=== PATIENT | male | born 1965 | race Caucasian/White ===

== ENCOUNTER 2017-05-20 20:57 | Observation (INO) | payer MEDICARE, MEDICAID, SELFPAY ==
[2017-05-20 21:00] VITALS: BP 157/114; PULSE 112; RESP 18; TEMP 36.9; O2SAT 93; BMI 25.8
--- NOTE | 2017-05-20 21:12 | XR_ITS ---
XR chest 2V HISTORY: ITS.REASON: COUGH ORDERING PHYSICIAN: Jae Alonzo MD PATIENT AGE: 52 years COMPARISON: 01/04/2017 FINDINGS: There is chronic coarsening of the bronchovascular markings. There has been a prior median sternotomy. Borderline cardiomegaly with mild prominence of the pulmonary vessels suggesting mild CHF. There is mild thickening of the minor fissure. Faint nodularity noted in the left lung base possibly related to nipple shadow. Follow-up recommended to exclude developing nodule. There is a nodular opacity noted over the posterior aspect of the heart on the lateral view measuring 1 cm. This is been stable since 02/09/2015 radiographically. IMPRESSION: 1. Mild CHF, prior median sternotomy 2. Chronic changes with coarsening of the bronchovascular markings suggesting chronic perivascular inflammatory change. 3. Possible developing left lower lobe nodule. Recommend follow-up
[2017-05-20 21:44] LABS: Basophils % 0.2 % (0.1-2.0); Eosinophils % 0.5 % (0.1-12.0); Hematocrit 37.5 % (42.0-52.0); Hemoglobin 12.6 g/dL (14.1-18.0); Lymphocytes # 1.3 K/mm3 (0.7-4.5); Lymphocytes % 15.8 K/mm3 (10-50); Mean Corpuscular HGB Conc 33.6 g/dL (31.8-35.4); Mean Corpuscular Hemoglobin 30.6 pg (27.0-31.2); Mean Platelet Volume 7.8 fl (7.4-10.4); Monocytes # 0.4 K/mm3 (0.1-1.0); Monocytes % 5.3 % (1.7-9.3); Neutrophils # 6.5 K/mm3 (1.8-7.8); Neutrophils % 78.2 % (37.0-80.0); Platelet Count 190 K/mm3 (142-424); Red Blood Count 4.12 M/mm3 (4.60-6.20); Red Cell Distribution Width 13.6 % (11.5-17.5); White Blood Count 8.3 K/mm3 (4.8-10.8)
[2017-05-20 22:01] LABS: Strep Scrn Group A (Rapid) Negative (Negative)
[2017-05-20 22:07] LABS: Adenovirus F 40/41, stool Not Detected (NotDetected); Astrovirus Not Detected (NotDetected); Campylobacter Not Detected (NotDetected); Clostridium Difficile A/B, PCR Not Detected (NotDetected); Cryptosporidium Not Detected (NotDetected); Cyclospora Cayetanesis Not Detected (NotDetected); Entamoeba histolytica Not Detected (NotDetected); Enteroaggregative E coli Not Detected (NotDetected); Enteropathogenic E coli Not Detected (NotDetected); Enterotoxigenic E coli Not Detected (NotDetected); Giardia lamblia Not Detected (NotDetected); Microscopic, Urine URINE MICROSCOPIC (MICROSCOPIC); Norovirus Not Detected (NotDetected); Plesimonas Shigalloides, PCR Not Detected (NotDetected); Rotavirus A Not Detected (NotDetected); Salmonella, PCR Not Detected (NotDetected); Sapovirus Not Detected (NotDetected); Shiga-like toxin E coli Not Detected (NotDetected); Shigella Enterovasive E coli Not Detected (NotDetected); Vibrio Cholerae Not Detected (NotDetected); Vibrio, PCR Not Detected (NotDetected); Yersinia Entercolitica, PCR Not Detected (NotDetected)
[2017-05-20 22:17] LABS: Alanine Aminotransferase 21 U/L (12-78); Albumin Level 3.6 gm/dL (3.4-5.0); Albumin/Globulin Ratio 0.8 (1.1-1.8); Alkaline Phosphatase 142 U/L (46-116); Anion Gap 12.9 mEq/L (5-15); Aspartate Amino Transferase 16 U/L (15-37); Bilirubin,Total 0.7 mg/dL (0.2-1.0); Blood Urea Nitrogen 4 mg/dL (7-18); CKMB Relative Index 2.4 U/L (0-4.0); Calcium 8.8 mg/dL (8.5-10.1); Carbon Dioxide 27 mmol/L (21.0-32.0); Chloride 101 mmol/L (98-107); Creatine Kinase 50 U/L (39-308); Creatine Kinase MB 1.2 mg/ml (0.0-3.6); Creatinine Clearance Estimated 133 mL/min (0-300); Creatinine,Serum 0.82 mg/dL (0.70-1.30); Estimated Glomerular Filt Rate 98 ml/min (>60); GFR (African American) 118 ML/MIN (>60); Globulin 4.3 gm/dl (1.3-3.2); Glucose 113 mg/dL (74-106); Potassium 2.9 mmoL/L (3.5-5.1); Sodium 138 mmol/L (136-145); Total Protein,Serum 7.9 gm/dL (6.4-8.2); Troponin I 0.71 ng/ml (0.00-0.06)
[2017-05-20 22:17] LABS: Appearance,Urine CLEAR (Clear); Bilirubin,Urine Negative (Negative); Blood, Urine TRACE-I (Negative); Color,Urine YELLOW (Yellow); Glucose,Urine (UA) Negative (Negative); Ketones,Urine Negative (Negative); Leukocyte Esterase,Urine Negative (Negative); Nitrate,Urine Negative (Negative); PH,Urine 6.5 (5.0-8.5); Protein,Urine Negative (Negative); Specific Gravity, Urine <= 1.005 (1.005-1.030); Urobilinogen,Urine 0.2 EU/dl (0.2)
--- NOTE | 2017-05-20 22:18 | PC.NURSE ---
CRITICAL LAB VALUES CALLED FROM LAB. POTASSIUM 2.[address] MCELROY NOTIFIED.
--- NOTE | 2017-05-20 22:23 | HMH.EDNVD ---
ED Disposition Clinical Impression: Gastroenteritis, Elevated troponin I level, Hypokalemia Disposition: Admitted as Observation Condition on Discharge: Good Referrals: Jae Alonzo MD [Primary Care Provider] - - Critical Care Critical Care Time: No Attestation: On 05/20/17, the high probability of a clinically significant, sudden or life threatening deterioration of the following system(s) required my full and direct attention, intervention and personal management. The time I documented below is in addition to time spent performing reported procedures but includes the following listed in this critical care notation. Medical Decision Making - Medical Records Medical records reviewed: Yes: I reviewed the patient's medical records. Vital Signs: 05/20/17 21:00 Temperature 98.4 F Temperature Source Oral Pulse Rate [Right Brachial] 112 H Respiratory Rate 18 Blood Pressure [Right Arm] 157/114 Blood Pressure Mean [Right Arm] 128 Blood Pressure Source [Right Arm] Manual Cuff/ Doppler Blood Pressure Position [Right Arm] Supine 02 Sat by Pulse Oximetry 93 L Oxygen Delivery Method Room Air - Lab Data Lab results reviewed: Yes: I reviewed the patient's lab results. Lab Results 05/20/17 21:20: WBC 8.3, RBC 4.12 L, Hgb 12.6 L, Hct 37.5 L, MCV 91.0, MCH 30.6, MCHC 33.6, RDW 13.6, Plt Count 190, MPV 7.8, Neut % (Auto) 78.2, Lymph % (Auto) 15.8, [place] % (Auto) 5.3, Eos % (Auto) 0.5, Baso % (Auto) 0.2, Neut # (Auto) 6.5, Lymph # (Auto) 1.3, [place] # (Auto) 0.4, Eos # (Auto) 0.0, Baso # (Auto) 0.0 05/20/17 21:20: Sodium 138, Potassium 2.9 L*, Chloride 101, Carbon Dioxide 27, Anion Gap 12.9, BUN 4 L, Creatinine 0.82, Estimated Creat Clear 133, Estimated GFR 98, Est GFR ( Amer) 118, Glucose 113 H, Calcium 8.8, Total Bilirubin 0.7, AST 16, ALT 21, Alkaline Phosphatase 142 H, Total Creatine Kinase 50, CK-MB (CK-2) 1.2, CK-MB (CK-2) Rel Index 2.4, Troponin I 0.71 H, Total Protein 7.9, Albumin 3.6, Globulin 4.3 H, Albumin/Globulin Ratio 0.8 L 05/20/17 21:20: Lactic Acid 1.0 05/20/17 21:20: Influenza Type A Ag Negative, Influenza Type B Ag Negative, Group A Strep Rapid Negative 05/20/17 21:56: Urine Color Yellow, Urine Appearance Clear, Urine pH 6.5, Ur Specific [place] <= 1.005, Urine Protein Negative, Urine Glucose (UA) Negative, Urine Ketones Negative, Urine Blood Trace-i, Urine Nitrate Negative, Urine Bilirubin Negative, Urine Urobilinogen 0.2, Ur Leukocyte Esterase Negative Result diagrams: 05/20/17 21:20 05/20/17 21:20 Orders (Tests/Meds): ED MEDICATIONS Generic Name Dose Route Start Last Admin Trade Name Freq PRN Reason Stop Dose Admin Sodium Chloride 1,000 mls @ 999 mls/hr 05/20/17 21:30 05/20/17 21:23 Sod Chlor 0.9% 1000ml Bag IV 05/20/17 22:30 999 mls/hr .Q1H1M SWEETIE Administration Discontinued Medications Generic Name Dose Route Start Last Admin Trade Name Freq PRN Reason Stop Dose Admin Ondansetron HCl 4 mg 05/20/17 21:12 05/20/17 21:18 Zofran 4mg/2ml Vial IV 05/20/17 21:13 4 mg ONCE ONE Administration ORDERS Category Date Time Status XR chest 2V Stat Exams 05/20/17 21:12 Taken Diarrhea Panel, PCR Stat Lab 05/20/17 21:56 Received Urinalysis-Acute [Urinalysis and Microscopic] Stat Lab 05/20/17 21:56 Results Blood Culture Stat Micro 05/20/17 21:20 Received Strep Screen Confirmation Stat Micro 05/20/17 21:20 Received 12-lead EKG Request [ECG Request by /Tu] Stat Y 05/20/17 21:12 Ordered - Radiology Data #1 Image(s): Chest Image Reviewed: Yes I reviewed the patient's radiology image Preliminary Findings: Normal/NAD - ECG Data Tracing #1 I reviewed this ECG and interpreted as documented below: Normal Sinus Rhythm: Yes Conduction abnormalities present: LBBB - Jonathan Inquiry Pt receiving controlled substance: No Nausea/Vomiting/Diarrhea HPI - General Chief complaint: Nausea/Vomiting/Diarrhea Stated complaint: pain all over,
--- NOTE | 2017-05-20 22:26 | ED_ITS ---
ED Disposition Clinical Impression: Gastroenteritis, Elevated troponin I level, Hypokalemia Disposition: Admitted as Observation Condition on Discharge: Good Referrals: Jae Alonzo MD [Primary Care Provider] - - Critical Care Critical Care Time: No Attestation: On 05/20/17, the high probability of a clinically significant, sudden or life threatening deterioration of the following system(s) required my full and direct attention, intervention and personal management. The time I documented below is in addition to time spent performing reported procedures but includes the following listed in this critical care notation. Medical Decision Making - Medical Records Medical records reviewed: Yes: I reviewed the patient's medical records. Vital Signs: 05/20/17 21:00 Temperature 98.4 F Temperature Source Oral Pulse Rate [Right Brachial] 112 H Respiratory Rate 18 Blood Pressure [Right Arm] 157/114 Blood Pressure Mean [Right Arm] 128 Blood Pressure Source [Right Arm] Manual Cuff/ Doppler Blood Pressure Position [Right Arm] Supine 02 Sat by Pulse Oximetry 93 L Oxygen Delivery Method Room Air - Lab Data Lab results reviewed: Yes: I reviewed the patient's lab results. Lab Results 05/20/17 21:20: WBC 8.3, RBC 4.12 L, Hgb 12.6 L, Hct 37.5 L, MCV 91.0, MCH 30.6 , MCHC 33.6, RDW 13.6, Plt Count 190, MPV 7.8, Neut % (Auto) 78.2, Lymph % (Auto ) 15.8, [place] % (Auto) 5.3, Eos % (Auto) 0.5, Baso % (Auto) 0.2, Neut # (Auto) 6.5, Lymph # (Auto) 1.3, [place] # (Auto) 0.4, Eos # (Auto) 0.0, Baso # (Auto) 0.0 05/20/17 21:20: Sodium 138, Potassium 2.9 L*, Chloride 101, Carbon Dioxide 27, Anion Gap 12.9, BUN 4 L, Creatinine 0.82, Estimated Creat Clear 133, Estimated GFR 98, Est GFR ( Amer) 118, Glucose 113 H, Calcium 8.8, Total Bilirubin 0.7, AST 16, ALT 21, Alkaline Phosphatase 142 H, Total Creatine Kinase 50, CK- MB (CK-2) 1.2, CK-MB (CK-2) Rel Index 2.4, Troponin I 0.71 H, Total Protein 7.9 , Albumin 3.6, Globulin 4.3 H, Albumin/Globulin Ratio 0.8 L 05/20/17 21:20: Lactic Acid 1.0 05/20/17 21:20: Influenza Type A Ag Negative, Influenza Type B Ag Negative, Group A Strep Rapid Negative 05/20/17 21:56: Urine Color Yellow, Urine Appearance Clear, Urine pH 6.5, Ur Specific [place] <= 1.005, Urine Protein Negative, Urine Glucose (UA) Negative, Urine Ketones Negative, Urine Blood Trace-i, Urine Nitrate Negative, Urine Bilirubin Negative, Urine Urobilinogen 0.2, Ur Leukocyte Esterase Negative Result diagrams: 05/20/17 21:20 05/20/17 21:20 Orders (Tests/Meds): ED MEDICATIONS Generic Name Dose Route Start Last Admin Trade Name Freq PRN Reason Stop Dose Admin Sodium Chloride 1,000 mls @ 999 mls/hr 05/20/17 21:30 05/20/17 21:23 Sod Chlor 0.9% 1000ml Bag IV 05/20/17 22:30 999 mls/hr .Q1H1M SWEETIE Administration Discontinued Medications Generic Name Dose Route Start Last Admin Trade Name Freq PRN Reason Stop Dose Admin Ondansetron HCl 4 mg 05/20/17 21:12 05/20/17 21:18 Zofran 4mg/2ml Vial IV 05/20/17 21:13 4 mg ONCE ONE Administration ORDERS Category Date Time Status XR chest 2V Stat Exams 05/20/17 21:12 Taken Diarrhea Panel, PCR Stat Lab 05/20/17 21:56 Received Urinalysis-Acute [Urinalysis and Microscopic] Stat Lab 05/20/17 21:56 Results Blood Culture Stat Micro 05/20/17 21:20 Received
[2017-05-20 22:56] VITALS: BMI 26.4
[2017-05-20 22:59] LABS: Bacteria,Urine Trace /lpf
[2017-05-20 23:20] VITALS: BP 126/94; PULSE 120; RESP 16; TEMP 37
[2017-05-21] VITALS (12 sets, daily range): BP systolic 133–163; BP diastolic 74–92; PULSE 68–107; RESP 18–20; TEMP 36.5–37.2; O2SAT 90–95; BMI 26.2
--- NOTE | 2017-05-21 00:34 | PC.NURSE ---
Pt is not sure on the dosage of plavix and eliquis.
--- NOTE | 2017-05-21 01:03 | PC.ADMIT ---
[facility] [address] Admission Note: PATIENT IS A 52 YEAR OLD WHITE MALE WITH A CARDIAC HX OF NM, STENTS, ANGINA, CABG,ABNORMAL TROPONINS AND EKG'S. HAS A CONSULT WITH NARDA THIS A.M. IS NPO AT THIS TIME. STATES HAS HAD N/V/D FOR DAYS. ALSO WEAKNESS AND BODY ACHES. HAS RHONCHI IN RIGHT UPPER LOBE, RESP ARE EVEN AND NONLABORED. WAS HAVING SOME PAIN IN ABDOMEN AND CHEST. PT ASK FOR TYLENOL ORDERED. NO SOA OR S/SX OF DISTRESS NOTED. BED LOCKED IN LOW POSITION, SIDE RAILS UP X 2, CALL CANTU WITHIN REACH. ORIENTED PT TO UNIT, WILL MONITOR VIA TELE AND Q 2 HOUR CHECKS. ENCOURAGED TO NOTIFY STAFF OF ANY NEEDS. 02 SAT IS 93% ON ROOM AIR. The patient,Isaak Good,52 y/o, was given written information regarding hospital policies, unit procedures and contact persons. Patient's smoking status: Current every day smoker. Vital Signs - 8 hr 05/20/17 21:00 05/20/17 23:20 05/21/17 00:00 Temperature 98.4 F 98.6 F 98.5 F Pulse Rate 120 H Pulse Rate [Left Brachial] 76 Pulse Rate [Right Brachial] 112 H 76 Respiratory Rate 18 16 20 Blood Pressure 126/94 Blood Pressure [Left Arm] 156/88 Blood Pressure [Right Arm] 157/114 156/88 02 Sat by Pulse Oximetry 93 L 93 L
--- NOTE | 2017-05-21 06:08 | PC.NURSE ---
ZBIGNIEW Skelton, notified of Dr Rosenthal consult
--- NOTE | 2017-05-21 06:51 | CA_ITS ---
PROCEDURE: 2-D M-mode and color Doppler study INDICATIONS FOR THE TEST: Chest pain X COPDX Heart Murmur Tobacco SmokingX Palpitations Fatigue Syncope Edema Hypertension Diabetes Mellitus Rheumatic Fever SOBXDOEXObesity Hyperlipidemia Family History HD Additional History CAD,CABG EF 40% ECHO OF 12/03/16 PATIENT INFORMATION HEIGHT: 74 WEIGHT:201 GENDER: Male B/P:110/70 2-D/M-MODE INTERPRETATION: 2-D MEASUREMENTS OBSERVED VALUES IN CMS Right Ventricular Dimension (RVDd) .7 Interventricular Septum (Thickness)(IVsd) 1.1 Left Ventricular Internal Dimensions(LVIDd) 7.9 Left Ventricular Posterior Wall (Thickness)(LVPWd) 1.2 Aortic Root 5.0 Aortic Cusp Separation 2.1 Left Atrial Dimensions (LAD) 5.2 2D 1. Left atrium is moderately enlarged, left ventricle is moderately dilated, there is mild concentric left ventricular hypertrophy, there is severely reduced left ventricular size function, visually estimated ejection fraction of 20-25%, there is marked hypokinesis involving mid to distal septum, anterior, anteroapical and apical wall. 2. The right atrium and right ventricle are normal size and contractility. 3. The aortic valve is minimally thickened and fibrosed. 4. The mitral and tricuspid valve leaflets are minimally thickened. 5. The pulmonic valve is poorly visualized. 6. No significant pericardial effusion noted. DOPPLER INTERROGATION: Doppler interrogation of the aortic, mitral and tricuspid valves show presence of mild aortic, mild mitral and tricuspid regurgitation, tricuspid and jet velocity is insufficient for calculation of the right ventricular systolic pressure, diastolic parameters are inconclusive. CONCLUSION: 1. Moderately enlarged left atrium, moderately dilated left ventricle, mild concentric left ventricular hypertrophy, visually estimated ejection fraction 20-25% with multiple segmental wall motion abnormalities as described above. 2. Mild aortic, mild mitral and tricuspid regurgitation 3. No significant pericardial effusion noted.
[2017-05-21 07:04] LABS: Basophils % 0.3 % (0.1-2.0); Eosinophils # 0.1 K/mm3 (0.0-0.4); Eosinophils % 1.5 % (0.1-12.0); Hematocrit 33.1 % (42.0-52.0); Lymphocytes # 1.8 K/mm3 (0.7-4.5); Lymphocytes % 29.9 K/mm3 (10-50); Mean Corpuscular HGB Conc 33.7 g/dL (31.8-35.4); Mean Platelet Volume 7.8 fl (7.4-10.4); Monocytes # 0.4 K/mm3 (0.1-1.0); Monocytes % 6.7 % (1.7-9.3); Neutrophils # 3.7 K/mm3 (1.8-7.8); Neutrophils % 61.5 % (37.0-80.0); Platelet Count 163 K/mm3 (142-424); Red Cell Distribution Width 13.7 % (11.5-17.5); White Blood Count 5.9 K/mm3 (4.8-10.8)
[2017-05-21 07:10] LABS: Anion Gap 12.1 mEq/L (5-15); Blood Urea Nitrogen 4 mg/dL (7-18); Carbon Dioxide 27 mmol/L (21.0-32.0); Chloride 108 mmol/L (98-107); Creatinine Clearance Estimated 152 mL/min (0-300); Creatinine,Serum 0.73 mg/dL (0.70-1.30); Estimated Glomerular Filt Rate 112 ml/min (>60); GFR (African American) 135 ML/MIN (>60); Glucose 93 mg/dL (74-106); Magnesium 1.5 mg/dL (1.4-2.2); Phosphorous 3.4 mg/dL (2.4-4.9); Potassium 3.1 mmoL/L (3.5-5.1); Sodium 144 mmol/L (136-145)
--- NOTE | 2017-05-21 07:17 | HMH.CNCARD ---
History of Present Illness Consult date: 05/21/17 Requesting physician: Jae Alonzo Consult reason: shortness of breath Chief complaint: Shortness of breath Additional Medical History:: 1. Coronary artery disease A. History of coronary bypass grafting ?3. SRINIVASAN not used. B. History of persistent elevated troponin prompting LEFT heart catheterization, 08/01/2016, diffuse, mild to moderate nonflow limiting coronary artery disease with all vein grafts occluded by previous angiography. LEFT ventricular ejection fraction 40 percent with LV dilatation noted. LVEDP is 15 mmHg. C. Echocardiogram 08/01/2016 LEFT atrial size 5.8 cm, mild LEFT ventricular dilatation with an estimated ejection fraction of 40 percent with marked hypo-to akinesis involving the mid to distal septum, anteroapical, apex and inferior mann. RIGHT atrium and RIGHT ventricle normal in size with normal contractility. Aortic valve is thickened and calcified but continued to display mobility. Mitral valve leaflets are minimally thickened with no MS. Mild MR and TR noted. D. Cardiac catheterization 06/2015 adequate jackson coronary arteries with mild nonflow limiting disease. All saphenous vein grafts are occluded ostially with no identifiable angiographic origin. Hyperdynamic ejection fraction at 70 percent with LVEDP 18 mmHg. 2. History of infrarenal abdominal aortic aneurysm, status post percutaneous endovascular repair using a NSH [employer] modular bifurcated prosthesis (main body of the graft 26 x 111, LEFT ipsilateral limb 20 x 90, RIGHT contralateral limb 16 x 90), Dr. Alexy Licea, [facility], [place], [place], 08/2014 3. Atrial fibrillation, paroxysmal A. Previously on Coumadin therapy, switch to Xarelto therapy 07/2016 but currently on Eliquis therapy at this time. B. History of TIA for which she has been on Plavix. 4. Tobacco use of one to 1.5 packs per day 5. Chronic back pain 6. Chronic abnormal electrocardiogram with LEFT bundle branch block 7. Hypertension 8. Hyperlipidemia History of present illness: 52-year-old white male with several days history of increasing shortness of breath and cough. Patient denies significant chest pain or pressure. Patient was seen in the emergency department and due to mildly elevated troponin was admitted for further evaluation. Patient has had 2 previous cardiac catheterizations in the last 2 years both showing mild to moderate coronary artery disease. His ejection fraction has reduced from 60-40% by cardiac cath last year in July. Patient states he has been compliant with his medications. Echocardiogram this morning shows ejection fraction in the 20-25% range. Cardiology consulted for further evaluation recommendation. [facility] History Medical History: Reports:: Atrial Fibrillation, Congestive Heart Failure, Coronary Artery Disease, Hyperlipidemia, Hypertension Denies:: Cancer, Diabetes Mellitus Type 1, Diabetes Mellitus Type 2, Internal Pacemaker, MRSA Laterality Cases: Right: Arthroscopy Hip Other Surgeries: Yes: CABG. No: Pacemaker Amputation: No Fractures: No - *Social History Educational Level: Completed Grade School Smoking Status: Current every day smoker Tobacco Type: cigarettes # Packs/Day (cigarettes): 1 #Yrs smoked (if former smoker): 40 Alcohol Intake: never Occupational Status: disabled Housing: apartment Household Members: none - Psychiatric History Expresses thoughts of harming self/others: None Suicide Plan Description: No Plan *Family Hx:: Diabetes Meds Home Medications Medication Instructions Recorded Confirmed Type Apixaban [Eliquis] 5 mg PO BID 05/21/17 05/21/17 History Clopidogrel Bisulfate [Plavix] 75 mg PO DAILY 05/21/17 05/21/17 History Gabapentin [Gabapentin 800mg Tab] 800 mg PO TID 05/21/17 05/21/17 History Naproxen [Naproxen] 500 mg PO DAILY 05/21/17 05/21/17 History Pantoprazole Sodium [Pantoprazole 40 mg PO DAILY 05/21/17 05/21/17 History 20mg Tab] Sertraline HCl [Zoloft 100mg 100
[2017-05-21 07:25] LABS: Hemoglobin 11.2 g/dL (14.1-18.0)
--- NOTE | 2017-05-21 07:32 | PC.NURSE ---
REPORT GIVEN TO Alvarado VALENCIA
--- NOTE | 2017-05-21 07:35 | HMH.PHAVTE ---
[facility] VTE Monitoring - Patient Demographics Admission date: 05/20/17 Report Date: 05/21/17 Time: 07:35 Allergies/Adverse Reactions: Patient Allergies diphenhydramine [From BENADRYL ALLERGY] Allergy (Mild, Verified 05/20/17 21:10) NA-NAUSEA pseudoephedrine [From SUDAFED] Allergy (Mild, Verified 05/20/17 21:10) NA-NAUSEA nitroglycerin [From NITRO-BID] Allergy (Unknown, Verified 05/20/17 21:10) Height: 1.88 m Weight: 92.76 kg Patient Problems: Current Active Problems Gastroenteritis (Acute) Elevated troponin I level (Acute) Hypokalemia (Acute) - VTE Risk Labs: VTE Related Lab Results Hgb 11.2 g/dL (14.1-18.0) L D 05/21/17 06:30 Hct 33.1 % (42.0-52.0) L 05/21/17 06:30 Plt Count 163 K/mm3 (142-424) 05/21/17 06:30 BUN 4 mg/dL (7-18) L 05/21/17 06:30 Creatinine 0.73 mg/dL (0.70-1.30) 05/21/17 06:30 Estimated Creat Clear 152 mL/min (0-300) 05/21/17 06:30 VTE Score: 6 VTE Risk Level: Moderate Risk Clinical Trial Participant: No - Prophylaxis VTE Prophylaxis Ordered?: Yes Types of VTE Prophylaxis: TEDS Knee High Location of Applied Device: Bilateral Lower Extremeties
[2017-05-21 07:43] LABS: Troponin I 0.74 ng/ml (0.00-0.06)
--- NOTE | 2017-05-21 13:15 | HMH.HP ---
*Admission Date: 05/20/17 *Chief complaint: vomiting *History of present illness: this wm with vomiting and diarrhea with achey and cough but no rash and occ chest pain - has hx of cad and lbbb and a fib with chf- pt was seen in the ed with abn labs and elevated troponin and was admitted for ivf and card eval [facility] History I have reviewed the patient's past medical history: Yes Medical History: Reports:: Atrial Fibrillation, Congestive Heart Failure, Coronary Artery Disease, Hyperlipidemia, Hypertension Denies:: Cancer, Diabetes Mellitus Type 1, Diabetes Mellitus Type 2, Internal Pacemaker, MRSA Laterality Cases: Right: Arthroscopy Hip Other Surgeries: Yes: CABG. No: Pacemaker Amputation: No Fractures: No - *Social History Educational Level: Completed Grade School Smoking Status: Current every day smoker Tobacco Type: cigarettes # Packs/Day (cigarettes): 1 #Yrs smoked (if former smoker): 40 Alcohol Intake: never Occupational Status: disabled Housing: apartment Household Members: none - Psychiatric History Expresses thoughts of harming self/others: None Suicide Plan Description: No Plan *Family Hx:: Diabetes Review of Systems - Review of Systems Review of systems:: pertinent systems reviewed and negative unless documented below - Constitutional Reports fatigue, Reports fever(s), Reports malaise - Eyes Denies change in vision - ENT Denies throat swelling - *Cardiovascular Reports chest pain at rest, Reports shortness of breath - *Respiratory Reports cough, Denies coughing up blood - *Gastrointestinal Reports abdominal pain, Reports cramping, Reports nausea, Reports vomiting - *Musculoskeletal Denies joint pain - Integumentary/Breasts Denies rash - *Neurologic Denies confusion, Denies seizure-like activity Meds Home Medications Medication Instructions Recorded Confirmed Type Apixaban [Eliquis] 5 mg PO BID 05/21/17 05/21/17 History Clopidogrel Bisulfate [Plavix] 75 mg PO DAILY 05/21/17 05/21/17 History Gabapentin [Gabapentin 800mg Tab] 800 mg PO TID 05/21/17 05/21/17 History Naproxen [Naproxen] 500 mg PO DAILY 05/21/17 05/21/17 History Pantoprazole Sodium [Pantoprazole 40 mg PO DAILY 05/21/17 05/21/17 History 20mg Tab] Sertraline HCl [Zoloft 100mg 100 mg PO BID 05/21/17 05/21/17 History tablet] Allergies Allergy/AdvReac Type Severity Reaction Status Date / Time diphenhydramine Allergy Mild NA-NAUSEA Verified 05/20/17 21:10 [From BENADRYL ALLERGY] pseudoephedrine Allergy Mild NA-NAUSEA Verified 05/20/17 21:10 [From SUDAFED] nitroglycerin Allergy Unknown Verified 05/20/17 21:10 [From NITRO-BID] Exam Vital signs and Labs for Last 24 Hours: Temp Pulse Resp BP Pulse Ox 98.2 F 80 20 133/74 93 L 05/21/17 11:46 05/21/17 12:00 05/21/17 11:46 05/21/17 11:46 05/21/17 11:46 Laboratory Results - last 24 hr 05/21/17 06:30: WBC 5.9 D, RBC 3.60 L, Hgb 11.2 L D, Hct 33.1 L, MCV 92.0, MCH 31.0, MCHC 33.7, RDW 13.7, Plt Count 163, MPV 7.8, Neut % (Auto) 61.5, Lymph % (Auto) 29.9, [place] % (Auto) 6.7, Eos % (Auto) 1.5, Baso % (Auto) 0.3, Neut # (Auto) 3.7, Lymph # (Auto) 1.8, [place] # (Auto) 0.4, Eos # (Auto) 0.1, Baso # (Auto) 0.0 05/21/17 06:30: Sodium 144, Potassium 3.1 L, Chloride 108 H, Carbon Dioxide 27, Anion Gap 12.1, BUN 4 L, Creatinine 0.73, Estimated Creat Clear 152, Estimated GFR 112, Est GFR ( Amer) 135, Glucose 93, Phosphorus 3.4, Magnesium 1.5 05/21/17 06:30: Troponin I 0.74 H 05/21/17 06:30: B-Natriuretic Peptide 663 H I & O for Last 24 hours: Intake & Output 05/19/17 05/20/17 05/21/17 05/22/17 11:59 11:59 11:59 11:59 Intake Total 120 / 120 Output Total 1800 / 1800 Balance -1680 / -1680 Weight 204 lb 8 oz - Constitutional no acute distress - *Routine HEENT Exam Head: Present: normocephalic Eye: Present: EOMI, PERRL. Absent: conjunctival icterus ENT: Present: mucous membranes dry - *Routine Neck Exam Pre
--- NOTE | 2017-05-21 13:18 | P.HP_ITS ---
*Admission Date: 05/20/17 *Chief complaint: vomiting *History of present illness: this wm with vomiting and diarrhea with achey and cough but no rash and occ chest pain - has hx of cad and lbbb and a fib with chf- pt was seen in the ed with abn labs and elevated troponin and was admitted for ivf and card eval [facility] History I have reviewed the patient's past medical history: Yes Medical History: Reports:: Atrial Fibrillation, Congestive Heart Failure, Coronary Artery Disease, Hyperlipidemia, Hypertension Denies:: Cancer, Diabetes Mellitus Type 1, Diabetes Mellitus Type 2, Internal Pacemaker, MRSA Laterality Cases: Right: Arthroscopy Hip Other Surgeries: Yes: CABG. No: Pacemaker Amputation: No Fractures: No - *Social History Educational Level: Completed Grade School Smoking Status: Current every day smoker Tobacco Type: cigarettes # Packs/Day (cigarettes): 1 #Yrs smoked (if former smoker): 40 Alcohol Intake: never Occupational Status: disabled Housing: apartment Household Members: none - Psychiatric History Expresses thoughts of harming self/others: None Suicide Plan Description: No Plan *Family Hx:: Diabetes Review of Systems - Review of Systems Review of systems:: pertinent systems reviewed and negative unless documented below - Constitutional Reports fatigue, Reports fever(s), Reports malaise - Eyes Denies change in vision - ENT Denies throat swelling - *Cardiovascular Reports chest pain at rest, Reports shortness of breath - *Respiratory Reports cough, Denies coughing up blood - *Gastrointestinal Reports abdominal pain, Reports cramping, Reports nausea, Reports vomiting - *Musculoskeletal Denies joint pain - Integumentary/Breasts Denies rash - *Neurologic Denies confusion, Denies seizure-like activity Meds Home Medications Medication Instructions Recorded Confirmed Type Apixaban [Eliquis] 5 mg PO BID 05/21/17 05/21/17 History Clopidogrel Bisulfate [Plavix] 75 mg PO DAILY 05/21/17 05/21/17 History Gabapentin [Gabapentin 800mg Tab] 800 mg PO TID 05/21/17 05/21/17 History Naproxen [Naproxen] 500 mg PO DAILY 05/21/17 05/21/17 History Pantoprazole Sodium [Pantoprazole 40 mg PO DAILY 05/21/17 05/21/17 History 20mg Tab] Sertraline HCl [Zoloft 100mg 100 mg PO BID 05/21/17 05/21/17 History tablet] Allergies Allergy/AdvReac Type Severity Reaction Status Date / Time diphenhydramine Allergy Mild NA-NAUSEA Verified 05/20/17 21:10 [From BENADRYL ALLERGY] pseudoephedrine Allergy Mild NA-NAUSEA Verified 05/20/17 21:10 [From SUDAFED] nitroglycerin Allergy Unknown Verified 05/20/17 21:10 [From NITRO-BID] Exam Vital signs and Labs for Last 24 Hours: Temp Pulse Resp BP Pulse Ox 98.2 F 80 20 133/74 93 L 05/21/17 11:46 05/21/17 12:00 05/21/17 11:46 05/21/17 11:46 05/21/17 11:46 Laboratory Results - last 24 hr 05/21/17 06:30: WBC 5.9 D, RBC 3.60 L, Hgb 11.2 L D, Hct 33.1 L, MCV 92.0, MCH 31.0, MCHC 33.7, RDW 13.7, Plt Count 163, MPV 7.8, Neut % (Auto) 61.5, Lymph % ( Auto) 29.9, [place] % (Auto) 6.7, Eos % (Auto) 1.5, Baso % (Auto) 0.3, Neut # (Auto ) 3.7, Lymph # (Auto) 1.8, [place] # (Auto) 0.4, Eos # (Auto) 0.1, Baso # (Auto) 0.0 05/21/17 06:30: Sodium 144, Potassium 3.1 L, Chloride 108 H, Carbon Dioxide 27, Anion Gap 12.1, BUN 4 L, Creatinine 0.73, Estimated Creat Clear 152, Amy
--- NOTE | 2017-05-21 17:21 | PC.NURSE ---
scattered wheezes heard. pt has been using urinal throughout shift. stated nausea x1 this shift and prn med given per may with relief. pt tolerating diet. awake overnight monitor reading afib w/pjc, inverted t waves, and wide qrs. pt stated some lower back pain and Tylenol was given. iv patent. call light in reach. will continue to monitor pt condition.
--- NOTE | 2017-05-21 18:59 | PC.NURSE ---
report to be given to kilo mosquera
[2017-05-22] VITALS (12 sets, daily range): BP systolic 140–167; BP diastolic 80–95; PULSE 60–110; RESP 18–20; TEMP 36.7–36.9; O2SAT 89–96; BMI 26.1
--- NOTE | 2017-05-22 04:24 | PC.NURSE ---
PT HAS SLEPT MOST OF NIGHT. WEARING OXYGEN 2L PER NC PRN. PT HAS EATEN 2-3 BOWLS OF CEREAL AND DRANK SODAS. REQUESTED MED FOR STOMACH TIMES 2. PHENERGAN GIVEN. AT FIB WITH WIDE QRS NOTED ON TELEMETRY.
--- NOTE | 2017-05-22 07:19 | PC.NURSE ---
REPORT GIVEN TO Rj LEAL W/C
[2017-05-22 09:32] LABS: Anion Gap 11.2 mEq/L (5-15); Blood Urea Nitrogen 4 mg/dL (7-18); Carbon Dioxide 28 mmol/L (21.0-32.0); Chloride 107 mmol/L (98-107); Creatinine Clearance Estimated 140 mL/min (0-300); Creatinine,Serum 0.79 mg/dL (0.70-1.30); Estimated Glomerular Filt Rate 102 ml/min (>60); GFR (African American) 124 ML/MIN (>60); Glucose 105 mg/dL (74-106); Potassium 3.2 mmoL/L (3.5-5.1); Sodium 143 mmol/L (136-145)
--- NOTE | 2017-05-22 09:34 | XR_ITS ---
XR chest 2V HISTORY: Shortness of breath ITS.REASON: sob ORDERING PHYSICIAN: Jae Alonzo MD PATIENT AGE: 52 years COMPARISON: 05/20/2017 FINDINGS: There is cardiomegaly with pulmonary venous congestion. There is chronic coarsening of bronchovascular markings. There is thickening of the right minor fissure slightly more prominent compared to the previous study. Previously noted opacity left lung base is no longer apparent. There is a nodular density noted in the infrahilar region on the lateral view not definitely changed. No lobar consolidation or collapse. IMPRESSION: No change mild CHF.
--- NOTE | 2017-05-22 09:38 | P.PN_ITS ---
Internal Medicine - PN: Subj *Date: 05/22/17 *Time: 09:35 Interval history: pt is doing better with gi - he has inc sob last pm and i/o showed diuresis Exam Vital signs and Labs for Last 24 Hours: Temp Pulse Resp BP Pulse Ox 98.3 F 109 H 20 158/88 96 05/22/17 07:19 05/22/17 07:19 05/22/17 07:19 05/22/17 07:19 05/22/17 07:19 Laboratory Results - last 24 hr 05/22/17 08:29: Sodium 143, Potassium 3.2 L, Chloride 107, Carbon Dioxide 28, Anion Gap 11.2, BUN 4 L, Creatinine 0.79, Estimated Creat Clear 140, Estimated GFR 102, Est GFR ( Amer) 124, Glucose 105 I & O for Last 24 hours: Intake & Output 05/19/17 05/20/17 05/21/17 05/22/17 11:59 11:59 11:59 11:59 Intake Total 120 / 120 4830 / 4830 Output Total 1800 / 1800 2700 / 2700 Balance -1680 / -1680 2130 / 2130 Weight 204 lb 8 oz 203 lb 8 oz - Constitutional no acute distress - *Routine HEENT Exam Head: Present: normocephalic Eye: Present: EOMI, PERRL ENT: Present: mucous membranes dry - *Routine Neck Exam Absent: JVD - *Routine Respiratory Exam Present: distant breath sounds. Absent: respiratory distress - *Routine Cardiovascular Exam Present: murmur, S4 - *Routine Abdominal Exam Present: soft - *Routine Extremities Exam Absent: edema, calf tenderness - *Routine Skin Exam Present: intact - *Routine Neurological Exam Present: oriented X3, CN II-XII intact - Routine Psychiatric Exam Present: normal affect Assessment and Plan (1) Nonischemic cardiomyopathy Current visit: Yes Status: Acute Category: Medical Code(s): I42.8 - Other cardiomyopathies (2) Coronary artery disease Current visit: Yes Status: Acute Category: Medical Code(s): I25.10 - Atherosclerotic heart disease of [place] coronary artery without angina pectoris (3) Atrial fibrillation Current visit: Yes Status: Acute Category: Medical Code(s): I48.91 - Unspecified atrial fibrillation (4) Elevated troponin I level Current visit: Yes Status: Acute Category: Medical Code(s): R74.8 - Abnormal levels of other serum enzymes (5) Gastroenteritis Current visit: Yes Status: Acute Category: Medical Code(s): K52.9 - Noninfective gastroenteritis and colitis, unspecified (6) Left bundle branch block (LBBB) on electrocardiogram Current visit: Yes Status: Acute Category: Medical Code(s): I44.7 - Left bundle-branch block, unspecified (7) CHF (congestive heart failure) Current visit: Yes Status: Acute Category: Medical Code(s): I50.9 - Heart failure, unspecified
--- NOTE | 2017-05-22 11:55 | HMH.PNCARD ---
Subjective Date: 05/22/17 Time: 09:45 Principal diagnosis: CHF, CM Interval history: SOA overnight to the point of needing increased oxygen. I/O incomplete with reports of large volume diuresis but still getting IVF for reported GI issues. No further diarrhea per patient. BMP this AM still show BUN of 4. IVF will be discontinued now. Review of Systems - *Cardiovascular Denies chest pain - *Respiratory Reports shortness of breath - *Gastrointestinal Denies loose stools - *Neurologic Denies confusion, Denies seizure-like activity Meds Home Medications Medication Instructions Recorded Confirmed Type Apixaban [Eliquis] 5 mg PO BID 05/21/17 05/21/17 History Clopidogrel Bisulfate [Plavix] 75 mg PO DAILY 05/21/17 05/21/17 History Gabapentin [Gabapentin 800mg Tab] 800 mg PO TID 05/21/17 05/21/17 History Naproxen [Naproxen] 500 mg PO DAILY 05/21/17 05/21/17 History Pantoprazole Sodium [Pantoprazole 40 mg PO DAILY 05/21/17 05/21/17 History 20mg Tab] Sertraline HCl [Zoloft 100mg 100 mg PO BID 05/21/17 05/21/17 History tablet] Allergies Allergy/AdvReac Type Severity Reaction Status Date / Time diphenhydramine Allergy Mild NA-NAUSEA Verified 05/20/17 21:10 [From BENADRYL ALLERGY] pseudoephedrine Allergy Mild NA-NAUSEA Verified 05/20/17 21:10 [From SUDAFED] nitroglycerin Allergy Unknown Verified 05/20/17 21:10 [From NITRO-BID] Exam Vital signs and Labs for Last 24 Hours: Temp Pulse Resp BP Pulse Ox 98.0 F 95 H 20 153/81 96 05/22/17 11:26 05/22/17 11:26 05/22/17 11:26 05/22/17 11:26 05/22/17 11:26 Laboratory Results - last 24 hr 05/22/17 08:29: Sodium 143, Potassium 3.2 L, Chloride 107, Carbon Dioxide 28, Anion Gap 11.2, BUN 4 L, Creatinine 0.79, Estimated Creat Clear 140, Estimated GFR 102, Est GFR ( Amer) 124, Glucose 105 I & O for Last 24 hours: Intake & Output 02/2505/20/17 05/21/17 05/22/17 11:59 11:59 11:59 11:59 Intake Total 120 / 120 4830 / 4830 Output Total 1800 / 1800 3650 / 3650 Balance -1680 / -1680 1180 / 1180 Weight 204 lb 8 oz 203 lb 8 oz - *Routine Respiratory Exam Present: rales, rhonchi - *Routine Cardiovascular Exam Present: irregularly irregular - *Routine Extremities Exam Present: edema - *Routine Neurological Exam Present: alert, oriented X3, moving all extremities Plan - Patient/Caregiver Discharge Instructions Additional Instructions: Will increase lasix today. D/C IVF check CXR Increase coreg to 6.25 mg BID for BP and HR control. Patient Instructions: DI for Viral Gastroenteritis -- Adult - Follow Up Plan
--- NOTE | 2017-05-22 11:58 | SW/DCPLANNER ---
Spoke with patient this morning regarding discharge plans. Patient has stated that he did not have any needs at this time. Patient stated that he did not feel well right now but hoped to feel better soon. Patient has stated that he would let me know if any needs/orders appear before discharge.
--- NOTE | 2017-05-22 13:05 | PC.NURSE ---
Addendum entered by Hanna Shen RN 05/22/17 16:00: ho2 sat dropped to 89%. applied 1LNC and o2 sat increased above 90% Original Note: tried pt on room air o2 sat dropped to
--- NOTE | 2017-05-22 14:45 | PC.NURSE ---
pt has been requesting mt dew and pepsi for drinks throughout shift as well as cereal. advised pt that these drinks were not recommended with his complaints of nausea. suggested drinking twist or emerson aneesh if he wanted soda. pt states i don't like that. suggested Gatorade and pt is trying that now. asked dietitian to speak with pt about food choices and possibly added things to meal trays that pt may be able to tolerate better.
--- NOTE | 2017-05-22 16:01 | PC.NURSE ---
obtaining room air at this time. checked o2 sat is 90%. will recheck to make sure pt is sustaining.
--- NOTE | 2017-05-22 16:53 | PC.NURSE ---
pt has faint crackles scattered. bowel sounds normal. director of accreditation reading afib with wide qrs, inverted t waves and st depression. pt sustaining o2 sat at 93% on room air at this time. urine output this shift has been 4375 ml at this time. pt took shower today. pt still having c/o nausea this shift. nonskids on. call light in reach. will continue to monitor pt condition
--- NOTE | 2017-05-22 19:25 | PC.NURSE ---
report given to whit hernandez rn
[2017-05-23] VITALS (9 sets, daily range): BP systolic 142–162; BP diastolic 92–99; PULSE 80–150; RESP 18–20; TEMP 36.4–37.1; O2SAT 92–95
--- NOTE | 2017-05-23 02:49 | PC.NURSE ---
no changes noted from previous assessment , pt c/o nausea with one episode of vomiting which occurred after meal intake, pt was given PRN medication and had relief of symptoms, pt instructed to eat smaller portions more frequently and decrease carbonated beverages high in sugar content, bowel sounds are active, fine crackles to the bilateral bases and scattered rhonchi noted to auscultation, pt currently on 2l NC while sleeping, maintaining O2 sats at or above 90, pt states he is experiencing SOA when talking or with activity, phototypesetting equipment monitor on and reading A Fib with wide QRS complex, vss, no acute distress noted at this time, call light in reach, will continue to monitor.
--- NOTE | 2017-05-23 04:15 | PC.NURSE ---
at approximately 0348 pt had a minute run of vtach, and went back to baseline cardiac reading, at this time pt was asymptomatic, telemetry strip was printed for MD review.
[2017-05-23 06:52] LABS: Anion Gap 10.4 mEq/L (5-15); Blood Urea Nitrogen 8 mg/dL (7-18); Carbon Dioxide 30 mmol/L (21.0-32.0); Chloride 104 mmol/L (98-107); Creatinine Clearance Estimated 119 mL/min (0-300); Creatinine,Serum 0.93 mg/dL (0.70-1.30); Estimated Glomerular Filt Rate 85 ml/min (>60); GFR (African American) 102 ML/MIN (>60); Glucose 113 mg/dL (74-106); Potassium 3.4 mmoL/L (3.5-5.1); Sodium 141 mmol/L (136-145)
--- NOTE | 2017-05-23 08:25 | HMH.PNCARD ---
Subjective Date: 05/23/17 Time: 08:26 Principal diagnosis: CHF, CM Interval history: Feeling much better. No chest pains. Telemetry shows elevated heart rate in the 110-140 bpm range at times but manual check seems less. Pt wants to go home. Review of Systems - *Cardiovascular Denies chest pain - *Respiratory Reports shortness of breath - *Gastrointestinal Reports nausea - *Neurologic Denies confusion, Denies seizure-like activity Meds Home Medications Medication Instructions Recorded Confirmed Type Apixaban [Eliquis] 5 mg PO BID 05/21/17 05/21/17 History Clopidogrel Bisulfate [Plavix] 75 mg PO DAILY 05/21/17 05/21/17 History Gabapentin [Gabapentin 800mg Tab] 800 mg PO TID 05/21/17 05/21/17 History Naproxen [Naproxen] 500 mg PO DAILY 05/21/17 05/21/17 History Pantoprazole Sodium [Pantoprazole 40 mg PO DAILY 05/21/17 05/21/17 History 20mg Tab] Sertraline HCl [Zoloft 100mg 100 mg PO BID 05/21/17 05/21/17 History tablet] Allergies Allergy/AdvReac Type Severity Reaction Status Date / Time diphenhydramine Allergy Mild NA-NAUSEA Verified 05/20/17 21:10 [From BENADRYL ALLERGY] pseudoephedrine Allergy Mild NA-NAUSEA Verified 05/20/17 21:10 [From SUDAFED] nitroglycerin Allergy Unknown Verified 05/20/17 21:10 [From NITRO-BID] Exam Vital signs and Labs for Last 24 Hours: Temp Pulse Resp BP Pulse Ox 97.6 F 113 H 20 162/94 92 L 05/23/17 07:21 05/23/17 08:00 05/23/17 07:21 05/23/17 07:21 05/23/17 07:21 Laboratory Results - last 24 hr 05/22/17 08:29: Sodium 143, Potassium 3.2 L, Chloride 107, Carbon Dioxide 28, Anion Gap 11.2, BUN 4 L, Creatinine 0.79, Estimated Creat Clear 140, Estimated GFR 102, Est GFR ( Amer) 124, Glucose 105 05/23/17 06:30: Sodium 141, Potassium 3.4 L, Chloride 104, Carbon Dioxide 30, Anion Gap 10.4, BUN 8 D, Creatinine 0.93, Estimated Creat Clear 119, Estimated GFR 85, Est GFR ( Amer) 102, Glucose 113 H I & O for Last 24 hours: Intake & Output 05/20/17 05/21/17 05/22/17 05/23/17 11:59 11:59 11:59 11:59 Intake Total 120 / 120 4830 / 4830 2270 / 2270 Output Total 1800 / 1800 3650 / 3650 4775 / 4775 Balance -1680 / -1680 1180 / 1180 -2505 / -2505 Weight 204 lb 8 oz 203 lb 8 oz 203 lb 7.998 oz - *Routine Respiratory Exam Present: rhonchi, diminished air movement - *Routine Cardiovascular Exam Present: tachycardia, irregularly irregular Plan - Patient/Caregiver Discharge Instructions Activity: Increase coreg to 12.5 mg bid and continue ARB, diuretics along with anticoagulation. Will need follow up to assess need for AICD in future. OK to discharge home today Additional Instructions: Will increase lasix today. D/C IVF check CXR Increase coreg to 6.25 mg BID for BP and HR control. Patient Instructions: DI for Viral Gastroenteritis -- Adult - Follow Up Plan
--- NOTE | 2017-05-23 09:11 | HMH.DCSUM ---
General - General Admission date: 05/20/17 Discharge date: 05/23/17 HPI HPI: this wm with vomiting and diarrhea with achey and cough but no rash and occ chest pain - has hx of cad and lbbb and a fib with chf- pt was seen in the ed with abn labs and elevated troponin and was admitted for ivf and card eval Hospital Course Hospital Course: pt was admitted treated with iv fluids, hydrateion improved. 1. Coronary artery disease A. History of coronary bypass grafting ?3. SRINIVASAN not used. B. History of persistent elevated troponin prompting LEFT heart catheterization, 08/01/2016, diffuse, mild to moderate nonflow limiting coronary artery disease with all vein grafts occluded by previous angiography. LEFT ventricular ejection fraction 40 percent with LV dilatation noted. LVEDP is 15 mmHg. C. Echocardiogram 08/01/2016 LEFT atrial size 5.8 cm, mild LEFT ventricular dilatation with an estimated ejection fraction of 40 percent with marked hypo-to akinesis involving the mid to distal septum, anteroapical, apex and inferior mann. RIGHT atrium and RIGHT ventricle normal in size with normal contractility. Aortic valve is thickened and calcified but continued to display mobility. Mitral valve leaflets are minimally thickened with no MS. Mild MR and TR noted. D. Cardiac catheterization 06/2015 adequate [place] coronary arteries with mild nonflow limiting disease. All saphenous vein grafts are occluded ostially with no identifiable angiographic origin. Hyperdynamic ejection fraction at 70 percent with LVEDP 18 mmHg. 2. History of infrarenal abdominal aortic aneurysm, status post percutaneous endovascular repair using a [employer] modular bifurcated prosthesis (main body of the graft 26 x 111, LEFT ipsilateral limb 20 x 90, RIGHT contralateral limb 16 x 90), Dr. Alexy Licea, [facility], [place], [place], 08/2014 3. Atrial fibrillation, paroxysmal A. Previously on Coumadin therapy, switch to Xarelto therapy 07/2016 but currently on Eliquis therapy at this time. B. History of TIA for which she has been on Plavix. 4. Tobacco use of one to 1.5 packs per day 5. Chronic back pain 6. Chronic abnormal electrocardiogram with LEFT bundle branch block 7. Hypertension 8. Hyperlipidemia History of present illness: 52-year-old white male with several days history of increasing shortness of breath and cough. Patient denies significant chest pain or pressure. Patient was seen in the emergency department and due to mildly elevated troponin was admitted for further evaluation. Patient has had 2 previous cardiac catheterizations in the last 2 years both showing mild to moderate coronary artery disease. His ejection fraction has reduced from 60-40% by cardiac cath last year in July. Patient states he has been compliant with his medications. Echocardiogram this morning shows ejection fraction in the 20-25% range. Cardiology consulted for further evaluation recommendation. was seen by cardiology- per note: Increase coreg to 12.5 mg bid and continue ARB, diuretics along with anticoagulation. Will need follow up to assess need for AICD in future. OK to discharge home today Additional Instructions: Will increase lasix today. D/C IVF check CXR Increase coreg to 6.25 mg BID for BP and HR control. Objective Vital signs: Temp Pulse Resp BP Pulse Ox 97.6 F 113 H 20 162/94 92 L 05/23/17 07:21 05/23/17 08:00 05/23/17 07:21 05/23/17 07:21 05/23/17 07:21 no acute distress - *Routine HEENT Exam Head: Present: normocephalic Eye: Present: PERRL ENT: Present: mucous membranes moist - *Routine Neck Exam Present: supple, full ROM - *Routine Respiratory Exam Present: CTA bilaterally - *Routine Cardiovascular Exam Present: tachycardia - *Routine Abdominal Exam Present: soft, normoactive bowel sounds - *Routine Extremities Exam Present: full ROM - Routine Back/Spine/Pelvis Exam Back/Spine: Present: full ROM - *Routine Neurological Exam P
--- NOTE | 2017-06-06 09:48 | P.CONS_ITS ---
History of Present Illness Consult date: 05/21/17 Requesting physician: Jae Alonzo Consult reason: shortness of breath Chief complaint: Shortness of breath Additional Medical History:: 1. Coronary artery disease A. History of coronary bypass grafting ?3. SRINIVASAN not used. B. History of persistent elevated troponin prompting LEFT heart catheterization, 08/01/2016, diffuse, mild to moderate nonflow limiting coronary artery disease with all vein grafts occluded by previous angiography. LEFT ventricular ejection fraction 40 percent with LV dilatation noted. LVEDP is 15 mmHg. C. Echocardiogram 08/01/2016 LEFT atrial size 5.8 cm, mild LEFT ventricular dilatation with an estimated ejection fraction of 40 percent with marked hypo- to akinesis involving the mid to distal septum, anteroapical, apex and inferior mann. RIGHT atrium and RIGHT ventricle normal in size with normal contractility. Aortic valve is thickened and calcified but continued to display mobility. Mitral valve leaflets are minimally thickened with no MS. Mild MR and TR noted. D. Cardiac catheterization 06/2015 adequate [place] coronary arteries with mild nonflow limiting disease. All saphenous vein grafts are occluded ostially with no identifiable angiographic origin. Hyperdynamic ejection fraction at 70 percent with LVEDP 18 mmHg. 2. History of infrarenal abdominal aortic aneurysm, status post percutaneous endovascular repair using a Serstech modular bifurcated prosthesis (main body of the graft 26 x 111, LEFT ipsilateral limb 20 x 90, RIGHT contralateral limb 16 x 90), Dr. Alexy Licea, [facility], [place], [place], 08/2014 3. Atrial fibrillation, paroxysmal A. Previously on Coumadin therapy, switch to Xarelto therapy 07/2016 but currently on Eliquis therapy at this time. B. History of TIA for which she has been on Plavix. 4. Tobacco use of one to 1.5 packs per day 5. Chronic back pain 6. Chronic abnormal electrocardiogram with LEFT bundle branch block 7. Hypertension 8. Hyperlipidemia History of present illness: 52-year-old white male with several days history of increasing shortness of breath and cough. Patient denies significant chest pain or pressure. Patient was seen in the emergency department and due to mildly elevated troponin was admitted for further evaluation. Patient has had 2 previous cardiac catheterizations in the last 2 years both showing mild to moderate coronary artery disease. His ejection fraction has reduced from 60-40% by cardiac cath last year in July. Patient states he has been compliant with his medications. Echocardiogram this morning shows ejection fraction in the 20-25% range. Cardiology consulted for further evaluation recommendation. [facility] History Medical History: Reports:: Atrial Fibrillation, Congestive Heart Failure, Coronary Artery Disease, Hyperlipidemia, Hypertension Denies:: Cancer, Diabetes Mellitus Type 1, Diabetes Mellitus Type 2, Internal Pacemaker, MRSA Laterality Cases: Right: Arthroscopy Hip Other Surgeries: Yes: CABG. No: Pacemaker Amputation: No Fractures: No - *Social History Educational Level: Completed Grade School Smoking Status: Current every day smoker Tobacco Type: cigarettes # Packs/Day (cigarettes): 1 #Yrs smoked (if former smoker): 40 Alcohol Intake: never Occupational Status: disabled Housing: apartment Household Members: none - Psychiatric History Expresses thoughts of harming self/others: None Suicide Plan Description: No Plan *Family Hx:: Diabetes Meds Home Medications Medication Instructions Recorded Confirmed Type Apixaban [Eliquis] 5 mg PO BID 05/21/17
== END 2017-05-23 10:00 | disposition home or self-care (01) ==
LOC: ER 22:38 → 2ND 23:10
PROVIDERS: Physician Assistant; Admitting Provider Emergency Medicine; Emergency Provider Emergency Medicine; Family Provider Emergency Medicine; PCP Emergency Medicine; Visit Provider Emergency Medicine
DX: K52.9 Noninfective gastroenteritis and colitis, unspecified (principal); I21.4 Non-ST elevation (NSTEMI) myocardial infarction; I42.8 Other cardiomyopathies; I25.10 Atherosclerotic heart disease of native coronary artery without angina pectoris; I48.0 Paroxysmal atrial fibrillation; I44.7 Left bundle-branch block, unspecified; I50.9 Heart failure, unspecified; Z95.1 Presence of aortocoronary bypass graft; R74.8 Abnormal levels of other serum enzymes; Z91.19 Patient's noncompliance with other medical treatment and regimen
CPT/HCPCS: 36415; 71046; 80048; 80053; 81001; 82550; 82553; 83605; 83735; 83880; 84100; 84484; 85025; 87040; 87275; 87276; 87430; 87507; 93005; 93041; 93306; 94761; 96365; 96366; 96367; 96374; 96375; 99285; G0378; J2405

== ENCOUNTER 2017-05-25 16:06 | Observation (INO) | payer MEDICARE, MEDICAID, SELFPAY ==
[2017-05-25] VITALS (8 sets, daily range): BP systolic 101–142; BP diastolic 56–82; PULSE 71–89; RESP 18–22; TEMP 36.5–36.7; O2SAT 93–97; BMI 26.3; BMI 25.8
--- NOTE | 2017-05-25 | CT_ITS ---
CT angio chest HISTORY: ITS.REASON: SOA AND ELEVATED DIMER ORDERING PHYSICIAN: Jae Alonzo MD PATIENT AGE: 52 years TECHNIQUE: Axial images obtained following the administration of 75 mL of Isovue 370 . Sagittal, and coronal reformatted images are also generated and reviewed. COMPARISON: 10/04/2015. FINDINGS: Small nodes are present in the axilla. 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 Adenopathy is also a consideration. There is a small pericardial lymph node at 10 mm. Small lymph nodes are present in the mediastinum. There has been prior median sternotomy and CABG no evidence of pulmonary embolus or aortic aneurysm. There is mild cardiomegaly. Centrilobular emphysematous changes are present. There is hyperinflation with bronchial thickening and mild paraseptal emphysematous changes as well. No lobar consolidation or collapse.. Old left sixth rib fracture. Upper abdominal images show bilateral renal cysts and an aortic stent graft. IMPRESSION: 1. No evidence of acute pulmonary embolus. 2. Prior CABG. 3. Centrilobular and paraseptal emphysema with obstructive chronic bronchitis. 4. 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 Stability may be confirmed with follow-up
--- NOTE | 2017-05-25 16:18 | XR_ITS ---
XR chest 2V HISTORY: ITS.REASON: chest pain ORDERING PHYSICIAN: PATIENT AGE: 52 years COMPARISON: 05/22/2017 FINDINGS: There is been a prior median sternotomy. Previously noted CHF has shown improvement. No lobar consolidation or collapse. Previously noted fissural thickening on the right has improved.. IMPRESSION: Improved CHF.. Prior CABG. No acute finding
--- NOTE | 2017-05-25 16:19 | HMH.EDCP ---
ED Disposition Clinical Impression: COPD exacerbation, CAD (coronary artery disease), Elevated troponin, Tobacco use disorder, Non-compliance, Atypical chest pain Disposition: Still a Patient Condition on Discharge: Fair Referrals: Jae Alonzo MD [Primary Care Provider] - - Critical Care Critical Care Time: No Attestation: On , the high probability of a clinically significant, sudden or life threatening deterioration of the following system(s) required my full and direct attention, intervention and personal management. The time I documented below is in addition to time spent performing reported procedures but includes the following listed in this critical care notation. Medical Decision Making Vital Signs: 05/25/17 16:14 Temperature 97.7 F Temperature Source Oral Pulse Rate [Right Radial] 71 Respiratory Rate 20 Blood Pressure [Right Arm] 101/56 Blood Pressure Mean [Right Arm] 71 02 Sat by Pulse Oximetry 93 L Oxygen Delivery Method Room Air - Lab Data Lab results reviewed: Yes: I reviewed the patient's lab results. Lab Results 05/25/17 : WBC 9.3, RBC 4.67, Hgb 14.3, Hct 43.9, MCV 94.0, MCH 30.6, MCHC 32.5, RDW 13.7, Plt Count 294, MPV 7.8, Neut % (Auto) 59.9, Lymph % (Auto) 30.6, Yell % (Auto) 6.3, Eos % (Auto) 2.7, Baso % (Auto) 0.6, Neut # (Auto) 5.5, Lymph # (Auto) 2.8, Yell # (Auto) 0.6, Eos # (Auto) 0.3, Baso # (Auto) 0.1 05/25/17 : D-Dimer 2680 H* 05/25/17 : Sodium 141, Potassium 2.8 L*, Chloride 100, Carbon Dioxide 31, Anion Gap 12.8, BUN 10, Creatinine 1.56 H D, Estimated Creat Clear 71, Estimated GFR 47 L, Est GFR ( Amer) 56 L D, Glucose 72 L, Calcium 9.3, Total Bilirubin 0.5, AST 19, ALT 24, Alkaline Phosphatase 142 H, Total Creatine Kinase 46, CK-MB (CK-2) 1.5, CK-MB (CK-2) Rel Index 3.3, Troponin I 0.59 H, Total Protein 8.5 H, Albumin 3.7, Globulin 4.8 H, Albumin/Globulin Ratio 0.8 L 05/25/17 : B-Natriuretic Peptide 125 H Result diagrams: 05/25/17 Unknown 05/25/17 Unknown Orders (Tests/Meds): ED MEDICATIONS Discontinued Medications Generic Name Dose Route Start Last Admin Trade Name Freq PRN Reason Stop Dose Admin Albuterol/Ipratropium 3 ml 05/25/17 16:30 05/25/17 18:41 Duoneb 3ml [facility] 06/24/17 16:29 Not Given Q1H SWEETIE Albuterol/Ipratropium 3 ml 05/25/17 17:30 Duoneb 3ml [facility] 06/24/17 17:29 ONCE SWEETIE Famotidine 20 mg 05/25/17 16:31 05/25/17 16:39 Pepcid 20mg/2ml Vial IV 05/25/17 16:32 20 mg ONCE ONE Administration Iopamidol 75 ml 05/25/17 17:43 05/25/17 17:44 [id number]; 75ml Vial IV 05/25/17 17:44 75 ml ONCE ONE Administration Methylprednisolone Sodium Succinate 125 mg 05/25/17 16:18 05/25/17 16:39 Solu-Medrol 125mg/2ml Vial IV 05/25/17 16:19 125 mg ONCE ONE Administration Potassium Chloride 20 meq 05/25/17 17:34 05/25/17 17:38 Klor-Con 20meq Tablet PO 05/25/17 17:35 20 meq ONCE ONE Administration Sodium Chloride 50 ml 05/25/17 17:43 05/25/17 17:44 Rad-Ns 50ml Vial IV 05/25/17 17:44 50 ml ONCE ONE Administration Sodium Chloride 10 ml 05/25/17 17:43 05/25/17 17:44 Rad-Saline Flush 10ml Syringe IV 05/25/17 17:44 10 ml ONCE ONE Administration ORDERS Category Date Time Status CT angio chest Routine Cat Scan 05/25/17 Taken XR chest 2V Stat Exams 05/25/17 16:18 Taken ECG Request by /Nse Stat Y 05/25/17 16:18 Ordered - Radiology Data #1 Image(s): Chest Image Reviewed: Yes I reviewed the patient's radiology image Preliminary Findings: Abnormal (Postop changes and chronic changes with interval improvement from prior chest x-ray on May 22.) - CT Data CT Scan: Chest Time Received: 19:[address] Reviewed: Yes: I have viewed the radiologist's interpretation Preliminary Findings: Abnormal - ECG Data Tracing #1 Atrial fibrillation controlled rate 86 left bundle branch block unchanged from October 12, 2016 and 2015 and January 04, 2017.
--- NOTE | 2017-05-25 16:23 | ED_ITS ---
ED Disposition Clinical Impression: COPD exacerbation, CAD (coronary artery disease), Elevated troponin, Tobacco use disorder, Non-compliance, Atypical chest pain Disposition: Still a Patient Condition on Discharge: Fair Referrals: Jae Alonzo MD [Primary Care Provider] - - Critical Care Critical Care Time: No Attestation: On , the high probability of a clinically significant, sudden or life threatening deterioration of the following system(s) required my full and direct attention, intervention and personal management. The time I documented below is in addition to time spent performing reported procedures but includes the following listed in this critical care notation. Medical Decision Making Vital Signs: 05/25/17 16:14 Temperature 97.7 F Temperature Source Oral Pulse Rate [Right Radial] 71 Respiratory Rate 20 Blood Pressure [Right Arm] 101/56 Blood Pressure Mean [Right Arm] 71 02 Sat by Pulse Oximetry 93 L Oxygen Delivery Method Room Air - Lab Data Lab results reviewed: Yes: I reviewed the patient's lab results. Lab Results 05/25/17 : WBC 9.3, RBC 4.67, Hgb 14.3, Hct 43.9, MCV 94.0, MCH 30.6, MCHC 32.5 , RDW 13.7, Plt Count 294, MPV 7.8, Neut % (Auto) 59.9, Lymph % (Auto) 30.6, [place] % (Auto) 6.3, Eos % (Auto) 2.7, Baso % (Auto) 0.6, Neut # (Auto) 5.5, Lymph # (Auto) 2.8, [place] # (Auto) 0.6, Eos # (Auto) 0.3, Baso # (Auto) 0.1 05/25/17 : D-Dimer 2680 H* 05/25/17 : Sodium 141, Potassium 2.8 L*, Chloride 100, Carbon Dioxide 31, Anion Gap 12.8, BUN 10, Creatinine 1.56 H D, Estimated Creat Clear 71, Estimated GFR 47 L, Est GFR ( Amer) 56 L D, Glucose 72 L, Calcium 9.3, Total Bilirubin 0.5, AST 19, ALT 24, Alkaline Phosphatase 142 H, Total Creatine Kinase 46, CK- MB (CK-2) 1.5, CK-MB (CK-2) Rel Index 3.3, Troponin I 0.59 H, Total Protein 8.5 H, Albumin 3.7, Globulin 4.8 H, Albumin/Globulin Ratio 0.8 L 05/25/17 : B-Natriuretic Peptide 125 H Result diagrams: 05/25/17 Unknown 05/25/17 Unknown Orders (Tests/Meds): ED MEDICATIONS Discontinued Medications Generic Name Dose Route Start Last Admin Trade Name Freq PRN Reason Stop Dose Admin Albuterol/Ipratropium 3 ml 05/25/17 16:30 05/25/17 18:41 Duoneb 3ml [facility] 06/24/17 16:29 Not Given Q1H SWEETIE Albuterol/Ipratropium 3 ml 05/25/17 17:30 Duoneb 3ml Neb 06/24/17 17:29 ONCE SWEETIE Famotidine 20 mg 05/25/17 16:31 05/25/17 16:39 Pepcid 20mg/2ml Vial IV 05/25/17 16:32 20 mg ONCE ONE Administration Iopamidol 75 ml 05/25/17 17:43 05/25/17 17:44 [id number]; 75ml Vial IV 05/25/17 17:44 75 ml ONCE ONE Administration Methylprednisolone Sodium Succinate 125 mg 05/25/17 16:18 05/25/17 16:39 Solu-Medrol 125mg/2ml Vial IV 05/25/17 16:19 125 mg ONCE ONE Administration Potassium Chloride 20 meq 05/25/17 17:34 05/25/17 17:38 Klor-Con 20meq Tablet PO 05/25/17 17:35 20 meq ONCE ONE Administration Sodium Chloride 50 ml 05/25/17 17:43 05/25/17 17:44 Rad-Ns 50ml Vial IV 05/25/17 17:44 50 ml ONCE ONE Administration Sodium Chloride 10 ml 05/25/17 17:43 05/25/17 17:44 Rad-Saline Flush 10ml Syringe IV 05/25/17 17:44 10 ml ONCE ONE Administration ORDERS Category Date Time Status CT angio chest Routine Cat Sca
[2017-05-25 16:33] LABS: Basophils # 0.1 K/mm3 (0-0.2); Basophils % 0.6 % (0.1-2.0); Eosinophils # 0.3 K/mm3 (0.0-0.4); Eosinophils % 2.7 % (0.1-12.0); Hematocrit 43.9 % (42.0-52.0); Hemoglobin 14.3 g/dL (14.1-18.0); Lymphocytes # 2.8 K/mm3 (0.7-4.5); Lymphocytes % 30.6 K/mm3 (10-50); Mean Corpuscular HGB Conc 32.5 g/dL (31.8-35.4); Mean Corpuscular Hemoglobin 30.6 pg (27.0-31.2); Mean Platelet Volume 7.8 fl (7.4-10.4); Monocytes # 0.6 K/mm3 (0.1-1.0); Monocytes % 6.3 % (1.7-9.3); Neutrophils # 5.5 K/mm3 (1.8-7.8); Neutrophils % 59.9 % (37.0-80.0); Platelet Count 294 K/mm3 (142-424); Red Blood Count 4.67 M/mm3 (4.60-6.20); Red Cell Distribution Width 13.7 % (11.5-17.5); White Blood Count 9.3 K/mm3 (4.8-10.8)
[2017-05-25 16:59] LABS: D-Dimer 2680 (0-400)
[2017-05-25 17:01] LABS: Alanine Aminotransferase 24 U/L (12-78); Albumin Level 3.7 gm/dL (3.4-5.0); Albumin/Globulin Ratio 0.8 (1.1-1.8); Alkaline Phosphatase 142 U/L (46-116); Anion Gap 12.8 mEq/L (5-15); Aspartate Amino Transferase 19 U/L (15-37); Bilirubin,Total 0.5 mg/dL (0.2-1.0); Blood Urea Nitrogen 10 mg/dL (7-18); CKMB Relative Index 3.3 U/L (0-4.0); Calcium 9.3 mg/dL (8.5-10.1); Carbon Dioxide 31 mmol/L (21.0-32.0); Chloride 100 mmol/L (98-107); Creatine Kinase 46 U/L (39-308); Creatine Kinase MB 1.5 mg/ml (0.0-3.6); Creatinine Clearance Estimated 71 mL/min (0-300); Creatinine,Serum 1.56 mg/dL (0.70-1.30); Estimated Glomerular Filt Rate 47 ml/min (>60); GFR (African American) 56 ML/MIN (>60); Globulin 4.8 gm/dl (1.3-3.2); Glucose 72 mg/dL (74-106); Sodium 141 mmol/L (136-145); Total Protein,Serum 8.5 gm/dL (6.4-8.2)
[2017-05-25 17:04] LABS: Potassium 2.8 mmoL/L (3.5-5.1); Troponin I 0.59 ng/ml (0.00-0.06)
--- NOTE | 2017-05-25 19:46 | PC.NURSE ---
empty 250ml clear yellow urine from urinal
[2017-05-25 19:57] LABS: Troponin I 0.53 ng/ml (0.00-0.06)
[2017-05-26] VITALS (12 sets, daily range): BP systolic 116–176; BP diastolic 58–97; PULSE 67–130; RESP 16–18; TEMP 36.4–36.7; O2SAT 94–100
--- NOTE | 2017-05-26 03:02 | PC.NURSE ---
Patient laying in bed resting. Has denied soa, or chest pain related to cardiac this shift. Had some tylenol early in shift, stated lungs were burning. Has eaten 3 bowls of cereal and soda at patient request. Denies any nausea. Lungs clear, resp even and non labored. IV is patent and labeled. Bed locked in low position, side rails up x 2, call light within reach. Educated pt to call RN if any chest pain or soa. Verbalized understanding. Will continue to monitor.
[2017-05-26 06:34] LABS: Basophils % 0.1 % (0.1-2.0); Eosinophils % 0.2 % (0.1-12.0); Hematocrit 40.7 % (42.0-52.0); Hemoglobin 13.3 g/dL (14.1-18.0); Lymphocytes % 14.6 K/mm3 (10-50); Mean Corpuscular HGB Conc 32.7 g/dL (31.8-35.4); Mean Corpuscular Hemoglobin 30.8 pg (27.0-31.2); Mean Corpuscular Volume 94.2 fl (80-94); Mean Platelet Volume 7.8 fl (7.4-10.4); Monocytes # 0.3 K/mm3 (0.1-1.0); Neutrophils # 5.3 K/mm3 (1.8-7.8); Platelet Count 247 K/mm3 (142-424); Red Blood Count 4.32 M/mm3 (4.60-6.20); Red Cell Distribution Width 13.6 % (11.5-17.5); White Blood Count 6.5 K/mm3 (4.8-10.8)
[2017-05-26 06:41] LABS: Anion Gap 12.8 mEq/L (5-15); Blood Urea Nitrogen 12 mg/dL (7-18); Carbon Dioxide 28 mmol/L (21.0-32.0); Chloride 101 mmol/L (98-107); Creatinine Clearance Estimated 94 mL/min (0-300); Creatinine,Serum 1.18 mg/dL (0.70-1.30); Estimated Glomerular Filt Rate 64 ml/min (>60); GFR (African American) 78 ML/MIN (>60); Magnesium 1.8 mg/dL (1.4-2.2); Sodium 139 mmol/L (136-145)
[2017-05-26 06:43] LABS: Potassium 2.8 mmoL/L (3.5-5.1)
[2017-05-26 06:44] LABS: Glucose 240 mg/dL (74-106)
--- NOTE | 2017-05-26 07:14 | PC.NURSE ---
REPORT GIVEN TO Katrina PEREZ W/C
--- NOTE | 2017-05-26 08:27 | PC.NURSE ---
PT COMPLAINING OF WILFRED RN GOT PERMISSION FROM DR. MCELROY TO [facility] [address] [facility] [place] AT THIS TIME.
--- NOTE | 2017-05-26 08:42 | HMH.HP ---
*Admission Date: 05/25/17 *Chief complaint: sob *History of present illness: this wm who presents to the ed with sob - pt has known chf with cardiomyopathy and lbbb and a fib - years old white male smoker with a long-standing history of coronary artery disease including CABG 2011, chronically elevated troponin , chronic anticoagulation and 9 stent since following his CABG. He was recently discharged from the hospital 48 hours ago. Since he was discharged he complains of progressive shortness of breath and generalized weakness. 1 hour 45 minutes ago he developed retrosternal sharp pain worse with inspiration and coughing. He denies having palpitations nausea or vomiting. He is asking me for pain medicine for his chest. [facility] History I have reviewed the patient's past medical history: Yes Medical History: Reports:: Atrial Fibrillation, Congestive Heart Failure, Coronary Artery Disease, Hyperlipidemia, Hypertension Denies:: Cancer, Diabetes Mellitus Type 1, Diabetes Mellitus Type 2, Internal Pacemaker, MRSA Laterality Cases: Right: Arthroscopy Hip Other Surgeries: Yes: CABG. No: Pacemaker Amputation: No Fractures: No - *Social History Educational Level: Completed High School Smoking Status: Current every day smoker Tobacco Type: cigarettes # Packs/Day (cigarettes): 1 #Yrs smoked (if former smoker): 40 Alcohol Intake: never Occupational Status: disabled Housing: apartment Household Members: significant other, none - Psychiatric History Expresses thoughts of harming self/others: None Suicide Plan Description: No Plan *Family Hx:: Diabetes Review of Systems - Review of Systems Review of systems:: pertinent systems reviewed and negative unless documented below - Constitutional Denies fever(s) - Eyes Denies change in vision - ENT Reports dry mouth - *Cardiovascular Reports chest pain at rest, Reports shortness of breath - *Respiratory Reports shortness of breath, Denies coughing up blood - *Gastrointestinal Denies abdominal pain - *Genitourinary Denies blood in urine - *Musculoskeletal Denies joint pain, Denies joint swelling - Integumentary/Breasts Denies rash - *Neurologic Denies headache(s), Denies tingling/numbness/burning sensations, Denies seizure-like activity - Psychiatric Reports anxiety Meds Home Medications Medication Instructions Recorded Confirmed Type Apixaban [Eliquis] 5 mg PO BID 05/21/17 05/21/17 History Gabapentin [Gabapentin 800mg Tab] 800 mg PO TID 05/21/17 05/21/17 History Pantoprazole Sodium [Pantoprazole 40 mg PO BID 05/21/17 05/25/17 History 20mg Tab] Sertraline HCl [Zoloft 100mg 100 mg PO BID 05/21/17 05/25/17 History tablet] Losartan Potassium 50 mg PO DAILY 05/25/17 05/25/17 History Potassium Chloride [Klor-con 20 40 meq PO BID 05/25/17 05/25/17 History mEq tablet] Simvastatin 5 mg PO DAILY 05/25/17 05/25/17 History Spironolactone [Aldactone 25mg 25 mg PO DAILY 05/25/17 05/25/17 History Tab] Allergies Allergy/AdvReac Type Severity Reaction Status Date / Time diphenhydramine Allergy Mild NA-NAUSEA Verified 05/20/17 21:10 [From BENADRYL ALLERGY] pseudoephedrine Allergy Mild NA-NAUSEA Verified 05/20/17 21:10 [From SUDAFED] nitroglycerin Allergy Unknown Verified 05/20/17 21:10 [From NITRO-BID] Exam Vital signs and Labs for Last 24 Hours: Temp Pulse Resp BP Pulse Ox 98.0 F 95 H 16 176/97 94 L 05/26/17 07:30 05/26/17 08:27 05/26/17 07:30 05/26/17 07:30 05/26/17 07:30 Laboratory Results - last 24 hr 05/25/17 : WBC 9.3, RBC 4.67, Hgb 14.3, Hct 43.9, MCV 94.0, MCH 30.6, MCHC 32.5, RDW 13.7, Plt Count 294, MPV 7.8, Neut % (Auto) 59.9, Lymph % (Auto) 30.6, [place] % (Auto) 6.3, Eos % (Auto) 2.7, Baso % (Auto) 0.6, Neut # (Auto) 5.5, Lymph # (Auto) 2.8, [place] # (Auto) 0.6, Eos # (Auto) 0.3, Baso # (Auto) 0.1 05/25/17 : D-Dimer 2680 H* 05/25/17 : Sodium 141, Potassium 2.8 L*, Chloride 100, Carbon Dioxide 3
--- NOTE | 2017-05-26 10:43 | HMH.PHAVTE ---
[facility] Pharmacy VTE Monitoring - Patient Demographics Admission date: 05/26/17 Report Date: 05/26/17 Time: 10:43 Allergies/Adverse Reactions: Patient Allergies diphenhydramine [From BENADRYL ALLERGY] Allergy (Mild, Verified 05/20/17 21:10) NA-NAUSEA pseudoephedrine [From SUDAFED] Allergy (Mild, Verified 05/20/17 21:10) NA-NAUSEA nitroglycerin [From NITRO-BID] Allergy (Unknown, Verified 05/20/17 21:10) Height: 1.88 m Weight: 92.59 kg Patient Problems: Current Active Problems Coronary artery disease (Acute) COPD exacerbation (Acute) Elevated troponin (Acute) Tobacco use disorder (Acute) Non-compliance (Acute) Atypical chest pain (Acute) LBBB (left bundle branch block) (Acute) CHF (congestive heart failure) (Acute) Hypokalemia (Acute) Elevated d-dimer (Acute) - VTE Risk Labs: VTE Related Lab Results Hgb 13.3 g/dL (14.1-18.0) L 05/26/17 06:14 Hct 40.7 % (42.0-52.0) L 05/26/17 06:14 Plt Count 247 K/mm3 (142-424) 05/26/17 06:14 BUN 12 mg/dL (7-18) 05/26/17 06:14 Creatinine 1.18 mg/dL (0.70-1.30) D 05/26/17 06:14 Estimated Creat Clear 94 mL/min (0-300) 05/26/17 06:14 Was VTE Risk Assessment Performed: Yes VTE Score: 5 VTE Risk Level: Low Risk - Prophylaxis Types of VTE Prophylaxis: Refused Location of Applied Device: Refused - VTE Diagnosis Confirmed Comment: PATIENT'S ELIQUIS 5 MG BID HAS BEEN REORDERED
--- NOTE | 2017-05-26 16:29 | PC.NURSE ---
Lungs clear. Bowel sounds normal. Showing afib w/bbb on tele w/HR being between 80's and 140's. Pt states he's used to HR doing this, that it is normal for him and it does it all the time. Pt has requested numerous caffeinated beverages. He was educated on the need to limit these w/HR being elevated at times. Pt verbalized understanding requested juice and water instead w/an occasional Mt Dew. Appetite is excellent. He has slept sporadically t/o the day. 2 runs of K+ administered per order. Pt complained of severe burning even when running concurrect w/NS (K+going at 25mls/hr, NS @50mls/hr). Contacted pharmacy, lidocaine added to mixture. Pt stated it still burned. New IV started and pt tolerated NS@75mls/hr concurrent w/K+ lidocaine mixture @25 mls/hr. Pt will be NPO after midnight for cardiology consult in am. Will continue to monitor.
--- NOTE | 2017-05-26 19:02 | PC.NURSE ---
report given to Candice Garcia RN
[2017-05-27] VITALS (8 sets, daily range): BP systolic 98–128; BP diastolic 54–67; PULSE 51–96; RESP 16–18; TEMP 36.4–36.8; O2SAT 94–98; BMI 26.4
--- NOTE | 2017-05-27 05:46 | PC.NURSE ---
No complaints this shift. BS active in all 4 qauds. Lung sounds clear. A&Ox3. VSS. No acute distress noted. Will continue to monitor.
--- NOTE | 2017-05-27 06:19 | PC.NURSE ---
ZBIGNIEW Skelton, notified of consult for Dr Rosenthal
[2017-05-27 06:46] LABS: Eosinophils % 0.1 % (0.1-12.0); Hematocrit 38.6 % (42.0-52.0); Hemoglobin 12.5 g/dL (14.1-18.0); Lymphocytes # 1.1 K/mm3 (0.7-4.5); Lymphocytes % 5.7 K/mm3 (10-50); Mean Corpuscular HGB Conc 32.4 g/dL (31.8-35.4); Mean Corpuscular Hemoglobin 30.9 pg (27.0-31.2); Mean Corpuscular Volume 95.3 fl (80-94); Mean Platelet Volume 7.8 fl (7.4-10.4); Monocytes # 0.4 K/mm3 (0.1-1.0); Monocytes % 1.8 % (1.7-9.3); Neutrophils # 17.7 K/mm3 (1.8-7.8); Neutrophils % 92.4 % (37.0-80.0); Platelet Count 270 K/mm3 (142-424); Red Blood Count 4.05 M/mm3 (4.60-6.20); Red Cell Distribution Width 13.8 % (11.5-17.5)
[2017-05-27 06:53] LABS: White Blood Count 19.2 K/mm3 (4.8-10.8)
[2017-05-27 06:55] LABS: MANUAL DIFFERENTIAL MANUAL DIFFERENTIAL (MANUAL DIFF)
[2017-05-27 07:13] LABS: Anion Gap 13.8 mEq/L (5-15); Blood Urea Nitrogen 14 mg/dL (7-18); Carbon Dioxide 27 mmol/L (21.0-32.0); Chloride 105 mmol/L (98-107); Creatinine Clearance Estimated 115 mL/min (0-300); Creatinine,Serum 0.97 mg/dL (0.70-1.30); Estimated Glomerular Filt Rate 81 ml/min (>60); GFR (African American) 98 ML/MIN (>60); Glucose 120 mg/dL (74-106); Potassium 4.8 mmoL/L (3.5-5.1); Sodium 141 mmol/L (136-145); Thyroid Stimulating Hormone 0.21 uIU/ml (0.358-3.740)
--- NOTE | 2017-05-27 07:30 | PC.NURSE ---
REPORT GIVEN TO Rj LEAL W/C
--- NOTE | 2017-05-27 07:40 | PC.NURSE ---
report given to sixto saha rn
--- NOTE | 2017-05-27 08:22 | HMH.CNCARD ---
History of Present Illness Consult date: 05/27/17 Requesting physician: Jae Alonzo Consult reason: shortness of breath Chief complaint: SOA Additional Medical History:: 1. Coronary artery disease A. History of coronary bypass grafting ?3. SRINIVASAN not used. B. Cardiac catheterization 06/2015 adequate nondalton coronary arteries with mild nonflow limiting disease. All saphenous vein grafts are occluded ostially with no identifiable angiographic origin. Hyperdynamic ejection fraction at 70 percent with LVEDP 18 mmHg. C. Echocardiogram 08/01/2016 LEFT atrial size 5.8 cm, mild LEFT ventricular dilatation with an estimated ejection fraction of 40 percent with marked hypo-to akinesis involving the mid to distal septum, anteroapical, apex and inferior mann. RIGHT atrium and RIGHT ventricle normal in size with normal contractility. Aortic valve is thickened and calcified but continued to display mobility. Mitral valve leaflets are minimally thickened with no MS. Mild MR and TR noted. D. History of persistent elevated troponin prompting LEFT heart catheterization, 08/01/2016, diffuse, mild to moderate nonflow limiting coronary artery disease with all vein grafts occluded by previous angiography. LEFT ventricular ejection fraction 40 percent with LV dilatation noted. LVEDP is 15 mmHg. 2. History of infrarenal abdominal aortic aneurysm, status post percutaneous endovascular repair using a Mediamorph modular bifurcated prosthesis (main body of the graft 26 x 111, LEFT ipsilateral limb 20 x 90, RIGHT contralateral limb 16 x 90), Dr. Alexy Licea, [facility], [place], [place], 08/2014 3. Atrial fibrillation, paroxysmal A. Previously on Coumadin therapy, switch to Xarelto therapy 07/2016 but currently on Eliquis therapy at this time. B. History of TIA for which he has been on Plavix. 4. Tobacco use of 1-1.5 packs per day 5. Chronic back pain 6. Chronic abnormal electrocardiogram with LEFT bundle branch block 7. Hypertension 8. Hyperlipidemia History of present illness: 52-year-old white male with history of coronary artery disease and nonischemic cardiomyopathy presented to the emergency department within 48 hours after discharge from the hospital last week for congestive heart failure. Patient relates increasing shortness of breath since discharge with some associated chest discomfort. Cardiac enzymes continue in the range of about 0.5 which he has had on multiple occasions and is felt to be chronic due to his cardiomyopathy. Patient received Lasix therapy with diuresis and subsequent improvement in shortness of breath. When discussing his diet patient has been drinking quite a bit of Gatorade and Powerade after his discharge last week. Cardiology consulted for evaluation and recommendation. [facility] History Medical History: Reports:: Atrial Fibrillation, Congestive Heart Failure, Coronary Artery Disease, Hyperlipidemia, Hypertension Denies:: Cancer, Diabetes Mellitus Type 1, Diabetes Mellitus Type 2, Internal Pacemaker, MRSA Laterality Cases: Right: Arthroscopy Hip Other Surgeries: Yes: CABG. No: Pacemaker Amputation: No Fractures: No - *Social History Educational Level: Completed High School Smoking Status: Current every day smoker Tobacco Type: cigarettes # Packs/Day (cigarettes): 1 #Yrs smoked (if former smoker): 40 Alcohol Intake: never Occupational Status: disabled Housing: apartment Household Members: significant other, none - Psychiatric History Expresses thoughts of harming self/others: None Suicide Plan Description: No Plan *Family Hx:: Diabetes Meds Home Medications Medication Instructions Recorded Confirmed Type Apixaban [Eliquis] 5 mg PO BID 05/21/17 05/27/17 History Gabapentin [Gabapentin 800mg Tab] 800 mg PO TID 05/21/17 05/27/17 History Sertraline HCl [Zoloft 100mg 100 mg PO BID 05/21/17 05/27/17 History tablet] Losartan Potassium 50 mg PO DAILY 05/25/17 05/27/17 History Potassium Chloride [Klor-con 20 40 meq PO BID
[2017-05-27 09:10] LABS: Lymphocytes % 7 % (10-50); Neutrophils % 93 % (42-76); Total Cells Counted 100
[2017-05-27 09:11] LABS: RBC Morphology Normal
[2017-05-27 09:12] LABS: Platelet Estimate Normal
--- NOTE | 2017-05-27 12:40 | P.PN_ITS ---
Internal Medicine - PN: Subj *Date: 05/27/17 *Time: 12:37 Interval history: doing better with nonstemi and has copd - will need life vest Exam Vital signs and Labs for Last 24 Hours: Temp Pulse Resp BP Pulse Ox 97.5 F L 85 18 127/67 98 05/27/17 08:08 05/27/17 12:25 05/27/17 08:08 05/27/17 08:08 05/27/17 08:08 Laboratory Results - last 24 hr 05/27/17 06:10: WBC 19.2 H D, RBC 4.05 L, Hgb 12.5 L, Hct 38.6 L, MCV 95.3 H, MCH 30.9, MCHC 32.4, RDW 13.8, Plt Count 270, MPV 7.8, Neut % (Auto) 92.4 H, Lymph % (Auto) 5.7 L, [place] % (Auto) 1.8, Eos % (Auto) 0.1, Baso % (Auto) 0.0 L, Neut # (Auto) 17.7 H, Lymph # (Auto) 1.1, [place] # (Auto) 0.4, Eos # (Auto) 0.0, Baso # (Auto) 0.0, Total Counted 100, Neutrophils % (Manual) 93 H, Lymphocytes % (Manual) 7 L, Platelet Estimate Normal, RBC Morphology Normal 05/27/17 06:10: Sodium 141, Potassium 4.8 D, Chloride 105, Carbon Dioxide 27, Anion Gap 13.8, BUN 14, Creatinine 0.97, Estimated Creat Clear 115, Estimated GFR 81, Est GFR ( Amer) 98 D, Glucose 120 H D, TSH 0.21 L I & O for Last 24 hours: Intake & Output 05/25/17 05/26/17 05/27/17 05/28/17 11:59 11:59 11:59 11:59 Intake Total 480 / 480 750 / 750 Output Total 1600 / 1600 Balance 480 / 480 -850 / -850 Weight 204 lb 2 oz 206 lb 1 oz - Constitutional no acute distress - *Routine HEENT Exam Head: Present: normocephalic Eye: Present: EOMI, PERRL ENT: Present: mucous membranes dry - *Routine Neck Exam Absent: JVD - *Routine Respiratory Exam Absent: respiratory distress - *Routine Cardiovascular Exam Present: RRR - *Routine Extremities Exam Absent: calf tenderness - *Routine Skin Exam Present: intact - *Routine Neurological Exam Present: alert, oriented X3, CN II-XII intact - Routine Psychiatric Exam Present: normal affect Assessment and Plan (1) LBBB (left bundle branch block) Current visit: Yes Status: Acute Category: Medical Code(s): I44.7 - Left bundle-branch block, unspecified (2) Coronary artery disease Current visit: Yes Status: Acute Category: Medical Code(s): I25.10 - Atherosclerotic heart disease of [place] coronary artery without angina pectoris (3) Elevated troponin Current visit: Yes Status: Acute Category: Medical Code(s): R74.8 - Abnormal levels of other serum enzymes (4) Atrial fibrillation Current visit: No Status: Acute Category: Medical Code(s): I48.91 - Unspecified atrial fibrillation (5) CHF (congestive heart failure) Current visit: Yes Status: Acute Category: Medical Code(s): I50.9 - Heart failure, unspecified (6) Hypokalemia Current visit: Yes Status: Acute Category: Medical Code(s): E87.6 - Hypokalemia (7) Elevated d-dimer Current visit: Yes Status: Acute Category: Medical Code(s): R79.89 - Other specified abnormal findings of blood chemistry (8) Nonischemic cardiomyopathy Current visit: No Status: Acute Category: Medical Code(s): I42.8 - Other cardiomyopathies (9) Non-STEMI (non-ST elevated myocardial infarction) Current visit: Yes Status: Acute Category: Medical Code(s): I21.4 - Non- ST elevation (NSTEMI) myocardial infarction
--- NOTE | 2017-05-27 18:24 | PC.NURSE ---
Addendum entered by Hanna Shen RN 05/27/17 18:26: PT HAS ORDER FOR LIFE VEST AND AWAITING FOR THEM TO BRING THIS. Original Note: LUNGS ARE DIMINISHED, BOWEL AND HEART SOUNDS NORMAL. PT AMBULATES INDEPENDENTLY IN ROOM. PT HAD C/O OF SOA EARLIER IN SHIFT PRN BREATHING TREATMENT GIVEN WITH RELIEF. PT STATES NAUSEA MD NOTIFIED FOR PRN MED AND GIVEN. V/S/S. CALL LIGHT IN REACH. WILL CONTINUE TO MONITOR PT CONDITION.
--- NOTE | 2017-05-27 19:23 | PC.NURSE ---
REPORT GIVEN TO FARHAT Matthews RN
--- NOTE | 2017-05-28 03:24 | PC.NURSE ---
No complaints this shift other than some mild SOA at beginning, PRN breathing treatment given, no other complaints since then. Faint wheezing noted during lung auscultation. BS active in all 4 qauds. A&Ox3. VSS. No acute distress noted. Will continue to monitor.
[2017-05-28 04:00] VITALS: BP 140/80; PULSE 82; RESP 16; TEMP 36.8; O2SAT 95
[2017-05-28 06:00] VITALS: PULSE 85; PULSE 90
--- NOTE | 2017-05-28 07:00 | PC.NURSE ---
REPORT GIVEN TO Candice CANTU RN
[2017-05-28 07:57] VITALS: BP 129/80; PULSE 98; RESP 18; TEMP 36.4; O2SAT 96
--- NOTE | 2017-05-28 08:59 | P.PN_ITS ---
Subjective Date: 05/28/17 Time: 08:00 Principal diagnosis: CM, CHF Interval history: 52 yo WM in bed in NAD. Ready to go home. Waiting for LifeVest fitting then ok for discharge home. Exam Vital signs and Labs for Last 24 Hours: Temp Pulse Resp BP Pulse Ox 97.5 F L 98 H 18 129/80 96 05/28/17 07:57 05/28/17 07:57 05/28/17 07:57 05/28/17 07:57 05/28/17 07:57 Laboratory Results - last 24 hr 05/27/17 06:10: Total Counted 100, Neutrophils % (Manual) 93 H, Lymphocytes % ( Manual) 7 L, Platelet Estimate Normal, RBC Morphology Normal I & O for Last 24 hours: Intake & Output 05/25/17 05/26/17 05/27/17 05/28/17 11:59 11:59 11:59 11:59 Intake Total 480 / 480 750 / 750 1250 / 1250 Output Total 1600 / 1600 900 / 900 Balance 480 / 480 -850 / -850 350 / 350 Weight 204 lb 2 oz 206 lb 1 oz 207 lb 4 oz - *Routine Respiratory Exam Present: CTA bilaterally - *Routine Cardiovascular Exam Present: RRR Progress Note: A&P (1) LBBB (left bundle branch block) Status: Acute Current Visit: Yes (2) Coronary artery disease Status: Acute Current Visit: Yes (3) Elevated troponin Status: Acute Current Visit: Yes (4) Atrial fibrillation Status: Acute Current Visit: No (5) CHF (congestive heart failure) Status: Acute Current Visit: Yes (6) Hypokalemia Status: Acute Current Visit: Yes (7) Elevated d-dimer Status: Acute Current Visit: Yes (8) Nonischemic cardiomyopathy Status: Acute Assessment and plan: Continue current meds. OK for discharge home after LifeVest fitting. Current Visit: No
[2017-05-28 13:30] VITALS: PULSE 90
--- NOTE | 2017-05-28 13:41 | HMH.DCSUM ---
General - General Admission date: 05/26/17 Discharge date: 05/28/17 HPI HPI: this wm who presents to the ed with sob - pt has known chf with cardiomyopathy and lbbb and a fib - years old white male smoker with a long-standing history of coronary artery disease including CABG 2011, chronically elevated troponin , chronic anticoagulation and 9 stent since following his CABG. He was recently discharged from the hospital 48 hours ago. Since he was discharged he complains of progressive shortness of breath and generalized weakness. 1 hour 45 minutes ago he developed retrosternal sharp pain worse with inspiration and coughing. He denies having palpitations nausea or vomiting. He is asking me for pain medicine for his chest. Hospital Course Hospital Course: will place life vest, see cardiology note. Pt states feels better today. will dc home after life vest placed. CTA IMPRESSION: 1. No evidence of acute pulmonary embolus. 2. Prior CABG. 3. Centrilobular and paraseptal emphysema with obstructive chronic bronchitis. 4. 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 Stability may be confirmed with follow-up chest x ray improved chf Objective Vital signs: Temp Pulse Resp BP Pulse Ox 97.5 F L 90 18 129/80 96 05/28/17 07:57 05/28/17 13:30 05/28/17 07:57 05/28/17 07:57 05/28/17 07:57 no acute distress - *Routine HEENT Exam Head: Present: normocephalic ENT: Present: mucous membranes moist - *Routine Neck Exam Present: full ROM - *Routine Respiratory Exam Present: CTA bilaterally - *Routine Cardiovascular Exam Present: murmur - *Routine Abdominal Exam Present: soft, normoactive bowel sounds - *Routine Skin Exam Present: intact - *Routine Neurological Exam Present: alert, oriented X3, CN II-XII intact - Routine Psychiatric Exam Present: normal affect Discharge Plan - Patient Discharge Instructions ACTIVITY: Continue current activity DIET: continue same diet Patient Instructions: DI for Chronic Obstructive Pulmonary Disease - Follow up Plan Follow up with: Abdirashid Rosenthal MD [Staff Physician] - Disposition: Home, Self-[facility] Medications: Home Medications Medication Instructions Recorded Confirmed Type Apixaban [Eliquis] 5 mg PO BID 05/21/17 05/27/17 History Gabapentin [Gabapentin 800mg Tab] 800 mg PO TID 05/21/17 05/27/17 History Sertraline HCl [Zoloft 100mg 100 mg PO BID 05/21/17 05/27/17 History tablet] Losartan Potassium 50 mg PO DAILY 05/25/17 05/27/17 History Potassium Chloride [Klor-con 20 40 meq PO BID 05/25/17 05/27/17 History mEq tablet] Spironolactone [Aldactone 25mg 25 mg PO DAILY 05/25/17 05/27/17 History Tab] Aspirin [Aspir 81] 81 mg PO DAILY 05/26/17 05/27/17 History Atorvastatin Calcium [Atorvastatin 80 mg PO HS 05/26/17 05/27/17 History 80mg Tab] Carvedilol [Coreg 12.5mg 12.5 mg PO BID 05/26/17 05/27/17 History Tablet] Furosemide [Lasix 40mg tablet] 40 mg PO BIDL 05/26/17 05/27/17 History Pantoprazole Sodium [Protonix 40mg 40 mg PO BID 05/26/17 05/27/17 History tablet] Prescriptions/Medication Reconciliation: Continue Sertraline HCl [Zoloft 100mg tablet] 100 mg PO BID Gabapentin [Gabapentin 800mg Tab] 800 mg PO TID Potassium Chloride [Klor-con 20 mEq tablet] 40 meq PO BID Losartan Potassium 50 mg PO DAILY Carvedilol [Coreg 12.5mg Tablet] 12.5 mg PO BID Furosemide [Lasix 40mg tablet] 40 mg PO BIDL Pantoprazole Sodium [Protonix 40mg tablet] 40 mg PO BID Apixaban [Eliquis] 5 mg PO BID Spironolactone [Aldactone 25mg Tab] 25 mg PO DAILY Atorvastatin Calcium [Atorvastatin 80mg Tab] 80 mg PO HS Aspirin [Aspir 81] 81 mg PO DAILY
--- NOTE | 2017-05-28 13:46 | P.DS_ITS ---
General - General Admission date: 05/26/17 Discharge date: 05/28/17 HPI HPI: this wm who presents to the ed with sob - pt has known chf with cardiomyopathy and lbbb and a fib - years old white male smoker with a long-standing history of coronary artery disease including CABG 2011, chronically elevated troponin , chronic anticoagulation and 9 stent since following his CABG. He was recently discharged from the hospital 48 hours ago. Since he was discharged he complains of progressive shortness of breath and generalized weakness. 1 hour 45 minutes ago he developed retrosternal sharp pain worse with inspiration and coughing. He denies having palpitations nausea or vomiting. He is asking me for pain medicine for his chest. Hospital Course Hospital Course: will place life vest, see cardiology note. Pt states feels better today. will dc home after life vest placed. CTA IMPRESSION: 1. No evidence of acute pulmonary embolus. 2. Prior CABG. 3. Centrilobular and paraseptal emphysema with obstructive chronic bronchitis. 4. 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 Stability may be confirmed with follow-up chest x ray improved chf Objective Vital signs: Temp Pulse Resp BP Pulse Ox 97.5 F L 90 18 129/80 96 05/28/17 07:57 05/28/17 13:30 05/28/17 07:57 05/28/17 07:57 05/28/17 07:57 no acute distress - *Routine HEENT Exam Head: Present: normocephalic ENT: Present: mucous membranes moist - *Routine Neck Exam Present: full ROM - *Routine Respiratory Exam Present: CTA bilaterally - *Routine Cardiovascular Exam Present: murmur - *Routine Abdominal Exam Present: soft, normoactive bowel sounds - *Routine Skin Exam Present: intact - *Routine Neurological Exam Present: alert, oriented X3, CN II-XII intact - Routine Psychiatric Exam Present: normal affect Discharge Plan - Patient Discharge Instructions ACTIVITY: Continue current activity DIET: continue same diet Patient Instructions: DI for Chronic Obstructive Pulmonary Disease - Follow up Plan Follow up with: Abdirashid Rosenthal MD [Staff Physician] - Disposition: Home, Self-Senior Care Medications: Home Medications Medication Instructions Recorded Confirmed Type Apixaban [Eliquis] 5 mg PO BID 05/21/17 05/27/17 History Gabapentin [Gabapentin 800mg Tab] 800 mg PO TID 05/21/17 05/27/17 History Sertraline HCl [Zoloft 100mg 100 mg PO BID 05/21/17 05/27/17 History tablet] Losartan Potassium 50 mg PO DAILY 05/25/17 05/27/17 History Potassium Chloride [Klor-con 20 40 meq PO BID 05/25/17 05/27/17 History mEq tablet] Spironolactone [Aldactone 25mg 25 mg PO DAILY 05/25/17 05/27/17 History Tab] Aspirin [Aspir 81] 81 mg PO DAILY 05/26/17 05/27/17 History Atorvastatin Calcium [Atorvastatin 80 mg PO HS 05/26/17 05/27/17 History 80mg Tab] Carvedilol [Coreg 12.5mg 12.5 mg PO BID 05/26/17 05/27/17 History Tablet] Furosemide [Lasix 40mg tablet] 40 mg PO BIDL 05/26/17 05/27/17 History Pantoprazole Sodium [Protonix 40mg 40 mg PO BID 05/26/17 05/27/17 History tablet] Prescriptions/Medication Reconciliation: Continue Sertraline HCl [Zoloft 100mg tablet] 100 mg PO BID Gabapentin [Gabapentin 800mg Tab] 800 mg PO TID Potassium Chloride [Klor-con 20 mEq tablet] 40 meq PO BID
--- NOTE | 2017-06-06 09:47 | P.CONS_ITS ---
History of Present Illness Consult date: 05/27/17 Requesting physician: Jae Alonzo Consult reason: shortness of breath Chief complaint: SOA Additional Medical History:: 1. Coronary artery disease A. History of coronary bypass grafting ?3. SRINIVASAN not used. B. Cardiac catheterization 06/2015 adequate [place] coronary arteries with mild nonflow limiting disease. All saphenous vein grafts are occluded ostially with no identifiable angiographic origin. Hyperdynamic ejection fraction at 70 percent with LVEDP 18 mmHg. C. Echocardiogram 08/01/2016 LEFT atrial size 5.8 cm, mild LEFT ventricular dilatation with an estimated ejection fraction of 40 percent with marked hypo- to akinesis involving the mid to distal septum, anteroapical, apex and inferior mann. RIGHT atrium and RIGHT ventricle normal in size with normal contractility. Aortic valve is thickened and calcified but continued to display mobility. Mitral valve leaflets are minimally thickened with no MS. Mild MR and TR noted. D. History of persistent elevated troponin prompting LEFT heart catheterization, 08/01/2016, diffuse, mild to moderate nonflow limiting coronary artery disease with all vein grafts occluded by previous angiography. LEFT ventricular ejection fraction 40 percent with LV dilatation noted. LVEDP is 15 mmHg. 2. History of infrarenal abdominal aortic aneurysm, status post percutaneous endovascular repair using a Refresh Body modular bifurcated prosthesis (main body of the graft 26 x 111, LEFT ipsilateral limb 20 x 90, RIGHT contralateral limb 16 x 90), Dr. Alexy Licea, [facility], [place], [place], 08/2014 3. Atrial fibrillation, paroxysmal A. Previously on Coumadin therapy, switch to Xarelto therapy 07/2016 but currently on Eliquis therapy at this time. B. History of TIA for which he has been on Plavix. 4. Tobacco use of 1-1.5 packs per day 5. Chronic back pain 6. Chronic abnormal electrocardiogram with LEFT bundle branch block 7. Hypertension 8. Hyperlipidemia History of present illness: 52-year-old white male with history of coronary artery disease and nonischemic cardiomyopathy presented to the emergency department within 48 hours after discharge from the hospital last week for congestive heart failure. Patient relates increasing shortness of breath since discharge with some associated chest discomfort. Cardiac enzymes continue in the range of about 0.5 which he has had on multiple occasions and is felt to be chronic due to his cardiomyopathy. Patient received Lasix therapy with diuresis and subsequent improvement in shortness of breath. When discussing his diet patient has been drinking quite a bit of Gatorade and Powerade after his discharge last week. Cardiology consulted for evaluation and recommendation. [facility] History Medical History: Reports:: Atrial Fibrillation, Congestive Heart Failure, Coronary Artery Disease, Hyperlipidemia, Hypertension Denies:: Cancer, Diabetes Mellitus Type 1, Diabetes Mellitus Type 2, Internal Pacemaker, MRSA Laterality Cases: Right: Arthroscopy Hip Other Surgeries: Yes: CABG. No: Pacemaker Amputation: No Fractures: No - *Social History Educational Level: Completed High School Smoking Status: Current every day smoker Tobacco Type: cigarettes # Packs/Day (cigarettes): 1 #Yrs smoked (if former smoker): 40 Alcohol Intake: never Occupational Status: disabled Housing: apartment Household Members: significant other, none - Psychiatric History Expresses thoughts of harming self/others: None Suicide Plan Description: No Plan *Family Hx:: Diabetes Meds Home Medications Medication Instructions Recorded
== END 2017-05-28 18:28 | disposition home or self-care (01) ==
LOC: ER 19:04 → 2ND 20:51
PROVIDERS: Admitting Provider Family Medicine; Emergency Provider Emergency Medicine; Family Provider Emergency Medicine; PCP Emergency Medicine; Visit Provider Emergency Medicine
DX: J44.0 Chronic obstructive pulmonary disease with (acute) lower respiratory infection (principal); I21.4 Non-ST elevation (NSTEMI) myocardial infarction; I42.8 Other cardiomyopathies; I25.10 Atherosclerotic heart disease of native coronary artery without angina pectoris; I48.0 Paroxysmal atrial fibrillation; I44.7 Left bundle-branch block, unspecified; I50.9 Heart failure, unspecified; Z95.1 Presence of aortocoronary bypass graft; Z91.19 Patient's noncompliance with other medical treatment and regimen; Z72.0 Tobacco use; Z95.5 Presence of coronary angioplasty implant and graft; J44.1 Chronic obstructive pulmonary disease with (acute) exacerbation; Z23 Encounter for immunization
CPT/HCPCS: G0008; G0009; 36415; 71046; 71275; 80048; 80053; 82550; 82553; 83735; 83880; 84443; 84484; 85007; 85025; 85378; 90686; 90732; 93005; 93041; 94640; 96374; 96375; 99284; G0378; J2405; Q9967

== ENCOUNTER → 2017-06-05 12:02 | Outpatient (CLI) | payer MEDICARE, MEDICAID, SELFPAY ==
[2017-06-05 14:46] LABS: Anion Gap 11.1 mEq/L (5-15); Blood Urea Nitrogen 28 mg/dL (7-18); Carbon Dioxide 28 mmol/L (21.0-32.0); Chloride 102 mmol/L (98-107); Creatinine,Serum 1.22 mg/dL (0.70-1.30); Estimated Glomerular Filt Rate 62 ml/min (>60); GFR (African American) 75 ML/MIN (>60); Glucose 94 mg/dL (74-106); Potassium 5.1 mmoL/L (3.5-5.1); Sodium 136 mmol/L (136-145)
== END ==
PROVIDERS: Visit Provider Physician Assistant
DX: I48.2 Chronic atrial fibrillation (principal); I50.9 Heart failure, unspecified
CPT/HCPCS: 36415; 80048

== ENCOUNTER 2017-06-09 16:48 | Emergency (ER) | payer MEDICARE, MEDICAID, SELFPAY ==
[2017-06-09 16:57] VITALS: BP 151/66; PULSE 80; RESP 22; TEMP 36.6; O2SAT 99; BMI 26.2
--- NOTE | 2017-06-09 17:05 | HMH.EDABDPAI ---
ED Disposition Clinical Impression: Abdominal pain of unknown cause, CAD (coronary artery disease), Anticoagulation adequate with anticoagulant therapy Disposition: Home, Self-Care Condition on Discharge: Fair Instructions: DI for Acute Abdomen - Critical Care Critical Care Time: No Attestation: On , the high probability of a clinically significant, sudden or life threatening deterioration of the following system(s) required my full and direct attention, intervention and personal management. The time I documented below is in addition to time spent performing reported procedures but includes the following listed in this critical care notation. Medical Decision Making - Jonathan Inquiry Pt receiving controlled substance: No Jonathan was queried for this patient: No Vital Signs: 06/09/17 16:57 Temperature 97.9 F Temperature Source Oral Pulse Rate [Left Radial] 80 Respiratory Rate 22 Blood Pressure [Left Arm] 151/66 Blood Pressure Mean [Left Arm] 94 02 Sat by Pulse Oximetry 99 - Lab Data Lab Results 06/09/17 17:15: WBC 9.3, RBC 4.76, Hgb 14.6, Hct 44.4, MCV 93.1, MCH 30.6, MCHC 32.9, RDW 13.6, Plt Count 203, MPV 7.0 L, Neut % (Auto) 68.5, Lymph % (Auto) 23.7, [place] % (Auto) 5.3, Eos % (Auto) 2.3, Baso % (Auto) 0.1, Neut # (Auto) 6.4, Lymph # (Auto) 2.2, [place] # (Auto) 0.5, Eos # (Auto) 0.2, Baso # (Auto) 0.0 06/09/17 17:15: Sodium 137, Potassium 3.6, Chloride 101, Carbon Dioxide 27, Anion Gap 12.6, BUN 12, Creatinine 1.01, Estimated Creat Clear 109, Estimated GFR 77, Est GFR ( Amer) 93, Glucose 118 H, Calcium 9.4, Total Bilirubin 0.4, AST 22, ALT 34, Alkaline Phosphatase 111, Total Protein 7.8, Albumin 3.7, Globulin 4.1 H, Albumin/Globulin Ratio 0.9 L, Lipase 161, Plasma/Serum Alcohol 0 06/09/17 17:50: Urine Color Yellow, Urine Appearance Sl cloudy, Urine pH 6.0, Ur Specific [place] 1.015, Urine Protein Negative, Urine Glucose (UA) Negative, Urine Ketones Negative, Urine Blood Trace-i, Urine Nitrate Negative, Urine Bilirubin Negative, Urine Urobilinogen 0.2, Ur Leukocyte Esterase Negative, Urine WBC Occasional, Ur Squamous Epith Cells Occasional, Urine Bacteria 4+, Urine Mucus 3+ 06/09/17 17:50: Urine Opiates Screen Negative, Ur Barbituates Screen Negative, Ur Phencyclidine Scrn Negative, Ur Amphetamines Screen Negative, U Methamphetamines Scrn Negative, U Benzodiazepines Scrn Positive H, Urine Cocaine Screen Negative, U Marijuana (THC) Screen Negative Result diagrams: 06/09/17 17:15 06/09/17 17:15 Orders (Tests/Meds): ED MEDICATIONS Generic Name Dose Route Start Last Admin Trade Name Freq PRN Reason Stop Dose Admin Sodium Chloride 1,000 mls @ 999 mls/hr 06/09/17 18:30 06/09/17 18:28 Sod Chlor 0.9% 1000ml Bag IV 06/09/17 19:30 999 mls/hr .Q1H1M SWEETIE Administration Discontinued Medications Generic Name Dose Route Start Last Admin Trade Name Freq PRN Reason Stop Dose Admin Dicyclomine HCl 10 mg 06/09/17 19:09 06/09/17 19:13 Bentyl 10mg Capsule PO 06/09/17 19:10 10 mg ONCE ONE Administration Famotidine 20 mg 06/09/17 17:12 06/09/17 17:19 Pepcid 20mg/2ml Vial IV 06/09/17 17:13 20 mg ONCE ONE Administration Iopamidol 75 ml 06/09/17 18:09 06/09/17 18:10 [id number]; 75ml Vial IV 06/09/17 18:10 75 ml ONCE ONE Administration Ketorolac Tromethamine 30 mg 06/09/17 17:07 06/09/17 17:24 Toradol 30mg/Ml Vial IV 06/09/17 17:08 30 mg ONCE ONE Administration Metoclopramide HCl 5 mg 06/09/17 18:24 06/09/17 18:28 Reglan 10mg/2ml Vial IVP 06/09/17 18:25 5 mg ONCE ONE Administration Morphine Sulfate 2 mg 06/09/17 17:04 06/09/17 17:22 Morphine 4mg/Ml Syringe IV 06/09/17 17:05 Not Given ONCE ONE Ondansetron HCl 4 mg 06/09/17 17:04 06/09/17 17:20 Zofran 4mg/2ml Vial IV 06/09/17 17:05 4 mg ONCE ONE Administration Sodium Chloride 10 ml 06/09/17 18:09 06/09/17 18:10 Rad-Saline Flush 10ml Syringe IV 06/09/17 18:10 10
--- NOTE | 2017-06-09 17:09 | ED_ITS ---
ED Disposition Clinical Impression: Abdominal pain of unknown cause, CAD (coronary artery disease), Anticoagulation adequate with anticoagulant therapy Disposition: Home, Self-Care Condition on Discharge: Fair Instructions: DI for Acute Abdomen - Critical Care Critical Care Time: No Attestation: On , the high probability of a clinically significant, sudden or life threatening deterioration of the following system(s) required my full and direct attention, intervention and personal management. The time I documented below is in addition to time spent performing reported procedures but includes the following listed in this critical care notation. Medical Decision Making - Jonathan Inquiry Pt receiving controlled substance: No Jonathan was queried for this patient: No Vital Signs: 06/09/17 16:57 Temperature 97.9 F Temperature Source Oral Pulse Rate [Left Radial] 80 Respiratory Rate 22 Blood Pressure [Left Arm] 151/66 Blood Pressure Mean [Left Arm] 94 02 Sat by Pulse Oximetry 99 - Lab Data Lab Results 06/09/17 17:15: WBC 9.3, RBC 4.76, Hgb 14.6, Hct 44.4, MCV 93.1, MCH 30.6, MCHC 32.9, RDW 13.6, Plt Count 203, MPV 7.0 L, Neut % (Auto) 68.5, Lymph % (Auto) 23.7, [place] % (Auto) 5.3, Eos % (Auto) 2.3, Baso % (Auto) 0.1, Neut # (Auto) 6.4 , Lymph # (Auto) 2.2, [place] # (Auto) 0.5, Eos # (Auto) 0.2, Baso # (Auto) 0.0 06/09/17 17:15: Sodium 137, Potassium 3.6, Chloride 101, Carbon Dioxide 27, Anion Gap 12.6, BUN 12, Creatinine 1.01, Estimated Creat Clear 109, Estimated GFR 77, Est GFR ( Amer) 93, Glucose 118 H, Calcium 9.4, Total Bilirubin 0.4, AST 22, ALT 34, Alkaline Phosphatase 111, Total Protein 7.8, Albumin 3.7, Globulin 4.1 H, Albumin/Globulin Ratio 0.9 L, Lipase 161, Plasma/Serum Alcohol 0 06/09/17 17:50: Urine Color Yellow, Urine Appearance Sl cloudy, Urine pH 6.0, Ur Specific [place] 1.015, Urine Protein Negative, Urine Glucose (UA) Negative, Urine Ketones Negative, Urine Blood Trace-i, Urine Nitrate Negative, Urine Bilirubin Negative, Urine Urobilinogen 0.2, Ur Leukocyte Esterase Negative, Urine WBC Occasional, Ur Squamous Epith Cells Occasional, Urine Bacteria 4+, Urine Mucus 3+ 06/09/17 17:50: Urine Opiates Screen Negative, Ur Barbituates Screen Negative, Ur Phencyclidine Scrn Negative, Ur Amphetamines Screen Negative, U Methamphetamines Scrn Negative, U Benzodiazepines Scrn Positive H, Urine Cocaine Screen Negative, U Marijuana (THC) Screen Negative Result diagrams: 06/09/17 17:15 06/09/17 17:15 Orders (Tests/Meds): ED MEDICATIONS Generic Name Dose Route Start Last Admin Trade Name Freq PRN Reason Stop Dose Admin Sodium Chloride 1,000 mls @ 999 mls/hr 06/09/17 18:30 06/09/17 18:28 Sod Chlor 0.9% 1000ml Bag IV 06/09/17 19:30 999 mls/hr .Q1H1M SWEETIE Administration Discontinued Medications Generic Name Dose Route Start Last Admin Trade Name Freq PRN Reason Stop Dose Admin Dicyclomine HCl 10 mg 06/09/17 19:09 06/09/17 19:13 Bentyl 10mg Capsule PO 06/09/17 19:10 10 mg ONCE ONE Administration Famotidine 20 mg 06/09/17 17:12 06/09/17 17:19 Pepcid 20mg/2ml Vial IV 06/09/17 17:13 20 mg ONCE ONE Administration Iopamidol 75 ml 06/09/17 18:09 06/09/17 18:10 [id number]; 75ml Vial IV 06/09/17 18:10 75 ml ONCE ONE Administration Ketorolac Tromethamine 30 mg 06/09/17 17:07 06/09/17 17:24 Toradol
--- NOTE | 2017-06-09 17:10 | CT_ITS ---
CT abdomen pelvis w con COMPARISON: CT scan abdomen pelvis without contrast 12/11/2016 HISTORY: Upper abdominal pain TECHNIQUE: Multiple axial scans obtained from hemidiaphragms the pelvic floor and were performed with IV contrast only. Sagittal and coronal reformats were evaluated as well.. FINDINGS: The lower lung stevens are clear. There is gross generalized cardio megaly with prominent left atrial enlargement. Overall cardiac size is basely stable from previous exam. There is no evidence of failure. There is a small hiatal hernia. The liver spleen stomach and pancreas appear normal. There has been a previous cholecystectomy. There is endovascular aortic stent extending into the common iliac arteries bilaterally. The adrenal glands are normal. The kidneys are normal in size and show symmetrical function. There is a benign-appearing cortical cyst lower pole left kidney measuring 2.4 x 3.0 x 2.2 cm. The small bowel appears normal. I do not definitely identify the appendix but there are no pericecal inflammatory changes. There is moderate scattered stool throughout the colon. The urinary bladder is partially decompressed, the prostate is normal. There is a total hip prosthesis right side causing some streak artifact across the lower pelvis. IMPRESSION: Chronic findings as described above, stable in the vascular aortic and common iliac stent. There is a stable benign-appearing cortical cysts left kidney. There is no acute abdominal or pelvic pathology identified.
[2017-06-09 17:22] LABS: Basophils % 0.1 % (0.1-2.0); Eosinophils # 0.2 K/mm3 (0.0-0.4); Eosinophils % 2.3 % (0.1-12.0); Hematocrit 44.4 % (42.0-52.0); Hemoglobin 14.6 g/dL (14.1-18.0); Lymphocytes # 2.2 K/mm3 (0.7-4.5); Lymphocytes % 23.7 K/mm3 (10-50); Mean Corpuscular HGB Conc 32.9 g/dL (31.8-35.4); Mean Corpuscular Hemoglobin 30.6 pg (27.0-31.2); Mean Corpuscular Volume 93.1 fl (80-94); Monocytes # 0.5 K/mm3 (0.1-1.0); Monocytes % 5.3 % (1.7-9.3); Neutrophils # 6.4 K/mm3 (1.8-7.8); Neutrophils % 68.5 % (37.0-80.0); Platelet Count 203 K/mm3 (142-424); Red Blood Count 4.76 M/mm3 (4.60-6.20); Red Cell Distribution Width 13.6 % (11.5-17.5); White Blood Count 9.3 K/mm3 (4.8-10.8)
[2017-06-09 17:48] LABS: Alanine Aminotransferase 34 U/L (12-78); Albumin Level 3.7 gm/dL (3.4-5.0); Albumin/Globulin Ratio 0.9 (1.1-1.8); Alkaline Phosphatase 111 U/L (46-116); Anion Gap 12.6 mEq/L (5-15); Aspartate Amino Transferase 22 U/L (15-37); Bilirubin,Total 0.4 mg/dL (0.2-1.0); Blood Urea Nitrogen 12 mg/dL (7-18); Calcium 9.4 mg/dL (8.5-10.1); Carbon Dioxide 27 mmol/L (21.0-32.0); Chloride 101 mmol/L (98-107); Creatinine Clearance Estimated 109 mL/min (0-300); Creatinine,Serum 1.01 mg/dL (0.70-1.30); Estimated Glomerular Filt Rate 77 ml/min (>60); GFR (African American) 93 ML/MIN (>60); Globulin 4.1 gm/dl (1.3-3.2); Glucose 118 mg/dL (74-106); Lipase 161 u/L (73-393); Potassium 3.6 mmoL/L (3.5-5.1); Sodium 137 mmol/L (136-145); Total Protein,Serum 7.8 gm/dL (6.4-8.2)
[2017-06-09 17:58] LABS: Ethyl Alcohol 0 mg/dL (0-99)
[2017-06-09 18:01] LABS: Appearance,Urine SL CLOUDY (Clear); Bilirubin,Urine Negative (Negative); Blood, Urine TRACE-I (Negative); Color,Urine YELLOW (Yellow); Glucose,Urine (UA) Negative (Negative); Ketones,Urine Negative (Negative); Leukocyte Esterase,Urine Negative (Negative); Microscopic, Urine URINE MICROSCOPIC (MICROSCOPIC); Nitrate,Urine Negative (Negative); Protein,Urine Negative (Negative); Specific Gravity, Urine 1.015 (1.005-1.030); Urobilinogen,Urine 0.2 EU/dl (0.2)
[2017-06-09 18:08] LABS: Bacteria,Urine 4+ /lpf; Mucus,Urine 3+ /lpf; Squamous Epithelial Cell,Urine Occasional #/hpf (0-5); WBC,Urine Occasional #/hpf (0-3)
[2017-06-09 18:09] LABS: Amphetamine/Metha Screen,Urine Negative ng/mL (<1000); Barbiturates Screen,Urine Negative ng/mL (<200); Benzodiazepines Screen,Urine Positive ng/mL (200); Cannabinoid Screen,Urine Negative ng/mL (<50); Cocaine Screen,Urine Negative ng/g (<300); Methadone Screen,Urine Negative ng/mL (<300); Opiate Screen,Urine Negative ng/mL (<300); Phencyclidine Screen,Urine Negative ng/mL (<25)
[2017-06-09 19:54] VITALS: BP 134/80; PULSE 78; RESP 20; TEMP 37.2; O2SAT 99
== END 2017-06-09 19:54 | disposition home or self-care (01) ==
PROVIDERS: Emergency Provider Emergency Medicine; Family Provider Emergency Medicine; PCP Emergency Medicine
DX: R10.13 Epigastric pain (principal); I48.2 Chronic atrial fibrillation; I10 Essential (primary) hypertension; E78.5 Hyperlipidemia, unspecified; I25.10 Atherosclerotic heart disease of native coronary artery without angina pectoris; Z95.5 Presence of coronary angioplasty implant and graft; F17.210 Nicotine dependence, cigarettes, uncomplicated; Z79.01 Long term (current) use of anticoagulants; Z79.82 Long term (current) use of aspirin; Z88.8 Allergy status to other drugs, medicaments and biological substances; Z79.899 Other long term (current) drug therapy
CPT/HCPCS: 74177; 80053; 80305; 81001; 83690; 85025; 87086; 96374; 96375; 99283; J2405; Q9967

== ENCOUNTER 2017-07-09 13:50 | Observation (INO) ==
--- NOTE | 2017-07-09 14:01 | Emergency Department Note ---
ED Disposition Clinical Impression: Dehydration, Epigastric abdominal pain Vomiting Qualifiers: Vomiting type: unspecified Vomiting Intractability: intractable Nausea presence : with nausea Qualified Code(s): R11.2 - Nausea with vomiting, unspecified Disposition: Still a Patient Condition on Discharge: Good Referrals: Jae Alonzo MD [Primary Care Provider] - - Critical Care Critical Care Time: No Attestation: On 07/09/17, the high probability of a clinically significant, sudden or life threatening deterioration of the following system(s) required my full and direct attention, intervention and personal management. The time I documented below is in addition to time spent performing reported procedures but includes the following listed in this critical care notation. Medical Decision Making - Jonathan Inquiry Pt receiving controlled substance: No Vital Signs: 07/09/17 13:51 Temperature 97.9 F Temperature Source Oral Pulse Rate [Right Radial] 72 Respiratory Rate 16 Blood Pressure [Right Arm] 100/40 Blood Pressure Mean [Right Arm] 60 Blood Pressure Source [Right Arm] Automatic Cuff 02 Sat by Pulse Oximetry 95 Oxygen Delivery Method Room Air - Lab Data Lab Results 07/09/17 14:05: WBC 7.4, RBC 4.74, Hgb 14.6, Hct 43.4, MCV 91.5, MCH 30.9, MCHC 33.8, RDW 14.0, Plt Count 248, MPV 7.8, Neut % (Auto) 66.8, Lymph % (Auto) 26.1 , Gray % (Auto) 5.5, Eos % (Auto) 1.5, Baso % (Auto) 0.3, Neut # (Auto) 5.0, Lymph # (Auto) 1.9, Gray # (Auto) 0.4, Eos # (Auto) 0.1, Baso # (Auto) 0.0 07/09/17 14:05: Sodium 137, Potassium 3.4 L, Chloride 99, Carbon Dioxide 28, Anion Gap 13.4, BUN 16, Creatinine 2.05 H, Estimated Creat Clear 53, Estimated GFR 34 L, Est GFR ( Amer) 41 L, Glucose 134 H, Calcium 10.2 H, Total Bilirubin 0.8, AST 28, ALT 31, Alkaline Phosphatase 109, Troponin I 0.18 H, Total Protein 7.9, Albumin 4.0, Globulin 3.9 H, Albumin/Globulin Ratio 1.0 L 07/09/17 14:05: Lipase 73 Result diagrams: 07/09/17 14:05 07/09/17 14:05 Orders (Tests/Meds): ED MEDICATIONS Generic Name Dose Route Start Last Admin Trade Name Freq PRN Reason Stop Dose Admin Sodium Chloride 1,000 mls @ 100 mls/hr 07/09/17 14:15 07/09/17 14:17 Sod Chlor 0.9% 1000ml Bag IV 08/08/17 14:14 100 mls/hr .Q10H SWEETIE Administration Discontinued Medications Generic Name Dose Route Start Last Admin Trade Name Freq PRN Reason Stop Dose Admin Famotidine 20 mg 07/09/17 14:18 07/09/17 15:05 Pepcid 20mg/2ml Vial IV 07/09/17 14:19 20 mg ONCE ONE Administration Promethazine HCl 12.5 mg 07/09/17 14:06 07/09/17 14:17 Phenergan 25mg/Ml 1ml Vial IV 07/09/17 14:07 12.5 mg ONCE ONE Administration Promethazine HCl 12.5 mg 07/09/17 17:03 Phenergan 25mg/Ml 1ml Vial IV 07/09/17 17:04 ONCE ONE Sodium Chloride 25 ml 07/09/17 14:06 07/09/17 14:17 Sod Chlor 0.9% 25ml Bag IV 07/09/17 14:07 25 ml ONCE ONE Administration Sodium Chloride 25 ml 07/09/17 17:03 Sod Chlor 0.9% 25ml Bag IV 07/09/17 17:04 ONCE ONE - CT Data CT Scan: Abdomen, Pelvis Time Received: 16:[address] Reviewed: Yes: I have viewed the radiologist's interpretation Findings Narrative: No acute finding. Stable 5 cm infra renal abdominal aortic aneurysm. Medical Decision Narrative: 5:30 PM: Creatinine was 1.01 on 06/09/17. Creatinine is 2 today, likely due to dehydration. I have discussed the case with Dr. Alonzo for Dr. Calloway who agrees to admit the patient to the hospital. We discussed the patient's clinical information, including history, exam, laboratory and radiology results and ED course. Per hospital procedure, I will write temporary bridge inpatient orders on the patient. Specific orders requested by the admitting physician: IV fluids, anti-emetics General Adult HPI - General Chief complaint: Nausea/Vomiting/Diarrhea Stated complaint: N/V Time Seen by Provider: 07/09/17 14:01 Mode of Arrival: EMS Limitations: No Limitations Description of Symptoms (Recalled from ER Triage Doc. by RN): nausea - History of Present Illness HPI narrative: Arrives by ambulance complaining of vomiting for 3 days. No diarrhea. Epigastric pain. Says unable to keep his medicines down. States PCP is not Dr. Alonzo anymore, it is Wale Bone. - Related Data Home Medications Medication Instructions Recorded Confirmed Apixaban [Eliquis] 5 mg PO BID 05/21/17 07/09/17 Sertraline HCl [Zoloft 100mg 100 mg PO BID 05/21/17 07/09/17 tablet] Aspirin [Aspir 81] 81 mg PO DAILY 05/26/17 07/09/17 Atorvastatin Calcium [Atorvastatin 80 mg PO HS 05/26/17 07/09/17 80mg Tab] Fluticasone Propionate 1 spray INTRANASAL QDAY 06/09/17 07/09/17 Hydrocortisone 1 applic TOPICAL BID 06/09/17 07/09/17 Previous Rx's Medication Instructions Recorded gabapentin 800 mg tablet 800 mg PO TID 30 Days #90 tab 06/05/17 carvedilol 12.5 mg tablet 12.5 mg PO BID #30 tab 06/21/17 furosemide 40 mg tablet 40 mg PO BIDL #60 tab 06/21/17 losartan 50 mg tablet 50 mg PO DAILY #30 tab 06/21/17 pantoprazole 40 mg tablet,delayed 40 mg PO BID 30 Days #60 tab 06/21/17 release Allergies Allergy/AdvReac Type Severity Reaction Status Date / Time diphenhydramine Allergy Mild NA-NAUSEA Verified 07/09/17 13:57 [From BENADRYL ALLERGY] pseudoephedrine Allergy Mild NA-NAUSEA Verified 07/09/17 13:57 [From SUDAFED] nitroglycerin Allergy Unknown Verified 07/09/17 13:57 [From NITRO-BID] [facility] History I have reviewed the patient's past medical history: Yes Medical History: Reports:: Atrial Fibrillation, Congestive Heart Failure, Coronary Artery Disease, Hyperlipidemia, Hypertension Denies:: Cancer, Diabetes Mellitus Type 1, Diabetes Mellitus Type 2, Internal Pacemaker, MRSA Laterality Cases: Right: Arthroscopy Hip Other Surgeries: Yes: CABG, Other. No: Pacemaker Amputation: No Fractures: No Comment: open heart surgery, Gallbladder removed - Social History Smoking Status: Current every day smoker Tobacco Type: cigarettes # Packs/Day (cigarettes): 2 #Yrs smoked (if former smoker): 40 Alcohol Intake: never Substance Use Type: denies use Occupational Status: disabled Housing: apartment Household Members: significant other, none Family Hx:: Diabetes ROS Obtained: Yes All systems reviewed & no additional complaints - Constitutional Constitutional: Denies fever(s) - Cardiovascular Cardiovascular: Denies chest pain, Denies diaphoresis - Respiratory Respiratory: No dyspnea - Gastrointestinal Gastrointestingal: Reports: abdominal pain, vomiting. Denies: diarrhea Physical Exam - General General appearance: alert, in no apparent distress - Head Head exam: atraumatic, normocephalic, normal inspection - Eye Eye exam: Present: normal appearance, PERRL, EOMI - ENT ENT exam: Present: normal exam, normal oropharynx, mucous membranes moist, TM's normal bilaterally, normal external ear exam - Neck Neck exam: Present: normal inspection, full ROM, trachea midline. Absent: meningismus, lymphadenopathy - Chest Chest inspection: Present: normal inspection, symmetric chest wall rise. Absent : tenderness - Respiratory Respiratory exam: Present: normal lung sounds bilaterally. Absent: respiratory distress - Cardiovascular Cardiovascular exam: Present: regular rate, normal rhythm. Absent: JVD - Abdominal Exam Abdominal exam: Present: soft, tenderness, normal bowel sounds. Absent: distention, guarding, rebound, rigidity Abdominal tenderness: Present: diffuse, mild - Extremities Exam Extremities exam: Present: normal inspection, full ROM, normal capillary refill. Absent: calf tenderness - Back Exam Back exam: Present: normal inspection. Absent: tenderness - Neurological Exam Neurological exam: Present: alert, oriented X3 - Psychiatric Psychiatric exam: Present: normal affect, normal mood - Skin Skin exam: Present: warm, dry, intact, normal color - Lymphatic Lymphatic Findings: no adenopathy
[2017-07-09 14:17] LABS: Basophils % 0.3 % (0.1-2.0); Eosinophils # 0.1 K/mm3 (0.0-0.4); Eosinophils % 1.5 % (0.1-12.0); Hematocrit 43.4 % (42.0-52.0); Hemoglobin 14.6 g/dL (14.1-18.0); Lymphocytes # 1.9 K/mm3 (0.7-4.5); Lymphocytes % 26.1 K/mm3 (10-50); Mean Corpuscular HGB Conc 33.8 g/dL (31.8-35.4); Mean Corpuscular Hemoglobin 30.9 pg (27.0-31.2); Mean Corpuscular Volume 91.5 fl (80-94); Mean Platelet Volume 7.8 fl (7.4-10.4); Monocytes # 0.4 K/mm3 (0.1-1.0); Monocytes % 5.5 % (1.7-9.3); Neutrophils % 66.8 % (37.0-80.0); Platelet Count 248 K/mm3 (142-424); Red Blood Count 4.74 M/mm3 (4.60-6.20); White Blood Count 7.4 K/mm3 (4.8-10.8)
[2017-07-09 14:36] LABS: Anion Gap 13.4 mEq/L (5-15); Bilirubin,Total 0.8 mg/dL (0.2-1.0); Calcium 10.2 mg/dL (8.5-10.1); Globulin 3.9 gm/dl (1.3-3.2); Potassium 3.4 mmoL/L (3.5-5.1); Total Protein,Serum 7.9 gm/dL (6.4-8.2)
--- NOTE | 2017-07-10 07:28 | Pharmacy Consult Notes ---
[facility] Pharmacy VTE Monitoring - Patient Demographics Admission date: 07/09/17 Report Date: 07/10/17 Time: 07:28 Allergies/Adverse Reactions: Patient Allergies diphenhydramine [From BENADRYL ALLERGY] Allergy (Mild, Verified 07/09/17 13:57) NA-NAUSEA pseudoephedrine [From SUDAFED] Allergy (Mild, Verified 07/09/17 13:57) NA-NAUSEA nitroglycerin [From NITRO-BID] Allergy (Unknown, Verified 07/09/17 13:57) Height: 1.88 m Weight: 86.891 kg Patient Problems: Current Active Problems Dehydration (Acute) Vomiting (Acute) Epigastric abdominal pain (Acute) - VTE Risk Labs: VTE Related Lab Results Hgb 14.6 g/dL (14.1-18.0) 07/09/17 14:05 Hct 43.4 % (42.0-52.0) 07/09/17 14:05 Plt Count 248 K/mm3 (142-424) 07/09/17 14:05 BUN 16 mg/dL (7-18) 07/09/17 14:05 Creatinine 2.05 mg/dL (0.70-1.30) H 07/09/17 14:05 Estimated Creat Clear 53 mL/min (0-300) 07/09/17 14:05 Was VTE Risk Assessment Performed: Yes VTE Score: 4 VTE Risk Level: Low Risk Clinical Trial Participant: No - Prophylaxis VTE Prophylaxis Ordered?: Yes Types of VTE Prophylaxis: TEDS Knee High
[2017-07-10 07:34] LABS: Anion Gap 10.8 mEq/L (5-15)
[2017-07-10 07:41] LABS: Potassium 2.8 mmoL/L (3.5-5.1)
--- NOTE | 2017-07-10 08:14 | History & Physical Report ---
*Admission Date: 07/09/17 *Chief complaint: Vomiting *History of present illness: 52-year-old male with coronary artery disease, LV dysfunction, COPD who presented to the emergency department with 3 days of vomiting. Patient denies diarrhea to me. He has episodes of vomiting intermittently in review of his hospital visit shows he is presented more than once with vomiting. He denies any significant GI workup. He is a new patient to my practice and his first visit 3 weeks ago an upper GI was scheduled but apparently has not been completed yet. He reported an 80 pound weight loss at that time and admits to a change in appetite over the last year. He has not vomited since yesterday evening. He complains of some epigastric soreness this morning [facility] History I have reviewed the patient's past medical history: Yes Medical History: Reports:: Atrial Fibrillation, Congestive Heart Failure, Chronic Obstructive Pulmonary Disease (COPD), Coronary Artery Disease, Hyperlipidemia, Hypertension Denies:: Cancer, Diabetes Mellitus Type 1, Diabetes Mellitus Type 2, Internal Pacemaker, MRSA Laterality Cases: Right: Arthroscopy Hip Other Surgeries: Yes: CABG, Open Heart Surgery, Other. No: Pacemaker Amputation: No Fractures: No - *Social History Educational Level: Completed High School Smoking Status: Current every day smoker Tobacco Type: cigarettes # Packs/Day (cigarettes): 10 #Yrs smoked (if former smoker): 40 Alcohol Intake: never Substance Use Type: denies use Occupational Status: disabled Housing: apartment Household Members: significant other, none - Psychiatric History Expresses thoughts of harming self/others: None Suicide Plan Description: No Plan *Family Hx:: Diabetes Review of Systems - Review of Systems Review of systems:: pertinent systems reviewed and negative unless documented below - Constitutional Reports anorexia, Denies body ache(s), Denies chills, Denies fever(s) - *Cardiovascular Denies chest pain - *Respiratory Denies cough, Denies shortness of breath - *Gastrointestinal Comments: See [facility] Meds Home Medications Medication Instructions Recorded Confirmed Type Apixaban [Eliquis] 5 mg PO BID 05/21/17 07/09/17 History Sertraline HCl [Zoloft 100mg 100 mg PO BID 05/21/17 07/09/17 History tablet] Aspirin [Aspir 81] 81 mg PO DAILY 05/26/17 07/09/17 History Atorvastatin Calcium [Atorvastatin 80 mg PO HS 05/26/17 07/09/17 History 80mg Tab] Fluticasone Propionate 1 spray INTRANASAL DAILY 06/09/17 07/10/17 History Hydrocortisone 1 applic TOPICAL BID 06/09/17 07/09/17 History Allergies Allergy/AdvReac Type Severity Reaction Status Date / Time diphenhydramine Allergy Mild NA-NAUSEA Verified 07/09/17 13:57 [From BENADRYL ALLERGY] pseudoephedrine Allergy Mild NA-NAUSEA Verified 07/09/17 13:57 [From SUDAFED] nitroglycerin Allergy Unknown Verified 07/09/17 13:57 [From NITRO-BID] Exam Vital signs and Labs for Last 24 Hours: Temp Pulse Resp BP Pulse Ox 98.5 F 77 18 114/53 96 07/10/17 07:42 07/10/17 07:42 07/10/17 07:42 07/10/17 07:42 07/10/17 07:42 Laboratory Results - last 24 hr 07/10/17 06:43: Sodium 140, Potassium 2.8 L*, Chloride 103, Carbon Dioxide 29, Anion Gap 10.8, BUN 14, Creatinine 1.25 D, Estimated Creat Clear 83, Estimated GFR 60, Est GFR ( Amer) 73 D, Glucose 87 D I & O for Last 24 hours: Intake & Output 07/07/17 07/08/17 07/09/17 07/10/17 11:59 11:59 11:59 11:59 Intake Total 1546 / 1546 Output Total 250 / 250 Balance 1296 / 1296 Weight 191 lb 9 oz Narrative: Patient is awake and alert sitting up in bed this morning consuming his clear liquid diet. Oropharynx is moist and clear. Neck is without lymphadenopathy. Lungs are clear to auscultation. Heart has an irregular rate and rhythm. Abdomen is obese with mild epigastric tenderness to palpation with normal bowel sounds. Extremities are warm to the touch and without edema. H&P: Result - Labs Labs: [facility] 07/10/17 06:43 Sodium 140 Potassium 2.8 L* Chloride 103 Carbon Dioxide 29 BUN 14 Creatinine 1.25 D Glucose 87 D Assessment and Plan (1) Atrial fibrillation Current visit: Yes Status: Acute Category: Medical Code(s): I48.91 - Unspecified atrial fibrillation (2) Abdominal aortic aneurysm (AAA) 3.0 cm to 5.5 cm in diameter in male Current visit: Yes Status: Acute Category: Medical Code(s): I71.4 - Abdominal aortic aneurysm, without rupture (3) Epigastric abdominal pain Current visit: Yes Status: Acute Category: Medical Code(s): R10.13 - Epigastric pain (4) Vomiting Current visit: Yes Status: Acute Qualifiers: Vomiting type: unspecified Vomiting Intractability: intractable Nausea presence: with nausea Qualified Code(s): R11.2 - Nausea with vomiting, unspecified Category: Medical Code(s): R11.10 - Vomiting, unspecified (5) Anticoagulation adequate with anticoagulant therapy Current visit: No Status: Acute Category: Medical Code(s): Z79.01 - alf (current) use of anticoagulants (6) Hypokalemia Current visit: No Status: Acute Category: Medical Code(s): E87.6 - Hypokalemia (7) Weight loss Current visit: No Status: Acute Category: Medical Code(s): R63.4 - Abnormal weight loss (8) Coronary artery disease Current visit: No Status: Chronic Qualifiers: Category: Medical Code(s): I25.10 - Atherosclerotic heart disease of ambler coronary artery without angina pectoris (9) Nonischemic cardiomyopathy Current visit: No Status: Chronic Category: Medical Code(s): I42.8 - Other cardiomyopathies - Assessment and plan all Dx Assessment and Plan for all problems:: 1. Advance diet and replace potassium orally as well as intravenously if patient can tolerate p.o. today he may go home this evening. Workup for weight loss will be completed as an outpatient
--- NOTE | 2017-07-10 08:15 | Discharge Summary ---
General - General Admission date: 07/09/17 Discharge date: 07/10/17 HPI HPI: 52-year-old male with coronary artery disease, LV dysfunction, COPD who presented to the emergency department with 3 days of vomiting. Patient denies diarrhea to me. He has episodes of vomiting intermittently in review of his hospital visit shows he is presented more than once with vomiting. He denies any significant GI workup. He is a new patient to my practice and his first visit 3 weeks ago an upper GI was scheduled but apparently has not been completed yet. He reported an 80 pound weight loss at that time and admits to a change in appetite over the last year. He has not vomited since yesterday evening. He complains of some epigastric soreness this morning Hospital Course Hospital Course: Patient was admtted and vomiting resolved after admission. The following a.m. diet was advanceda and patient tolerated this. He was discharged to home and workup for GI issues will be completed as an outpatient. Objective Vital signs: Temp Pulse Resp BP Pulse Ox 98.5 F 77 18 114/53 96 07/10/17 07:42 07/10/17 07:42 07/10/17 07:42 07/10/17 07:42 07/10/17 07:42 Results Labs on day of discharge: Labs from last 24 hours 07/10/17 06:43 Sodium 140 Potassium 2.8 L* Chloride 103 Carbon Dioxide 29 Anion Gap 10.8 BUN 14 Creatinine 1.25 D Estimated Creat Clear 83 Estimated GFR 60 Est GFR ( Amer) 73 D Glucose 87 D DS: Diagnosis - Discharge Diagnosis (1) Atrial fibrillation Status: Acute (2) Abdominal aortic aneurysm (AAA) 3.0 cm to 5.5 cm in diameter in male Status: Acute (3) Epigastric abdominal pain Status: Acute (4) Vomiting Status: Acute (5) Anticoagulation adequate with anticoagulant therapy Status: Acute (6) Hypokalemia Status: Acute (7) Weight loss Status: Acute (8) Coronary artery disease Status: Chronic (9) Nonischemic cardiomyopathy Status: Chronic Discharge Plan - Patient Discharge Instructions ACTIVITY: Continue current activity DIET: continue same diet Patient Instructions: Dehydration - Follow up Plan Follow up with: Mello Calloway MD [Staff Physician] - 07/15/17 Disposition: Home, Self-Correction Medications: Home Medications Medication Instructions Recorded Confirmed Type Apixaban [Eliquis] 5 mg PO BID 05/21/17 07/09/17 History Sertraline HCl [Zoloft 100mg 100 mg PO BID 05/21/17 07/09/17 History tablet] Aspirin [Aspir 81] 81 mg PO DAILY 05/26/17 07/09/17 History Atorvastatin Calcium [Atorvastatin 80 mg PO HS 05/26/17 07/09/17 History 80mg Tab] Fluticasone Propionate 1 spray INTRANASAL DAILY 06/09/17 07/10/17 History Hydrocortisone 1 applic TOPICAL BID 06/09/17 07/09/17 History Prescriptions/Medication Reconciliation: New Metoclopramide HCl [Metoclopramide 10mg Tablet] 10 mg PO AC #90 tab Continue gabapentin 800 mg tablet 800 mg PO TID 30 Days #90 tab losartan 50 mg tablet 50 mg PO DAILY #30 tab carvedilol 12.5 mg tablet 12.5 mg PO BID #30 tab furosemide 40 mg tablet 40 mg PO BIDL #60 tab pantoprazole 40 mg tablet,delayed release 40 mg PO BID 30 Days #60 tab Sertraline HCl [Zoloft 100mg tablet] 100 mg PO BID Hydrocortisone 1 applic TOPICAL BID Fluticasone Propionate 1 spray INTRANASAL DAILY Apixaban [Eliquis] 5 mg PO BID Atorvastatin Calcium [Atorvastatin 80mg Tab] 80 mg PO HS Aspirin [Aspir 81] 81 mg PO DAILY
== END 2017-07-10 20:34 | disposition home or self-care (01) ==
LOC: 2ND 13:50 → ER 13:50 → 2ND 18:33
PROVIDERS: ADMIT Emergency Medicine; ATTEND Family Medicine

== ENCOUNTER → 2017-09-04 12:34 | Outpatient (CLI) | payer MEDICARE, MEDICAID, SELFPAY ==
--- NOTE | 2017-09-04 12:54 | CA_ITS ---
PROCEDURE: 2-D M-mode and color Doppler study INDICATIONS FOR THE TEST: Chest pain COPD+ Heart Murmur Tobacco Smoking+ Palpitations Fatigue Syncope Edema Hypertension+Diabetes Mellitus Rheumatic Fever SOB+PATTERSON Obesity Hyperlipidemia+ Family History HD Additional History PREVIOUS LIFE VEST, PRE-OP FOR PACEMAKER ON Saturday09/06/17, [place], CABG PATIENT INFORMATION HEIGHT: 74 WEIGHT:209 GENDER: Male B/P:122/54 2-D/M-MODE INTERPRETATION: 2-D MEASUREMENTS OBSERVED VALUES IN CMS Right Ventricular Dimension (RVDd) Interventricular Septum (Thickness)(IVsd) 2.0 Left Ventricular Internal Dimensions(LVIDd) 5.1 Left Ventricular Posterior Wall (Thickness)(LVPWd) 1.4 Aortic Root 4.6 Aortic Cusp Separation 2.8 Left Atrial Dimensions (LAD) 5.1 2D 1. Technically difficult study because of the patient's factor and poor acoustic windows 2. The left atrium is moderately enlarged, left ventricle is normal size, mild concentric left ventricular hypertrophy, visually estimated ejection fraction approximately 30%, there is abnormal septal motion, there is marked hypokinesis involving the mid to distal septum, anterior and anteroapical wall. 3. The right atrium and right ventricle are normal size and contractility. 4. The aortic valve is thickened and calcified leaflet continue to display good mobility. 5. The mitral and tricuspid valve leaflets are minimally thickened. 6. No significant pericardial effusion noted. DOPPLER INTERROGATION: Doppler interrogation of the aortic, mitral and tricuspid valvular presence of mild aortic, mild mitral and tricuspid regurgitation, tricuspid regurgitant jet velocity insufficient for calculation of the right ventricular systolic pressure, diastolic parameters are inconclusive. CONCLUSION: 1. Technically difficult study because of the patient's factor and poor acoustic windows 2. Moderately enlarged left atrium, normal left ventricular size, mild concentric left ventricular hypertrophy, visually estimated ejection fraction 30% with multiple segmental wall motion abnormalities as described above, diastolic parameters are inconclusive. 3. Mild aortic, mitral and tricuspid regurgitation 4. No significant pericardial effusion noted.
== END ==
PROVIDERS: Family Provider Emergency Medicine; PCP Emergency Medicine; Visit Provider Internal Medicine
DX: I51.9 Heart disease, unspecified (principal); I50.9 Heart failure, unspecified; I42.0 Dilated cardiomyopathy; R63.4 Abnormal weight loss; Z95.1 Presence of aortocoronary bypass graft
CPT/HCPCS: 93306

== ENCOUNTER → 2017-11-06 07:33 | Outpatient (CLI) | payer MEDICARE, MEDICAID, SELFPAY ==
--- NOTE | 2017-11-06 | CA_ITS ---
PROCEDURE: 2-D M-mode and color Doppler study INDICATIONS FOR THE TEST: Chest pain+ COPD+ Heart Murmur Tobacco Smoking+ Palpitations Fatigue+ Syncope Edema Hypertension+Diabetes Mellitus+ Rheumatic Fever SOB+PATTERSON Obesity Hyperlipidemia+ Family History HD Additional History Previous lifevest ef 30% 08/2017, CM, AICD, Afib, old NonSTEMI PATIENT INFORMATION HEIGHT: 74 WEIGHT: 221 GENDER: Male B/P: 141/79 2-D/M-MODE INTERPRETATION: 2-D MEASUREMENTS OBSERVED VALUES IN CMS Right Ventricular Dimension (RVDd) 2.7 Interventricular Septum (Thickness)(IVsd) 1.4 Left Ventricular Internal Dimensions(LVIDd) 4.3 Left Ventricular Posterior Wall (Thickness)(LVPWd) 1.4 Aortic Root 2.5 Aortic Cusp Separation Left Atrial Dimensions (LAD) 5.5 2D 1. Left atrium is moderately enlarged, left ventricle is normal size, mild concentric left ventricular hypertrophy, visually estimated ejection fraction 45%, there is marked hypokinesis involving the distal septum and apical wall. 2. The right atrium and right ventricle are normal size and contractility, there is a pacemaker lead seen in the right atrium and right ventricle. 3. The aortic valve is thickened and calcified, leaflet continue to display mobility. 4. The mitral and tricuspid valve leaflets are minimally thickened. 5. The pulmonic valve is poorly visualized. 6. No significant pericardial effusion noted. DOPPLER INTERROGATION: Doppler interrogation of the aortic, mitral and tricuspid valvular presence of moderate mitral, mild aortic and tricuspid regurgitation, tricuspid regurgitant jet velocity is insufficient for acquisition of the right ventricular systolic pressure, diastolic parameters are inconclusive. CONCLUSION: 1. Moderately enlarged left atrium, normal left ventricular size, mild concentric left ventricular hypertrophy, visually estimated ejection fraction 45% with segmental wall motion abnormality described above, diastolic parameters are inconclusive. 2. Mild aortic, moderate mitral and mild tricuspid regurgitation 3. No significant pericardial effusion noted.
== END ==
PROVIDERS: Family Provider Emergency Medicine; PCP Emergency Medicine; Visit Provider Internal Medicine
DX: I48.2 Chronic atrial fibrillation (principal); I20.8 Other forms of angina pectoris; I21.4 Non-ST elevation (NSTEMI) myocardial infarction; I27.20 Pulmonary hypertension, unspecified; I50.22 Chronic systolic (congestive) heart failure; R06.09 Other forms of dyspnea; F17.200 Nicotine dependence, unspecified, uncomplicated
CPT/HCPCS: 93306

== ENCOUNTER 2017-11-14 14:08 | Observation (INO) ==
[2017-11-14 14:31] LABS: Basophils % 0.6 % (0.1-2.0); Eosinophils # 0.2 K/mm3 (0.0-0.4); Eosinophils % 4.7 % (0.1-12.0); Hematocrit 37.5 % (42.0-52.0); Hemoglobin 12.6 g/dL (14.1-18.0); Lymphocytes # 1.5 K/mm3 (0.7-4.5); Lymphocytes % 29.8 K/mm3 (10-50); Mean Corpuscular HGB Conc 33.6 g/dL (31.8-35.4); Mean Corpuscular Hemoglobin 31.8 pg (27.0-31.2); Mean Corpuscular Volume 94.7 fl (80-94); Mean Platelet Volume 7.4 fl (7.4-10.4); Monocytes # 0.3 K/mm3 (0.1-1.0); Monocytes % 5.4 % (1.7-9.3); Neutrophils # 3.1 K/mm3 (1.8-7.8); Neutrophils % 59.6 % (37.0-80.0); Platelet Count 183 K/mm3 (142-424); Red Blood Count 3.96 M/mm3 (4.60-6.20); Red Cell Distribution Width 13.9 % (11.5-17.5); White Blood Count 5.1 K/mm3 (4.8-10.8)
[2017-11-14 14:42] LABS: Anion Gap 12.6 mEq/L (5-15); Calcium 9.4 mg/dL (8.5-10.1); Potassium 3.6 mmoL/L (3.5-5.1)
--- NOTE | 2017-11-14 15:28 | Emergency Department Note ---
ED Disposition Clinical Impression: Dysrhythmia, CAD (coronary artery disease), Elevated troponin Disposition: Still a Patient Condition on Discharge: Fair Referrals: Jae Alonzo MD [Primary Care Provider] - - Critical Care Critical Care Time: No Attestation: On 11/14/17, the high probability of a clinically significant, sudden or life threatening deterioration of the following system(s) required my full and direct attention, intervention and personal management. The time I documented below is in addition to time spent performing reported procedures but includes the following listed in this critical care notation. Medical Decision Making - Jonathan Inquiry Pt receiving controlled substance: No Jonathan was queried for this patient: No Vital Signs: 11/14/17 14:09 11/14/17 15:03 Temperature 98.3 F Temperature Source Oral Pulse Rate [Right Brachial] 108 H 108 H Respiratory Rate 20 Blood Pressure [Right Arm] 158/112 148/114 Blood Pressure Mean [Right Arm] 127 125 Blood Pressure Source [Right Arm] Automatic Cuff Blood Pressure Position [Right Arm] Sitting 02 Sat by Pulse Oximetry 96 91 L Oxygen Delivery Method Room Air - Lab Data Lab Results 11/14/17 14:10: WBC 5.1, RBC 3.96 L, Hgb 12.6 L, Hct 37.5 L, MCV 94.7 H, MCH 31.8 H, MCHC 33.6, RDW 13.9, Plt Count 183, MPV 7.4, Neut % (Auto) 59.6, Lymph % (Auto) 29.8, [place] % (Auto) 5.4, Eos % (Auto) 4.7, Baso % (Auto) 0.6, Neut # ( Auto) 3.1, Lymph # (Auto) 1.5, [place] # (Auto) 0.3, Eos # (Auto) 0.2, Baso # (Auto ) 0.0 11/14/17 14:10: Sodium 139, Potassium 3.6, Chloride 105, Carbon Dioxide 25, Anion Gap 12.6, BUN 9, Creatinine 1.07, Estimated Creat Clear 111, Estimated GFR 72, Est GFR ( Amer) 87, Glucose 108 H, Calcium 9.4, Troponin I 0.28 H Result diagrams: 11/14/17 14:10 11/14/17 14:10 Orders (Tests/Meds): ED MEDICATIONS Discontinued Medications Generic Name Dose Route Start Last Admin Trade Name Freq PRN Reason Stop Dose Admin Aspirin 324 mg 11/14/17 14:21 11/14/17 14:29 Aspirin 81mg Chewable Tablet PO 11/14/17 14:22 324 mg ONCE ONE Administration Ondansetron HCl 4 mg 11/14/17 14:21 11/14/17 14:29 Zofran 4mg/2ml Vial IV 11/14/17 14:22 4 mg ONCE ONE Administration - ECG Data Tracing #1 Atrial fibrillation's 111 with a left bundle branch block. ECG initial impression date: 11/14/17 ECG initial impression time: 14:10 Medical Decision Narrative: I consulted Dr. Rosenthal who brought his physician blacksmith assistant made a interrogation of the pacemaker is found to be in atrial fibrillation's 160. Wound was elevated as usual and is with advised to admit him for serial troponin. General Adult HPI - General Chief complaint: Chest Pain Stated complaint: Chest pain Time Seen by Provider: 11/14/17 14:10 Mode of Arrival: EMS Limitations: No Limitations Description of Symptoms (Recalled from ER Triage Doc. by RN): Per pt and EMS pt was taking a shower and it fired 4 times, pt had pacemaker put in 2 months ago. Pt also c/o left sided CP. - History of Present Illness HPI narrative: 52 years old white male well known to me with coronary artery disease status post CABG and a recent cath in November 12. Today he felt the pacemaker shocking him so he came to the ED. found to be on a atrial fibrillation 111 with left bundle branch block Onset (ago): hour(s) (1 hour prior to arrival.) Location: chest Radiation: non-radiation Relieving factors: none Exacerbating factors: none Associated symptoms: denies other symptoms Treatments prior to arrival: none - Related Data Home Medications Medication Instructions Recorded Confirmed Aspirin [Aspir 81] 81 mg PO DAILY 05/26/17 11/14/17 Atorvastatin Calcium [Atorvastatin 80 mg PO HS 05/26/17 11/14/17 80mg Tab] Fluticasone Propionate 1 spray INTRANASAL DAILY 06/09/17 11/14/17 Clopidogrel Bisulfate [Plavix 75mg 75 mg PO DAILY 10/05/17 11/14/17 Tab] Metoprolol Tartrate 150 mg PO BID 07/14/18 08/23/18 Pantoprazole Sodium [Protonix 40mg 40 mg PO DAILY 10/05/17 11/14/17 tablet] Potassium Chloride [Klor-con 20 20 meq PO BID 11/14/17 11/14/17 mEq tablet] Previous Rx's Medication Instructions Recorded furosemide 40 mg tablet 40 mg PO BIDL #60 tab 06/21/17 losartan 50 mg tablet 50 mg PO DAILY #30 tab 06/21/17 Hydrocod/Acet 5/325 mg [[place] 1 tab PO Q6HP PRN #10 tab 10/05/17 5/325mg tablet] carvedilol 12.5 mg tablet 12.5 mg PO BID #30 tab 10/08/17 gabapentin 800 mg tablet 800 mg PO TID #90 tab 10/08/17 sertraline 100 mg tablet 100 mg PO BID #60 tab 10/08/17 Allergies Allergy/AdvReac Type Severity Reaction Status Date / Time diphenhydramine Allergy Mild NA-NAUSEA Verified 10/07/17 11:06 [From BENADRYL ALLERGY] pseudoephedrine Allergy Mild NA-NAUSEA Verified 10/07/17 11:06 [From SUDAFED] nitroglycerin Allergy Unknown Verified 10/07/17 11:06 [From NITRO-BID] [facility] History I have reviewed the patient's past medical history: Yes Medical History: Reports:: Atrial Fibrillation, Congestive Heart Failure, Chronic Obstructive Pulmonary Disease (COPD), Coronary Artery Disease, Cerebrovascular Accident, Gastroesophageal Reflux Disease(GERD), Hyperlipidemia , Hypertension, Internal Pacemaker Denies:: Cancer, Diabetes Mellitus Type 1, Diabetes Mellitus Type 2, MRSA, Seizures Other Medical History: Denies: Blood Transfusion Reaction Laterality Cases: Left: Other, Right: Arthroscopy Hip, Total Hip Replacement Other Surgeries: Yes: CABG, Cardiac Catheterization, Cardiac Surgery, Coronary Stent, Open Heart Surgery, Pacemaker, Other Amputation: No Fractures: No Comment: open heart surgery, Gallbladder removed - Social History Smoking Status: Current every day smoker Tobacco Type: cigarettes # Packs/Day (cigarettes): 10 #Yrs smoked (if former smoker): 40 Alcohol Intake: never Alcohol Intake Frequency:: other Substance Use Type: denies use Occupational Status: disabled Housing: apartment Household Members: significant other, none - Psychiatric History Expresses thoughts of harming self/others: None Suicide Plan Description: No Plan Family Hx:: Diabetes ROS Obtained: Yes All systems reviewed & no additional complaints Physical Exam - General General appearance: alert, in no apparent distress - Head Head exam: atraumatic, normocephalic, normal inspection - Eye Eye exam: Present: normal appearance, PERRL, EOMI - ENT ENT exam: Present: normal exam, normal oropharynx, mucous membranes moist, TM's normal bilaterally, normal external ear exam - Neck Neck exam: Present: normal inspection, full ROM, trachea midline. Absent: meningismus, lymphadenopathy - Chest Chest inspection: Present: normal inspection, symmetric chest wall rise. Absent : tenderness - Respiratory Respiratory exam: Present: normal lung sounds bilaterally. Absent: respiratory distress - Cardiovascular Cardiovascular exam: Present: normal rhythm, irregular rhythm. Absent: JVD - Abdominal Exam Abdominal exam: Present: soft, normal bowel sounds. Absent: distention, tenderness, guarding, rebound, rigidity - Extremities Exam Extremities exam: Present: normal inspection, full ROM, normal capillary refill. Absent: calf tenderness - Back Exam Back exam: Present: normal inspection. Absent: tenderness - Neurological Exam Neurological exam: Present: alert, oriented X3, CN II-XII intact, motor sensory deficit, reflexes normal - Psychiatric Psychiatric exam: Present: normal affect, normal mood - Skin Skin exam: Present: warm, dry, intact, normal color - Lymphatic Lymphatic Findings: no adenopathy
--- NOTE | 2017-11-14 15:34 | Consult Report ---
History of Present Illness Consult date: 11/14/17 Requesting physician: Jae Alonzo Consult reason: chest pain Chief complaint: AICD firing Additional Medical History:: 1. Coronary artery disease A. History of coronary bypass grafting 3. SRINIVASAN not used. B. History of persistent elevated troponin prompting LEFT heart catheterization, 08/01/2016, diffuse, mild to moderate nonflow limiting coronary artery disease with all vein grafts occluded by previous angiography. LEFT ventricular ejection fraction 40 percent with LV dilatation noted. LVEDP is 15 mmHg. C. Echocardiogram 08/01/2016 LEFT atrial size 5.8 cm, mild LEFT ventricular dilatation with an estimated ejection fraction of 40 percent with marked hypo- to akinesis involving the mid to distal septum, anteroapical, apex and inferior mann. RIGHT atrium and RIGHT ventricle normal in size with normal contractility. Aortic valve is thickened and calcified but continued to display mobility. Mitral valve leaflets are minimally thickened with no MS. Mild MR and TR noted. D. Cardiac catheterization 06/2015 adequate [place] coronary arteries with mild nonflow limiting disease. All saphenous vein grafts are occluded ostially with no identifiable angiographic origin. Hyperdynamic ejection fraction at 70 percent with LVEDP 18 mmHg. E. Ischemic Cardiomyopathy with LVEF of 30% with multiple segmental wall motion abnormalities by echo, 08/2017 F. BiV AICD implanted, 08/2017, [place] [facility] [employer] for ischemic CM, QRS duration >120 ms with cardiac cachexia 2. History of infrarenal abdominal aortic aneurysm, status post percutaneous endovascular repair using a [employer] modular bifurcated prosthesis (main body of the graft 26 x 111, LEFT ipsilateral limb 20 x 90, RIGHT contralateral limb 16 x 90), Dr. Alexy Licea, [facility], [place], [place], 08/2014 3. Atrial fibrillation, paroxysmal A. Previously on Coumadin therapy, switch to Xarelto therapy 07/2016 and then Eliquis therapy but currently off anticoagulation. B. History of TIA. C. PAF noted on interrogation in ER for AICD firings X 4 for A. fib with RVR. 4. Tobacco use of one to 1.5 packs per day 5. Chronic back pain 6. Chronic abnormal electrocardiogram with LEFT bundle branch block 7. Hypertension 8. Hyperlipidemia History of present illness: 52-year-old white male with known ischemic cardiomyopathy status post recent by IV AICD insertion in August of this year reports waking up late today without taking his morning medication. While getting a shower he states he began to feel ill and shortly after getting out of the shower began receiving ICD fibrillations in total 4. While trying to call our office he did receive a shock and decided to come to the emergency department instead. Patient relates he did not take any of his morning medications which he normally takes at 7:30 AM. He denies any chest pain since his cardiac catheterization procedure 2 days ago. He denies missing any of his medications except this morning. He denies any [id number] stimulants or illegal stimulants. No recent history of fever, chills, nausea, vomiting or diarrhea. Interrogation of his device in the ER reveals multiple episodes of atrial fibrillation with rapid ventricular response in the VT 2 zone for which and a tachycardia pacing was attempted with some success but ultimately requiring for defibrillations over the course of 5 minutes for rates in the 170-190 bpm zone. In the emergency department the patient is in no acute distress with heart rate of about 110 bpm. Cardiology was consulted for evaluation recommendations. [facility] History Medical History: Reports:: Atrial Fibrillation, Congestive Heart Failure, Chronic Obstructive Pulmonary Disease (COPD), Coronary Artery Disease, Cerebrovascular Accident, Gastroesophageal Reflux Disease(GERD), Hyperlipidemia , Hypertension, Internal Pacemaker Denies:: Cancer, Diabetes Mellitus Type 1, Diabetes Mellitus Type 2, MRSA, Seizures Other Medical History: Denies: Blood Transfusion Reaction Laterality Cases: Left: Other, Right: Arthroscopy Hip, Total Hip Replacement Other Surgeries: Yes: CABG, Cardiac Catheterization, Cardiac Surgery, Coronary Stent, Open Heart Surgery, Pacemaker, Other Amputation: No Fractures: No - *Social History Smoking Status: Current every day smoker Tobacco Type: cigarettes # Packs/Day (cigarettes): 10 #Yrs smoked (if former smoker): 40 Alcohol Intake: never Alcohol Intake Frequency:: other Substance Use Type: denies use Occupational Status: disabled Housing: apartment Household Members: significant other, none - Psychiatric History Expresses thoughts of harming self/others: None Suicide Plan Description: No Plan *Family Hx:: Diabetes Meds Home Medications Medication Instructions Recorded Confirmed Type Aspirin [Aspir 81] 81 mg PO DAILY 05/26/17 11/14/17 History Atorvastatin Calcium [Atorvastatin 80 mg PO HS 05/26/17 11/14/17 History 80mg Tab] Fluticasone Propionate 1 spray INTRANASAL DAILY 06/09/17 11/14/17 History Clopidogrel Bisulfate [Plavix 75mg 75 mg PO DAILY 10/05/17 11/14/17 History Tab] Metoprolol Tartrate 150 mg PO BID 10/05/17 11/14/17 History Pantoprazole Sodium [Protonix 40mg 40 mg PO DAILY 10/05/17 11/14/17 History tablet] Potassium Chloride [Klor-con 20 20 meq PO BID 11/14/17 11/14/17 History mEq tablet] Allergies Allergy/AdvReac Type Severity Reaction Status Date / Time diphenhydramine Allergy Mild NA-NAUSEA Verified 10/07/17 11:06 [From BENADRYL ALLERGY] pseudoephedrine Allergy Mild NA-NAUSEA Verified 10/07/17 11:06 [From SUDAFED] nitroglycerin Allergy Unknown Verified 10/07/17 11:06 [From NITRO-BID] Review of Systems - *Cardiovascular Reports chest pain, Reports shortness of breath with activity - *Respiratory Reports shortness of breath with activity - *Gastrointestinal Denies abdominal pain - *Musculoskeletal Reports joint pain Exam Vital signs and Labs for Last 24 Hours: Temp Pulse Resp BP Pulse Ox 98.3 F 108 H 20 148/114 91 L 11/14/17 14:09 11/14/17 15:03 11/14/17 14:09 11/14/17 15:03 11/14/17 15:03 Laboratory Results - last 24 hr 11/14/17 14:10: WBC 5.1, RBC 3.96 L, Hgb 12.6 L, Hct 37.5 L, MCV 94.7 H, MCH 31.8 H, MCHC 33.6, RDW 13.9, Plt Count 183, MPV 7.4, Neut % (Auto) 59.6, Lymph % (Auto) 29.8, [place] % (Auto) 5.4, Eos % (Auto) 4.7, Baso % (Auto) 0.6, Neut # ( Auto) 3.1, Lymph # (Auto) 1.5, [place] # (Auto) 0.3, Eos # (Auto) 0.2, Baso # (Auto ) 0.0 11/14/17 14:10: Sodium 139, Potassium 3.6, Chloride 105, Carbon Dioxide 25, Anion Gap 12.6, BUN 9, Creatinine 1.07, Estimated Creat Clear 111, Estimated GFR 72, Est GFR ( Amer) 87, Glucose 108 H, Calcium 9.4, Troponin I 0.28 H I & O for Last 24 hours: Intake & Output 11/12/17 11/13/17 11/14/17 11/15/17 11:59 11:59 11:59 11:59 Weight 220 lb - *Routine Neck Exam Absent: JVD, carotid bruit - *Routine Respiratory Exam Present: decreased breath sounds, rhonchi - *Routine Cardiovascular Exam Present: RRR, murmur. Absent: gallop, rubs - *Routine Abdominal Exam Present: soft. Absent: tenderness - *Routine Extremities Exam Absent: edema - *Routine Neurological Exam Present: alert, oriented X3, moving all extremities Assessment and Plan (1) AICD discharge Current visit: Yes Status: Acute Category: Medical Code(s): Z45.02 - Encounter for adjustment and management of automatic implantable cardiac defibrillator (2) Atrial fibrillation with rapid ventricular response Current visit: Yes Status: Acute Category: Medical Code(s): I48.91 - Unspecified atrial fibrillation (3) Noncompliance with medication regimen Current visit: Yes Status: Acute Category: Medical Code(s): Z91.14 - Patient's other noncompliance with medication regimen (4) Coronary artery disease Current visit: Yes Status: Chronic Qualifiers: Category: Medical Code(s): I25.10 - Atherosclerotic heart disease of [place] coronary artery without angina pectoris (5) Abdominal aortic aneurysm (AAA) 3.0 cm to 5.5 cm in diameter in male Current visit: No Status: Acute Category: Medical Code(s): I71.4 - Abdominal aortic aneurysm, without rupture (6) COPD exacerbation Current visit: No Status: Chronic Category: Medical Code(s): J44.1 - Chronic obstructive pulmonary disease with (acute) exacerbation (7) LBBB (left bundle branch block) Current visit: No Status: Chronic Category: Medical Code(s): I44.7 - Left bundle-branch block, unspecified (8) Smoker Current visit: No Status: Chronic Category: Social Hx Code(s): F17.200 - Nicotine dependence, unspecified, uncomplicated - Assessment and plan all Dx Assessment and Plan for all problems:: 1. Resume home medications including metoprolol 150 mg twice daily. He will receive 5 mg of IV Lopressor in the emergency department. 2. Supplement potassium. 3. Check magnesium level and supplement if less than 2. 4. Will review recent cardiac catheterization and make further decision on need for further intervention. 5. Will obtain a PA and lateral chest x-ray. 6. Patient's elevated troponin secondary to recent coronary intervention 2 days ago and defibrillator firings today. 7. Restart Eliquis 5 mg twice daily for atrial fibrillation
--- NOTE | 2017-11-15 07:25 | Pharmacy Consult Notes ---
[facility] Pharmacy VTE Monitoring - Patient Demographics Admission date: 11/14/17 Report Date: 11/15/17 Time: 07:24 Allergies/Adverse Reactions: Patient Allergies diphenhydramine [From BENADRYL ALLERGY] Allergy (Mild, Verified 10/07/17 11:06) NA-NAUSEA pseudoephedrine [From SUDAFED] Allergy (Mild, Verified 10/07/17 11:06) NA-NAUSEA nitroglycerin [From NITRO-BID] Allergy (Unknown, Verified 10/07/17 11:06) Height: 1.88 m Weight: 98.543 kg Patient Problems: Current Active Problems Dysrhythmia (Acute) AICD discharge (Acute) Atrial fibrillation with rapid ventricular response (Acute) Noncompliance with medication regimen (Acute) Coronary artery disease (Chronic) Elevated troponin (Acute) - VTE Risk Labs: VTE Related Lab Results Hgb 12.6 g/dL (14.1-18.0) L 11/14/17 14:10 Hct 37.5 % (42.0-52.0) L 11/14/17 14:10 Plt Count 183 K/mm3 (142-424) 11/14/17 14:10 BUN 9 mg/dL (7-18) 11/14/17 14:10 Creatinine 1.07 mg/dL (0.70-1.30) 11/14/17 14:10 Estimated Creat Clear 111 mL/min (0-300) 11/14/17 14:10 Was VTE Risk Assessment Performed: Yes VTE Score: 4 VTE Risk Level: Low Risk Clinical Trial Participant: No - Prophylaxis VTE Prophylaxis Ordered?: Yes Types of VTE Prophylaxis: TEDS Knee High
--- NOTE | 2017-11-15 09:32 | Progress Note ---
Subjective Date: 11/15/17 Time: 08:00 Principal diagnosis: A. fib with RVR, AICD firing Interval history: 52-year-old white male in bed in no acute distress. No complaints overnight. No further AICD firing. Telemetry reveals BiV paced rhythm at 70 bpm. Exam Vital signs and Labs for Last 24 Hours: Temp Pulse Resp BP Pulse Ox 98.0 F 71 18 120/74 94 L 11/15/17 07:58 11/15/17 08:00 11/15/17 07:58 11/15/17 07:58 11/15/17 07:58 Laboratory Results - last 24 hr 11/14/17 14:10: WBC 5.1, RBC 3.96 L, Hgb 12.6 L, Hct 37.5 L, MCV 94.7 H, MCH 31.8 H, MCHC 33.6, RDW 13.9, Plt Count 183, MPV 7.4, Neut % (Auto) 59.6, Lymph % (Auto) 29.8, [place] % (Auto) 5.4, Eos % (Auto) 4.7, Baso % (Auto) 0.6, Neut # ( Auto) 3.1, Lymph # (Auto) 1.5, [place] # (Auto) 0.3, Eos # (Auto) 0.2, Baso # (Auto ) 0.0 11/14/17 14:10: Sodium 139, Potassium 3.6, Chloride 105, Carbon Dioxide 25, Anion Gap 12.6, BUN 9, Creatinine 1.07, Estimated Creat Clear 111, Estimated GFR 72, Est GFR ( Amer) 87, Glucose 108 H, Calcium 9.4, Troponin I 0.28 H 11/14/17 14:10: Magnesium 1.7 11/14/17 16:56: Troponin I 0.86 H 11/14/17 22:28: Troponin I 1.38 H 11/15/17 04:30: Troponin I 1.33 H I & O for Last 24 hours: Intake & Output 11/12/17 11/13/17 11/14/17 11/15/17 11:59 11:59 11:59 11:59 Intake Total 1560 / 1560 Output Total 1400 / 1400 Balance 160 / 160 Weight 217 lb 4 oz - *Routine Respiratory Exam Present: decreased breath sounds. Absent: rhonchi, wheezes - *Routine Cardiovascular Exam Present: RRR. Absent: murmur, gallop Progress Note: A&P (1) AICD discharge Status: Acute Current Visit: Yes (2) Atrial fibrillation with rapid ventricular response Status: Acute Current Visit: Yes (3) Noncompliance with medication regimen Status: Acute Current Visit: Yes (4) Coronary artery disease Status: Chronic Current Visit: Yes (5) Abdominal aortic aneurysm (AAA) 3.0 cm to 5.5 cm in diameter in male Status: Acute Current Visit: No (6) COPD exacerbation Status: Chronic Current Visit: No (7) LBBB (left bundle branch block) Status: Chronic Current Visit: No (8) Smoker Status: Chronic Current Visit: No Assessment and Plan for All Diagnoses:: AICD interrogated again this a.m. with ventricular optimization performed by [employer] cash application representative Tanner Dixon. Patient will be discharged home per Dr. Alonzo recommend continuing metoprolol 150 mg twice daily, aspirin 81 mg daily, Plavix 75 mg daily, losartan 50 mg daily, atorvastatin 80 mg daily, furosemide 40 mg twice daily and restarting Eliquis 5 mg twice daily. Patient has an appointment with Dr. Rosenthal on the of next week. He will keep that appointment. Patient does relate some heartburn symptoms for which GI cocktail will be ordered. He will continue his Protonix that he takes daily also.
--- NOTE | 2017-11-15 11:25 | H&P/Discharge Summary ---
General - General Admission date:: 11/14/17 Discharge date: 11/15/17 *Admission Date: 11/14/17 *Chief complaint: aicd firing *History of present illness: this wm who has aicd and known heart disease - years old white male well known to me with coronary artery disease status post CABG and a recent cath in November 12. Today he felt the pacemaker shocking him so he came to the ED. found to be on a atrial fibrillation 111 with left bundle branch block- pt was admitted for eval and serial [facility] History I have reviewed the patient's past medical history: Yes Medical History: Reports:: Arrhythmia, Atrial Fibrillation, Congestive Heart Failure, Chronic Obstructive Pulmonary Disease (COPD), Coronary Artery Disease, Cerebrovascular Accident, Gastroesophageal Reflux Disease(GERD), Hyperlipidemia , Hypertension, Internal Pacemaker Denies:: Cancer, Diabetes Mellitus Type 1, Diabetes Mellitus Type 2, MRSA, Seizures Other Medical History: Denies: Blood Transfusion Reaction Laterality Cases: Left: Other, Right: Arthroscopy Hip, Total Hip Replacement Other Surgeries: Yes: CABG, Cardiac Catheterization, Cardiac Surgery, Coronary Stent, Open Heart Surgery, Pacemaker, Other Amputation: No Fractures: No - *Social History Educational Level: Completed High School Smoking Status: Current every day smoker Tobacco Type: cigarettes # Packs/Day (cigarettes): 1 #Yrs smoked (if former smoker): 40 Alcohol Intake: former Alcohol Intake Frequency:: other Substance Use Type: denies use Occupational Status: disabled Housing: apartment Household Members: significant other, none - Psychiatric History Expresses thoughts of harming self/others: None Suicide Plan Description: No Plan *Family Hx:: Diabetes Review of Systems - Review of Systems Review of systems:: pertinent systems reviewed and negative unless documented below - Constitutional Denies fever(s) - Eyes Denies change in vision - ENT Denies sinus pain - *Cardiovascular Reports chest pain, Reports shortness of breath - *Respiratory Denies cough - *Gastrointestinal Denies abdominal pain - *Genitourinary Denies blood in urine - *Musculoskeletal Denies joint pain, Denies joint swelling - Integumentary/Breasts Denies rash - *Neurologic Denies seizure-like activity - Psychiatric Reports anxiety Exam Vital signs and Labs for Last 24 Hours: Temp Pulse Resp BP Pulse Ox 98.0 F 71 18 120/74 94 L 11/15/17 07:58 11/15/17 08:00 11/15/17 07:58 11/15/17 07:58 11/15/17 07:58 Laboratory Results - last 24 hr 11/14/17 14:10: WBC 5.1, RBC 3.96 L, Hgb 12.6 L, Hct 37.5 L, MCV 94.7 H, MCH 31.8 H, MCHC 33.6, RDW 13.9, Plt Count 183, MPV 7.4, Neut % (Auto) 59.6, Lymph % (Auto) 29.8, [place] % (Auto) 5.4, Eos % (Auto) 4.7, Baso % (Auto) 0.6, Neut # ( Auto) 3.1, Lymph # (Auto) 1.5, [place]ill # (Auto) 0.3, Eos # (Auto) 0.2, Baso # (Auto ) 0.0 11/14/17 14:10: Sodium 139, Potassium 3.6, Chloride 105, Carbon Dioxide 25, Anion Gap 12.6, BUN 9, Creatinine 1.07, Estimated Creat Clear 111, Estimated GFR 72, Est GFR ( Amer) 87, Glucose 108 H, Calcium 9.4, Troponin I 0.28 H 11/14/17 14:10: Magnesium 1.7 11/14/17 16:56: Troponin I 0.86 H 11/14/17 22:28: Troponin I 1.38 H 11/15/17 04:30: Troponin I 1.33 H I & O for Last 24 hours: Intake & Output 11/12/17 11/13/17 11/14/17 11/15/17 11:59 11:59 11:59 11:59 Intake Total 1560 / 1560 Output Total 1400 / 1400 Balance 160 / 160 Weight 217 lb 4 oz - Constitutional no acute distress - *Routine HEENT Exam Head: Present: normocephalic Eye: Present: EOMI, PERRL ENT: Present: mucous membranes dry - *Routine Neck Exam Present: supple. Absent: JVD - *Routine Respiratory Exam Present: CTA bilaterally - *Routine Cardiovascular Exam Present: RRR, murmur, S4 - *Routine Abdominal Exam Present: soft - *Routine Extremities Exam Absent: edema, calf tenderness - *Routine Skin Exam Present: intact - *Routine Neurological Exam Present: alert, oriented X3, CN II-XII intact - Routine Psychiatric Exam Present: normal affect Hospital Course Hospital Course: pt did well in hospital with serial tropin elvated but prob related to arrthymias and aicd firing - he was seen by card - Coronary artery disease A. History of coronary bypass grafting 3. SRINIVASAN not used. B. History of persistent elevated troponin prompting LEFT heart catheterization, 08/01/2016, diffuse, mild to moderate nonflow limiting coronary artery disease with all vein grafts occluded by previous angiography. LEFT ventricular ejection fraction 40 percent with LV dilatation noted. LVEDP is 15 mmHg. C. Echocardiogram 08/01/2016 LEFT atrial size 5.8 cm, mild LEFT ventricular dilatation with an estimated ejection fraction of 40 percent with marked hypo- to akinesis involving the mid to distal septum, anteroapical, apex and inferior mann. RIGHT atrium and RIGHT ventricle normal in size with normal contractility. Aortic valve is thickened and calcified but continued to display mobility. Mitral valve leaflets are minimally thickened with no MS. Mild MR and TR noted. D. Cardiac catheterization 06/2015 adequate [place] coronary arteries with mild nonflow limiting disease. All saphenous vein grafts are occluded ostially with no identifiable angiographic origin. Hyperdynamic ejection fraction at 70 percent with LVEDP 18 mmHg. E. Ischemic Cardiomyopathy with LVEF of 30% with multiple segmental wall motion abnormalities by echo, 08/2017 F. BiV AICD implanted, 08/2017, [place] [employer] for ischemic CM, QRS duration >120 ms with cardiac cachexia 2. History of infrarenal abdominal aortic aneurysm, status post percutaneous endovascular repair using a Beneq modular bifurcated prosthesis (main body of the graft 26 x 111, LEFT ipsilateral limb 20 x 90, RIGHT contralateral limb 16 x 90), Dr. Alexy Licea, [facility], [place], [place], 08/2014 3. Atrial fibrillation, paroxysmal A. Previously on Coumadin therapy, switch to Xarelto therapy 07/2016 and then Eliquis therapy but currently off anticoagulation. B. History of TIA. C. PAF noted on interrogation in ER for AICD firings X 4 for A. fib with RVR. 4. Tobacco use of one to 1.5 packs per day 5. Chronic back pain 6. Chronic abnormal electrocardiogram with LEFT bundle branch block 7. Hypertension 8. Hyperlipidemia History of present illness: 52-year-old white male with known ischemic cardiomyopathy status post recent by IV AICD insertion in August of this year reports waking up late today without taking his morning medication. While getting a shower he states he began to feel ill and shortly after getting out of the shower began receiving ICD fibrillations in total 4. While trying to call our office he did receive a shock and decided to come to the emergency department instead. Patient relates he did not take any of his morning medications which he normally takes at 7:30 AM. He denies any chest pain since his cardiac catheterization procedure 2 days ago. He denies missing any of his medications except this morning. He denies any lykc-nno-alpecit stimulants or illegal stimulants. No recent history of fever, chills, nausea, vomiting or diarrhea. Interrogation of his device in the ER reveals multiple episodes of atrial fibrillation with rapid ventricular response in the VT 2 zone for which and a tachycardia pacing was attempted with some success but ultimately requiring for defibrillations over the course of 5 minutes for rates in the 170-190 bpm zone. In the emergency department the patient is in no acute distress with heart rate of about 110 bpm. Cardiology was consulted for evaluation recommendations. D interrogated again this a.m. with ventricular optimization performed by [employer] sales representative leather goods Tanner Dixon. Patient will be discharged home per Dr. Alonzo recommend continuing metoprolol 150 mg twice daily, aspirin 81 mg daily, Plavix 75 mg daily, losartan 50 mg daily, atorvastatin 80 mg daily, furosemide 40 mg twice daily and restarting Eliquis 5 mg twice daily. Patient has an appointment with Dr. Rosenthal on the of next week. He will keep that appointment. Patient does relate some heartburn symptoms for which GI cocktail will be ordered. He will continue his Protonix that he takes daily also. Results Labs on day of discharge: Labs from last 24 hours 11/15/17 11/14/17 11/14/17 04:30 22:28 16:56 WBC RBC Hgb Hct MCV MCH MCHC RDW Plt Count MPV Neut % (Auto) Lymph % (Auto) [place] % (Auto) Eos % (Auto) Baso % (Auto) Neut # (Auto) Lymph # (Auto) [place] # (Auto) Eos # (Auto) Baso # (Auto) Sodium Potassium Chloride Carbon Dioxide Anion Gap BUN Creatinine Estimated Creat Clear Estimated GFR Est GFR ( Amer) Glucose Calcium Magnesium Troponin I 1.33 H 1.38 H 0.86 H 11/14/17 11/14/17 11/14/17 14:10 14:10 14:10 WBC 5.1 RBC 3.96 L Hgb 12.6 L Hct 37.5 L MCV 94.7 H MCH 31.8 H MCHC 33.6 RDW 13.9 Plt Count 183 MPV 7.4 Neut % (Auto) 59.6 Lymph % (Auto) 29.8 Hemphill % (Auto) 5.4 Eos % (Auto) 4.7 Baso % (Auto) 0.6 Neut # (Auto) 3.1 Lymph # (Auto) 1.5 Hemphill # (Auto) 0.3 Eos # (Auto) 0.2 Baso # (Auto) 0.0 Sodium 139 Potassium 3.6 Chloride 105 Carbon Dioxide 25 Anion Gap 12.6 BUN 9 Creatinine 1.07 Estimated Creat Clear 111 Estimated GFR 72 Est GFR ( Amer) 87 Glucose 108 H Calcium 9.4 Magnesium 1.7 Troponin I 0.28 H DS: Diagnosis - Discharge Diagnosis (1) AICD discharge Status: Acute (2) Atrial fibrillation with rapid ventricular response Status: Acute (3) Noncompliance with medication regimen Status: Acute (4) Coronary artery disease Status: Chronic (5) Abdominal aortic aneurysm (AAA) 3.0 cm to 5.5 cm in diameter in male Status: Acute (6) COPD exacerbation Status: Chronic (7) LBBB (left bundle branch block) Status: Chronic (8) Smoker Status: Chronic Discharge Medications - Medications for Discharge Home Medication List at Discharge: No Action losartan 50 mg tablet 50 mg PO DAILY #30 tab furosemide 40 mg tablet 40 mg PO BIDL #60 tab gabapentin 800 mg tablet 800 mg PO TID #90 tab carvedilol 12.5 mg tablet 12.5 mg PO BID #30 tab sertraline 100 mg tablet 100 mg PO BID #60 tab Fluticasone Propionate 1 spray INTRANASAL DAILY Metoprolol Tartrate 150 mg PO BID Atorvastatin Calcium [Atorvastatin 80mg Tab] 80 mg PO HS Aspirin [Aspir 81] 81 mg PO DAILY Pantoprazole Sodium [Protonix 40mg tablet] 40 mg PO DAILY Hydrocod/Acet 5/325 mg [[place] 5/325mg tablet] 1 tab PO Q6HP PRN #10 tab PRN Reason: Moderate To Severe Pain Potassium Chloride [Klor-con 20 mEq tablet] 20 meq PO BID Apixaban [Eliquis] 5 mg PO BID Disposition Disposition: Home, Self-Care
== END 2017-11-15 12:13 | disposition home or self-care (01) ==
LOC: ER 14:08 → 2ND 14:08
PROVIDERS: ADMIT Emergency Medicine; ATTEND Emergency Medicine
CPT/HCPCS: 36415; 71020; 71046; 80048; 83735; 84484; 85025; 93005; 96366; 96374; 99284; G0378; J2405

== ENCOUNTER → 2017-11-19 14:00 | Outpatient (CLI) | payer MEDICARE, MEDICAID, SELFPAY ==
[2017-11-19 17:06] LABS: Amphetamine/Metha Screen,Urine Negative ng/mL (<1000); Barbiturates Screen,Urine Negative ng/mL (<200); Benzodiazepines Screen,Urine Negative ng/mL (<200); Cannabinoid Screen,Urine Negative ng/mL (<50); Cocaine Screen,Urine Negative ng/mL (<300); Methadone Screen,Urine Negative ng/mL (<300); Opiate Screen,Urine Negative ng/mL (<300); Phencyclidine Screen,Urine Negative ng/mL (<25)
== END ==
PROVIDERS: Family Provider Emergency Medicine; PCP Emergency Medicine; Visit Provider Internal Medicine
DX: M54.12 Radiculopathy, cervical region (principal)
CPT/HCPCS: 80305

== ENCOUNTER 2018-03-26 12:39 | Observation (INO) ==
--- NOTE | 2018-03-26 13:05 | Emergency Department Note ---
ED Disposition Clinical Impression: Paroxysmal ventricular tachycardia Chest pain Qualifiers: Chest pain type: precordial pain Qualified Code(s): R07.2 - Precordial pain Disposition: Admitted as Observation Condition on Discharge: Fair - Critical Care Critical Care Time: No Attestation: On , the high probability of a clinically significant, sudden or life threatening deterioration of the following system(s) required my full and direct attention, intervention and personal management. The time I documented below is in addition to time spent performing reported procedures but includes the following listed in this critical care notation. Medical Decision Making - Jonathan Inquiry Pt receiving controlled substance: No Jonathan was queried for this patient: Yes Reference #:: [id number] Comment: 12 rxs. last rx for 3 Tylenol #3 on 01/30/18. Vital Signs: 03/26/18 12:40 03/26/18 13:17 03/26/18 13:51 Temperature 98 F Temperature Source Oral Pulse Rate Pulse Rate [Left Radial] 70 69 70 Respiratory Rate 16 Blood Pressure Blood Pressure [Right Arm] 129/90 127/68 117/70 Blood Pressure Mean [Right Arm] 103 87 85 Blood Pressure Source Blood Pressure Source [Right Arm] Automatic Cuff Automatic Cuff Automatic Cuff Blood Pressure Position Blood Pressure Position [Right Arm] Sitting Sitting Sitting 02 Sat by Pulse Oximetry 98 96 94 L Oxygen Delivery Method Room Air Nasal Cannula Room Air Oxygen Flow Rate (LPM) 2 03/26/18 14:32 Temperature 98.3 F Temperature Source Temporal Artery Scan Pulse Rate 120 H Pulse Rate [Left Radial] Respiratory Rate 16 Blood Pressure 125/78 Blood Pressure [Right Arm] Blood Pressure Mean [Right Arm] Blood Pressure Source Automatic Cuff Blood Pressure Source [Right Arm] Blood Pressure Position Sitting Blood Pressure Position [Right Arm] 02 Sat by Pulse Oximetry Oxygen Delivery Method Room Air Oxygen Flow Rate (LPM) - Lab Data Lab Results 03/26/18 13:25: WBC 4.6 L, RBC 4.32 L, Hgb 13.3 L, Hct 40.1 L, MCV 92.7, MCH 30.7, MCHC 33.1, RDW 14.2, Plt Count 171, MPV 8.0, Neut % (Auto) 54.7, Lymph % (Auto) 35.9, Sac % (Auto) 6.1, Eos % (Auto) 2.8, Baso % (Auto) 0.5, Neut # (Auto) 2.5, Lymph # (Auto) 1.7, Sac # (Auto) 0.3, Eos # (Auto) 0.1, Baso # (Auto) 0.0 03/26/18 13:25: PT 11.4, INR 1.11 H 03/26/18 13:25: Sodium 141, Potassium 3.8, Chloride 106, Carbon Dioxide 26, Anion Gap 12.8, BUN 10, Creatinine 1.00, Estimated Creat Clear 114, Estimated GFR 78, Est GFR ( Amer) 94, Glucose 99, Calcium 8.9, Troponin I 0.10 H Result diagrams: 03/26/18 13:25 03/26/18 13:25 Orders (Tests/Meds): ED MEDICATIONS Generic Name Dose Route Start Last Admin Trade Name Freq PRN Reason Stop Dose Admin Acetaminophen 650 mg 03/26/18 14:35 Acetaminophen 325mg Tab PO 04/25/18 14:34 Q4HP PRN As Needed for Fever or Pain Aspirin 81 mg 03/27/18 09:00 Aspirin 81mg Enteric Coated Tablet PO 04/26/18 08:59 DAILY [facility] Atorvastatin Calcium 80 mg 03/26/18 21:00 Lipitor 40mg Tablet PO 04/25/18 20:59 HS [facility] Clopidogrel Bisulfate 75 mg 03/27/18 09:00 Plavix 75mg Tablet PO 04/26/18 08:59 DAILY [facility] Fentanyl Citrate 50 mcg 03/26/18 16:01 03/26/18 16:27 Fentanyl 100mcg/2ml Vial IV 03/27/18 16:01 100 mcg Q3MINP PRN Administration Moderate to Severe Pain Fentanyl Citrate 25 mcg 03/26/18 16:01 Fentanyl 250mcg/5ml Vial IV 03/27/18 16:01 Q3MINP PRN Moderate to Severe Pain Fentanyl Citrate 50 mcg 03/26/18 16:01 Fentanyl 250mcg/5ml Vial IV 03/27/18 16:01 Q3MINP PRN Moderate to Severe Pain Fentanyl Citrate 25 mcg 03/26/18 16:01 Fentanyl 100mcg/2ml Vial IV 03/27/18 16:01 Q3MINP PRN Moderate to Severe Pain Flumazenil 0.2 mg 03/26/18 16:01 Romazicon 0.1mg/Ml 5ml Vial IV 03/26/18 23:00 NEEDED PRN Sedation Fluticasone Propionate 1 spr 03/27/18 09:00 Flonase 50mcg Nasal [place] 16gm NS 04/26/18 08:59 DAILY [facility] Furosemide 40 mg 03/26/18 16:00 03/26/18 17:38 Lasix 40mg Tablet PO 04/25/18 15:59 40 mg BIDL [facility] Administration Gabapentin 300 mg 03/26/18 21:00 Neurontin 300mg Capsule PO 04/25/18 20:59 TID [facility] Sodium Chloride 1,000 mls @ 25 mls/hr 03/26/18 15:00 03/26/18 17:40 Sod Chlor 0.9% 1000ml Bag IV 04/25/18 14:59 25 mls/hr .Q25H [facility] Administration Sodium Chloride 1,000 mls @ 25 mls/hr 03/26/18 16:15 03/26/18 16:19 Sod Chlor 0.9% 1000ml Bag IV 03/27/18 16:01 25 mls/hr .Q25H [facility] Administration Iopamidol 80 ml 03/26/18 16:38 03/26/18 16:40 Rad-Isovue 370; 150ml IV 03/26/18 16:39 80 ml ONCE ONE Administration Protocol Irbesartan 75 mg 03/27/18 09:00 Avapro 75mg Tablet PO 04/26/18 08:59 DAILY [facility] Metoprolol Tartrate 200 mg 03/26/18 21:00 Lopressor 50mg Tablet PO 04/25/18 20:59 BID [facility] Midazolam HCl 1 mg 03/26/18 16:01 03/26/18 16:28 Midazolam 2mg/2ml Vial IV 03/27/18 16:01 4 mg Q3MINP PRN Administration Sedation Midazolam HCl 1 mg 03/26/18 16:01 Midazolam 1mg/Ml 5ml Vial IV 03/27/18 16:01 Q3MINP PRN Sedation Naloxone HCl 0.4 mg 03/26/18 16:01 Narcan 0.4mg/Ml Vial IV 03/27/18 16:01 Q5MINP PRN Decreased respirations Nitroglycerin 800 mcg 03/26/18 16:01 Nitroglycerin 800mcg/8ml Syr (Vascular Technician) IV 03/27/18 16:01 NEEDED PRN [employer] Engineering Specialist Ondansetron HCl 4 mg 03/26/18 14:35 Zofran 4mg Odt PO 04/25/18 14:34 Q8HP PRN Nausea Pantoprazole Sodium 40 mg 03/27/18 09:00 Protonix 40mg Tablet PO 04/26/18 08:59 DAILY [facility] Potassium Chloride 20 meq 03/26/18 21:00 Klor-Con 20meq Tablet PO 04/25/18 20:59 BID [facility] Sertraline HCl 100 mg 03/26/18 21:00 Zoloft 100mg Tablet PO 04/25/18 20:59 BID [facility] Sodium Chloride 10 ml 03/26/18 14:54 Saline Flush 10ml Syringe IV 04/25/18 14:53 NEEDED PRN Maintain IV Site Sodium Chloride 10 ml 03/26/18 16:01 Saline Flush 10ml Syringe IV 04/25/18 16:00 NEEDED PRN Maintain IV Site Sodium Chloride 10 ml 03/26/18 16:01 Saline Flush 10ml Syringe IV 04/25/18 16:00 NEEDED PRN Maintain IV Site Discontinued Medications Generic Name Dose Route Start Last Admin Trade Name Freq PRN Reason Stop Dose Admin Heparin Sodium (Porcine) 10,000 unit 03/26/18 16:01 Heparin 1,000 Units/Ml 10ml Vial (Vascular Technician) IV 03/26/18 20:01 NEEDED PRN Emergency Box Engineering Specialist Heparin Sodium/Sodium Chloride 3,000 unit 03/26/18 16:01 03/26/18 16:19 Heparin 1000 Units/500ml Ns (Vascular Technician) IV 03/26/18 16:02 3,000 unit ONCE ONE Administration Lidocaine HCl 20 ml 03/26/18 16:01 03/26/18 16:20 Lidocaine 1% 20ml Mdv IJ 03/26/18 16:02 10 ml ONCE ONE Administration Non-Formulary Medication 5 mg 03/26/18 21:00 Apixaban [Eliquis] PO 04/25/18 20:59 BID [facility] Sodium Chloride 10 ml 03/26/18 14:56 Saline Flush 10ml Syringe IV 04/25/18 14:55 NEEDED PRN Maintain IV Site Verapamil HCl 2.5 mg 03/26/18 16:01 03/26/18 17:38 Verapamil 2.5mg/Ml 2ml Vial IV 03/26/18 16:02 Not Given ONCE ONE - Radiology Data #1 Image(s): Chest Image Reviewed: Yes I reviewed the patient's radiology image Preliminary Findings: Normal/NAD - ECG Data Tracing #1 EKG interpreted by Darek George MD: Rhythm: Ventricular paced rhythm Rate: 70 Prior electrocardiagrams reviewed. No change from prior tracings. - Physician Consults Physician Consulted: GREGORIA Ortiz for Dr. Rosenthal present in ED Time: 13:32 Reason -: Cardiology Eval/Care Comment/Response: They have been trying to contact the patient since October because his device has reported episodes of ventricular tachycardia with defibrillation's. They have been unable to reach the patient because of no working phone number. A family member called today to obtain a refill on a prescription and they advised the family member that the patient needed to be seen and that they could set him up an appointment for today or tomorrow. He s et up an appointment, but then apparently called 911 to be brought into the emergency room. When patient arrived here he stated that he had been told to come straight to the emergency room by his retrimmer, but that was not the case according to Diana. Patient now reports chest pain that is been going on since yesterday, but did not report that it all to them on the phone today. Device being interrogated in ED. Additional Consult: Aryan Montana NP for Dr. Alonzo Time: 14:11 Reason -: Admission Comment/Response: Agrees to admit the patient to the hospital. We discussed the patient's clinical information, including history, exam, laboratory and radiology results and ED course. Per hospital procedure, I will write temporary bridge inpatient orders on the patient. Specific orders requested by the admitting physician: Admit to Dr. Alonzo, serial cardiac enzymes Medical Decision Narrative: Defibrillator interrogation shows no new defibrillation discharges, none during transport today as reported by patient. Patient has chronically elevated troponin. Today's first troponin is the lowest that he has had on record here going back to August 2015. General Adult HPI - General Chief complaint: Chest Pain Stated complaint: chest pain Time Seen by Provider: 03/26/18 13:25 - History of Present Illness HPI narrative: Brought in by ambulance for chest pain and defibrillator discharges. Patient sa ys that he began having a chest pressure intermittently yesterday during the [facility] ballgame in the afternoon. It has been coming and going lasting about 10 minutes or so at a time, about 3 or 4 episodes since then. Current episode started 45 minutes ago, however. He says it is associated with shortness of breath, nausea, diaphoresis, and radiation into his left arm. He was given nitroglycerin and aspirin during transport. The one nitroglycerin did not help very much, just a little. States current pain is 8/10. EMS reported that the patient reported 3 defibrillator discharges during transport, but one even occurred while an EKG was being performed and did not disclose any arrhythmias or defibrillator discharge. - Related Data Home Medications Medication Instructions Recorded Confirmed Aspirin [Aspir 81] 81 mg PO DAILY 05/26/17 03/26/18 Atorvastatin Calcium [Atorvastatin 80 mg PO HS 05/26/17 03/26/18 80mg Tab] Pantoprazole Sodium [Protonix 40mg 40 mg PO DAILY 10/05/17 03/26/18 tablet] Potassium Chloride [Klor-con 20 20 meq PO BID 11/14/17 03/26/18 mEq tablet] Carvedilol [Coreg 12.5mg 12.5 mg PO BID 03/26/18 03/26/18 Tablet] Clopidogrel Bisulfate [Plavix 75mg 75 mg PO DAILY 03/26/18 03/26/18 Tab] Furosemide [Lasix 40mg tablet] 40 mg PO BIDL 03/26/18 03/26/18 Gabapentin [Gabapentin 300mg Cap] 300 mg PO TID 03/26/18 03/26/18 Metoprolol Tartrate 200 mg PO BID 03/26/18 03/26/18 Sertraline HCl [Zoloft 100mg 100 mg PO BID 03/26/18 03/26/18 tablet] Tiotropium [place] [Spiriva 1 puff IH DAILY 03/26/18 03/26/18 18mcg/puff inhaler] Previous Rx's Medication Instructions Recorded losartan 50 mg tablet 50 mg PO DAILY #30 tab 06/21/17 Ondansetron [Zofran 4mg ODT] 4 mg PO Q8HP PRN #20 tab.rapdis 02/07/18 Allergies Allergy/AdvReac Type Severity Reaction Status Date / Time diphenhydramine Allergy Mild NA-NAUSEA Verified 02/07/18 14:33 [From BENADRYL ALLERGY] pseudoephedrine Allergy Mild NA-NAUSEA Verified 02/07/18 14:33 [From SUDAFED] nitroglycerin Allergy Unknown Verified 02/07/18 14:33 [From NITRO-BID] [facility] History - Hepatitis A Screen Attestation statement:: This patient has been screened for Hepatitis A risk factors. I have reviewed the patient's past medical history: Yes Medical History: Reports:: Arrhythmia, Atrial Fibrillation, Congestive Heart Failure, Chronic Obstructive Pulmonary Disease (COPD), Coronary Artery Disease, Cerebrovascular Accident, Gastroesophageal Reflux Disease(GERD), Hyperlipidemia, Hypertension, Internal Pacemaker Denies:: Cancer, Diabetes Mellitus Type 1, Diabetes Mellitus Type 2, MRSA, Seizures Other Medical History: Denies: Blood Transfusion Reaction Laterality Cases: Left: Other, Right: Arthroscopy Hip, Total Hip Replacement Other Surgeries: Yes: CABG, Cardiac Catheterization, Cardiac Surgery, Coronary Stent, Open Heart Surgery, Pacemaker, Other Amputation: No Fractures: No Comment: open heart surgery, Gallbladder removed - Social History Smoking Status: Current every day smoker Tobacco Type: cigarettes # Packs/Day (cigarettes): 1 #Yrs smoked (if former smoker): 40 Alcohol Intake: former Alcohol Intake Frequency:: other Substance Use Type: denies use Occupational Status: disabled Housing: apartment Household Members: significant other, none Family Hx:: Diabetes ROS Obtained: Yes All systems reviewed & no additional complaints - Cardiovascular Cardiovascular: Reports as per HPI, Reports chest pain, Reports diaphoresis - Respiratory Respiratory: Yes dyspnea - Gastrointestinal Gastrointestingal: Reports: nausea Physical Exam - General General appearance: alert, in no apparent distress - Head Head exam: atraumatic - Eye Eye exam: Present: normal appearance, PERRL, EOMI - ENT ENT exam: Present: normal exam, normal oropharynx - Neck Neck exam: Present: normal inspection, trachea midline - Chest Chest inspection: Present: normal inspection, symmetric chest wall rise - Respiratory Respiratory exam: Present: normal lung sounds bilaterally. Absent: respiratory distress - Cardiovascular Cardiovascular exam: Present: regular rate, normal rhythm, normal heart sounds - Abdominal Exam Abdominal exam: Present: soft. Absent: distention, tenderness - Extremities Exam Extremities exam: Present: normal inspection, full ROM. Absent: tenderness - Neurological Exam Neurological exam: Present: alert, oriented X3 - Psychiatric Psychiatric exam: Present: normal affect, normal mood - Skin Skin exam: Present: warm, dry
[2018-03-26 13:37] LABS: Basophils % 0.5 % (0.1-2.0); Eosinophils # 0.1 K/mm3 (0.0-0.4); Eosinophils % 2.8 % (0.1-12.0); Hematocrit 40.1 % (42.0-52.0); Hemoglobin 13.3 g/dL (14.1-18.0); Lymphocytes # 1.7 K/mm3 (0.7-4.5); Lymphocytes % 35.9 % (10-50); Mean Corpuscular HGB Conc 33.1 g/dL (31.8-35.4); Mean Corpuscular Hemoglobin 30.7 pg (27.0-31.2); Mean Corpuscular Volume 92.7 fl (80-94); Monocytes # 0.3 K/mm3 (0.1-1.0); Monocytes % 6.1 % (1.7-9.3); Neutrophils # 2.5 K/mm3 (1.8-7.8); Neutrophils % 54.7 % (37.0-80.0); Platelet Count 171 K/mm3 (142-424); Red Blood Count 4.32 M/mm3 (4.60-6.20); Red Cell Distribution Width 14.2 % (11.5-17.5); White Blood Count 4.6 K/mm3 (4.8-10.8)
[2018-03-26 13:49] LABS: INR 1.11 (0.9-1.1); Prothrombin Time 11.4 seconds (9.4-11.8)
[2018-03-26 13:54] LABS: Anion Gap 12.8 mEq/L (5-15); Calcium 8.9 mg/dL (8.5-10.1); Potassium 3.8 mmoL/L (3.5-5.1)
--- NOTE | 2018-03-26 15:01 | Consult Report ---
History of Present Illness Consult date: 03/26/18 Requesting physician: Darek George Consult reason: chest pain Chief complaint: chest pain and AICD firing History of present illness: This is a 53 year old white male who presents to the ER with complaints of chest pain. The patient reports that his Chest pain started yesterday while watching the [employer] football game. this was a substernal pressure sensation that radiated to the L jaw and L arm. He was SOB with the pain, nauseated and diaphoretic. He states this occurred multiple times off and on. He states this resolved and he slept fine last night. He contacted our office today about a refill on medication. Pt was advised to come into our office for multiple episodes of Vtach on his AICD interrogations and AICD firing. Our office has been trying to reach the patient since October 2017 and he did not have a working phone number. He was offered an appt today, or any day this week or next week. The patient wanted to be seen today and had an appt at 1pm. After getting off the phone, his severe CP returned just like yesterday and lasted about 30 min. the patient called EMS and was transported to the hospital. He states his AICD fired on the way to the hospital. His AICD was interrogated again, and no new AICD shocks were noted. During my examination pt is having 8/10 chest pain. radiating to the L arm and L jaw. Still having SOB, nausea and diaphoresis. Typical angina. known CAD. pt is medically noncompliant. still smoking. no fever, chills, vomiting, diarrhea, PND or orthopnea. [facility] History Medical History: Reports:: Arrhythmia, Atherosclerotic Heart Disease, Atrial Fibrillation, Congestive Heart Failure, Chronic Obstructive Pulmonary Disease (COPD), Coronary Artery Disease, Cerebrovascular Accident, Gastroesophageal Reflux Disease(GERD), Hyperlipidemia, Hypertension, Internal Pacemaker Denies:: Cancer, Diabetes Mellitus Type 1, Diabetes Mellitus Type 2, MRSA, Seizures Other Medical History: Denies: Blood Transfusion Reaction Laterality Cases: Left: Other, Right: Arthroscopy Hip, Total Hip Replacement Other Surgeries: Yes: CABG, Cardiac Catheterization, Cardiac Surgery, Coronary Stent, Open Heart Surgery, Pacemaker, Other Amputation: No Fractures: No - *Social History Educational Level: Completed High School Smoking Status: Current every day smoker Tobacco Type: cigarettes # Packs/Day (cigarettes): 2 #Yrs smoked (if former smoker): 40 Alcohol Intake: never Alcohol Intake Frequency:: other Substance Use Type: denies use Occupational Status: disabled Housing: apartment Household Members: significant other, none - Psychiatric History Expresses thoughts of harming self/others: None Suicide Plan Description: No Plan *Family Hx:: Diabetes Meds Home Medications Medication Instructions Recorded Confirmed Type Aspirin [Aspir 81] 81 mg PO DAILY 05/26/17 03/26/18 History Atorvastatin Calcium [Atorvastatin 80 mg PO HS 05/26/17 03/26/18 History 80mg Tab] losartan 50 mg tablet 50 mg PO DAILY #30 tab 06/21/17 03/26/18 Rx Pantoprazole Sodium [Protonix 40mg 40 mg PO DAILY 10/05/17 03/26/18 History tablet] Potassium Chloride [Klor-con 20 20 meq PO BID 11/14/17 03/26/18 History mEq tablet] Ondansetron [Zofran 4mg ODT] 4 mg PO Q8HP PRN #20 tab.rapdis 02/07/18 03/26/18 Rx Carvedilol [Coreg 12.5mg 12.5 mg PO BID 03/26/18 03/26/18 History Tablet] Clopidogrel Bisulfate [Plavix 75mg 75 mg PO DAILY 03/26/18 03/26/18 History Tab] Furosemide [Lasix 40mg tablet] 40 mg PO BIDL 03/26/18 03/26/18 History Gabapentin [Gabapentin 300mg Cap] 300 mg PO TID 03/26/18 03/26/18 History Metoprolol Tartrate 200 mg PO BID 03/26/18 03/26/18 History Sertraline HCl [Zoloft 100mg 100 mg PO BID 03/26/18 03/26/18 History tablet] Tiotropium [place] [Spiriva 1 puff IH DAILY 03/26/18 03/26/18 History 18mcg/puff inhaler] Moustapha [Moustapha, Standard] 1 each MISCELLANE DIRECTED 03/26/18 03/26/18 History Allergies Allergy/AdvReac Type Severity Reaction Status Date / Time diphenhydramine Allergy Mild NA-NAUSEA Verified 02/07/18 14:33 [From BENADRYL ALLERGY] pseudoephedrine Allergy Mild NA-NAUSEA Verified 02/07/18 14:33 [From SUDAFED] nitroglycerin Allergy Unknown Verified 02/07/18 14:33 [From NITRO-BID] Review of Systems - Review of Systems Review of systems:: pertinent systems reviewed and negative unless documented below - *Cardiovascular Reports chest pain, Reports chest pain at rest, Reports chest pain with activity, Reports shortness of breath, Reports shortness of breath with activity - *Gastrointestinal Reports nausea Exam Vital signs and Labs for Last 24 Hours: Temp Pulse Resp BP Pulse Ox 97.8 F 71 18 162/80 H 96 03/26/18 14:53 03/26/18 14:53 03/26/18 14:53 03/26/18 14:53 03/26/18 14:53 Laboratory Results - last 24 hr 03/26/18 13:25: WBC 4.6 L, RBC 4.32 L, Hgb 13.3 L, Hct 40.1 L, MCV 92.7, MCH 30.7, MCHC 33.1, RDW 14.2, Plt Count 171, MPV 8.0, Neut % (Auto) 54.7, Lymph % (Auto) 35.9, [place] % (Auto) 6.1, Eos % (Auto) 2.8, Baso % (Auto) 0.5, Neut # (Auto) 2.5, Lymph # (Auto) 1.7, [place] # (Auto) 0.3, Eos # (Auto) 0.1, Baso # (Auto) 0.0 03/26/18 13:25: PT 11.4, INR 1.11 H 03/26/18 13:25: Sodium 141, Potassium 3.8, Chloride 106, Carbon Dioxide 26, Anion Gap 12.8, BUN 10, Creatinine 1.00, Estimated Creat Clear 114, Estimated GFR 78, Est GFR ( Amer) 94, Glucose 99, Calcium 8.9, Troponin I 0.10 H I & O for Last 24 hours: Intake & Output 03/23/18 03/24/18 03/25/18 03/26/18 23:59 23:59 23:59 23:59 Weight 219 lb Radiology Reports for the Last 24 Hours: EKG is v-pacing with a rate of 70. AICD d/l shows 30 episodes of v-tach and 29 episodes of SVT. Pt had ATP x3 and 1 shocked delivered at 36 J. a-pacing 49% BiV-pacing 90% AT/AF burden 46% Corvue is stable - Constitutional no acute distress, average body habitus - *Routine HEENT Exam Head: Present: normocephalic Eye: Present: EOMI, PERRL ENT: Present: mucous membranes moist - *Routine Neck Exam Present: supple, full ROM. Absent: JVD, carotid bruit, lymphadenopathy - *Routine Respiratory Exam Present: CTA bilaterally - *Routine Cardiovascular Exam Present: RRR, Normal S1, Normal S2. Absent: murmur, gallop - *Routine Abdominal Exam Present: soft, normoactive bowel sounds. Absent: tenderness, distended, rebound, organomegaly - *Routine Extremities Exam Present: full ROM, pulses intact. Absent: cyanosis, clubbing, edema - *Routine Skin Exam Present: warm. Absent: cyanosis, rash - *Routine Neurological Exam Present: alert, oriented X3, CN II-XII intact, sensory deficit, motor deficit - Routine Psychiatric Exam Present: normal affect, normal thought process. Absent: suicidal ideation Assessment and Plan (1) Typical angina Current visit: Yes Status: Acute Category: Medical Code(s): I20.9 - Angina pectoris, unspecified (2) Ventricular tachycardia Current visit: Yes Status: Acute Category: Medical Code(s): I47.2 - Ventricular tachycardia (3) SVT (supraventricular tachycardia) Current visit: Yes Status: Acute Category: Medical Code(s): I47.1 - Supraventricular tachycardia (4) CAD (coronary artery disease) Current visit: Yes Status: Acute Category: Medical Code(s): I25.10 - Athe rosclerotic heart disease of [place] coronary artery without angina pectoris (5) HLD (hyperlipidemia) Current visit: Yes Status: Acute Category: Medical Code(s): E78.5 - Hyperlipidemia, unspecified (6) AICD discharge Current visit: No Status: Acute Category: Medical Code(s): Z45.02 - Encounter for adjustment and management of automatic implantable cardiac defibrillator (7) Atrial fibrillation Current visit: No Status: Chronic Qualifiers: Atrial fibrillation type: chronic Qualified Code(s): I48.2 - Chronic atrial fibrillation Category: Medical Code(s): I48.91 - Unspecified atrial fibrillation (8) CHF (congestive heart failure) Current visit: No Status: Chronic Qualifiers: Heart failure type: unspecified Heart failure chronicity: unspecified Qualified Code(s): I50.9 - Heart failure, unspecified Category: Medical Code(s): I50.9 - Heart failure, unspecified (9) Nonischemic cardiomyopathy Current visit: No Status: Chronic Category: Medical Code(s): I42.8 - Other cardiomyopathies (10) Tobacco use disorder Current visit: No Status: Chronic Category: Medical Code(s): F17.200 - Nicotine dependence, unspecified, uncomplicated - Assessment and plan all Dx Assessment and Plan for all problems:: Plan: 1. Pt admitted with CP. he is having typical angina, class IV angina. Pt has had multiple episodes of v-tach and AICD has shocked him. v-tach could be ischemically mediated. 2. Clinical evaluation and indication for diagnostic coronary angiography includes: Known CAD Cardiac Arrhythmia Cardiomyopathy New Onset Angina <= 2 months Patient is describing chest pain symptom as typical angina Clinical risk factors of CAD, htn, hld, tobacco use Medication therapy including beta blockers 3. Will plan to proceed with LHC/Coronary angiography with R groin access. The patient has been educated on the risks, benefits and alternatives of proceeding with LHC/Coronary angiography with R groin access. The patient verbalizes understanding and is agreeable in proceeding with the procedure. 4. CAD is present. 5. BP is well controlled 6. LDL goal is < 55. liver and lipid panel 7. Afib is v-pacing. AICD d/l shows afib 46%. on eliquis for a/c. 8. v-tach and SVT are noted. Pt on metoprolol 200 mg BID. pt reports he is taking this medication as directed. Following LHC, consider amiodarone for suppression of v-tach. 9. Pt has a history of cardiomyopathy. will get an echo to evaluate LV function. 10. tobacco cessation is advised and counseled. 11. further recommendations will made pending the patient's response to treatment and results of LHC today. Thank you for the opportunity to help participate in the care of this patient.
--- NOTE | 2018-03-26 15:09 | Pharmacy Consult Notes ---
[facility] Pharmacy VTE Monitoring - Patient Demographics Admission date: 03/26/18 Report Date: 03/26/18 Time: 15:08 Allergies/Adverse Reactions: Patient Allergies diphenhydramine [From BENADRYL ALLERGY] Allergy (Mild, Verified 02/07/18 14:33) NA-NAUSEA pseudoephedrine [From SUDAFED] Allergy (Mild, Verified 02/07/18 14:33) NA-NAUSEA nitroglycerin [From NITRO-BID] Allergy (Unknown, Verified 02/07/18 14:33) Height: 1.88 m Weight: 99.337 kg Patient Problems: Current Active Problems Chest pain (Acute) Paroxysmal ventricular tachycardia (Acute) - VTE Risk Labs: VTE Related Lab Results Hgb 13.3 g/dL (14.1-18.0) L 03/26/18 13:25 Hct 40.1 % (42.0-52.0) L 03/26/18 13:25 Plt Count 171 K/mm3 (142-424) 03/26/18 13:25 PT 11.4 seconds (9.4-11.8) 03/26/18 13:25 INR 1.11 (0.9-1.1) H 03/26/18 13:25 BUN 10 mg/dL (7-18) 03/26/18 13:25 Creatinine 1.00 mg/dL (0.70-1.30) 03/26/18 13:25 Estimated Creat Clear 114 mL/min (50-200) 03/26/18 13:25 VTE Score: 4 VTE Risk Level: Low Risk Clinical Trial Participant: No - Prophylaxis VTE Prophylaxis Ordered?: Yes Types of VTE Prophylaxis: TEDS Knee High
[2018-03-27 06:47] LABS: Basophils % 0.6 % (0.1-2.0); Eosinophils # 0.2 K/mm3 (0.0-0.4); Eosinophils % 2.9 % (0.1-12.0); Hematocrit 39.7 % (42.0-52.0); Hemoglobin 13.1 g/dL (14.1-18.0); Lymphocytes # 1.8 K/mm3 (0.7-4.5); Lymphocytes % 35.4 % (10-50); Mean Corpuscular Volume 93.9 fl (80-94); Mean Platelet Volume 7.2 fl (7.4-10.4); Monocytes # 0.4 K/mm3 (0.1-1.0); Monocytes % 6.7 % (1.7-9.3); Neutrophils # 2.8 K/mm3 (1.8-7.8); Neutrophils % 54.4 % (37.0-80.0); Platelet Count 164 K/mm3 (142-424); Red Blood Count 4.23 M/mm3 (4.60-6.20); Red Cell Distribution Width 14.3 % (11.5-17.5); White Blood Count 5.2 K/mm3 (4.8-10.8)
[2018-03-27 06:57] LABS: Albumin Level 3.4 gm/dL (3.4-5.0); Anion Gap 11.5 mEq/L (5-15); Bilirubin,Direct 0.1 mg/dL (0.0-0.2); Bilirubin,Indirect 0.3 mg/dL (0.0-0.9); Bilirubin,Total 0.4 mg/dL (0.2-1.0); Calcium 8.6 mg/dL (8.5-10.1); Chol/HDL Ratio 7.4 (1-3.5); Potassium 3.5 mmoL/L (3.5-5.1); Total Protein,Serum 6.7 gm/dL (6.4-8.2)
[2018-03-27 11:25] LABS: Free T4 (Free Thyroxine) 1.13 ng/dl (0.76-1.46); Thyroid Stimulating Hormone 1.3 uIU/ml (0.358-3.740)
--- NOTE | 2018-03-27 11:26 | Progress Note ---
Subjective Date: 03/27/18 Time: 10:00 Principal diagnosis: chest pain Interval history: Mr. Good was admitted to the hospital with angina and having episodes of ventricular tachycardia and supraventricular tachycardia. The patient had an AICD shock delivered secondary to his ventricular tachycardia. The patient states that he had been having chest pain. The patient was felt to be having class IV angina/typical angina and underwent left cardiac catheterization yesterday. His left cardiac catheterization yesterday showed moderate to severe coronary ectasia. His ejection fraction was around 50%. Medical management was recommended. Dr. Telles did recommend isosorbide mononitrate for his angina as well as amiodarone for his ventricular tachycardia and anticoagulation due to his atrial fibrillation burden at 46%. Today the patient is still complaining o f chest pain. He states it is a pressure sensation in the center of his chest. He is also complaining of pain around his AICD site. The patient states that the symptoms are no better than they were yesterday. He denies any shortness of breath this morning. He denies any fever chills nausea vomiting diarrhea PND orthopnea. Exam Vital signs and Labs for Last 24 Hours: Temp Pulse Resp BP Pulse Ox 98 F 70 16 146/83 H 97 03/27/18 07:37 03/27/18 07:37 03/27/18 07:37 03/27/18 07:37 03/27/18 08:00 Laboratory Results - last 24 hr 03/26/18 13:25: WBC 4.6 L, RBC 4.32 L, Hgb 13.3 L, Hct 40.1 L, MCV 92.7, MCH 30.7, MCHC 33.1, RDW 14.2, Plt Count 171, MPV 8.0, Neut % (Auto) 54.7, Lymph % (Auto) 35.9, [place] % (Auto) 6.1, Eos % (Auto) 2.8, Baso % (Auto) 0.5, Neut # (Auto) 2.5, Lymph # (Auto) 1.7, [place] # (Auto) 0.3, Eos # (Auto) 0.1, Baso # (Auto) 0.0 03/26/18 13:25: PT 11.4, INR 1.11 H 03/26/18 13:25: Sodium 141, Potassium 3.8, Chloride 106, Carbon Dioxide 26, Anion Gap 12.8, BUN 10, Creatinine 1.00, Estimated Creat Clear 114, Estimated GFR 78, Est GFR ( Amer) 94, Glucose 99, Calcium 8.9, Troponin I 0.10 H 03/26/18 17:50: Troponin I 0.11 H 03/26/18 20:55: Troponin I 0.12 H 03/27/18 05:44: WBC 5.2, RBC 4.23 L, Hgb 13.1 L, Hct 39.7 L, MCV 93.9, MCH 31.0, MCHC 33.0, RDW 14.3, Plt Count 164, MPV 7.2 L, Neut % (Auto) 54.4, Lymph % (Auto) 35.4, [place] % (Auto) 6.7, Eos % (Auto) 2.9, Baso % (Auto) 0.6, Neut # (Auto) 2.8, Lymph # (Auto) 1.8, [place] # (Auto) 0.4, Eos # (Auto) 0.2, Baso # (Auto) 0.0 03/27/18 05:44: Sodium 143, Potassium 3.5, Chloride 106, Carbon Dioxide 29, Anion Gap 11.5, BUN 10, Creatinine 0.91, Estimated Creat Clear 129, Estimated GFR 86, Est GFR ( Amer) 105, Glucose 97, Calcium 8.6, Total Bilirubin 0.4, Direct Bilirubin 0.1, Indirect Bilirubin 0.3, AST 12 L, ALT 15, Alkaline Phosphatase 110, Total Protein 6.7, Albumin 3.4, Triglycerides 238 H, Cholesterol 207 H, LDL Cholesterol 131 H, VLDL Cholesterol 48 H, HDL Cholesterol 28, Cholesterol/HDL Ratio 7.4 H I & O for Last 24 hours: Intake & Output 03/24/18 03/25/18 03/26/18 03/27/18 23:59 23:59 23:59 23:59 Intake Total 720 / 720 Output Total 200 / 200 Balance 520 / 520 Weight 219 lb Radiology Reports for the Last 24 Hours: His preliminary echocardiogram reading shows an ejection fraction of 45% with mild aortic insufficiency and mild mitral regurgitation. - *Routine HEENT Exam Head: Present: atraumatic Eye: Present: EOMI, PERRL ENT: Present: mucous membranes moist - *Routine Neck Exam Present: supple, full ROM. Absent: JVD, carotid bruit, lymphadenopathy - *Routine Respiratory Exam Present: decreased breath sounds, rhonchi, wheezes (expiratory) - *Routine Cardiovascular Exam Present: RRR, Normal S1, Normal S2. Absent: murmur, gallop - *Routine Abdominal Exam Present: soft, normoactive bowel sounds. Absent: tenderness - *Routine Extremities Exam Present: full ROM, pulses intact. Absent: cyanosis, clubbing, edema - *Routine Skin Exam Present: intact, warm. Absent: erythema - *Routine Neurological Exam Present: alert, oriented X3, CN II-XII intact. Absent: sensory deficit, motor deficit Progress Note: A&P (1) Typical angina Status: Acute Current Visit: Yes (2) Ventricular tachycardia Status: Acute Current Visit: Yes (3) SVT (supraventricular tachycardia) Status: Acute Current Visit: Yes (4) CAD (coronary artery disease) Status: Acute Current Visit: Yes (5) HLD (hyperlipidemia) Status: Acute Current Visit: Yes (6) AICD discharge Status: Acute Current Visit: No (7) Atrial fibrillation Status: Chronic Current Visit: No (8) CHF (congestive heart failure) Status: Chronic Current Visit: No (9) Nonischemic cardiomyopathy Status: Chronic Current Visit: No (10) Tobacco use disorder Status: Chronic Current Visit: No Assessment and Plan for All Diagnoses:: Plan: 1. The patient was admitted to the hospital with chest pain. He had also been having episodes of ventricular tachycardia and SVT. The patient had a shock from his AICD. The patient did undergo left cardiac catheterization yesterday which showed moderate to severe coronary ectasia. Isosorbide was recommended for his angina. We will start him on isosorbide mononitrate 30 mg daily. 2. The patient has been having multiple episodes of ventricular tachycardia and SVT with an AICD shock. He has also been having atrial fibrillation burden at 46%. We will get the patient started on amiodarone 400 mg p.o. twice daily times 1 week and then decrease his dose to 200 mg p.o. twice daily for suppression of his ventricular tachycardia and his atrial fibrillation. 3. The patient is having atrial fibrillation approximately 46% of the time. The patient does need to be on anticoagulation. He states that his Eliquis was stopped and he is unsure why. We will get him started back on Eliquis 5 mg p.o. twice daily for anticoagulation. The patient is to stop his aspirin. And he is to remain on Plavix with the Eliquis. 4. His coronary artery disease is stable. 5. His blood pressure is acceptable. 6. Will get a baseline TSH. His baseline liver panel is normal. 7. His LDL goal is less than 70 his LDL is currently 131. His Lipitor has been increased to 80 mg daily. 8. His EF on his LV gram showed an ejection fraction of 50%. His EF on his echo is 45% preliminary. 9. The patient does have an AICD in place. His corvue is stable on download. 10. Tobacco cessation is highly advised and counseled. 11. The patient is stable for discharge home today from a cardiovascular standpoint. He will need to follow-up in 1 week on an outpatient basis. you for the opportunity to participate in the care of this patient.
[2018-03-27 11:37] VITALS: BP 120/84
--- NOTE | 2018-03-27 11:47 | H&P/Discharge Summary ---
General - General Admission date:: 03/26/18 Discharge date: 03/27/18 *Admission Date: 03/26/18 *Chief complaint: cp *History of present illness: 53 year old male who presents to the ER with complaints of chest pain. The patient reports that his Chest pain started yesterday while watching TV.Pt states this was a substernal pressure sensation that radiated to the L jaw and L arm. He was SOB with the pain, nauseated and diaphoretic. He states this occurred multiple times off and on. He states this resolved but still having a needle prick in the chest. Pt called [facility] yesterday needing refills of meds. Pt was advised to come into [facility] for multiple episodes of Vtach on his AICD interrogations and AICD firing. [facility] has been trying to reach the patient since October 2017 and he did not have a working phone number. The patient had an appt at 1pm at [facility]. Pt states after getting off the phone, his severe CP returned the patient called EMS and was transported to the ed. [facility] History I have reviewed the patient's past medical history: Yes Medical History: Reports:: Arrhythmia, Atherosclerotic Heart Disease, Atrial Fibrillation, Congestive Heart Failure, Chronic Obstructive Pulmonary Disease (COPD), Coronary Artery Disease, Cerebrovascular Accident, Gastroesophageal Reflux Disease(GERD), Hyperlipidemia, Hypertension, Internal Pacemaker Denies:: Cancer, Diabetes Mellitus Type 1, Diabetes Mellitus Type 2, MRSA, Seizures Other Medical History: Denies: Blood Transfusion Reaction Laterality Cases: Left: Other, Right: Arthroscopy Hip, Total Hip Replacement Other Surgeries: Yes: CABG, Cardiac Catheterization, Cardiac Surgery, Coronary Stent, Open Heart Surgery, Pacemaker, Other Amputation: No Fractures: No - *Social History Educational Level: Completed High School Smoking Status: Current every day smoker Tobacco Type: cigarettes # Packs/Day (cigarettes): 1 #Yrs smoked (if former smoker): 40 Alcohol Intake: former Alcohol Intake Frequency:: other Substance Use Type: denies use Occupational Status: disabled Housing: apartment Household Members: significant other, none - Psychiatric History Expresses thoughts of harming self/others: None Suicide Plan Description: No Plan *Family Hx:: Diabetes Review of Systems - Review of Systems Review of systems:: pertinent systems reviewed and negative unless documented below - Constitutional Denies fever(s) - Eyes Denies change in vision - ENT Denies change in voice - *Cardiovascular Reports chest pain, Reports chest pain at rest, Reports chest pain with activity, Reports shortness of breath - *Respiratory Reports shortness of breath with activity - *Gastrointestinal Denies change in bowel habits - *Genitourinary Denies urinary urgency - *Musculoskeletal Denies back pain - Integumentary/Breasts Denies rash - *Neurologic Denies radiating pain - Psychiatric Denies tactile hallucinations - Endocrine Denies heat intolerance - Hematologic/Lymphatic Denies enlarged lymph nodes - Allergic/Immunologic Denies lip swelling Exam Vital signs and Labs for Last 24 Hours: Temp Pulse Resp BP Pulse Ox 97.7 F 70 17 120/84 96 03/27/18 11:37 03/27/18 11:37 03/27/18 11:37 03/27/18 11:37 03/27/18 11:37 Laboratory Results - last 24 hr 03/26/18 13:25: WBC 4.6 L, RBC 4.32 L, Hgb 13.3 L, Hct 40.1 L, MCV 92.7, MCH 30.7, MCHC 33.1, RDW 14.2, Plt Count 171, MPV 8.0, Neut % (Auto) 54.7, Lymph % (Auto) 35.9, Maverick % (Auto) 6.1, Eos % (Auto) 2.8, Baso % (Auto) 0.5, Neut # (Auto) 2.5, Lymph # (Auto) 1.7, Maverick # (Auto) 0.3, Eos # (Auto) 0.1, Baso # (Auto) 0.0 03/26/18 13:25: PT 11.4, INR 1.11 H 03/26/18 13:25: Sodium 141, Potassium 3.8, Chloride 106, Carbon Dioxide 26, Anion Gap 12.8, BUN 10, Creatinine 1.00, Estimated Creat Clear 114, Estimated GFR 78, Est GFR ( Amer) 94, Glucose 99, Calcium 8.9, Troponin I 0.10 H 03/26/18 17:50: Troponin I 0.11 H 03/26/18 20:55: Troponin I 0.12 H 03/27/18 05:44: WBC 5.2, RBC 4.23 L, Hgb 13.1 L, Hct 39.7 L, MCV 93.9, MCH 31.0, MCHC 33.0, RDW 14.3, Plt Count 164, MPV 7.2 L, Neut % (Auto) 54.4, Lymph % (Auto) 35.4, Maverick % (Auto) 6.7, Eos % (Auto) 2.9, Baso % (Auto) 0.6, Neut # (Auto) 2.8, Lymph # (Auto) 1.8, Maverick # (Auto) 0.4, Eos # (Auto) 0.2, Baso # (Auto) 0.0 03/27/18 05:44: Sodium 143, Potassium 3.5, Chloride 106, Carbon Dioxide 29, Anion Gap 11.5, BUN 10, Creatinine 0.91, Estimated Creat Clear 129, Estimated GFR 86, Est GFR ( Amer) 105, Glucose 97, Calcium 8.6, Total Bilirubin 0.4, Direct Bilirubin 0.1, Indirect Bilirubin 0.3, AST 12 L, ALT 15, Alkaline Phosphatase 110, Total Protein 6.7, Albumin 3.4, Triglycerides 238 H, Cholesterol 207 H, LDL Cholesterol 131 H, VLDL Cholesterol 48 H, HDL Cholesterol 28, Cholesterol/HDL Ratio 7.4 H 03/27/18 05:44: TSH 1.30 D, Free T4 1.13 I & O for Last 24 hours: Intake & Output 03/24/18 03/25/18 03/26/18 03/27/18 11:59 11:59 11:59 11:59 Intake Total 720 / 720 Output Total 200 / 200 Balance 520 / 520 Weight 219 lb - Constitutional no acute distress - *Routine HEENT Exam Head: Present: normocephalic Eye: Present: PERRL ENT: Present: mucous membranes moist - *Routine Neck Exam Present: supple. Absent: lymphadenopathy - *Routine Respiratory Exam Present: CTA bilaterally - *Routine Cardiovascular Exam Present: irregular rhythm Comments: pacemaker - *Routine Abdominal Exam Present: soft, normoactive bowel sounds. Absent: tenderness - *Routine Extremities Exam Absent: cyanosis, clubbing, edema - *Routine Skin Exam Present: warm. Absent: rash - *Routine Neurological Exam Present: alert, oriented X3 Hospital Course Hospital Course: ANGIOGRAPHIC RESULTS: 1. The left main artery is angiographically normal 2. The left anterior descending artery had a stent noted in its proximal portion as well as a stent in the midportion. This stents are free of disease. There is also a high diagonal branch versus a ramus intermedius that also has a stent in its ostial/proximal portion which is free of disease. There is normal flow in the distal section of both vessels. 3. The circumflex artery has moderate coronary ectasia mainly noted in the mid vessel. There is a napkin ring artery to 40% proximal stenosis. Stent in the mid circumflex extending into a large OM branch free of disease 4. The right coronary artery has moderate to severe coronary ectasia throughout the proximal and mid vessel. The caliber of the distal vessel is normal with normal flow into the posterior descending artery and posterior lateral branch. This is a dominant vessel 5. The PLUMMER ventriculogram reveals borderline normal left ventricular systolic function with an ejection fraction of 50%. There is no noted mitral insufficiency and no segmental wall motion abnormalities 6. The left ventricular end-diastolic pressure 12 IMPRESSION: 1. Mild to moderate diffuse coronary artery disease 2. Moderate to severe coronary ectasia mainly noted in the right coronary artery 3. Patent stent in the proximal and mid/distal left anterior descending 4. Patent stent in the ostial/proximal first diagonal branch/ramus intermedius 5. Patent stent in the mid left circumflex 6. Borderline normal left ventricular systolic function 7. Normal left ventricular end-diastolic pressure PLAN: 1. Medical management cardiology consult- see note Results Labs on day of discharge: Labs from last 24 hours 03/27/18 03/27/18 03/27/18 05:44 05:44 05:44 WBC 5.2 RBC 4.23 L Hgb 13.1 L Hct 39.7 L MCV 93.9 MCH 31.0 MCHC 33.0 RDW 14.3 Plt Count 164 MPV 7.2 L Neut % (Auto) 54.4 Lymph % (Auto) 35.4 Maverick % (Auto) 6.7 Eos % (Auto) 2.9 Baso % (Auto) 0.6 Neut # (Auto) 2.8 Lymph # (Auto) 1.8 Maverick # (Auto) 0.4 Eos # (Auto) 0.2 Baso # (Auto) 0.0 PT INR Sodium 143 Potassium 3.5 Chloride 106 Carbon Dioxide 29 Anion Gap 11.5 BUN 10 Creatinine 0.91 Estimated Creat Clear 129 Estimated GFR 86 Est GFR ( Amer) 105 Glucose 97 Calcium 8.6 Total Bilirubin 0.4 Direct Bilirubin 0.1 Indirect Bilirubin 0.3 AST 12 L ALT 15 Alkaline Phosphatase 110 Troponin I Total Protein 6.7 Albumin 3.4 Triglycerides 238 H Cholesterol 207 H LDL Cholesterol 131 H VLDL Cholesterol 48 H HDL Cholesterol 28 Cholesterol/HDL Ratio 7.4 H TSH 1.30 D Free T4 1.13 03/26/18 03/26/18 03/26/18 20:55 17:50 13:25 WBC RBC Hgb Hct MCV MCH MCHC RDW Plt Count MPV Neut % (Auto) Lymph % (Auto) Maverick % (Auto) Eos % (Auto) Baso % (Auto) Neut # (Auto) Lymph # (Auto) Maverick # (Auto) Eos # (Auto) Baso # (Auto) PT INR Sodium 141 Potassium 3.8 Chloride 106 Carbon Dioxide 26 Anion Gap 12.8 BUN 10 Creatinine 1.00 Estimated Creat Clear 114 Estimated GFR 78 Est GFR ( Amer) 94 Glucose 99 Calcium 8.9 Total Bilirubin Direct Bilirubin Indirect Bilirubin AST ALT Alkaline Phosphatase Troponin I 0.12 H 0.11 H 0.10 H Total Protein Albumin Triglycerides Cholesterol LDL Cholesterol VLDL Cholesterol HDL Cholesterol Cholesterol/HDL Ratio TSH Free T4 03/26/18 03/26/18 13:25 13:25 WBC 4.6 L RBC 4.32 L Hgb 13.3 L Hct 40.1 L MCV 92.7 MCH 30.7 MCHC 33.1 RDW 14.2 Plt Count 171 MPV 8.0 Neut % (Auto) 54.7 Lymph % (Auto) 35.9 Maverick % (Auto) 6.1 Eos % (Auto) 2.8 Baso % (Auto) 0.5 Neut # (Auto) 2.5 Lymph # (Auto) 1.7 Maverick # (Auto) 0.3 Eos # (Auto) 0.1 Baso # (Auto) 0.0 PT 11.4 INR 1.11 H Sodium Potassium Chloride Carbon Dioxide Anion Gap BUN Creatinine Estimated Creat Clear Estimated GFR Est GFR ( Amer) Glucose Calcium Total Bilirubin Direct Bilirubin Indirect Bilirubin AST ALT Alkaline Phosphatase Troponin I Total Protein Albumin Triglycerides Cholesterol LDL Cholesterol VLDL Cholesterol HDL Cholesterol Cholesterol/HDL Ratio TSH Free T4 - Additional Comments discussed with rayo all orders per rayo will dc home and follow up with patrick 1 week and rayo in 1 week DS: Diagnosis - Discharge Diagnosis (1) Typical angina Status: Acute (2) Ventricular tachycardia Status: Acute (3) SVT (supraventricular tachycardia) Status: Acute (4) CAD (coronary artery disease) Status: Acute (5) HLD (hyperlipidemia) Status: Acute (6) AICD discharge Status: Acute (7) Atrial fibrillation Status: Chronic (8) CHF (congestive heart failure) Status: Chronic (9) Nonischemic cardiomyopathy Status: Chronic (10) Tobacco use disorder Status: Chronic Discharge Medications - Medications for Discharge Home Medication List at Discharge: No Action losartan 50 mg tablet 50 mg PO DAILY #30 tab Ondansetron [Zofran 4mg ODT] 4 mg PO Q8HP PRN #20 tab.rapdis PRN Reason: Nausea Gabapentin [Gabapentin 300mg Cap] 300 mg PO TID Sertraline HCl [Zoloft 100mg tablet] 100 mg PO BID Furosemide [Lasix 40mg tablet] 40 mg PO BIDL Carvedilol [Coreg 12.5mg Tablet] 12.5 mg PO BID Clopidogrel Bisulfate [Plavix 75mg Tab] 75 mg PO DAILY Metoprolol Tartrate 200 mg PO BID Tiotropium [place] [Spiriva 18mcg/puff inhaler] 1 puff IH DAILY Atorvastatin Calcium [Atorvastatin 80mg Tab] 80 mg PO HS Aspirin [Aspir 81] 81 mg PO DAILY Pantoprazole Sodium [Protonix 40mg tablet] 40 mg PO DAILY Potassium Chloride [Klor-con 20 mEq tablet] 20 meq PO BID Disposition Disposition: Home, Self-Care
--- NOTE | 2018-03-28 11:30 | Cardiology Report ---
PROCEDURE: 2-D M-mode and color Doppler study INDICATIONS FOR THE TEST: Chest pain_+ COPD+ Heart Murmur Tobacco Smoking + Palpitations Fatigue Syncope Edema Hypertension+Diabetes Mellitus+ Rheumatic Fever SOB [place] Obesity Hyperlipidemia Family History HD Additional History VTACH,CABG,STENTS PATIENT INFORMATION HEIGHT: 74 WEIGHT:219 GENDER: Male B/P:117/70 2-D/M-MODE INTERPRETATION: 2-D MEASUREMENTS OBSERVED VALUES IN CMS Right Ventricular Dimension (RVDd) TINO Interventricular Septum (Thickness)(IVsd) 1.0 Left Ventricular Internal Dimensions(LVIDd) 5.0 Left Ventricular Posterior Wall (Thickness)(LVPWd) 1.1 Aortic Root 3.7 Aortic Cusp Separation 2.7 Left Atrial Dimensions (LAD) 4.3 2D 1. Technically difficult study because of the patient's factor and poor acoustic windows 2. The left atrium is mildly enlarged, left ventricle is normal size, visually estimated ejection fraction approximately 45%, there is moderate hypokinesis involving mid to distal septum, apical and anteroapical wall. 3. The right atrium and right ventricle are normal size and contractility, there is a catheter noted in the right ventricle which is likely an ICD lead. 4. The aortic valve is thickened and calcified leaflet continue to display mobility. 5. The mitral and tricuspid valve leaflets are minimally thickened. 6. The pulmonic valve is poorly visualized. 7. No significant pericardial effusion noted. DOPPLER INTERROGATION: Doppler interrogation of the aortic, mitral and tricuspid valvular presence of mild to moderate aortic, mild mitral and tricuspid regurgitation, tricuspid regurgitation jet velocity is inadequate for calculation of the right ventricular systolic pressure, diastolic parameters are inconclusive. CONCLUSION: 1. Technically difficult study because of the patient's factor and poor acoustic windows 2. The left atrium is mildly enlarged, left ventricle is normal size, visually estimated ejection fraction of 45% with multiple segmental wall motion abnormality described above, diastolic parameters are inconclusive. 3. Thickened and calcified aortic valve without aortic stenosis, there is mild to moderate aortic insufficiency. 4. Mild mitral and tricuspid regurgitation 5. No significant pericardial effusion noted.
== END 2018-03-27 13:15 | disposition home or self-care (01) ==
LOC: ER 12:39 → 2ND 12:39
PROVIDERS: ADMIT Emergency Medicine; ATTEND Emergency Medicine
CPT/HCPCS: 36415; 71010; 71045; 80048; 80061; 80076; 84439; 84443; 84484; 85025; 85610; 93005; 93306; 93458; 94761; 99152; 99284; C1725; C1760; C1769; C1894; G0378; J1644; Q9967

== ENCOUNTER 2018-05-20 16:03 | Observation (INO) ==
--- NOTE | 2018-05-20 16:25 | Emergency Department Note ---
ED Disposition Clinical Impression: Elevated troponin, CAD (coronary artery disease), Peptic ulcer disease, Adverse effects of medication, COPD (chronic obstructive pulmonary disease), Tobacco use disorder, S/P AAA repair Disposition: Still a Patient Condition on Discharge: Fair Instructions: DI for Acute Abdomen Referrals: Provider,Referral, [Referring] - - Critical Care Critical Care Time: No Attestation: On 05/20/18, the high probability of a clinically significant, sudden or life threatening deterioration of the following system(s) required my full and direct attention, intervention and personal management. The time I documented below is in addition to time spent performing reported procedures but includes the following listed in this critical care notation. Medical Decision Making - Medical Records Medical records reviewed: Yes: I reviewed the patient's medical records. - Jonathan Inquiry Pt receiving controlled substance: No Jonathan was queried for this patient: No Vital Signs: 05/20/18 16:06 05/20/18 17:06 05/20/18 18:45 Temperature 98 F Temperature Source Oral Pulse Rate [Left Radial] 81 76 88 Respiratory Rate 18 16 Blood Pressure [Right Arm] 133/72 123/74 135/89 Blood Pressure Mean [Right Arm] 92 90 104 Blood Pressure Source [Right Arm] Automatic Cuff Automatic Cuff Blood Pressure Position [Right Arm] Sitting Sitting Sitting 02 Sat by Pulse Oximetry 98 96 Oxygen Delivery Method Room Air Room Air - Lab Data Lab Results 05/20/18 16:40: WBC 5.6, RBC 4.55 L, Hgb 14.6, Hct 41.7 L, MCV 91.5, MCH 32.1 H, MCHC 35.1, RDW 14.4, Plt Count 201, MPV 7.5, Neut % (Auto) 64.2, Lymph % (Auto) 27.9, [place] % (Auto) 5.9, Eos % (Auto) 1.7, Baso % (Auto) 0.4, Neut # (Auto) 3.6, Lymph # (Auto) 1.6, [place] # (Auto) 0.3, Eos # (Auto) 0.1, Baso # (Auto) 0.0 05/20/18 16:40: Sodium 139, Potassium 3.6, Chloride 104, Carbon Dioxide 23, Anion Gap 15.6 H, BUN 10, Creatinine 1.36 H, Estimated Creat Clear 78, Estimated GFR 54 L, Est GFR ( Amer) 66, Glucose 87, Calcium 9.5, Total Bilirubin 0.7, AST 15, ALT 19, Alkaline Phosphatase 134 H, Troponin I 0.11 H, Total Protein 7.6, Albumin 3.8, Globulin 3.8 H, Albumin/Globulin Ratio 1.0 L, Amylase 42, Lipase 125 05/20/18 18:34: Stool Occult Blood Negative Result diagrams: 05/20/18 16:40 05/20/18 16:40 Orders (Tests/Meds): ED MEDICATIONS Generic Name Dose Route Start Last Admin Trade Name Freq PRN Reason Stop Dose Admin Pantoprazole Sodium 80 mg/ 100 mls @ 10 mls/hr 05/20/18 16:30 05/20/18 18:03 Sodium Chloride IV 05/23/18 16:29 10 mls/hr .Q10H SWEETIE Administration Pantoprazole Sodium 80 mg/ 100 mls @ 10 mls/hr 05/20/18 17:23 05/20/18 18:27 Sodium Chloride IV 05/23/18 17:22 Not Given .Q10H SWEETIE Sodium Chloride 10 ml 05/20/18 16:11 05/20/18 16:48 Saline Flush 10ml Syringe IV 06/19/18 16:10 10 ml NEEDED PRN Administration Maintain IV Site Discontinued Medications Generic Name Dose Route Start Last Admin Trade Name Freq PRN Reason Stop Dose Admin Diatrizoate Meglum/Diatrizoate Sod 30 ml 05/20/18 16:23 05/20/18 16:34 Gastrografin 66%-10% 30ml PO 05/20/18 16:24 30 ml ONCE ONE Administration Famotidine 20 mg 05/20/18 16:22 05/20/18 16:34 Pepcid 20mg/2ml Vial IV 05/20/18 16:23 20 mg ONCE ONE Administration Pantoprazole Sodium 80 mg/ 100 mls @ 100 mls/hr 05/20/18 16:22 05/20/18 16:50 Sodium Chloride IV 05/20/18 17:21 100 mls/hr ONCE ONE Administration Pantoprazole Sodium 80 mg/ 100 mls @ 100 mls/hr 05/20/18 16:48 05/20/18 17:22 Sodium Chloride IV 05/20/18 17:47 Not Given ONCE ONE Ioversol 75 ml 05/20/18 18:09 05/20/18 18:11 Rad-Optiray 350 100ml Vial IV 05/20/18 18:10 75 ml ONCE ONE Administration Morphine Sulfate 2 mg 05/20/18 16:22 05/20/18 16:47 Morphine 2mg/Ml Syringe IV 05/20/18 16:23 2 mg ONCE ONE Administration Ondansetron HCl 4 mg 05/20/18 16:11 05/20/18 16:47 Zofran 4mg/2ml Vial IV 05/20/18 16:12 4 mg ONCE ONE Administration Ondansetron HCl 4 mg 05/20/18 17:04 05/20/18 17:06 Zofran 4mg/2ml Vial IV 05/20/18 17:05 4 mg ONCE ONE Administration Promethazine HCl 12.5 mg 05/20/18 18:23 05/20/18 18:27 Phenergan 25mg/Ml 1ml Vial IV 05/20/18 18:24 12.5 mg ONCE ONE Administration Sodium Chloride 10 ml 05/20/18 18:09 05/20/18 18:11 Rad-Saline Flush 10ml Syringe IV 05/20/18 18:10 10 ml ONCE ONE Administration Sodium Chloride 25 ml 05/20/18 18:23 05/20/18 18:28 Sod Chlor 0.9% 25ml Bag IV 05/20/18 18:24 25 ml ONCE ONE Administration ORDERS Category Date Time Status CT abdomen pelvis w con Stat Cat Scan 05/20/18 16:23 Taken Occult Blood,Stool Stat Lab 05/20/18 18:34 Ordered ECG Request by /Nse Stat Y 05/20/18 16:22 Ordered - CT Data CT Scan: Abdomen, Pelvis Time Received: 19:[address] Reviewed: Yes: I have viewed the radiologist's interpretation - ECG Data Tracing #1 Normal sinus rhythm 80-minute intraventricular conduction delay no acute findings. ECG initial impression date: 05/20/18 ECG initial impression time: 18:45 Medical Decision Narrative: Patient troponin was elevated at 0.11 which is the lowest of his ED visits, patient had no chest pain, shortness of breath or palpitation. The patient was given morphine for pain continued to complain of pain requesting more pain medicine I reviewed his cardiac catheterization report, see below: IMPRESSION: 1. Mild to moderate diffuse coronary artery disease 2. Moderate to severe coronary ectasia mainly noted in the right coronary artery 3. Patent stent in the proximal and mid/distal left anterior descending 4. Patent stent in the ostial/proximal first diagonal branch/ramus intermedius 5. Patent stent in the mid left circumflex 6. Borderline normal left ventricular systolic function 7. Normal left ventricular end-diastolic pressure PLAN: 1. Medical management 2. Dual antiplatelet therapy given coronary ectasia His hemoglobin was 14 gm, I spoke with his primary care physician again the [facility] who agreed to admit the patient for H&H, IV fluids and IV Protonix. If he remains stable he to be discharged more. [address] reviewed [address] Rosenthal interventional cardiology regarding possible in the week. It is believed is not an emergency and he can be admitted for observation and evaluate in the morning. I will place a consult to Dr. Rosenthal. Abdominal Pain HPI - General Chief Complaint: Abdominal Pain Stated Complaint: ABD PAIN Time Seen by Provider: 05/20/18 16:15 Mode of Arrival: EMS Limitations: No Limitations Description of Symptoms (Recalled from ER Triage Doc. by RN): to ed per squad with c/o abd pain radiating to ruq and rlq starting saturday, +nausea, +vomiting. pt states fever of 101 last night. cpta none - History of Present Illness HPI narrative: 53 years white male with multiple cardiovascular risk including coronary artery disease, history of aneurysm repair, hypertension, and most recently cardiac catheterization 1 week ago with no intervention. Patient uses aspirin and Plavix. 4 days ago he started having sharp epigastric pain 4/10 progressively gotten worse to 10/10 associated with nausea, clear vomiting and black tarry stool. Patient denies having chest pain shortness of breath palpitations or hemoptysis. Denies having hematemesis coffee-ground emesis or bleeding per rectum. He denies a history of alcohol or drug use. Obtain his health records from [facility] where he underwent cardiac catheterization in May 11, 2016 with moderate coronary artery disease with without intervention as discharged on Plavix and Eliquis. The patient was complaining of left upper quadrant pain during his hospital stay and underwent a negative CT scan and lab work. MD complaint: abdominal pain Onset (ago): day(s) (4 days.) Consistency: constant Location: epigastric Severity: severe Severity scale (1-10): 10 Quality: sharp Radiation: none Migration to: no migration Relieving factors: nothing Exacerbating factors: nothing Associated symptoms: nausea, vomiting, melena - Related Data Home Medications Medication Instructions Recorded Confirmed Aspirin [Aspir 81] 81 mg PO DAILY 05/26/17 05/20/18 Atorvastatin Calcium [Atorvastatin 80 mg PO HS 05/26/17 05/20/18 80mg Tab] Pantoprazole Sodium [Protonix 40mg 40 mg PO DAILY 10/05/17 05/20/18 tablet] Potassium Chloride [Klor-con 20 20 meq PO BID 11/14/17 05/20/18 mEq tablet] Clopidogrel Bisulfate [Plavix 75mg 75 mg PO DAILY 03/26/18 05/20/18 Tab] Furosemide [Lasix 40mg tablet] 40 mg PO BIDL 03/26/18 05/20/18 Gabapentin [Gabapentin 300mg Cap] 300 mg PO TID 03/26/18 05/20/18 Sertraline HCl [Zoloft 100mg 100 mg PO BID 03/26/18 05/20/18 tablet] Tiotropium [place] [Spiriva 1 puff IH DAILY 03/26/18 05/20/18 18mcg/puff inhaler] Clopidogrel Bisulfate [Plavix 75mg 75 mg PO DAILY 05/20/18 05/20/18 Tab] Fluticasone Propionate [Flonase 1 spr NS DAILY 05/20/18 05/20/18 50mcg nasal spray 16gm] Nicotine [Nicoderm 21mg/24hr 21 mg TD DAILY 05/20/18 05/20/18 patch] Previous Rx's Medication Instructions Recorded losartan 50 mg tablet 50 mg PO DAILY #30 tab 06/21/17 Acetaminophen [Acetaminophen 325mg 650 mg PO Q4HP PRN tab 03/27/18 tab] metoprolol tartrate 100 mg tablet 200 mg PO BID #120 tab 04/17/18 Allergies Allergy/AdvReac Type Severity Reaction Status Date / Time diphenhydramine Allergy Mild NA-NAUSEA Verified 02/07/18 14:33 [From BENADRYL ALLERGY] pseudoephedrine Allergy Mild NA-NAUSEA Verified 02/07/18 14:33 [From SUDAFED] nitroglycerin Allergy Unknown Verified 02/07/18 14:33 [From NITRO-BID] [facility] History - Hepatitis A Screen Drug use history?: No High risk sexual behaviors?: No History of sexually transmitted infection?: No Currently employed?: No Childcare worker?: No Do you have indoor plumbing?: Yes Do you have electricity?: Yes Attestation statement:: This patient has been screened for Hepatitis A risk factors. I have reviewed the patient's past medical history: Yes (I reviewed his records from [facility]. ) Medical History: Reports:: Arrhythmia, Atherosclerotic Heart Disease, Atrial Fibrillation, Congestive Heart Failure, Chronic Obstructive Pulmonary Disease (COPD), Coronary Artery Disease, Cerebrovascular Accident, Gastroesophageal Reflux Disease(GERD), Hyperlipidemia, Hypertension, Internal Pacemaker Denies:: Cancer, Diabetes Mellitus Type 1, Diabetes Mellitus Type 2, MRSA, Seizures Other Medical History: Denies: Blood Transfusion Reaction Laterality Cases: Left: Other, Right: Arthroscopy Hip, Total Hip Replacement Other Surgeries: Yes: CABG, Cardiac Catheterization, Cardiac Surgery, Coronary Stent, Open Heart Surgery, Pacemaker, Other Amputation: No Fractures: No Comment: open heart surgery, Gallbladder removed - Social History Smoking Status: Current every day smoker Tobacco Type: cigarettes # Packs/Day (cigarettes): 0 #Yrs smoked (if former smoker): 40 Alcohol Intake: never Alcohol Intake Frequency:: other Substance Use Type: denies use Occupational Status: disabled Housing: apartment Household Members: significant other, none - Psychiatric History Expresses thoughts of harming self/others: None Suicide Plan Description: No Plan Family Hx:: Diabetes ROS Obtained: Yes All systems reviewed & no additional complaints Physical Exam - General General appearance: alert, in no apparent distress - Head Head exam: atraumatic, normocephalic, normal inspection - Eye Eye exam: Present: normal appearance, PERRL, EOMI. Absent: scleral icterus, nystagmus - ENT ENT exam: Present: normal exam, normal oropharynx, mucous membranes moist, TM's normal bilaterally, normal external ear exam - Neck Neck exam: Present: normal inspection, full ROM, trachea midline. Absent: tenderness, meningismus, lymphadenopathy - Chest Chest inspection: Present: normal inspection, symmetric chest wall rise. Abs ent: tenderness - Respiratory Respiratory exam: Present: normal lung sounds bilaterally. Absent: respiratory distress - Cardiovascular Cardiovascular exam: Present: regular rate, normal rhythm. Absent: JVD - Abdominal Exam Abdominal exam: Present: soft, tenderness, normal bowel sounds, other (Abdomen with epigastric tenderness no guarding no rigidity no rebound no focal tenderne ss.). Absent: distention, guarding, rebound, rigidity, Schmidt's sign, tenderness at McBurney's Point - Extremities Exam Extremities exam: Present: normal inspection, full ROM, normal capillary refill. Absent: calf tenderness - Back Exam Back exam: Present: normal inspection. Absent: tenderness - Neurological Exam Neurological exam: Present: alert, oriented X3, CN II-XII intact, motor sensory deficit, reflexes normal - Psychiatric Psychiatric exam: Present: normal affect, normal mood - Skin Skin exam: Present: warm, dry, intact, normal color - Lymphatic Lymphatic Findings: no adenopathy
[2018-05-20 16:51] LABS: Basophils % 0.4 % (0.1-2.0); Eosinophils # 0.1 K/mm3 (0.0-0.4); Eosinophils % 1.7 % (0.1-12.0); Hematocrit 41.7 % (42.0-52.0); Hemoglobin 14.6 g/dL (14.1-18.0); Lymphocytes # 1.6 K/mm3 (0.7-4.5); Lymphocytes % 27.9 % (10-50); Mean Corpuscular HGB Conc 35.1 g/dL (31.8-35.4); Mean Corpuscular Volume 91.5 fl (80-94); Mean Platelet Volume 7.5 fl (7.4-10.4); Monocytes # 0.3 K/mm3 (0.1-1.0); Monocytes % 5.9 % (1.7-9.3); Neutrophils # 3.6 K/mm3 (1.8-7.8); Neutrophils % 64.2 % (37.0-80.0); Platelet Count 201 K/mm3 (142-424); Red Blood Count 4.55 M/mm3 (4.60-6.20); Red Cell Distribution Width 14.4 % (11.5-17.5); White Blood Count 5.6 K/mm3 (4.8-10.8)
[2018-05-20 17:04] LABS: Albumin Level 3.8 gm/dL (3.4-5.0); Anion Gap 15.6 mEq/L (5-15); Bilirubin,Total 0.7 mg/dL (0.2-1.0); Calcium 9.5 mg/dL (8.5-10.1); Globulin 3.8 gm/dl (1.3-3.2); Total Protein,Serum 7.6 gm/dL (6.4-8.2)
--- NOTE | 2018-05-20 20:10 | History & Physical Report ---
*Admission Date: 05/20/18 *Chief complaint: abd pain *History of present illness: 53 years male presented to ed with multiple cardiovascular risk including coronary artery disease, history of aneurysm repair, hypertension, and most recently cardiac catheterization 1 week ago with no intervention. Patient uses aspirin and Plavix. 4 days ago he started having sharp epigastric pain 4/10 progressively gotten worse to 10/10 associated with nausea, clear vomiting and black tarry stool. Patient denies having chest pain shortness of breath palpitations or hemoptysis. Denies having hematemesis coffee-ground emesis or bleeding per rectum. He denies a history of alcohol or drug use. - per ed note. pt states he is having abd pain with dark stools and pain has increased and he has not been able to eat anything for 4 days.Pt admitted for cardiac work up with consult, h/h, iv fluids [facility] History I have reviewed the patient's past medical history: Yes Medical History: Reports:: Arrhythmia, Atherosclerotic Heart Disease, Atrial Fibrillation, Congestive Heart Failure, Chronic Obstructive Pulmonary Disease (COPD), Coronary Artery Disease, Cerebrovascular Accident, Gastroesophageal Reflux Disease(GERD), Hyperlipidemia, Hypertension, Internal Pacemaker Denies:: Cancer, Diabetes Mellitus Type 1, Diabetes Mellitus Type 2, MRSA, Seizures *Have you ever received a pneumonia vaccine?: No *Have you received a flu vaccine this season?: No Other Medical History: Denies: Blood Transfusion Reaction Laterality Cases: Left: Other, Right: Arthroscopy Hip, Total Hip Replacement Other Surgeries: Yes: CABG, Cardiac Catheterization, Cardiac Surgery, Coronary Stent, Open Heart Surgery, Pacemaker, Other Amputation: No Fractures: No - *Social History Smoking Status: Current every day smoker Tobacco Type: cigarettes # Packs/Day (cigarettes): 0 #Yrs smoked (if former smoker): 40 Alcohol Intake: never Alcohol Intake Frequency:: other Substance Use Type: denies use *Occupational Status:: disabled Housing: apartment Household Members: significant other, none *Travel in the last 8 weeks: None - Psychiatric History Expresses thoughts of harming self/others: None Suicide Plan Description: No Plan Family Hx:: Diabetes Review of Systems - Review of Systems Review of systems:: pertinent systems reviewed and negative unless documented below - Constitutional Reports weakness, Denies fever(s) - Eyes Denies floaters - ENT Denies change in voice - *Cardiovascular Denies chest pain with activity, Denies leg pain with activity - *Respiratory Denies chest congestion, Denies cough - *Gastrointestinal Reports abdominal pain, Reports change in stools, Reports black, tarry stools, Reports vomiting - *Genitourinary Denies urinary frequency - *Musculoskeletal Denies decreased muscle mass - Integumentary/Breasts Denies rash - *Neurologic Denies abnormal movements, Denies fainting - Psychiatric Denies anxiety - Endocrine Denies flushing - Hematologic/Lymphatic Denies enlarged lymph nodes Meds Home Medications Medication Instructions Recorded Confirmed Type Aspirin [Aspir 81] 81 mg PO DAILY 05/26/17 05/20/18 History Atorvastatin Calcium [Atorvastatin 80 mg PO HS 05/26/17 05/20/18 History 80mg Tab] losartan 50 mg tablet 50 mg PO DAILY #30 tab 06/21/17 05/20/18 Rx Pantoprazole Sodium [Protonix 40mg 40 mg PO DAILY 10/05/17 05/20/18 History tablet] Potassium Chloride [Klor-con 20 20 meq PO BID 11/14/17 05/20/18 History mEq tablet] Clopidogrel Bisulfate [Plavix 75mg 75 mg PO DAILY 03/26/18 05/20/18 History Tab] Furosemide [Lasix 40mg tablet] 40 mg PO BIDL 03/26/18 05/20/18 History Gabapentin [Gabapentin 300mg Cap] 300 mg PO TID 03/26/18 05/20/18 History Sertraline HCl [Zoloft 100mg 100 mg PO BID 03/26/18 05/20/18 History tablet] Tiotropium [place] [Spiriva 1 puff IH DAILY 03/26/18 05/20/18 History 18mcg/puff inhaler] Acetaminophen [Acetaminophen 325mg 650 mg PO Q4HP PRN tab 03/27/18 05/20/18 Rx tab] metoprolol tartrate 100 mg tablet 200 mg PO BID #120 tab 04/17/18 05/20/18 Rx Clopidogrel Bisulfate [Plavix 75mg 75 mg PO DAILY 05/20/18 05/20/18 History Tab] Fluticasone Propionate [Flonase 1 spr NS DAILY 05/20/18 05/20/18 History 50mcg nasal spray 16gm] Nicotine [Nicoderm 21mg/24hr 21 mg TD DAILY 05/20/18 05/20/18 History patch] Allergies Allergy/AdvReac Type Severity Reaction Status Date / Time diphenhydramine Allergy Mild NA-NAUSEA Verified 02/07/18 14:33 [From BENADRYL ALLERGY] pseudoephedrine Allergy Mild NA-NAUSEA Verified 02/07/18 14:33 [From SUDAFED] nitroglycerin Allergy Unknown Verified 02/07/18 14:33 [From NITRO-BID] Exam Vital signs and Labs for Last 24 Hours: Temp Pulse Resp BP Pulse Ox 98 F 80 16 125/81 95 05/20/18 16:06 05/20/18 19:30 05/20/18 18:45 05/20/18 19:30 05/20/18 19:30 Laboratory Results - last 24 hr 05/20/18 16:40: WBC 5.6, RBC 4.55 L, Hgb 14.6, Hct 41.7 L, MCV 91.5, MCH 32.1 H, MCHC 35.1, RDW 14.4, Plt Count 201, MPV 7.5, Neut % (Auto) 64.2, Lymph % (Auto) 27.9, [place] % (Auto) 5.9, Eos % (Auto) 1.7, Baso % (Auto) 0.4, Neut # (Auto) 3.6, Lymph # (Auto) 1.6, [place] # (Auto) 0.3, Eos # (Auto) 0.1, Baso # (Auto) 0.0 05/20/18 16:40: Sodium 139, Potassium 3.6, Chloride 104, Carbon Dioxide 23, Anion Gap 15.6 H, BUN 10, Creatinine 1.36 H, Estimated Creat Clear 78, Estimated GFR 54 L, Est GFR ( Amer) 66, Glucose 87, Calcium 9.5, Total Bilirubin 0.7, AST 15, ALT 19, Alkaline Phosphatase 134 H, Troponin I 0.11 H, Total Protein 7.6, Albumin 3.8, Globulin 3.8 H, Albumin/Globulin Ratio 1.0 L, Amylase 42, Lipase 125 05/20/18 18:34: Stool Occult Blood Negative I & O for Last 24 hours: Intake & Output 05/18/18 05/19/18 05/20/18 05/21/18 11:59 11:59 11:59 11:59 Weight 197 lb - Constitutional no acute distress - *Routine HEENT Exam Head: Present: normocephalic Eye: Present: EOMI, PERRL ENT: Present: mucous membranes moist - *Routine Neck Exam Present: supple. Absent: lymphadenopathy - *Routine Respiratory Exam Present: CTA bilaterally - *Routine Cardiovascular Exam Present: RRR - *Routine Abdominal Exam Present: soft, normoactive bowel sounds. Absent: tenderness - *Routine Extremities Exam Absent: cyanosis, clubbing, edema - *Routine Skin Exam Present: warm. Absent: rash - *Routine Neurological Exam Present: alert, oriented X3 - Routine Psychiatric Exam Present: normal affect Assessment and Plan - Assessment and plan all Dx Assessment and Plan for all problems:: all orders per rayo
[2018-05-21 05:29] LABS: Basophils % 0.8 % (0.1-2.0); Hematocrit 38.9 % (42.0-52.0); Lymphocytes # 2.2 K/mm3 (0.7-4.5); Lymphocytes % 34.8 % (10-50); Mean Corpuscular HGB Conc 33.8 g/dL (31.8-35.4); Mean Corpuscular Volume 92.2 fl (80-94); Mean Platelet Volume 7.3 fl (7.4-10.4); Monocytes # 0.4 K/mm3 (0.1-1.0); Monocytes % 6.9 % (1.7-9.3); Neutrophils # 3.3 K/mm3 (1.8-7.8); Neutrophils % 52.7 % (37.0-80.0); Platelet Count 189 K/mm3 (142-424); Red Blood Count 4.22 M/mm3 (4.60-6.20); Red Cell Distribution Width 14.5 % (11.5-17.5); White Blood Count 6.2 K/mm3 (4.8-10.8)
[2018-05-21 05:30] LABS: Basophils # 0.1 K/mm3 (0-0.2); Eosinophils # 0.2 K/mm3 (0.0-0.4)
[2018-05-21 05:31] LABS: Anion Gap 13.2 mEq/L (5-15)
[2018-05-21 05:33] LABS: Hemoglobin 13.5 g/dL (14.1-18.0)
--- NOTE | 2018-05-21 08:20 | Consult Report ---
Addendum entered and electronically signed by ZBIGNIEW [place] 05/21/18 15:30: No evidence of endovascular leak/dissection on abdominal aortogram. Pt still with some tenderness to deep palpation of RLQ. Still with vomiting after eating. Loose BM today. Recommend continuing to watch overnight with plans to repeat CT of Abdomen with contrast in AM. Original Note: History of Present Illness Consult date: 05/21/18 Requesting physician: Jae Alonzo Chief complaint: Abdominal pain Additional Medical History:: 1. Coronary artery disease A. History of coronary bypass grafting 3. SRINIVASAN not used. B. Cardiac catheterization 06/2015 adequate [place] coronary arteries with mild nonflow limiting disease. All saphenous vein grafts are occluded ostially with no identifiable angiographic origin. Hyperdynamic ejection fraction at 70 percent with LVEDP 18 mmHg. C. Echocardiogram 08/01/2016 LEFT atrial size 5.8 cm, mild LEFT ventricular dilatation with an estimated ejection fraction of 40 percent with marked hypo-to akinesis involving the mid to distal septum, anteroapical, apex and inferior mann. RIGHT atrium and RIGHT ventricle normal in size with normal contractility. Aortic valve is thickened and calcified but continued to display mobility. Mitral valve leaflets are minimally thickened with no MS. Mild MR and TR noted. D. History of persistent elevated troponin prompting LEFT heart catheterization, 08/01/2016, diffuse, mild to moderate nonflow limiting coronary artery disease with all vein grafts occluded by previous angiography. LEFT ventricular ejection fraction 40 percent with LV dilatation noted. LVEDP is 15 mmHg. E. Ischemic Cardiomyopathy with LVEF of 30% with multiple segmental wall motion abnormalities by echo, 08/2017 F. BiV AICD implanted, 08/2017, [facility] [place] [facility] CONVERSION-D for ischemic CM, QRS duration >120 ms with cardiac cachexia G. [facility], 03/2018, ANGIOGRAPHIC RESULTS: 1. The left main artery is angiographically normal 2. The left anterior descending artery had a stent noted in its proximal portion as well as a stent in the midportion. This stents are free of disease. There is also a high diagonal branch versus a ramus intermedius that also has a stent in its ostial/proximal portion which is free of disease. There is normal flow in the distal section of both vessels. 3. The circumflex artery has moderate coronary ectasia mainly noted in the mid vessel. There is a napkin ring artery to 40% proximal stenosis. Stent in the mid circumflex extending into a large OM branch free of disease 4. The right coronary artery has moderate to severe coronary ectasia throughout the proximal and mid vessel. The caliber of the distal vessel is normal with normal flow into the posterior descending artery and posterior lateral branch. This is a dominant vessel 5. The PLUMMER ventriculogram reveals borderline normal left ventricular systolic function with an ejection fraction of 50%. There is no noted mitral insufficiency and no segmental wall motion abnormalities 6. The left ventricular end-diastolic pressure 12 IMPRESSION: 1. Mild to moderate diffuse coronary artery disease 2. Moderate to severe coronary ectasia mainly noted in the right coronary artery 3. Patent stent in the proximal and mid/distal left anterior descending 4. Patent stent in the ostial/proximal first diagonal branch/ramus intermedius 5. Patent stent in the mid left circumflex 6. Borderline normal left ventricular systolic function 7. Normal left ventricular end-diastolic pressure PLAN: 1. Medical management 2. Dual antiplatelet therapy given coronary ectasia 2. History of infrarenal abdominal aortic aneurysm, status post percutaneous endovascular repair using a [employer] modular bifurcated prosthesis (main body of the graft 26 x 111, LEFT ipsilateral limb 20 x 90, RIGHT contralateral limb 16 x 90), Dr. Alexy Licea, [facility], [place], [place], 08/2014 3. Atrial fibrillation, paroxysmal A. Previously on Coumadin therapy, switch to Xarelto therapy 07/2016 but currently on Eliquis therapy at this time. B. History of TIA for which he has been on Plavix in the past. C. History of AICD firings for A. fib with RVR in the V tach zone and for V. tach. 4. Tobacco use of 1-1.5 packs per day 5. Chronic back pain 6. Chronic abnormal electrocardiogram with LEFT bundle branch block 7. Hypertension 8. Hyperlipidemia History of present illness: 53 yo WM with above history with abdominal pain in the RLQ since 05/16/2018. Symptoms associated with nausea, vomiting and diarrhea. No chest pain or SOA. Symptoms constant with waves of increased intensity feeling as if something is "tearing" inside. Denies missing any medications but continues to smoke. ER evaluation yesterday showed slight enlargement of AAA (up from 4.8X4.6cm to 5.0 X 4.9cm since 05/2017) with possible endovascular leak. Admitted for further treatment. Cardiology consulted for evaluation and treatment. Good Femoral pulses noted. Elevated troponins noted but similar to previous admissions with cardiac cath last month without need for intervention. AICD in place without recent firing per patient. On ASA and plavix along with eliquis for A. fib. [facility] History Medical History: Reports:: Aneurysm, Arrhythmia, Atherosclerotic Heart Disease, Atrial Fibrillation, Congestive Heart Failure, Chronic Obstructive Pulmonary Disease (COPD), Coronary Artery Disease, Cerebrovascular Accident, Gastroesophageal Reflux Disease(GERD), Hyperlipidemia, Hypertension, Internal Pacemaker Denies:: Cancer, Diabetes Mellitus Type 1, Diabetes Mellitus Type 2, MRSA, Seizures *Have you ever received a pneumonia vaccine?: Yes *Have you received a flu vaccine this season?: Yes Other Medical History: Denies: Blood Transfusion Reaction Laterality Cases: Left: Other, Right: Arthroscopy Hip, Total Hip Replacement Other Surgeries: Yes: CABG, Cardiac Catheterization, Cardiac Surgery, Cholecystectomy, Colonoscopy, Coronary Stent, Open Heart Surgery, Pacemaker, Other Amputation: No Fractures: No - *Social History Educational Level: Completed High School Smoking Status: Current every day smoker Tobacco Type: cigarettes # Packs/Day (cigarettes): 1 #Yrs smoked (if former smoker): 40 Alcohol Intake: former Alcohol Intake Frequency:: other Substance Use Type: denies use *Occupational Status:: disabled Housing: apartment Household Members: significant other, none *Travel in the last 8 weeks: None - Psychiatric History Expresses thoughts of harming self/others: None Suicide Plan Description: No Plan Family Hx:: Asthma, Cancer, Coronary Artery Disease, Diabetes, Heart Attack, Hyperlipidemia, Hypertension Meds Home Medications Medication Instructions Recorded Confirmed Type Aspirin [Aspir 81] 81 mg PO DAILY 05/26/17 05/20/18 History Atorvastatin Calcium [Atorvastatin 80 mg PO HS 05/26/17 05/20/18 History 80mg Tab] Pantoprazole Sodium [Protonix 40mg 40 mg PO DAILY 10/05/17 05/20/18 History tablet] Potassium Chloride [Klor-con 20 20 meq PO BID 11/14/17 05/20/18 History mEq tablet] Furosemide [Lasix 40mg tablet] 40 mg PO BID 03/26/18 05/21/18 History Sertraline HCl [Zoloft 100mg 100 mg PO BID 03/26/18 05/20/18 History tablet] Tiotropium [place] [Spiriva 1 puff IH DAILY 03/26/18 05/20/18 History 18mcg/puff inhaler] Acetaminophen [Acetaminophen 325mg 650 mg PO Q4HP PRN tab 03/27/18 05/20/18 Rx tab] Clopidogrel Bisulfate [Plavix 75mg 75 mg PO DAILY 05/20/18 05/20/18 History Tab] Fluticasone Propionate [Flonase 1 spr NS DAILY 05/20/18 05/20/18 History 50mcg nasal spray 16gm] Nicotine [Nicoderm 21mg/24hr 21 mg TD DAILY 05/20/18 05/20/18 History patch] Amiodarone HCl 200 mg PO BID 05/21/18 05/21/18 History Apixaban [Eliquis] 5 mg PO BID 05/21/18 05/21/18 History Gabapentin [Gabapentin 400mg Cap] 800 mg PO TID 05/21/18 05/21/18 History Isosorbide Mononitrate [Imdur 30mg 30 mg PO DAILY 05/21/18 05/21/18 History ER tablet] Metoprolol Succinate 100 mg PO DAILY 05/21/18 05/21/18 History Tamsulosin HCl [Flomax 0.4mg 0.4 mg PO HS 05/21/18 05/21/18 History capsule] Valsartan 80 mg PO DAILY 05/21/18 05/21/18 History Allergies Allergy/AdvReac Type Severity Reaction Status Date / Time diphenhydramine Allergy Mild NA-NAUSEA Verified 02/07/18 14:33 [From BENADRYL ALLERGY] pseudoephedrine Allergy Mild NA-NAUSEA Verified 02/07/18 14:33 [From SUDAFED] nitroglycerin Allergy Unknown Verified 02/07/18 14:33 [From NITRO-BID] Review of Systems - *Cardiovascular Denies chest pain, Denies shortness of breath with activity - *Respiratory Denies cough, Denies shortness of breath with activity, Denies wheezing - *Gastrointestinal Reports abdominal pain, Reports loose stools, Reports nausea, Reports vomiting - *Genitourinary Denies blood in urine - *Musculoskeletal Denies joint pain, Denies tingling - *Neurologic Reports weakness, Denies abnormal movements, Denies fainting Exam Vital signs and Labs for Last 24 Hours: Temp Pulse Resp BP Pulse Ox 97.8 F 80 16 120/75 95 05/21/18 04:39 05/21/18 04:39 05/21/18 04:39 05/21/18 04:39 05/21/18 04:39 Laboratory Results - last 24 hr 05/20/18 16:40: WBC 5.6, RBC 4.55 L, Hgb 14.6, Hct 41.7 L, MCV 91.5, MCH 32.1 H, MCHC 35.1, RDW 14.4, Plt Count 201, MPV 7.5, Neut % (Auto) 64.2, Lymph % (Auto) 27.9, [place] % (Auto) 5.9, Eos % (Auto) 1.7, Baso % (Auto) 0.4, Neut # (Auto) 3.6, Lymph # (Auto) 1.6, [place] # (Auto) 0.3, Eos # (Auto) 0.1, Baso # (Auto) 0.0 05/20/18 16:40: Sodium 139, Potassium 3.6, Chloride 104, Carbon Dioxide 23, Anion Gap 15.6 H, BUN 10, Creatinine 1.36 H, Estimated Creat Clear 78, Estimated GFR 54 L, Est GFR ( Amer) 66, Glucose 87, Calcium 9.5, Total Bilirubin 0.7, AST 15, ALT 19, Alkaline Phosphatase 134 H, Troponin I 0.11 H, Total Protein 7.6, Albumin 3.8, Globulin 3.8 H, Albumin/Globulin Ratio 1.0 L, Amylase 42, Lipase 125 05/20/18 18:34: Stool Occult Blood Negative 05/20/18 22:39: Troponin I 0.13 H 05/21/18 04:50: Troponin I 0.12 H 05/21/18 04:50: WBC 6.2, RBC 4.22 L, Hgb 13.5 L, Hct 38.9 L, MCV 92.2, MCH 31.2, MCHC 33.8, RDW 14.5, Plt Count 189, MPV 7.3 L, Neut % (Auto) 52.7, Lymph % (Auto) 34.8, [place] % (Auto) 6.9, Eos % (Auto) 3.0, Baso % (Auto) 0.8, Neut # (Auto) 3.3, Lymph # (Auto) 2.2, [place] # (Auto) 0.4, Eos # (Auto) 0.2, Baso # (Auto) 0.1 05/21/18 04:50: Sodium 135 L, Potassium 3.2 L, Chloride 102, Carbon Dioxide 23, Anion Gap 13.2, BUN 10, Creatinine 1.39 H, Estimated Creat Clear 81, Estimated GFR 53 L, Est GFR ( Amer) 64, Glucose 75, Calcium 9.0 I & O for Last 24 hours: Intake & Output 05/18/18 05/19/18 05/20/18 05/21/18 11:59 11:59 11:59 11:59 Weight 211 lb - *Routine HEENT Exam Head: Present: normocephalic Eye: Present: EOMI, PERRL ENT: Present: mucous membranes moist - *Routine Neck Exam Present: supple. Absent: JVD, carotid bruit - *Routine Respiratory Exam Present: CTA bilaterally. Absent: accessory muscle use, rales, rhonchi, wheezes - *Routine Cardiovascular Exam Present: RRR. Absent: murmur, gallop, rubs - *Routine Abdominal Exam Present: soft, tenderness, guarding. Absent: distended - *Routine Extremities Exam Absent: edema, calf tenderness - *Routine Neurological Exam Present: alert, oriented X3, moving all extremities Assessment and Plan (1) Epigastric abdominal pain Current visit: No Status: Acute Category: Medical Code(s): R10.13 - Epigastric pain (2) S/P AAA repair Current visit: Yes Status: Acute Category: Surgical Code(s): Z98.890 - Other specified postprocedural states; Z86.79 - Personal history of other diseases of the circulatory system (3) CAD (coronary artery disease) Current visit: Yes Status: Acute Category: Medical Code(s): I25.10 - Atherosclerotic heart disease of [place] coronary artery without angina pectoris (4) COPD (chronic obstructive pulmonary disease) Current visit: Yes Status: Acute Category: Medical Code(s): J44.9 - Chronic obstructive pulmonary disease, unspecified (5) Elevated troponin Current visit: Yes Status: Acute Category: Medical Code(s): R74.8 - Abnormal levels of other serum enzymes (6) Tobacco use disorder Current visit: Yes Status: Chronic Category: Medical Code(s): F17.200 - Nicotine dependence, unspecified, uncomplicated (7) Abdominal aortic aneurysm (AAA) 3.0 cm to 5.5 cm in diameter in male Current visit: No Status: Acute Category: Medical Code(s): I71.4 - Abdominal aortic aneurysm, without rupture (8) History of coronary artery bypass graft Current visit: No Status: Acute Category: Surgical Code(s): Z95.1 - Presence of aortocoronary bypass graft (9) Left bundle branch block (LBBB) on electrocardiogram Current visit: No Status: Acute Category: Medical Code(s): I44.7 - Left bundle-branch block, unspecified (10) Nausea and vomiting Current visit: No Status: Chronic Qualifiers: Vomiting Intractability: unspecified Category: Medical Code(s): R11.2 - Nausea with vomiting, unspecified - Assessment and plan all Dx Assessment and Plan for all problems:: 1. Will proceed with Abdominal aortogram due to history of AAA repair with percutaneous endovascular repair in 2014 and now with possible leak/enlargement and continued abdominal pain. 2. Smoking cessation strongly encouraged. 3. Will not consider LHC at time of aortogram due to chronic elevated troponin and patient with recent LHC last month without need for intervention. 4. Continue DAPT. 5. Hold Eliquis. 6. If abdominal aortogram is unremarkable, then consider surgical consult for further evaluation.
--- NOTE | 2018-05-21 08:22 | Pharmacy Consult Notes ---
[facility] Pharmacy VTE Monitoring - Patient Demographics Admission date: 05/20/18 Report Date: 05/21/18 Time: 08:20 Allergies/Adverse Reactions: Patient Allergies diphenhydramine [From BENADRYL ALLERGY] Allergy (Mild, Verified 02/07/18 14:33) NA-NAUSEA pseudoephedrine [From SUDAFED] Allergy (Mild, Verified 02/07/18 14:33) NA-NAUSEA nitroglycerin [From NITRO-BID] Allergy (Unknown, Verified 02/07/18 14:33) Height: 1.88 m Weight: 95.708 kg Patient Problems: Current Active Problems CAD (coronary artery disease) (Acute) Peptic ulcer disease (Acute) Adverse effects of medication (Acute) COPD (chronic obstructive pulmonary disease) (Acute) S/P AAA repair (Acute) Elevated troponin (Acute) Tobacco use disorder (Chronic) - VTE Risk Labs: VTE Related Lab Results Hgb 13.5 g/dL (14.1-18.0) L 05/21/18 04:50 Hct 38.9 % (42.0-52.0) L 05/21/18 04:50 Plt Count 189 K/mm3 (142-424) 05/21/18 04:50 BUN 10 mg/dL (7-18) 05/21/18 04:50 Creatinine 1.39 mg/dL (0.70-1.30) H 05/21/18 04:50 Estimated Creat Clear 81 mL/min (50-200) 05/21/18 04:50 Was VTE Risk Assessment Performed: Yes VTE Score: 10 VTE Risk Level: Moderate Risk Clinical Trial Participant: No - Prophylaxis VTE Prophylaxis Ordered?: Yes Types of VTE Prophylaxis: TEDS Knee High
--- NOTE | 2018-05-21 13:03 | Progress Note ---
Internal Medicine - PN: Subj *Date: 05/21/18 *Time: 08:30 Exam Vital signs and Labs for Last 24 Hours: Temp Pulse Resp BP Pulse Ox 97.6 F 80 17 149/78 H 96 05/21/18 11:30 05/21/18 11:45 05/21/18 11:45 05/21/18 11:45 05/21/18 11:45 Laboratory Results - last 24 hr 05/20/18 16:40: WBC 5.6, RBC 4.55 L, Hgb 14.6, Hct 41.7 L, MCV 91.5, MCH 32.1 H, MCHC 35.1, RDW 14.4, Plt Count 201, MPV 7.5, Neut % (Auto) 64.2, Lymph % (Auto) 27.9, [place] % (Auto) 5.9, Eos % (Auto) 1.7, Baso % (Auto) 0.4, Neut # (Auto) 3.6, Lymph # (Auto) 1.6, [place] # (Auto) 0.3, Eos # (Auto) 0.1, Baso # (Auto) 0.0 05/20/18 16:40: Sodium 139, Potassium 3.6, Chloride 104, Carbon Dioxide 23, Anion Gap 15.6 H, BUN 10, Creatinine 1.36 H, Estimated Creat Clear 78, Estimated GFR 54 L, Est GFR ( Amer) 66, Glucose 87, Calcium 9.5, Total Bilirubin 0.7, AST 15, ALT 19, Alkaline Phosphatase 134 H, Troponin I 0.11 H, Total Protein 7.6, Albumin 3.8, Globulin 3.8 H, Albumin/Globulin Ratio 1.0 L, Amylase 42, Lipase 125 05/20/18 18:34: Stool Occult Blood Negative 05/20/18 22:39: Troponin I 0.13 H 05/21/18 04:50: Troponin I 0.12 H 05/21/18 04:50: WBC 6.2, RBC 4.22 L, Hgb 13.5 L, Hct 38.9 L, MCV 92.2, MCH 31.2, MCHC 33.8, RDW 14.5, Plt Count 189, MPV 7.3 L, Neut % (Auto) 52.7, Lymph % (Auto) 34.8, [place] % (Auto) 6.9, Eos % (Auto) 3.0, Baso % (Auto) 0.8, Neut # (Auto) 3.3, Lymph # (Auto) 2.2, [place] # (Auto) 0.4, Eos # (Auto) 0.2, Baso # (Auto) 0.1 05/21/18 04:50: Sodium 135 L, Potassium 3.2 L, Chloride 102, Carbon Dioxide 23, Anion Gap 13.2, BUN 10, Creatinine 1.39 H, Estimated Creat Clear 81, Estimated GFR 53 L, Est GFR ( Amer) 64, Glucose 75, Calcium 9.0 I & O for Last 24 hours: Intake & Output 05/19/18 05/20/18 05/21/18 05/22/18 11:59 11:59 11:59 11:59 Intake Total 120 / 120 Output Total 500 / 500 Balance -380 / -380 Weight 211 lb - Constitutional no acute distress - *Routine HEENT Exam Head: Present: normocephalic Eye: Present: EOMI, PERRL ENT: Present: mucous membranes moist - *Routine Neck Exam Present: supple. Absent: lymphadenopathy - *Routine Respiratory Exam Present: CTA bilaterally - *Routine Cardiovascular Exam Present: RRR - *Routine Abdominal Exam Present: soft, normoactive bowel sounds, tenderness - *Routine Extremities Exam Absent: cyanosis, clubbing, edema - *Routine Skin Exam Present: warm. Absent: rash - *Routine Neurological Exam Present: alert, oriented X3 Assessment and Plan (1) Epigastric abdominal pain Current visit: No Status: Acute Category: Medical Code(s): R10.13 - Epigastric pain (2) S/P AAA repair Current visit: Yes Status: Acute Category: Surgical Code(s): Z98.890 - Other specified postprocedural states; Z86.79 - Personal history of other diseases of the circulatory system (3) CAD (coronary artery disease) Current visit: Yes Status: Acute Category: Medical Code(s): I25.10 - Atherosclerotic heart disease of [place] coronary artery without angina pectoris (4) COPD (chronic obstructive pulmonary disease) Current visit: Yes Status: Acute Category: Medical Code(s): J44.9 - Chronic obstructive pulmonary disease, unspecified (5) Elevated troponin Current visit: Yes Status: Acute Category: Medical Code(s): R74.8 - Abnormal levels of other serum enzymes (6) Tobacco use disorder Current visit: Yes Status: Chronic Category: Medical Code(s): F17.200 - Nicotine dependence, unspecified, uncomplicated (7) Abdominal aortic aneurysm (AAA) 3.0 cm to 5.5 cm in diameter in male Current visit: No Status: Acute Category: Medical Code(s): I71.4 - Abdominal aortic aneurysm, without rupture (8) History of coronary artery bypass graft Current visit: No Status: Acute Category: Surgical Code(s): Z95.1 - Presence of aortocoronary bypass graft (9) Left bundle branch block (LBBB) on electrocardiogram Current visit: No Status: Acute Category: Medical Code(s): I44.7 - Left bundle-branch block, unspecified (10) Nausea and vomiting Current visit: No Status: Chronic Qualifiers: Vomiting Intractability: unspecified Category: Medical Code(s): R11.2 - Nausea with vomiting, unspecified - Assessment and plan all Dx Assessment and Plan for all problems:: discussed with rayo all orders per rayo
[2018-05-22 06:31] LABS: Anion Gap 15.8 mEq/L (5-15)
[2018-05-22 07:11] LABS: Basophils % 0.6 % (0.1-2.0); Eosinophils # 0.2 K/mm3 (0.0-0.4); Eosinophils % 4.3 % (0.1-12.0); Hematocrit 40.3 % (42.0-52.0); Hemoglobin 13.2 g/dL (14.1-18.0); Lymphocytes # 2.1 K/mm3 (0.7-4.5); Lymphocytes % 37.7 % (10-50); Mean Corpuscular HGB Conc 32.8 g/dL (31.8-35.4); Mean Corpuscular Volume 96.1 fl (80-94); Mean Platelet Volume 7.7 fl (7.4-10.4); Monocytes # 0.3 K/mm3 (0.1-1.0); Monocytes % 5.5 % (1.7-9.3); Neutrophils # 2.9 K/mm3 (1.8-7.8); Neutrophils % 51.9 % (37.0-80.0); Platelet Count 184 K/mm3 (142-424); Red Blood Count 4.19 M/mm3 (4.60-6.20); Red Cell Distribution Width 14.5 % (11.5-17.5); White Blood Count 5.6 K/mm3 (4.8-10.8)
[2018-05-22 07:42] VITALS: BP 98/70
[2018-05-22 09:00] LABS: Amylase 51 U/L (25-115)
--- NOTE | 2018-05-22 09:10 | Progress Note ---
Subjective Date: 05/22/18 Time: 09:07 Principal diagnosis: Abdominal pain Interval history: 53-year-old white male in bed in no acute distress but still complains of abdominal pain. Continues to have vomiting if he attempts to eat. Patient's lactate and lactate dehydrogenase both within normal limits. Discussed with Dr. 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 Exam Vital signs and Labs for Last 24 Hours: Temp Pulse Resp BP Pulse Ox 97.9 F 80 20 98/70 L 95 05/22/18 07:40 05/22/18 07:40 05/22/18 04:00 05/22/18 07:40 05/22/18 07:40 Laboratory Results - last 24 hr 05/21/18 13:30: Lactate 1.4 05/21/18 13:30: Lactate Dehydrogenase 107 05/22/18 05:54: Sodium 141, Potassium 3.8, Chloride 105, Carbon Dioxide 24, Anion Gap 15.8 H, BUN 8, Creatinine 1.24, Estimated Creat Clear 91, Estimated GFR 61, Est GFR ( Amer) 73, Glucose 85, Calcium 9.0 05/22/18 05:54: WBC 5.6, RBC 4.19 L, Hgb 13.2 L, Hct 40.3 L, MCV 96.1 H, MCH 31.5 H, MCHC 32.8, RDW 14.5, Plt Count 184, MPV 7.7, Neut % (Auto) 51.9, Lymph % (Auto) 37.7, [place] % (Auto) 5.5, Eos % (Auto) 4.3, Baso % (Auto) 0.6, Neut # (Aut o) 2.9, Lymph # (Auto) 2.1, [place] # (Auto) 0.3, Eos # (Auto) 0.2, Baso # (Auto) 0.0 05/22/18 05:54: Amylase 51, Lipase 143 I & O for Last 24 hours: Intake & Output 05/19/18 05/20/18 05/21/18 05/22/18 11:59 11:59 11:59 11:59 Intake Total 120 / 120 1550 / 1550 Output Total 500 / 500 4100 / 4100 Balance -380 / -380 -2550 / -2550 Weight 211 lb 211 lb - *Routine HEENT Exam Head: Present: normocephalic Eye: Present: EOMI, PERRL ENT: Present: mucous membranes moist - *Routine Respiratory Exam Present: CTA bilaterally. Absent: accessory muscle use, rales, rhonchi, wheezes - *Routine Cardiovascular Exam Present: RRR. Absent: murmur, gallop, rubs - *Routine Abdominal Exam Present: soft, tenderness. Absent: distended, guarding - *Routine Extremities Exam Absent: edema, calf tenderness - *Routine Neurological Exam Present: alert, oriented X3, moving all extremities Progress Note: A&P (1) Epigastric abdominal pain Status: Acute Current Visit: No (2) S/P AAA repair Status: Acute Current Visit: Yes (3) CAD (coronary artery disease) Status: Acute Current Visit: Yes (4) COPD (chronic obstructive pulmonary disease) Status: Acute Current Visit: Yes (5) Elevated troponin Status: Acute Current Visit: Yes (6) Tobacco use disorder Status: Chronic Current Visit: Yes (7) Abdominal aortic aneurysm (AAA) 3.0 cm to 5.5 cm in diameter in male Status: Acute Current Visit: No (8) History of coronary artery bypass graft Status: Acute Current Visit: No (9) Left bundle branch block (LBBB) on electrocardiogram Status: Acute Current Visit: No (10) Nausea and vomiting Status: Chronic Current Visit: No Assessment and Plan for All Diagnoses:: Will cancel repeat CT of the abdomen since 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 Patient can be discharged home from cardiology standpoint. Medications: Aspirin 81 mg daily Plavix 75 mg daily Eliquis 5 mg twice daily Metoprolol succinate ER 100 mg daily Amiodarone 200 mg twice daily Isosorbide mononitrate 30 mg daily Valsartan 80 mg daily Follow-up in 2 weeks.
--- NOTE | 2018-05-22 09:43 | Discharge Summary ---
General - General Admission date:: 05/20/18 Discharge date: 05/22/18 HPI HPI: 53 years male presented to ed with multiple cardiovascular risk including coronary artery disease, history of aneurysm repair, hypertension, and most recently cardiac catheterization 1 week ago with no intervention. Patient uses aspirin and Plavix. 4 days ago he started having sharp epigastric pain 4/10 progressively gotten worse to 10/10 associated with nausea, clear vomiting and black tarry stool. Patient denies having chest pain shortness of breath palpitations or hemoptysis. Denies having hematemesis coffee-ground emesis or bleeding per rectum. He denies a history of alcohol or drug use. - per ed note. pt states he is having abd pain with dark stools and pain has increased and he has not been able to eat anything for 4 days.Pt admitted for cardiac work up with consult, h/h, iv fluids Hospital Course Hospital Course: cardiology consult- see note medication adjustments, refer to gi as outpt pt needs to follow up with cardiovascular surgeon that did AAA repair ct scan Objective Vital signs: Temp Pulse Resp BP Pulse Ox 97.9 F 80 20 98/70 L 95 05/22/18 07:40 05/22/18 07:40 05/22/18 04:00 05/22/18 07:40 05/22/18 07:40 no acute distress - *Routine HEENT Exam Head: Present: normocephalic Eye: Present: PERRL ENT: Present: mucous membranes moist - *Routine Neck Exam Present: full ROM - *Routine Respiratory Exam Present: CTA bilaterally - *Routine Cardiovascular Exam Present: RRR - *Routine Abdominal Exam Present: soft, normoactive bowel sounds, tenderness - *Routine Extremities Exam Present: full ROM - *Routine Skin Exam Present: intact - *Routine Neurological Exam Present: alert, oriented X3 - Routine Psychiatric Exam Present: normal affect Results Labs on day of discharge: Labs from last 24 hours 05/22/18 05/22/18 05/22/18 05:54 05:54 05:54 WBC 5.6 RBC 4.19 L Hgb 13.2 L Hct 40.3 L MCV 96.1 H MCH 31.5 H MCHC 32.8 RDW 14.5 Plt Count 184 MPV 7.7 Neut % (Auto) 51.9 Lymph % (Auto) 37.7 [place] % (Auto) 5.5 Eos % (Auto) 4.3 Baso % (Auto) 0.6 Neut # (Auto) 2.9 Lymph # (Auto) 2.1 [place] # (Auto) 0.3 Eos # (Auto) 0.2 Baso # (Auto) 0.0 Sodium 141 Potassium 3.8 Chloride 105 Carbon Dioxide 24 Anion Gap 15.8 H BUN 8 Creatinine 1.24 Estimated Creat Clear 91 Estimated GFR 61 Est GFR ( Amer) 73 Glucose 85 Lactate Calcium 9.0 Lactate Dehydrogenase Amylase 51 Lipase 143 05/21/18 05/21/18 13:30 13:30 WBC RBC Hgb Hct MCV MCH MCHC RDW Plt Count MPV Neut % (Auto) Lymph % (Auto) [place] % (Auto) Eos % (Auto) Baso % (Auto) Neut # (Auto) Lymph # (Auto) [place] # (Auto) Eos # (Auto) Baso # (Auto) Sodium Potassium Chloride Carbon Dioxide Anion Gap BUN Creatinine Estimated Creat Clear Estimated GFR Est GFR ( Amer) Glucose Lactate 1.4 Calcium Lactate Dehydrogenase 107 Amylase Lipase - Additional Comments rounded with rayo all orders per rayo DS: Diagnosis - Discharge Diagnosis (1) Epigastric abdominal pain Status: Acute (2) S/P AAA repair Status: Acute (3) CAD (coronary artery disease) Status: Acute (4) COPD (chronic obstructive pulmonary disease) Status: Acute (5) Elevated troponin Status: Acute (6) Tobacco use disorder Status: Chronic (7) Abdominal aortic aneurysm (AAA) 3.0 cm to 5.5 cm in diameter in male Status: Acute (8) History of coronary artery bypass graft Status: Acute (9) Left bundle branch block (LBBB) on electrocardiogram Status: Acute (10) Nausea and vomiting Status: Chronic Discharge Plan - Patient Discharge Instructions ACTIVITY: Continue current activity DIET: continue same diet Patient Instructions: Aortic Aneurysm, DI for Gastritis, DI for Surgical Site Infection - Follow up Plan Follow up with: Jae Alonzo MD [Primary Care Provider] - 05/28/18 Abdirashid Rosenthal MD [Staff Physician] - 1 week Disposition: Home, Self-[facility] Medications: Home Medications Medication Instructions Recorded Confirmed Type Aspirin [Aspir 81] 81 mg PO DAILY 05/26/17 05/20/18 History Atorvastatin Calcium [Atorvastatin 80 mg PO HS 05/26/17 05/20/18 History 80mg Tab] Pantoprazole Sodium [Protonix 40mg 40 mg PO DAILY 10/05/17 05/20/18 History tablet] Potassium Chloride [Klor-con 20 20 meq PO BID 11/14/17 05/20/18 History mEq tablet] Furosemide [Lasix 40mg tablet] 40 mg PO BID 03/26/18 05/21/18 History Sertraline HCl [Zoloft 100mg 100 mg PO BID 03/26/18 05/20/18 History tablet] Tiotropium [place] [Spiriva 1 puff IH DAILY 03/26/18 05/20/18 History 18mcg/puff inhaler] Acetaminophen [Acetaminophen 325mg 650 mg PO Q4HP PRN tab 03/27/18 05/20/18 Rx tab] Clopidogrel Bisulfate [Plavix 75mg 75 mg PO DAILY 05/20/18 05/20/18 History Tab] Fluticasone Propionate [Flonase 1 spr NS DAILY 05/20/18 05/20/18 History 50mcg nasal spray 16gm] Nicotine [Nicoderm 21mg/24hr 21 mg TD DAILY 05/20/18 05/20/18 History patch] Amiodarone HCl 200 mg PO BID 05/21/18 05/21/18 History Apixaban [Eliquis] 5 mg PO BID 05/21/18 05/21/18 History Gabapentin [Gabapentin 400mg Cap] 800 mg PO TID 05/21/18 05/21/18 History Isosorbide Mononitrate [Imdur 30mg 30 mg PO DAILY 05/21/18 05/21/18 History ER tablet] Metoprolol Succinate 100 mg PO DAILY 05/21/18 05/21/18 History Tamsulosin HCl [Flomax 0.4mg 0.4 mg PO HS 05/21/18 05/21/18 History capsule] Valsartan 80 mg PO DAILY 05/21/18 05/21/18 History Dicyclomine HCl [Bentyl 10mg 10 mg PO TID 7 Days cap 05/22/18 Rx capsule] Prescriptions/Medication Reconciliation: New Dicyclomine HCl [Bentyl 10mg capsule] 10 mg PO TID 7 Days cap Continue Sertraline HCl [Zoloft 100mg tablet] 100 mg PO BID Furosemide [Lasix 40mg tablet] 40 mg PO BID Tiotropium [place] [Spiriva 18mcg/puff inhaler] 1 puff IH DAILY Acetaminophen [Acetaminophen 325mg tab] 650 mg PO Q4HP PRN tab PRN Reason: As Needed For Fever Or Pain Fluticasone Propionate [Flonase 50mcg nasal spray 16gm] 1 spr NS DAILY Clopidogrel Bisulfate [Plavix 75mg Tab] 75 mg PO DAILY Tamsulosin HCl [Flomax 0.4mg capsule] 0.4 mg PO HS Isosorbide Mononitrate [Imdur 30mg ER tablet] 30 mg PO DAILY Metoprolol Succinate 100 mg PO DAILY Valsartan 80 mg PO DAILY Amiodarone HCl 200 mg PO BID Gabapentin [Gabapentin 400mg Cap] 800 mg PO TID Atorvastatin Calcium [Atorvastatin 80mg Tab] 80 mg PO HS Aspirin [Aspir 81] 81 mg PO DAILY Pantoprazole Sodium [Protonix 40mg tablet] 40 mg PO DAILY Potassium Chloride [Klor-con 20 mEq tablet] 20 meq PO BID Nicotine [Nicoderm 21mg/24hr patch] 21 mg TD DAILY Apixaban [Eliquis] 5 mg PO BID
== END 2018-05-22 11:15 | disposition home or self-care (01) ==
LOC: ER 16:03 → 2ND 16:03
PROVIDERS: ADMIT Emergency Medicine; ATTEND Emergency Medicine
CPT/HCPCS: 36415; 74174; 74177; 75625; 80048; 80053; 82150; 82272; 83605; 83615; 83690; 84484; 85025; 93005; 94640; 96365; 96375; 96376; 99152; 99284; C1725; C1769; G0328; G0378; J1644; J2405; Q9966; Q9967

== ENCOUNTER → 2019-04-28 15:25 | Outpatient (POV) | payer MEDICARE, MEDICAID, SELFPAY | PROVIDERS: Visit Provider Dermatology | DX: Z00.00 Encounter for general adult medical examination without abnormal findings (principal) ==

== ENCOUNTER 2019-07-11 14:06 | Emergency (ER) | payer MEDICARE, MEDICAID, SELFPAY ==
[2019-07-11 14:06] VITALS: BP 143/78; PULSE 71; RESP 20; TEMP 37.1; O2SAT 98; BMI 25.9
--- NOTE | 2019-07-11 14:15 | ECG_ITS ---
APPROVED REPORT Exam: Resting ECG HR:70 bpm ECG Measurements Heart Rate 70 AXES MD 96 P 54 QRSd 180 QRS 243 QT 488 T 75 QTc 527 <Conclusion> Electronic atrial pacemaker Electronically signed by : Mello Livingston, 07/15/2019 17:19:10
--- NOTE | 2019-07-11 14:18 | XR_ITS ---
PROCEDURE: XR CHEST 2V Patient Age:54Y CLINICAL HISTORY: CP mid chest pain goes to the left side and continues down left arm. Previous open heart surgery. Smoker. COMPARISON: AGCHEST CT angio chest from 05/25/2017 CXR1VP XR chest portable from 10/05/2017 CXR2V XR chest 2V from 11/14/2017 CXR1VP XR chest portable from 03/26/2018 FINDINGS: The heart is normal size. Suggestion of mild mild accentuation of pulmonary vascularity of suspect mild vascular engorgement and congestion but of when compared to previous two thousand nineteen CXR but requires correlation clinically a clinically and possible correlation with BNP. Pacer device overlies left chest leads appears similar to have been revised since 2019 with new device here overlying the left upper left chest and slight variation in the position of thinner smaller 3rd lead since 2017... No pleural effusion or pneumothorax. The previous median sternotomy and CABG. But no focal pneumonia evident chest wall in T-spine appear stable and intact IMPRESSION: No focal infiltrate. No pleural effusion. Heart normal size Pacemaker appears to be revised since 2018 Perhaps mild vascular congestion a compared to previous CXR. Question possible subtle CHF or fluid overload. Clinical correlation required. Consider correlation with BNP Dictated by: Anders Marcus MD 07/11/2019 14:50 Electronically signed by Anders Marcus MD in [place] 07/11/2019 14:50
[2019-07-11 14:23] LABS: Basophils # 0.1 K/mm3 (0-0.2); Basophils % 0.8 % (0.1-2.0); Eosinophils # 0.2 K/mm3 (0.0-0.4); Hematocrit 37.9 % (42.0-52.0); Lymphocytes % 33.4 % (10-50); Mean Corpuscular HGB Conc 34.3 g/dL (31.8-35.4); Mean Corpuscular Hemoglobin 31.9 pg (27.0-31.2); Mean Platelet Volume 7.7 fl (7.4-10.4); Monocytes # 0.3 K/mm3 (0.1-1.0); Monocytes % 4.9 % (1.7-9.3); Neutrophils # 3.4 K/mm3 (1.8-7.8); Platelet Count 196 K/mm3 (142-424); Red Blood Count 4.08 M/mm3 (4.60-6.20); Red Cell Distribution Width 15.1 % (11.5-17.5)
[2019-07-11 14:28] LABS: Blood Urea Nitrogen 5 mg/dl (9-20); Calcium 9.2 mg/dl (8.4-10.2); Carbon Dioxide 29 mmol/L (22.0-30.0); Chloride 105 mmol/L (98-107); Creatinine Clearance Estimated 119 mL/min (50-200); Estimated Glomerular Filt Rate 87 ml/min (>60); GFR (African American) 106 ML/MIN (>60); Glucose 115 mg/dl (74-100); Sodium 138 mmol/L (136-145)
[2019-07-11 14:41] LABS: Troponin I < 0.01 ng/ml (0.00-0.034)
--- NOTE | 2019-07-11 14:47 | HMH.EDCP ---
ED Disposition Clinical Impression: Stable angina, Chest pain due to CAD, Elevated random blood glucose level, Hypertension Disposition: Home, Self-Care Condition on Discharge: Good Instructions: DI for Chronic Pain -- Adult Additional Instructions: Recommend to the patient to follow-up with his supervisor counseling and guidance as soon as possible. If pain worsens or continues please return back to the emergency department. Referrals: Provider,Referral, [Primary Care Provider] - - Critical Care Critical Care Time: No Attestation: On 07/11/19, the high probability of a clinically significant, sudden or life threatening deterioration of the following system(s) required my full and direct attention, intervention and personal management. The time I documented below is in addition to time spent performing reported procedures but includes the following listed in this critical care notation. Medical Decision Making - Medical Records Medical records reviewed: Yes: I reviewed the patient's medical records. - Jonathan Inquiry Pt receiving controlled substance: No Vital Signs: 07/11/19 14:06 Temperature 98.8 F Temperature Source Oral Pulse Rate [Right] 71 Respiratory Rate 20 Blood Pressure [Right Arm] 143/78 H Blood Pressure Mean [Right Arm] 99 02 Sat by Pulse Oximetry 98 - Lab Data Lab results reviewed: Yes: I reviewed the patient's lab results. Lab Results 07/11/19 14:07: WBC 6.0, RBC 4.08 L, Hgb 13.0 L, Hct 37.9 L, MCV 93.0, MCH 31.9 H, MCHC 34.3, RDW 15.1, Plt Count 196, MPV 7.7, Neut % (Auto) 57.0, Lymph % (Auto) 33.4, [place] % (Auto) 4.9, Eos % (Auto) 4.0, Baso % (Auto) 0.8, Neut # (Auto) 3.4, Lymph # (Auto) 2.0, [place] # (Auto) 0.3, Eos # (Auto) 0.2, Baso # (Auto) 0.1 07/11/19 14:07: Sodium 138, Potassium 4.0, Chloride 105, Carbon Dioxide 29, Anion Gap 8.0, BUN 5 L, Creatinine 0.90, Estimated Creat Clear 119, Estimated GFR 87, Est GFR ( Amer) 106, Glucose 115 H, Calcium 9.2, Troponin I < 0.01 Result diagrams: 07/11/19 14:07 07/11/19 14:07 Orders (Tests/Meds): ED MEDICATIONS Discontinued Medications Generic Name Dose Route Start Last Admin Trade Name Woody PRN Reason Stop Dose Admin Aspirin 324 mg 07/11/19 14:18 07/11/19 14:19 Aspirin 81mg Chewable Tablet PO 07/11/19 14:19 Not Given ONCE ONE ORDERS Category Date Time Status XR chest 2V Stat Exams 07/11/19 14:18 Taken Troponin I Q3H Lab 07/11/19 17:30 Ordered Troponin I Q3H Lab 07/11/19 20:30 Ordered ECG Request by /Tu Stat Y 07/11/19 14:18 Ordered - Radiology Data #1 Image(s): Chest Image Reviewed: Yes I reviewed the patient's radiology results Preliminary Findings: Normal/NAD - ECG Data Tracing #1 I reviewed this ECG and interpreted as documented below: Normal Sinus Rhythm: Yes (This is a paced rhythm. No evidence of any ST abnormalities or any ST nathalie) Medical Decision Narrative: I did tell the patient my recommendation was to be observed for 23 hours given his longstanding cardiac history with the episode of chest pain and having to stay in the hospital. Patient refused. Chest Pain HPI - General Chief Complaint: Chest Pain Stated Complaint: chest pain Time Seen by Provider: 07/11/19 14:06 Mode of Arrival: EMS Source of Information: Patient Limitations: No Limitations Description of Symptoms (Recalled from ER Triage Doc. by RN): C/O MIDSTERNL CP THAT RADIATES TO HIS RIBS AND DOWN HIS LEFT ARM AFTER CLIMBING STEPS, PT STATES IT COMES AND GOES AND GETS SOA DURING THE PAIN. - History of Present Illness HPI narrative: 54-year-old gentleman arrives to the ED via EMS. Earlier today he was complaining of some sharp chest pains that were radiating out of his left side of his rib cage and hitting the wall. Really unsure what he meant by that. Patient does have a longstanding cardiac history he has had a pacemaker placed and per patient he has had 11 stents placed. Patient states that he did take aspi
[2019-07-11 15:04] VITALS: BP 145/85; PULSE 85; RESP 20; TEMP 36.8; O2SAT 98
== END 2019-07-11 15:05 | disposition home or self-care (01) ==
PROVIDERS: Emergency Provider Family Medicine
DX: I20.8 Other forms of angina pectoris (principal); I25.10 Atherosclerotic heart disease of native coronary artery without angina pectoris; I10 Essential (primary) hypertension; Z79.899 Other long term (current) drug therapy; I48.91 Unspecified atrial fibrillation; E78.5 Hyperlipidemia, unspecified; F17.210 Nicotine dependence, cigarettes, uncomplicated; Z95.0 Presence of cardiac pacemaker; Z96.641 Presence of right artificial hip joint
CPT/HCPCS: 71046; 80048; 84484; 85025; 93005; 99283

== ENCOUNTER 2019-08-08 14:59 | Emergency (ER) | payer MEDICARE, MEDICAID, SELFPAY ==
[2019-08-08 15:01] VITALS: BP 153/77; PULSE 75; RESP 18; TEMP 36.9; O2SAT 97; BMI 27.2
--- NOTE | 2019-08-08 15:10 | CT_ITS ---
Procedure: CT ABDOMEN PELVIS WO CON Patient Age:54Y CLINICAL INDICATION: abd pain, back pain, history of stones. Previous cholecystectomy cardiac stents and CABG. Also right hip prosthesis and aorto iliac stent for a a a the she is yet COMPARISON: ABDPELW CT abdomen pelvis w con from 06/09/[address] abdomen pelvis w con from 05/20/[address] angio abdomen pelvis from 05/22/[address] abdomen pelvis wo con from 09/08/2018 XR LUMBAR SPINE 2-3V from 11/14/2018 XR CHEST 2V from 07/11/2019 TECHNIQUE: No IV contrast utilized. No oral contrast. Helical axial images obtained with sagittal and coronal reformats. All CT scans at the facility use one or more dose reduction, viz: automated exposure control, ma/kV adjustment per patient size (including targeted exams where dose is matched to indication, i.e. head), or iterative reconstruction technique. FINDINGS: Lower thorax: Lung bases clear with no significant acute findings. Scant trace scarring anterior lingula and medial right lung base. By CT appears to be left atrial enlargement. Correlation required. Pacemaker. Sternotomy CABG. Vascular: Prior aorto iliac stent graft again noted in place. Underlying aortic aneurysm AP diameter 1.5-2 measuring up to nearly 52 mm AP today's study (1.5-2 mm increased since August 2018 CT). Width appears fairly stable at 49.5 mm maximally. Streak artifact from the intense hyperdense material, along right margin aortic aneurysm appears stable.-This appears to be site of a previous of repair of possible leak.. Correlation required. No new findings in this area., no acute retroperitoneal-but I would suggest patient get a copy of this CT and previous 2019 CTs follow-up when feasible at the institution that provided this appearance aneurysm repair procedure for ongoing monitoring of this area. ABDOMEN: Postcholecystectomy change. The liver, spleen, adrenal glands, and pancreas have unremarkable unenhanced stable appearance. Kidneys/ureters: No urinary tract obstruction or calculi. Renovascular calcification on left. Stable renal cysts.: Left renal cyst of up 3.6 cm maximally posterior left kidney-stable similar to previous studies Right kidney: 9 mm stable intermediate round stable density likely debris-filled cyst cyst again seen off the posterior aspect the right kidney but no change since April 2017, and may 2017 cyst PELVIS: no acute findings. Stable moderate-sized prostate and seminal vesicles.. Bladder wall upper normal thickness. Streak artifact from right hip prosthesis diminishes detail of pelvis but no free fluid. . GI tract. Stomach: Fairly empty but lack distension likely accentuates the of wall thickness. Upper normal wall thickness stomach. Duodenal loop unremarkable. SMALL BOWEL. Numerous scattered small to moderate air-fluid levels throughout small bowel. Minor dilatation with in 1 or 2 loops of proximal small bowel.-These measure up to 3.2 cm diameter. Distal small bowel fairly normal diameter, less than 2 cm-2.5 cm diameter Suggestion borderline to mild mild wall thickening at small bowel just left midline at upper mid abdomen likely involving midportion small-bowel. (Axial image 54-40,). However on reviewing previous studies I would note a similar appearance with this only slightly more evident today. Thus this this area nonspecific. No inflammatory changes in the adjacent fat. No prominent inflammatory changes here.. (I would note that the aortoiliac graft extends up through level of the SMA, but SMA and branches appeared perfuse nicely on previous postcontrast CT studies 2018 2017.. LARGE BOWEL. Liquid stool air-fluid levels throughout the right colon and hepati
[2019-08-08 15:20] LABS: Basophils % 0.6 % (0.1-2.0); Eosinophils # 0.2 K/mm3 (0.0-0.4); Eosinophils % 2.5 % (0.1-12.0); Hemoglobin 13.1 g/dL (14.1-18.0); Lymphocytes # 2.5 K/mm3 (0.7-4.5); Lymphocytes % 33.3 % (10-50); Mean Corpuscular HGB Conc 33.5 g/dL (31.8-35.4); Mean Corpuscular Hemoglobin 30.6 pg (27.0-31.2); Mean Corpuscular Volume 91.3 fl (80-94); Mean Platelet Volume 7.4 fl (7.4-10.4); Monocytes # 0.6 K/mm3 (0.1-1.0); Monocytes % 7.3 % (1.7-9.3); Neutrophils # 4.3 K/mm3 (1.8-7.8); Neutrophils % 56.3 % (37.0-80.0); Platelet Count 244 K/mm3 (142-424); Red Blood Count 4.28 M/mm3 (4.60-6.20); Red Cell Distribution Width 15.8 % (11.5-17.5); White Blood Count 7.5 K/mm3 (4.8-10.8)
--- NOTE | 2019-08-08 15:22 | PC.NURSE ---
PT TO CT
[2019-08-08 15:28] LABS: Alanine Aminotransferase 13 U/L (12-78); Albumin Level 4.9 g/dl (3.5-5.0); Albumin/Globulin Ratio 1.3 (1.1-1.8); Alkaline Phosphatase 75 U/L (38-126); Anion Gap 10.1 mEq/L (5-15); Aspartate Amino Transferase 26 U/L (17-59); Bilirubin,Total 0.4 mg/dl (0.2-1.3); Blood Urea Nitrogen 9 mg/dl (9-20); Carbon Dioxide 29 mmol/L (22.0-30.0); Chloride 100 mmol/L (98-107); Creatinine Clearance Estimated 125 mL/min (50-200); Estimated Glomerular Filt Rate 87 ml/min (>60); GFR (African American) 106 ML/MIN (>60); Globulin 3.7 g/dL (1.3-3.2); Glucose 119 mg/dl (74-100); Potassium 4.1 mmoL/L (3.5-5.1); Sodium 135 mmol/L (136-145); Total Protein,Serum 8.6 g/dl (6.3-8.2)
--- NOTE | 2019-08-08 16:46 | HMH.EDGENADL ---
ED Disposition Clinical Impression: Abdominal pain of unknown cause, Enteritis Disposition: Home, Self-Care Condition on Discharge: Good Instructions: DI for Acute Pain -- Adult Prescriptions: Ciprofloxacin HCl [Cipro 500mg Tab] 500 mg PO BID 10 Days #20 tab Transmission Status: Pending to [facility] metroNIDAZOLE [Flagyl 500mg Tablet] 500 mg PO TID 10 Days #30 tab Transmission Status: Pending to [facility] Promethazine HCl 50 mg PO TID 6 Days #20 tab Transmission Status: Pending to [facility] Referrals: Provider,Referral, [Primary Care Provider] - - Critical Care Critical Care Time: No Attestation: On 08/08/19, the high probability of a clinically significant, sudden or life threatening deterioration of the following system(s) required my full and direct attention, intervention and personal management. The time I documented below is in addition to time spent performing reported procedures but includes the following listed in this critical care notation. Medical Decision Making - Medical Records Medical records reviewed: Yes: I reviewed the patient's medical records. - Jonathan Inquiry Pt receiving controlled substance: No Vital Signs: 08/08/19 15:01 Temperature 98.4 F Temperature Source Oral Pulse Rate [Radial] 75 Respiratory Rate 18 Blood Pressure [Right Arm] 153/77 H Blood Pressure Mean [Right Arm] 102 Blood Pressure Source [Right Arm] Automatic Cuff Blood Pressure Position [Right Arm] Sitting 02 Sat by Pulse Oximetry 97 Oxygen Delivery Method Room Air - Lab Data Lab results reviewed: Yes: I reviewed the patient's lab results. Lab Results 08/08/19 15:12: WBC 7.5, RBC 4.28 L, Hgb 13.1 L, Hct 39.0 L, MCV 91.3, MCH 30.6, MCHC 33.5, RDW 15.8, Plt Count 244, MPV 7.4, Neut % (Auto) 56.3, Lymph % (Auto) 33.3, [place] % (Auto) 7.3, Eos % (Auto) 2.5, Baso % (Auto) 0.6, Neut # (Auto) 4.3, Lymph # (Auto) 2.5, [place] # (Auto) 0.6, Eos # (Auto) 0.2, Baso # (Auto) 0.0 08/08/19 15:12: Sodium 135 L, Potassium 4.1, Chloride 100, Carbon Dioxide 29, Anion Gap 10.1, BUN 9, Creatinine 0.90, Estimated Creat Clear 125, Estimated GFR 87, Est GFR ( Amer) 106, Glucose 119 H, Calcium 10.0, Total Bilirubin 0.4, AST 26, ALT 13, Alkaline Phosphatase 75, Total Protein 8.6 H, Albumin 4.9, Globulin 3.7 H, Albumin/Globulin Ratio 1.3 Result diagrams: 08/08/19 15:12 08/08/19 15:12 Orders (Tests/Meds): ED MEDICATIONS Discontinued Medications Generic Name Dose Route Start Last Admin Trade Name Freq PRN Reason Stop Dose Admin Sodium Chloride 1,000 mls @ 999 mls/hr 08/08/19 15:21 08/08/19 15:22 Sod Chlor 0.9% 1000ml Bag IV 08/08/19 16:21 999 mls/hr .Q1H1M ONE Administration Ketorolac Tromethamine 30 mg 08/08/19 15:21 08/08/19 15:22 Toradol 30mg/Ml Vial IV 08/08/19 15:22 30 mg ONCE ONE Administration Ondansetron HCl 4 mg 08/08/19 15:21 08/08/19 15:22 Zofran 4mg/2ml Vial IV 08/08/19 15:22 4 mg ONCE ONE Administration - CT Data CT Scan: Abdomen, Pelvis Time Received: 16:00 Preliminary Findings: Abnormal (1. Findings a suspect most likely reflect mild enterocolitis: ) General Adult HPI - General Chief complaint: PAIN Stated complaint: possible kidney stone Time Seen by Provider: 08/08/19 16:40 Mode of Arrival: Ambulatory Source of Information: Patient Limitations: No Limitations Description of Symptoms (Recalled from ER Triage Doc. by RN): States he may have a kidney stone. Has been hurting all night - History of Present Illness Onset (ago): hour(s) Location: abdomen, pelvis Radiation: flank Severity: severe Severity scale (1-10): 8 Quality: stabbing Consistency: constant Relieving factors: none Exacerbating factors: movement Associated symptoms: nausea/vomiting Treatments prior to arrival: none - Related Data Home Medications Medication Instructions Recorded Confirmed Aspirin [Aspir 81] 81 mg PO DAILY 05/26/17 10/05/18
[2019-08-08 17:00] VITALS: BP 153/77; PULSE 75; RESP 18; TEMP 36.9; O2SAT 97
== END 2019-08-08 17:01 | disposition home or self-care (01) ==
PROVIDERS: Emergency Provider Family Medicine
DX: K52.9 Noninfective gastroenteritis and colitis, unspecified (principal); I48.91 Unspecified atrial fibrillation; J44.9 Chronic obstructive pulmonary disease, unspecified; I25.10 Atherosclerotic heart disease of native coronary artery without angina pectoris; K21.9 Gastro-esophageal reflux disease without esophagitis; I10 Essential (primary) hypertension; E78.5 Hyperlipidemia, unspecified; F17.210 Nicotine dependence, cigarettes, uncomplicated; I25.2 Old myocardial infarction; Z95.0 Presence of cardiac pacemaker; Z90.49 Acquired absence of other specified parts of digestive tract; Z88.8 Allergy status to other drugs, medicaments and biological substances; Z79.899 Other long term (current) drug therapy
CPT/HCPCS: 74176; 80053; 85025; 96365; 96367; 96375; 99283; J2405

== ENCOUNTER 2019-09-05 15:50 | Emergency (ER) | payer MEDICARE, MEDICAID, SELFPAY ==
[2019-09-05 15:51] VITALS: BP 153/61; PULSE 70; RESP 18; TEMP 37; O2SAT 98; BMI 28.2
[2019-09-05 15:52] VITALS: BP 153/61; PULSE 70; RESP 18; TEMP 37; O2SAT 98; BMI 28.2
--- NOTE | 2019-09-05 16:06 | HMH.EDUTC ---
[facility] [place] Disposition Clinical Impression: Nausea, Burning with urination Disposition: Home, Self-Care Condition on Discharge: Good Instructions: Acute Abdominal Pain, DI for Low Back Pain, Ondansetron Additional Instructions: ? Drink extra fluids with and between meals. If you have difficulty drinking, try very small amounts of water or suck on ice chips. ? Avoid fruit juices, as these do not replace minerals and can actually increase diarrhea. ? Children and adults can use sports drinks to replenish electrolytes. Younger children and infants should use products formulated for children, like oral rehydration solutions. ? Eat food in small amounts and let your stomach recover. ? Get lots of rest. You may feel tired or weak. ? No greasy or fried foods for the next 24-48 hours BRAT diet Bananas Rice Apples and [place] ? Make sure to drink plenty of liquids ? Return if needed ? Straight to ER if any life threatening symptoms ? Zofran as prescribed to you on 09/02/2019 ? Follow up with family doctor in the next 48-72 hours if no improvement or any worsening of symptoms for further evaluation and testing Referrals: Emmanuelle Scanlon [Primary Care Provider] - As needed (Call office Saturday and make appointment ) Time of Disposition: 16:31 Medical Decision Making - Jonathan Inquiry Pt receiving controlled substance: No Jonathan was queried for this patient: No Vital Signs: 09/05/19 15:51 09/05/19 15:52 Temperature 98.6 F 98.6 F Temperature Source Oral Oral Pulse Rate [Right] 70 70 Respiratory Rate 18 18 Blood Pressure [Right Arm] 153/61 H 153/61 H Blood Pressure Mean [Right Arm] 91 91 Blood Pressure Source [Right Arm] Automatic Cuff Blood Pressure Position [Right Arm] Sitting 02 Sat by Pulse Oximetry 98 98 Oxygen Delivery Method Room Air - Lab Data Lab results reviewed: Yes: I reviewed the patient's lab results. Orders (Tests/Meds): ED MEDICATIONS Discontinued Medications Generic Name Dose Route Start Last Admin Trade Name Freq PRN Reason Stop Dose Admin Ketorolac Tromethamine 60 mg 09/05/19 16:22 09/05/19 16:23 Toradol 60mg/2ml Vial IM 09/05/19 16:23 60 mg ONCE ONE Administration Ondansetron HCl 4 mg 09/05/19 16:08 09/05/19 16:09 Zofran 4mg Odt SL 09/05/19 16:09 4 mg ONCE ONE Administration Medical Decision Narrative: Discussed lab findings with patient and recommended transfer back to ED for CT scan, labs and further evaluation and treatment for abdominal pain and lower back pain Patient states that medication he got for nausea and pain shot helped with pain and he declined transfer to ED states that he will come back to ED if pain returns or worsens, Reports that he has had both Zofran and Torodol in the past and helped with symptoms [facility] [place] HPI - General Stated complaint: abd and back pain Time Seen by Provider: 09/05/19 16:06 Mode of Arrival: Ambulatory Limitations: No Limitations Description of Symptoms (Recalled from Triage Doc. by RN): C/O painful urination, pressure and frequent urination and nausea x3 days. - History of Present Illness Provider Complaint: Patient states that he thinks he may have a kidney infection States that he has been having an achy like feeling in his back and feels like he has been uriniating more than normal and at times having some burning with urination States that he has had kidney stones before and doesn't feel like it did then States that he wanted to get his urine checked to see if that is what is causing it States that also has been having some nausea and wanted to get a shot for pain - Related Data Home Medications Medication Instructions Recorded Confirmed Aspirin [Aspir 81] 81 mg PO DAILY 05/26/17 10/05/18 Atorvastatin Calcium [Atorvastatin 80 mg PO HS 05/26/17 10/05/18 80mg Tab] Pantoprazole Sodium [Protonix 40mg 40 mg PO DAILY 10/05/17 10/05/18 tablet] Potassium Chloride [Klor-con 20 20 meq PO BID 11/14/17 10/05/18 mEq tab
[2019-09-05 16:34] VITALS: BP 153/61; PULSE 70; RESP 18; TEMP 37; O2SAT 98
[2019-09-05 16:36] LABS: Apearance,Urine Clear (Clear); Color,Urine Yellow (Yellow)
[2019-09-05 16:37] LABS: Bilirubin,Urine Negative (Negative); Blood, Urine Trace (Negative); Glucose,Urine (UA) Negative (Negative); Ketones,Urine Negative (Negative); Protein,Urine Negative (Negative); UTC Leukocyte Esterase,Urine Negative (Negative); UTC Nitrate,Urine Negative (Negative); Urobilinogen,Urine 0.2 EU/dl (0.2)
== END 2019-09-05 16:35 | disposition home or self-care (01) ==
PROVIDERS: Emergency Provider Nurse Practitioner; PCP Nurse Practitioner Family
DX: R30.0 Dysuria (principal); I25.10 Atherosclerotic heart disease of native coronary artery without angina pectoris; I48.91 Unspecified atrial fibrillation; J44.9 Chronic obstructive pulmonary disease, unspecified; K21.9 Gastro-esophageal reflux disease without esophagitis; E78.5 Hyperlipidemia, unspecified; I10 Essential (primary) hypertension; Z95.0 Presence of cardiac pacemaker; F17.210 Nicotine dependence, cigarettes, uncomplicated; Z88.8 Allergy status to other drugs, medicaments and biological substances; Z79.899 Other long term (current) drug therapy
CPT/HCPCS: G0463; 81003; 96372; 99202

== ENCOUNTER 2020-02-17 08:27 | Emergency (ER) | payer MEDICARE, MEDICAID, SELFPAY ==
[2020-02-17 08:28] VITALS: BP 203/113; PULSE 100; RESP 20; TEMP 36.8; O2SAT 94; BMI 28.8
--- NOTE | 2020-02-17 08:34 | XR_ITS ---
PROCEDURE: XR HIP RT 2-3V W/PELVIS CLINICAL INDICATION: Pain COMPARISON: CR Pelvis from 10/05/2018 CR XR FEMUR RT 1V from 02/17/2020 FINDINGS: S/p total right hip arthroplasty. There is good alignment. No evidence of orthopedic hardware malfunction. The most medial of the 2 acetabular screws does project beyond the iliopectineal line into the pelvic region as before. Mid distal aspect of the femur shows no acute finding. There is generalized vascular calcification. IMPRESSION: Total right hip replacement. No acute finding Dictated by: Christian Lin MD 02/17/2020 09:54 Christian Lin MD in [place] 02/17/2020 09:54
--- NOTE | 2020-02-17 08:35 | XR_ITS ---
PROCEDURE: XR FEMUR RT 1V CLINICAL INDICATION: Pain COMPARISON: CR Pelvis from 10/05/2018 CR XR FEMUR RT 1V from 02/17/2020 FINDINGS: S/p total right hip arthroplasty. There is good alignment. No evidence of orthopedic hardware malfunction. The most medial of the 2 acetabular screws does project beyond the iliopectineal line into the pelvic region as before. Mid distal aspect of the femur shows no acute finding. There is generalized vascular calcification. IMPRESSION: Total right hip replacement. No acute finding Dictated by: Christian Lin MD 02/17/2020 09:55 Christian Lin MD in [place] 02/17/2020 09:55
--- NOTE | 2020-02-17 08:43 | HMH.EDGENADL ---
ED Disposition Clinical Impression: Right hip pain, Arthritis Disposition: Home, Self-Care Condition on Discharge: Good Instructions: DI for Osteoarthritis, DI for Hip Pain Additional Instructions: You have been evaluated for right hip pain. Likely due to soft tissue injury and osteoarthritis. Please take Tylenol and ibuprofen. Use heat and ice, stretching, strengthening exercises. Please follow-up with your primary care doctor in 1 to 2 days. Return to the emergency department if you have any new or worsening symptoms. Prescriptions: Ibuprofen [Ibuprofen 600mg Tablet] 600 mg PO Q8 10 Days #30 tab Transmission Status: Pending to [facility] Referrals: Emmanuelle Scanlon [Primary Care Provider] - Time of Disposition: 09:22 - Critical Care Critical Care Time: No Attestation: On 02/17/20, the high probability of a clinically significant, sudden or life threatening deterioration of the following system(s) required my full and direct attention, intervention and personal management. The time I documented below is in addition to time spent performing reported procedures but includes the following listed in this critical care notation. Medical Decision Making - Medical Records Medical records reviewed: Yes: I reviewed the patient's medical records. - Jonathan Inquiry Pt receiving controlled substance: No Vital Signs: 02/17/20 08:28 02/17/20 09:27 Temperature 98.3 F Temperature Source Oral Pulse Rate [Radial] 100 H 68 Respiratory Rate 20 Blood Pressure [Right Arm] 203/113 H 158/78 H Blood Pressure Mean [Right Arm] 143 104 Blood Pressure Position [Right Arm] Sitting Sitting 02 Sat by Pulse Oximetry 94 L Oxygen Delivery Method Room Air Orders (Tests/Meds): ED MEDICATIONS Discontinued Medications Generic Name Dose Route Start Last Admin Trade Name Pabloq PRN Reason Stop Dose Admin Ketorolac Tromethamine 15 mg 02/17/20 08:42 02/17/20 08:46 Ketorolac 30mg/Ml Vial IM 02/17/20 08:43 15 mg ONCE ONE Administration Ondansetron HCl 4 mg 02/17/20 08:42 02/17/20 08:46 Ondansetron 4mg Odt SL 02/17/20 08:43 4 mg ONCE ONE Administration Medical Decision Narrative: In summary this is a 54-year-old male with history of right hip replacement presenting to the emergency department with right hip plain. Patient clinically stable on arrival. Vital signs within normal limits. Pain was with a minor trauma. Doubt septic arthritis. No fevers or chills. No redness on the joint. Plan to obtain x-rays to assess for hardware failure or other bony abnormality. Patient given 15 mg IM Toradol and 4 mg of Zofran ODT. X-rays are generally unremarkable. No evidence of hardware failure. No periprosthetic fractures. No abnormality in the distal femur. On reassessment patient's pain had improved. He was able to ambulate with slight limp. Instructed he should follow-up with his primary care physician for symptom recheck in the next few days. May need physical therapy or to see orthopedics in the future. Stable for discharge General Adult HPI - General Stated complaint: right hip pain after feeling it pop Time Seen by Provider: 02/17/20 08:40 Mode of Arrival: Ambulatory Limitations: No Limitations Description of Symptoms (Recalled from ER Triage Doc. by RN): TO ED PER PVT CAR WITH C/O RT HIP PAIN STATES STOOD UP 2 DAYS AGO AND HEARD A POP PAIN RADIATES DOWN LEG. PT C/O DIFFICULTY WALKING AND SLEEPING DUE TO PAIN - History of Present Illness HPI narrative: 54-year-old male presenting to the emergency department with right hip pain. When he woke up 2 days ago he went to stand up and had pain in his right hip. [place] a pop. The pain was sharp, sudden, located in the hip joint and radiating into his upper femur. Since then he has pain with ambulation. Pain improved with rest. No pain in the knee or lower leg. No numbness, weakness, tingling in the foot. He has a history of 2 hip repla
--- NOTE | 2020-02-17 08:54 | PC.NURSE ---
Pt to rad.
--- NOTE | 2020-02-17 09:02 | PC.NURSE ---
Pt returned from rad.
[2020-02-17 09:27] VITALS: BP 158/78; PULSE 68
--- NOTE | 2020-02-17 09:27 | PC.NURSE ---
PT STATES NO RELIEF WITH MEDICATIONS GIVEN MD AWARE
[2020-02-17 10:05] VITALS: BP 153/78; PULSE 78; RESP 20; TEMP 36.6; O2SAT 94
== END 2020-02-17 10:07 | disposition home or self-care (01) ==
PROVIDERS: Emergency Provider Emergency Medicine; PCP Nurse Practitioner Family
DX: M25.551 Pain in right hip (principal); Z96.641 Presence of right artificial hip joint; I48.0 Paroxysmal atrial fibrillation; I25.10 Atherosclerotic heart disease of native coronary artery without angina pectoris; J44.9 Chronic obstructive pulmonary disease, unspecified; K21.9 Gastro-esophageal reflux disease without esophagitis; I10 Essential (primary) hypertension; E78.5 Hyperlipidemia, unspecified; Z95.0 Presence of cardiac pacemaker; F17.210 Nicotine dependence, cigarettes, uncomplicated; Z79.899 Other long term (current) drug therapy
CPT/HCPCS: 73502; 73551; 96372; 99282

== ENCOUNTER 2020-06-04 14:49 | Emergency (ER) | payer MEDICARE, MEDICAID, SELFPAY ==
[2020-06-04 14:50] VITALS: BP 187/90; PULSE 77; RESP 18; TEMP 36.7; O2SAT 93; BMI 30.8
--- NOTE | 2020-06-04 15:10 | HMH.EDGENADL ---
ED Disposition Clinical Impression: Gastroenteritis Abscess of skin Qualifiers: Site of cutaneous abscess: trunk Site of cutaneous abscess of trunk: groin Qualified Code(s): L02.214 - Cutaneous abscess of groin Disposition: Home, Self-Care Condition on Discharge: Good Instructions: DI for Nausea -- Adult, DI for Nausea -- Child, DI for Diarrhea and Traveler's Diarrhea -- Adult, DI for Diarrhea and Traveler's Diarrhea -- Child, Boil Prescriptions: Ondansetron [Zofran 4mg ODT] 4 mg PO Q6HP PRN #30 tab.rapdis PRN Reason: Nausea Transmission Status: Pending to [facility] clindamycin HCL [Clindamycin HCl] 300 mg PO TID #30 cap Transmission Status: Pending to [facility] Referrals: Emmanuelle Scanlon [Primary Care Provider] - - Critical Care Critical Care Time: No Attestation: On 06/04/20, the high probability of a clinically significant, sudden or life threatening deterioration of the following system(s) required my full and direct attention, intervention and personal management. The time I documented below is in addition to time spent performing reported procedures but includes the following listed in this critical care notation. Medical Decision Making - Medical Records Medical records reviewed: Yes: I reviewed the patient's medical records. - Jonathan Inquiry Pt receiving controlled substance: No Vital Signs: 06/04/20 14:50 Temperature 98.1 F Temperature Source Oral Pulse Rate [Right Radial] 77 Respiratory Rate 18 Blood Pressure [Right Arm] 187/90 H Blood Pressure Mean [Right Arm] 122 Blood Pressure Source [Right Arm] Automatic Cuff Blood Pressure Position [Right Arm] Sitting 02 Sat by Pulse Oximetry 93 L Oxygen Delivery Method Room Air Orders (Tests/Meds): ORDERS Category Date Time Status Wound Culture and Gram Stain Stat Micro 06/04/20 15:08 Ordered General Adult HPI - General Chief complaint: Nausea/Vomiting/Diarrhea Stated complaint: n/v/d. boil on left left leg Time Seen by Provider: 06/04/20 15:00 Mode of Arrival: Ambulatory Limitations: No Limitations Description of Symptoms (Recalled from ER Triage Doc. by RN): Pt reports n/v since , pt reports he had a fever . Pt reports he has a boil in between his legs, states he first noticed it . - History of Present Illness HPI narrative: This is a 55-year-old male that presents with intermittent nausea vomiting and diarrhea x4 days. Patient reports only one episode of emesis in the last 4 days. He does report watery diarrhea approximately 3 to 4/day. He denies any fever chills or any abdominal pain or cramping. He also reports a boil at his left groin that has been ongoing for the last few days as well. He reports purulence at times. Again no fever no chills. Patient cannot describe the purulence. Area is painful to touch. Only exacerbated by pressure over the area. Pain is rated at 5 out of 10 in intensity. Pain does not radiate. - Related Data Home Medications Medication Instructions Recorded Confirmed Aspirin [Aspir 81] 81 mg PO DAILY 05/26/17 10/05/18 Atorvastatin Calcium [Lipitor 80mg 80 mg PO HS 05/26/17 10/05/18 Tab] Pantoprazole Sodium [Protonix 40mg 40 mg PO DAILY 10/05/17 10/05/18 tablet] Potassium Chloride [Klor-con 20 20 meq PO BID 11/14/17 10/05/18 mEq tablet] Furosemide [Lasix 40mg tablet] 40 mg PO BID 03/26/18 10/05/18 Sertraline HCl [Zoloft 100mg 100 mg PO BID 03/26/18 10/05/18 tablet] Tiotropium [place] [Spiriva 1 puff IH DAILY 03/26/18 10/05/18 18mcg/puff inhaler] Clopidogrel Bisulfate [Plavix 75mg 75 mg PO DAILY 05/20/18 10/05/18 Tab] Fluticasone Propionate [Flonase 1 spr NS DAILY 05/20/18 10/05/18 50mcg nasal spray 16gm] Nicotine [Nicoderm 21mg/24hr 21 mg TD DAILY 05/20/18 10/05/18 patch] Amiodarone HCl 200 mg PO BID 05/21/18 10/05/18 Apixaban [Eliquis] 5 mg PO BID 05/21/18 10/05/18 Gabapentin [
[2020-06-04 15:18] VITALS: BP 160/87; PULSE 70; RESP 16; O2SAT 96
[2020-06-04 15:39] VITALS: BP 160/87; PULSE 70; RESP 16; TEMP 36.7; O2SAT 96
== END 2020-06-04 15:39 | disposition home or self-care (01) ==
PROVIDERS: Emergency Provider Emergency Medicine; PCP Nurse Practitioner Family
DX: K52.9 Noninfective gastroenteritis and colitis, unspecified (principal); L02.214 Cutaneous abscess of groin; I10 Essential (primary) hypertension; E78.5 Hyperlipidemia, unspecified; I48.91 Unspecified atrial fibrillation; I25.10 Atherosclerotic heart disease of native coronary artery without angina pectoris; K21.9 Gastro-esophageal reflux disease without esophagitis; Z86.73 Personal history of transient ischemic attack (TIA), and cerebral infarction without residual deficits; Z79.899 Other long term (current) drug therapy; F17.210 Nicotine dependence, cigarettes, uncomplicated
CPT/HCPCS: 10060; 87070; 87077; 87186; 87205; 96372; 99283

== ENCOUNTER 2020-07-10 14:39 | Emergency (ER) | payer MEDICARE, MEDICAID, SELFPAY ==
[2020-07-10 14:40] VITALS: BP 161/78; PULSE 70; RESP 20; TEMP 36.6; O2SAT 96; BMI 29.5
--- NOTE | 2020-07-10 14:42 | ECG_ITS ---
APPROVED REPORT Exam: Resting ECG HR:70 bpm ECG Measurements Heart Rate 70 AXES GA 160 P 63 QRSd 186 QRS 241 QT 494 T 78 QTc 533 Conclusion Electronic atrial pacemaker Electronically signed by : Mello Livingston, 07/11/2020 19:02:31
--- NOTE | 2020-07-10 15:00 | XR_ITS ---
PROCEDURE: XR CHEST 2V CLINICAL HISTORY: short of breath Chest tightness and congestion, smoker COMPARISON: CT AGCHEST CT angio chest from 05/25/2017 CR CXR2V XR chest 2V from 11/14/2017 CR CXR1VP XR chest portable from 03/26/2018 CR XR CHEST 2V from 07/11/2019 FINDINGS: Prior CABG. Biventricular and right atrial pacemaker is present from left subclavian approach. There is mild pulmonary venous congestion. Coronary artery stent noted on the left. COPD No lobar consolidation or collapse. No acute bony findings. IMPRESSION: Mild CHF with COPD Dictated by: Christian Lin MD 07/11/2020 06:18 Christian Lin MD in [place] 07/11/2020 06:18
[2020-07-10 15:01] VITALS: BP 140/74; PULSE 70; O2SAT 97
[2020-07-10 15:11] VITALS: BP 160/76; PULSE 71; O2SAT 94
--- NOTE | 2020-07-10 15:11 | PC.NURSE ---
Pt returned from rad.
[2020-07-10 15:14] LABS: Chloride 100 mmol/L (98-107); Potassium 4.3 mmoL/L (3.5-5.1); Sodium 138 mmol/L (136-145)
[2020-07-10 15:17] LABS: Alanine Aminotransferase 19 U/L (12-78); Albumin Level 4.4 g/dl (3.5-5.0); Albumin/Globulin Ratio 1.3 (1.1-1.8); Alkaline Phosphatase 97 U/L (38-126); Anion Gap 10.3 mEq/L (5-15); Aspartate Amino Transferase 29 U/L (17-59); Bilirubin,Total 0.5 mg/dl (0.2-1.3); Blood Urea Nitrogen 13 mg/dl (9-20); Carbon Dioxide 32 mmol/L (22.0-30.0); Creatinine Clearance Estimated 150 mL/min (50-200); Estimated Glomerular Filt Rate 100 ml/min (>60); GFR (African American) 121 ML/MIN (>60); Globulin 3.5 g/dL (1.3-3.2); Glucose 130 mg/dl (74-100); Total Protein,Serum 7.9 g/dl (6.3-8.2)
--- NOTE | 2020-07-10 15:17 | HMH.EDGENADL ---
ED Disposition Clinical Impression: COPD exacerbation, Seasonal allergies, Tobacco use disorder Disposition: Home, Self-Care Condition on Discharge: Good Instructions: DI for Chronic Obstructive Pulmonary Disease, How to Quit Tobacco Products Additional Instructions: You have been evaluated for chest congestion or shortness of breath. This is likely due to COPD exacerbation and seasonal allergies. Please take azithromycin, steroids as prescribed. Use ipratropium albuterol inhaler. Take seasonal allergy medication. Try to quit smoking or at least decrease how much you smoke every day. Follow-up with your primary care doctor this week for symptom recheck. Return to the emergency department for any new or worsening symptoms Prescriptions: Azithromycin 250 mg PO DAILY #6 tab Transmission Status: Received by [email or web address] Cetirizine HCl 10 mg PO DAILY #30 tab Transmission Status: Received by [facility] Ipratropium/Albuterol Sulfate [Combivent Respimat Inh] 2 puff IH QID 10 Days #1 inh Transmission Status: Pending to [facility] predniSONE [Deltasone 20mg tablet] 40 mg PO DAILY 5 Days #10 tab Transmission Status: Received by [facility] Referrals: Emmanuelle Scanlon [Primary Care Provider] - Time of Disposition: 16:13 - Critical Care Critical Care Time: No Attestation: On 07/10/20, the high probability of a clinically significant, sudden or life threatening deterioration of the following system(s) required my full and direct attention, intervention and personal management. The time I documented below is in addition to time spent performing reported procedures but includes the following listed in this critical care notation. Medical Decision Making - Medical Records Medical records reviewed: Yes: I reviewed the patient's medical records. - Jonathan Inquiry Pt receiving controlled substance: No Vital Signs: 07/10/20 14:40 07/10/20 15:01 07/10/20 15:11 Temperature 97.8 F Temperature Source Oral Pulse Rate 70 71 Pulse Rate [Left Radial] 70 Respiratory Rate 20 Blood Pressure 140/74 160/76 H Blood Pressure [Right Arm] 161/78 H Blood Pressure Mean [Right Arm] 105 Blood Pressure Source [Right Arm] Automatic Cuff Blood Pressure Position [Right Arm] Sitting 02 Sat by Pulse Oximetry 96 97 94 L Oxygen Delivery Method Room Air - Lab Data Lab Results 07/10/20 14:50: WBC 6.5, RBC 4.14 L, Hgb 12.0 L, Hct 37.2 L, MCV 89.8, MCH 29.0, MCHC 32.3, RDW 16.4, Plt Count 212, MPV 7.4, Neut % (Auto) 64.5, Lymph % (Auto) 26.1, [place] % (Auto) 6.9, Eos % (Auto) 2.1, Baso % (Auto) 0.4, Neut # (Auto) 4.2, Lymph # (Auto) 1.7, [place] # (Auto) 0.5, Eos # (Auto) 0.1, Baso # (Auto) 0.0 07/10/20 14:50: Sodium 138, Potassium 4.3, Chloride 100, Carbon Dioxide 32 H, Anion Gap 10.3, BUN 13, Creatinine 0.80, Estimated Creat Clear 150, Estimated GFR 100, Est GFR ( Amer) 121, Glucose 130 H, Calcium 9.8, Total Bilirubin 0.5, AST 29, ALT 19, Alkaline Phosphatase 97, Troponin I < 0.01, NT-Pro-B Natriuret Pep 251 H, Total Protein 7.9, Albumin 4.4, Globulin 3.5 H, Albumin/Globulin Ratio 1.3 07/10/20 15:11: VBG pH 7.35, VBG pCO2 48.7, VBG pO2 69.7 H, VBG HCO3 26.3, VBG Total CO2 27.8 H, VBG O2 Saturation 94.0 H, VBG Base Excess 0.7 Result diagrams: 07/10/20 14:50 07/10/20 14:50 Orders (Tests/Meds): ED MEDICATIONS Discontinued Medications Generic Name Dose Route Start Last Admin Trade Name Woody PRN Reason Stop Dose Admin Azithromycin 500 mg 07/10/20 15:28 07/10/20 15:32 Azithromycin 200mg/5ml Susp 15ml Bottle PO 07/10/20 15:29 500 mg ONCE ONE Administration Protocol Prednisone 60 mg 07/10/20 15:28 07/10/20 15:32 Prednisone 20mg Tab PO 07/10/20 15:29 60 mg ONCE ONE Administration ORDERS Category Date Time Status CXR 2 view (NOT portable) [XR chest 2V] Stat Exams 07/10/20 15:00 Taken Covid-19 Nasal PCR ([facility]) Routine Lab 07/10/20 15:15 Ordered
[2020-07-10 15:18] LABS: Calcium 9.8 mg/dl (8.4-10.2)
[2020-07-10 15:19] LABS: Basophils % 0.4 % (0.1-2.0); Eosinophils # 0.1 K/mm3 (0.0-0.4); Eosinophils % 2.1 % (0.1-12.0); Hematocrit 37.2 % (42.0-52.0); Lymphocytes # 1.7 K/mm3 (0.7-4.5); Lymphocytes % 26.1 % (10-50); Mean Corpuscular HGB Conc 32.3 g/dL (31.8-35.4); Mean Corpuscular Volume 89.8 fl (80-94); Mean Platelet Volume 7.4 fl (7.4-10.4); Monocytes # 0.5 K/mm3 (0.1-1.0); Monocytes % 6.9 % (1.7-9.3); Neutrophils # 4.2 K/mm3 (1.8-7.8); Neutrophils % 64.5 % (37.0-80.0); Platelet Count 212 K/mm3 (142-424); Red Blood Count 4.14 M/mm3 (4.60-6.20); Red Cell Distribution Width 16.4 % (11.5-17.5); White Blood Count 6.5 K/mm3 (4.8-10.8)
[2020-07-10 15:26] LABS: NT Pro Brain Natriuretic Pep. 251 pg/mL (0-125)
[2020-07-10 15:33] LABS: Troponin I < 0.01 ng/ml (0.00-0.034)
[2020-07-10 15:57] LABS: VBG Base Excess 0.7 mmol/L (-2.4-2.3); VBG HCO3 26.3 mmol/L (23-30); VBG PCO2 48.7 mmol/L (35-51); VBG PH 7.35 mmol/L (7.31-7.41); VBG PO2 69.7 mmol/L (28-40); VBG Total CO2 27.8 mmol/L (23-27)
--- NOTE | 2020-07-10 16:11 | PC.NURSE ---
Pt refused covid test MD aware.
[2020-07-10 16:20] VITALS: BP 160/76; PULSE 71; RESP 20; TEMP 36.6; O2SAT 95
== END 2020-07-10 16:21 | disposition home or self-care (01) ==
PROVIDERS: Emergency Provider Emergency Medicine; PCP Nurse Practitioner Family
DX: J44.1 Chronic obstructive pulmonary disease with (acute) exacerbation (principal); J30.2 Other seasonal allergic rhinitis; I25.10 Atherosclerotic heart disease of native coronary artery without angina pectoris; I50.9 Heart failure, unspecified; K21.9 Gastro-esophageal reflux disease without esophagitis; E78.5 Hyperlipidemia, unspecified; I10 Essential (primary) hypertension; Z95.0 Presence of cardiac pacemaker; F17.210 Nicotine dependence, cigarettes, uncomplicated; Z79.899 Other long term (current) drug therapy
CPT/HCPCS: 71046; 80053; 82803; 83880; 84484; 85025; 93005; 99282

== ENCOUNTER → 2020-07-22 09:45 | Outpatient (CLI) | payer MEDICARE, SELFPAY ==
--- NOTE | 2020-07-22 09:50 | XR_ITS ---
PROCEDURE: XR FOOT RT MIN 3V CLINICAL INDICATION: RT FOOT PAIN COMPARISON: No exams were available for comparison FINDINGS: No fracture or dislocation. No lytic or blastic change. There is normal mineralization. Joint spaces are well preserved. Small Achilles enthesophyte is present. Other findings:Minimal hallux valgus IMPRESSION: Minimal hallux valgus otherwise negative Dictated by: Christian Lin MD 07/22/2020 10:36 Christian Lin MD in [place] 07/22/2020 10:36
== END ==
PROVIDERS: PCP Nurse Practitioner; Visit Provider Nurse Practitioner
DX: M79.671 Pain in right foot (principal)
CPT/HCPCS: 73630

== ENCOUNTER 2020-08-06 15:09 | Emergency (ER) | payer MEDICARE, SELFPAY ==
[2020-08-06 15:10] VITALS: BP 142/69; PULSE 67; RESP 20; TEMP 36.8; O2SAT 95; BMI 29.5
--- NOTE | 2020-08-06 15:39 | HMH.EDGENADL ---
ED Disposition Clinical Impression: Abdominal pain of unknown cause Disposition: Left Against Medical Advice Condition on Discharge: Undetermined Referrals: Emmanuelle Scanlon [Primary Care Provider] - - Critical Care Critical Care Time: No Attestation: On 08/06/20, the high probability of a clinically significant, sudden or life threatening deterioration of the following system(s) required my full and direct attention, intervention and personal management. The time I documented below is in addition to time spent performing reported procedures but includes the following listed in this critical care notation. Medical Decision Making - Medical Records Medical records reviewed: Yes: I reviewed the patient's medical records. - Jonathan Inquiry Pt receiving controlled substance: No Vital Signs: 08/06/20 15:10 Temperature 98.3 F Temperature Source Oral Pulse Rate [Right Radial] 67 Respiratory Rate 20 Blood Pressure [Right Arm] 142/69 H Blood Pressure Mean [Right Arm] 93 02 Sat by Pulse Oximetry 95 Oxygen Delivery Method Room Air Orders (Tests/Meds): ED MEDICATIONS Generic Name Dose Route Start Last Admin Trade Name Freq PRN Reason Stop Dose Admin Methocarbamol 500 mg 08/06/20 21:00 Methocarbamol 500mg Tablet PO 09/05/20 20:59 BID SWEETIE Discontinued Medications Generic Name Dose Route Start Last Admin Trade Name Freq PRN Reason Stop Dose Admin Acetaminophen 1,000 mg 08/06/20 15:41 08/06/20 16:00 Acetaminophen 500mg Tab PO 08/06/20 15:42 1,000 mg ONCE ONE Administration Ketorolac Tromethamine 15 mg 08/06/20 15:41 08/06/20 16:12 Ketorolac 30mg/Ml Vial IV 08/06/20 15:42 15 mg ONCE ONE Administration ORDERS Category Date Time Status CT abdomen pelvis w con Stat Cat Scan 08/06/20 15:41 Ordered Complete Blood Count Auto Diff Stat Lab 08/06/20 16:07 Received Comprehensive Metabolic Panel Stat Lab 08/06/20 16:07 Received Urinalysis and Microscopic Stat Lab 08/06/20 15:41 Ordered Medical Decision Narrative: Presents for back pain, on his examination patient has complicated medical history, history of abdominal aortic aneurysm with endovascular stent, patient also has history of kidney stones, feels like his pain is similar to kidney stones, patient had urinalysis ordered as well as CBC, CMP, urinalysis, and CT scan with IV contrast of abdomen pelvis. Prior to any work-up resulting patient left AMA, stated that he had medical emergency. The patient left AGAINST MEDICAL ADVICE after a thorough discussion of the risks of doing so, including a discussion of potential alternative plans. These risks include but are not limited to clinical decompensation, parts counterman disability and . The patient appears capable of making this decision. I have advised the patient to immediately return if there are any further problems or if they change their mind about seeking further care. General Adult HPI - General Chief complaint: PAIN Stated complaint: back pain Time Seen by Provider: 08/06/20 15:20 Mode of Arrival: Ambulatory Limitations: No Limitations Description of Symptoms (Recalled from ER Triage Doc. by RN): Complains of left lower back pain x3 days, denies any injury, states its sharp and pressure, rates pain 6/10. - History of Present Illness HPI narrative: Complicated medical history, history of CAD, kidney stones, abdominal aneurysm, patient presents for flank pain, left side, rating to the groin, feels like this is his prior kidney stones, also has burning sensation in his urine, concern for infection. Patient denies any fevers, chills, night sweats, chest pain, shortness of breath, has had nausea but no vomiting. - Related Data Home Medications Medication Instructions Recorded Confirmed Aspirin [Aspir 81] 81 mg PO DAILY 05/26/17 10/05/18 Atorvastatin Calcium [Lipitor 80mg 80 mg PO HS 05/26/17 10/05/18 Tab] Pantoprazole Sodium [Protonix 40mg 40
--- NOTE | 2020-08-06 16:10 | PC.NURSE ---
20 G IV placed to right a/c, pt tolerated well.
[2020-08-06 16:13] LABS: Appearance,Urine CLEAR (Clear); Bilirubin,Urine Negative (Negative); Blood, Urine 1+ (Negative); Color,Urine YELLOW (Yellow); Glucose,Urine (UA) Negative (Negative); Ketones,Urine Negative (Negative); Leukocyte Esterase,Urine Negative (Negative); Microscopic, Urine URINE MICROSCOPIC (MICROSCOPIC); Nitrate,Urine Negative (Negative); Protein,Urine Negative (Negative); Specific Gravity, Urine 1.015 (1.005-1.030); Urobilinogen,Urine 0.2 EU/dl (0.2)
[2020-08-06 16:18] VITALS: BP 000/00; PULSE 0; RESP 0; TEMP -17.7; TEMP 0; O2SAT 0
--- NOTE | 2020-08-06 16:18 | PC.NURSE ---
Pt calls me into the room and states that he has a family emergency and he needs to leave. Pt requested to have IV removed so he could leave. IV removed and pt left dept. MD and pt nurse aware.
[2020-08-06 16:19] LABS: Basophils % 0.5 % (0.1-2.0); Eosinophils # 0.2 K/mm3 (0.0-0.4); Eosinophils % 3.1 % (0.1-12.0); Hematocrit 37.6 % (42.0-52.0); Hemoglobin 11.4 g/dL (14.1-18.0); Lymphocytes # 1.7 K/mm3 (0.7-4.5); Lymphocytes % 29.4 % (10-50); Mean Corpuscular HGB Conc 30.4 g/dL (31.8-35.4); Mean Corpuscular Hemoglobin 27.9 pg (27.0-31.2); Mean Corpuscular Volume 91.6 fl (80-94); Mean Platelet Volume 7.2 fl (7.4-10.4); Monocytes # 0.5 K/mm3 (0.1-1.0); Neutrophils # 3.4 K/mm3 (1.8-7.8); Platelet Count 231 K/mm3 (142-424); Red Blood Count 4.11 M/mm3 (4.60-6.20); Red Cell Distribution Width 15.8 % (11.5-17.5); White Blood Count 5.8 K/mm3 (4.8-10.8)
[2020-08-06 16:21] LABS: Bacteria,Urine Trace /lpf; RBC,Urine Occasional #/hpf (0-3)
[2020-08-06 16:29] LABS: Alanine Aminotransferase 21 U/L (12-78); Albumin Level 4.5 g/dl (3.5-5.0); Albumin/Globulin Ratio 1.3 (1.1-1.8); Alkaline Phosphatase 115 U/L (38-126); Aspartate Amino Transferase 29 U/L (17-59); Bilirubin,Total 0.4 mg/dl (0.2-1.3); Blood Urea Nitrogen 14 mg/dl (9-20); Calcium 9.5 mg/dl (8.4-10.2); Carbon Dioxide 34 mmol/L (22.0-30.0); Chloride 101 mmol/L (98-107); Creatinine Clearance Estimated 120 mL/min (50-200); Estimated Glomerular Filt Rate 77 ml/min (>60); GFR (African American) 93 ML/MIN (>60); Globulin 3.5 g/dL (1.3-3.2); Glucose 96 mg/dl (74-100); Sodium 141 mmol/L (136-145)
== END 2020-08-06 16:21 | disposition left against medical advice (07) ==
PROVIDERS: Emergency Provider Emergency Medicine; PCP Nurse Practitioner Family
DX: M54.5 Low back pain (principal); R10.84 Generalized abdominal pain; I25.10 Atherosclerotic heart disease of native coronary artery without angina pectoris; J44.9 Chronic obstructive pulmonary disease, unspecified; E78.5 Hyperlipidemia, unspecified; I10 Essential (primary) hypertension; K21.9 Gastro-esophageal reflux disease without esophagitis; I48.91 Unspecified atrial fibrillation; Z95.0 Presence of cardiac pacemaker; F17.210 Nicotine dependence, cigarettes, uncomplicated; Z79.899 Other long term (current) drug therapy
CPT/HCPCS: 80053; 81001; 85025; 96374; 99282

== ENCOUNTER → 2020-08-10 06:35 | Outpatient (CLI) | payer MEDICARE, MEDICAID, SELFPAY ==
--- NOTE | 2020-08-10 06:43 | CT_ITS ---
PROCEDURE: CT ABDOMEN PELVIS WO CON CLINICAL INDICATION: LOW BACK PAIN Left flank pain COMPARISON: CT CT ABDOMEN PELVIS WO CON from 08/08/2019 TECHNIQUE: Axial images obtained with sagittal and coronal reformats. All CT scans at the facility use one or more dose reduction, viz: automated exposure control, ma/kV adjustment per patient size (including targeted exams where dose is matched to indication, i.e. head), or iterative reconstruction technique. FINDINGS: LOWER THORAX: There is cardiomegaly with enlarged left atrium. Pacemaker wires are noted. ABDOMEN & PELVIS: There has been a prior cholecystectomy. No focal liver lesion is evident. The spleen and adrenal glands are unremarkable. No obvious pancreatic lesion or mass on this unenhanced exam. Small nodes are present in the periportal area probably not significantly changed. No renal or ureteral calculus evident. There is a 3.9 x 2.8 cm cyst projecting off the posterior aspect of the left kidney not significantly changed. There is a small exophytic cyst projecting off the upper pole of the right kidney unchanged with some cortical lobulation of the lower pole of the right kidney unchanged. There has been prior aortoiliac stent graft placement. The [place] aorta has increased in size at 5.4 x 5.2 cm transverse and AP previously 4.8 x 4.8 cm. This does raise the question of endo graft leak. Dedicated CT angiogram of the aortoiliac vessels suggested. There is an intense hyperdensity along the right lateral aspect of the aorta with streak artifact as before. No intestinal obstruction or free air. There is a mild amount of retained colonic feces. No evidence of diverticulitis or appendicitis Artifact is present from right hip prosthesis. There are degenerative changes in the spine IMPRESSION: 1. Slightly enlarged [place] aorta in this patient that has had a prior aortoiliac stent graft placement measuring 5.4 x 5.2 cm previously 4.8 x 4.8 cm. This does raise the question of endo graft leak. CT aortogram suggested for further evaluation. 2. No change left renal cyst and small right renal cyst. 3. Constipation the the Dictated by: Christian Lin MD 08/10/2020 13:50 Christian Lin MD in [place] 08/10/2020 13:50
== END ==
PROVIDERS: PCP Nurse Practitioner Family; Visit Provider Nurse Practitioner
DX: M54.5 Low back pain (principal)
CPT/HCPCS: 74176

== ENCOUNTER → 2020-08-11 12:10 | Outpatient (CLI) | payer MEDICARE, MEDICAID, SELFPAY ==
--- NOTE | 2020-08-11 12:20 | CT_ITS ---
Procedure: CT ANGIO ABDOMEN CLINICAL HISTORY: AORTIC ECTASIA Follow-up aortic aneurysm COMPARISON: CT ABDPELW CT abdomen pelvis w con from 05/20/[address] ABDOMEN PELVIS WO CON from 08/08/2019 TECHNIQUE: IV Contrast: 100ml Isovue 370 Axial images obtained with sagittal and coronal reformats. All CT scans at the facility use one or more dose reduction, viz: automated exposure control, ma/kV adjustment per patient size (including targeted exams where dose is matched to indication, i.e. head), or iterative reconstruction technique. FINDINGS: There has been prior aortoiliac stent graft placement. The graft begins at the region the superior mesenteric artery. There is moderate dilatation the [place] aorta which had increased in size compared to 08/08/2019exam exam raising the suspicion endo graft leak. There a metallic artifact at the distal and right lateral aspect of the abdominal aorta which causes prominent streak artifact. This may be due to prior coil placement. Along the posterior aspect and mid aspect of the aneurysm sac there does appear to be some mild enhancement best detected on the thin section images series 2 image 259 through 265. Unfortunately, this also is just near the region of the prominent streak artifact a. Therefore cannot determine the extent of the suspected leak or if the leak is coming from the wall of the aorta or a penetrating vessel. There is no evidence of acute retroperitoneal hemorrhage. No new non angiographic findings compared to 08/08/2019. There is right renal cortical scarring, small right renal cyst, 4 cm left renal cyst. IMPRESSION: 1. The findings are compatible with endoleak of endovascular aneurysm repair/EVAR as described above. There is significant artifact along the distal and right lateral aspect of the aorta which may be due to prior interventional procedure as there is evidence of an old endo graft leak on previous CT scan 05/20/2018. 2. No evidence of acute retroperitoneal hemorrhage. Dictated by: Christian Lin MD 08/11/2020 14:02 Christian Lin MD in [place] 08/11/2020 14:02
== END ==
PROVIDERS: PCP Nurse Practitioner; Visit Provider Nurse Practitioner
DX: I77.819 Aortic ectasia, unspecified site (principal)
CPT/HCPCS: 74175; Q9967

== ENCOUNTER 2020-08-12 12:34 | Emergency (ER) | payer MEDICARE, MEDICAID, SELFPAY ==
[2020-08-12] VITALS (10 sets, daily range): BP systolic 136–200; BP diastolic 74–94; PULSE 70–82; RESP 16; TEMP 36.6; O2SAT 98; BMI 28.8
--- NOTE | 2020-08-12 12:44 | CT_ITS ---
PROCEDURE: CT ABDOMEN PELVIS WO/W CON CLINICAL INDICATION: back pain, hx of endoleak AAA COMPARISON: CT AGABDPEL CT angio abdomen pelvis from 05/22/[address] ABDOMEN PELVIS WO CON from 08/10/[address] ANGIO ABDOMEN from 08/11/2020 TECHNIQUE: IV Contrast: 75ML Isovue 370 Oral Contrast None Axial images obtained with sagittal and coronal reformats. All CT scans at the facility use one or more dose reduction, viz: automated exposure control, ma/kV adjustment per patient size (including targeted exams where dose is matched to indication, i.e. head), or iterative reconstruction technique. FINDINGS: LOWER THORAX: Please see chest report done on the same day ABDOMEN & PELVIS: There has been a prior cholecystectomy. No focal liver lesion evident. The spleen, adrenal glands, and pancreas have an unremarkable appearance. There is cortical scarring of the right kidney. Small exophytic cyst projects off the superior pole of the right kidney. 4 x 2.8 cm cyst projects off the posterior aspect of the left kidney. No renal or ureteral calculi. No hydronephrosis. Prior aortoiliac stent placement. Aneurysmal dilatation of the [place] aortic sac once again noted. This is not significantly changed. Significant artifact present from the right periaortic region as previously described not significantly changed. The aneurysm measures 5.5 by 5.7 cm. The streak artifact from the metallic density in the right periaortic region obscures fine detail. Delayed images show some slight heterogeneous enhancement within the aneurysm sac inferiorly consistent with an endo graft leak. This is not significantly changed. There is no evidence of acute retroperitoneal hemorrhage. No acute bony findings are evident. No intestinal obstruction or free air. There are scattered diverticula but no evidence of diverticulitis. There are some nondistended fluid-filled loops of large and small bowel which could be seen with enterocolitis. IMPRESSION: 1. No change in the aortoiliac stent graft with aneurysmal dilatation of the [place] aortic sac and suspected small endoleak posteriorly as before. No evidence of acute retroperitoneal hemorrhage or significant change. 2. Possible enterocolitis Dictated by: Christian Lin MD 08/12/2020 14:14 Christian Lin MD in [place] 08/12/2020 14:14
--- NOTE | 2020-08-12 12:44 | CT_ITS ---
PROCEDURE: CT ANGIO CHEST CLINCIAL INDICATION: back pain, hx of endoleak AAA COMPARISON: CT [facility] CT angio chest from 05/25/2017 TECHNIQUE: IV Contrast: 70ML Isovue 370 Axial images obtained with sagittal and coronal reformats. All CT scans at the facility use one or more dose reduction, viz: automated exposure control, ma/kV adjustment per patient size (including targeted exams where dose is matched to indication, i.e. head), or iterative reconstruction technique. FINDINGS: HEART AND MEDIASTINAL STRUCTURES: Thyroid gland is somewhat enlarged. The isthmus is prominent at 17 mm in thickness. There has been a prior CABG with some mild thickening of the anterior mediastinal fat similar to the previous exam. No evidence of aortic aneurysm. There is mild paraseptal emphysematous change with some interlobular septal thickening peripherally is scanned. No evidence of aortic aneurysm or dissection. Coronary artery calcifications and/or stents noted. LUNGS AND PLEURAL SPACES: COPD with paraseptal emphysematous changes and some peripheral interlobular septal thickening consistent with interstitial fibrosis. There is some scarring in the lingula the BONY STRUCTURES: No acute bony abnormalities apparent. UPPER ABDOMEN: See abdomen report no evidence of pulmonary embolus. There is mild enlargement of the main pulmonary artery with pulmonary artery aortic ratio greater than 1. ADDITIONAL FINDINGS: No other significant abnormalities. IMPRESSION: 1. No acute finding. 2. No evidence of pulmonary embolus or aortic aneurysm or thoracic aortic dissection. 3. The COPD with paraseptal emphysema and developing pulmonary fibrosis. 4. Slightly enlarged main pulmonary artery suggesting pulmonary arterial hypertension Dictated by: Christian Lin MD 08/12/2020 14:44 Christian Lin MD in [place] 08/12/2020 14:44
--- NOTE | 2020-08-12 12:55 | ECG_ITS ---
APPROVED REPORT Exam: Resting ECG HR:70 bpm ECG Measurements Heart Rate 70 AXES QRSd 190 QRS 232 QT 530 T 59 QTc 572 Conclusion AV sequential or dual chamber electronic pacemaker Electronically signed by : Mello Livingston, 08/14/2020 07:13:23
[2020-08-12 13:12] LABS: Basophils % 0.5 % (0.1-2.0); Eosinophils # 0.1 K/mm3 (0.0-0.4); Eosinophils % 1.9 % (0.1-12.0); Hematocrit 36.5 % (42.0-52.0); Hemoglobin 11.9 g/dL (14.1-18.0); Lymphocytes # 1.7 K/mm3 (0.7-4.5); Lymphocytes % 25.5 % (10-50); Mean Corpuscular HGB Conc 32.7 g/dL (31.8-35.4); Mean Corpuscular Hemoglobin 28.9 pg (27.0-31.2); Mean Corpuscular Volume 88.3 fl (80-94); Mean Platelet Volume 8.1 fl (7.4-10.4); Monocytes # 0.4 K/mm3 (0.1-1.0); Monocytes % 6.5 % (1.7-9.3); Neutrophils # 4.3 K/mm3 (1.8-7.8); Neutrophils % 65.6 % (37.0-80.0); Platelet Count 266 K/mm3 (142-424); Red Blood Count 4.14 M/mm3 (4.60-6.20); White Blood Count 6.5 K/mm3 (4.8-10.8)
[2020-08-12 13:18] LABS: Chloride 100 mmol/L (98-107)
[2020-08-12 13:19] LABS: Potassium 3.6 mmoL/L (3.5-5.1); Sodium 140 mmol/L (136-145)
--- NOTE | 2020-08-12 13:19 | PC.NURSE ---
pt to CT
[2020-08-12 13:21] LABS: Alanine Aminotransferase 27 U/L (12-78); Alkaline Phosphatase 117 U/L (38-126); Anion Gap 12.6 mEq/L (5-15); Aspartate Amino Transferase 32 U/L (17-59); Bilirubin,Total 0.7 mg/dl (0.2-1.3); Blood Urea Nitrogen 10 mg/dl (9-20); Calcium 9.5 mg/dl (8.4-10.2); Carbon Dioxide 31 mmol/L (22.0-30.0); Creatinine Clearance Estimated 118 mL/min (50-200); Estimated Glomerular Filt Rate 77 ml/min (>60); GFR (African American) 93 ML/MIN (>60); Glucose 132 mg/dl (74-100)
[2020-08-12 13:22] LABS: Albumin Level 4.8 g/dl (3.5-5.0); Albumin/Globulin Ratio 1.3 (1.1-1.8); Globulin 3.6 g/dL (1.3-3.2); Lipase 44 U/L (23-300); Total Protein,Serum 8.4 g/dl (6.3-8.2)
[2020-08-12 13:36] LABS: Lactic Acid 1.1 mmol/L (0.7-2.1)
--- NOTE | 2020-08-12 13:38 | HMH.EDGENADL ---
ED Disposition Clinical Impression: Endoleak of aortic graft Disposition: Xfer Short-Term Hosp Condition on Discharge: Good Referrals: Emmanuelle Scanlon [Primary Care Provider] - - Critical Care Critical Care Time: No Attestation: On 08/12/20, the high probability of a clinically significant, sudden or life threatening deterioration of the following system(s) required my full and direct attention, intervention and personal management. The time I documented below is in addition to time spent performing reported procedures but includes the following listed in this critical care notation. Medical Decision Making - Medical Records Medical records reviewed: Yes: I reviewed the patient's medical records. - Jonathan Inquiry Pt receiving controlled substance: No Vital Signs: 08/12/20 12:35 08/12/20 12:55 08/12/20 13:49 Temperature 98 F Temperature Source Oral Pulse Rate [Radial] 82 Respiratory Rate 16 Blood Pressure 181/90 H 159/81 H Blood Pressure [Left Arm] 154/78 H Blood Pressure [Right Arm] 200/94 H Blood Pressure Mean [Left Arm] 103 Blood Pressure Mean [Right Arm] 129 Blood Pressure Position Sitting Blood Pressure Position [Left Arm] Sitting Blood Pressure Position [Right Arm] Sitting 02 Sat by Pulse Oximetry 98 Oxygen Delivery Method Room Air - Lab Data Lab Results 08/12/20 12:50: WBC 6.5, RBC 4.14 L, Hgb 11.9 L, Hct 36.5 L, MCV 88.3, MCH 28.9, MCHC 32.7, RDW 16.0, Plt Count 266, MPV 8.1, Neut % (Auto) 65.6, Lymph % (Auto) 25.5, Conway % (Auto) 6.5, Eos % (Auto) 1.9, Baso % (Auto) 0.5, Neut # (Auto) 4.3, Lymph # (Auto) 1.7, [place] # (Auto) 0.4, Eos # (Auto) 0.1, Baso # (Auto) 0.0 08/12/20 12:50: Sodium 140, Potassium 3.6, Chloride 100, Carbon Dioxide 31 H, Anion Gap 12.6, BUN 10, Creatinine 1.00, Estimated Creat Clear 118, Estimated GFR 77, Est GFR ( Amer) 93, Glucose 132 H, Calcium 9.5, Magnesium 2.0, Total Bilirubin 0.7, AST 32, ALT 27, Alkaline Phosphatase 117, Total Protein 8.4 H, Albumin 4.8, Globulin 3.6 H, Albumin/Globulin Ratio 1.3, Lipase 44 08/12/20 13:12: Lactate 1.1 08/12/20 13:12: Blood Type O Positive, Antibody Screen Negative Result diagrams: 08/12/20 12:50 08/12/20 12:50 Orders (Tests/Meds): ED MEDICATIONS Discontinued Medications Generic Name Dose Route Start Last Admin Trade Name Woody PRN Reason Stop Dose Admin Iopamidol 100 ml 08/12/20 13:37 08/12/20 13:38 Iopamidol-370 (76%);100ml Bottle IV 08/12/20 13:38 100 ml ONCE ONE Administration Labetalol HCl 10 mg 08/12/20 12:52 08/12/20 13:49 Labetalol 5mg/Ml 20ml Mdv IV 08/12/20 12:53 5 mg ONCE ONE Administration Morphine Sulfate 4 mg 08/12/20 12:53 08/12/20 13:02 Morphine 4mg/Ml Syringe IV 08/12/20 12:54 4 mg ONCE ONE Administration Ondansetron HCl 4 mg 08/12/20 13:02 08/12/20 13:02 Ondansetron 4mg/2ml Vial IV 08/12/20 13:03 4 mg ONCE ONE Administration Sodium Chloride 50 ml 08/12/20 13:37 08/12/20 13:38 0.9 % Sodium Chloride 50 Ml Vial IV 08/12/20 13:38 50 ml ONCE ONE Administration Sodium Chloride 10 ml 08/12/20 13:37 08/12/20 13:38 Sodium Chloride 0.9% 10ml Syr (Rad Only) IV 08/12/20 13:38 10 ml ONCE ONE Administration ORDERS Category Date Time Status CT angio chest Stat Cat Scan 08/12/20 12:44 Taken Medical Decision Narrative: 55-year-old male presents with left flank pain. Vital signs were normal except for hypertension, given IV dose of labetalol and pain medicine upon arrival. He is in no acute distress nontoxic-appearing comfortable in the bed able to speak in full sentences. I discussed the CAT scan findings from yesterday with Dr. Lin and he recommended a noncontrasted scan along with IV contrasted scan. The patient is very hemodynamically stable at this time. 2pm-- Repeat exam and pain is improved and blood pressure is 130 systolic after labetalol. 245pm-- CT with evidence of posterior endoleak but smal
--- NOTE | 2020-08-12 13:38 | PC.NURSE ---
pt returning from CT
--- NOTE | 2020-08-12 14:00 | PC.NURSE ---
pt resting continues to c/o lt lower back pain
--- NOTE | 2020-08-12 14:40 | PC.NURSE ---
Calling [facility] per MD Patel request for vascular surgery.
--- NOTE | 2020-08-12 14:58 | PC.NURSE ---
Calling [facility] for transfer.
--- NOTE | 2020-08-12 15:40 | PC.NURSE ---
report called to [facility].
--- NOTE | 2020-08-12 15:41 | PC.NURSE ---
pt transferred to [facility] per aisha
== END 2020-08-12 15:45 | disposition short-term general hospital (02) ==
PROVIDERS: Emergency Provider Emergency Medicine; PCP Nurse Practitioner Family
DX: T82.310A Breakdown (mechanical) of aortic (bifurcation) graft (replacement), initial encounter (principal); I10 Essential (primary) hypertension; E78.5 Hyperlipidemia, unspecified; K21.9 Gastro-esophageal reflux disease without esophagitis; J44.9 Chronic obstructive pulmonary disease, unspecified; I48.91 Unspecified atrial fibrillation; F17.210 Nicotine dependence, cigarettes, uncomplicated; Z79.899 Other long term (current) drug therapy
CPT/HCPCS: 36415; 71275; 74178; 80053; 83605; 83690; 83735; 85025; 86850; 93005; 96374; 96375; 96376; 99283; J2405; Q9967

== ENCOUNTER 2020-09-20 16:01 | Emergency (ER) | payer MEDICARE, MEDICAID, SELFPAY ==
[2020-09-20 16:01] VITALS: BP 105/63; PULSE 80; RESP 16; TEMP 36.5; O2SAT 95; BMI 27.4
--- NOTE | 2020-09-20 16:22 | HMH.EDGENADL ---
ED Disposition Clinical Impression: Endoleak post endovascular aneurysm repair, Hypokalemia Disposition: Home, Self-Care Condition on Discharge: Good Additional Instructions: Follow-up with [facility] vascular surgery clinic as scheduled. Return to the emergency department if severe pain or intractable vomiting. Percocet as needed for pain. Zofran as needed for nausea. Potassium as prescribed. Additional instructions for CONTROLLED SUBSTANCES: You have been prescribed a medication that is a controlled substance. Controlled substances include pain medications known as opiates and sedative nerve medications known as benzodiazepines. Tramadol, fioricet, and gabapentin are also controlled substances. Some common opiates include: Codeine (such as Tylenol #3) Hydrocodone (Vicodin, Lortab, Lorcet, Laquey) Oxycodone (Percocet, Percodan, Oxycodone, Oxy IR) Some common benzodiazepines include: Diazepam (Valium) Lorazepam (Ativan) Alprazolam (Xanax) Clonazepam (Klonopin) Oxazepam (Serax) All of these controlled substances are highly addictive and frequently abused. Misuse can and frequently does lead to addiction as well as overdose and . Medication should be stored in a locked cabinet or other secure storage unit. Do not store the medication in a motor vehicle. Short term supplies, 3 days or less, are prescribed because of the highly addictive nature of the medication. Any of the controlled substance medication NOT taken should be disposed of properly and NOT SAVED. The recommended method of disposing of unused medications is: Place the medicines in a sealable plastic bag. If the medicine is a solid, crush it or add water to dissolve it. Add something undesirable (cat litter, coffee grounds, etc.) Dispose of sealed bag in household trash Do not flush or pour unused medicines down a sink or drain. Controlled substances should not be shared, given away or sold. Because of the addictive nature and frequent abuse, these medications are sometimes stolen. These medications should be kept in a safe place where they cannot be stolen. Do not keep them in your car or purse. Lost or stolen prescriptions for controlled substances WILL NOT BE REFILLED in this emergency department, regardless of whether a police report was filed. Prescriptions: Oxycodone HCl/Acetaminophen [Percocet 5/325mg tablet] 1 tab PO Q6HP PRN #8 tablet PRN Reason: Moderate To Severe Pain Transmission Status: Sent to [facility] Potassium Chloride [K-Tab ER 20 mEq] 20 meq PO DAILY #7 tab Transmission Status: Pending to [facility] Ondansetron [Zofran 4mg ODT] 4 mg PO TIDP PRN #10 tab.rapdis PRN Reason: Nausea And Vomiting Transmission Status: Pending to [facility] Referrals: Emmanuelle Scanlon [Primary Care Provider] - - Critical Care Critical Care Time: No Attestation: On 09/20/20, the high probability of a clinically significant, sudden or life threatening deterioration of the following system(s) required my full and direct attention, intervention and personal management. The time I documented below is in addition to time spent performing reported procedures but includes the following listed in this critical care notation. Medical Decision Making - Medical Records Medical records reviewed: Yes: I reviewed the patient's medical records. MR Anjel: Seen here on 08/06/2020 for flank pain and signed out AGAINST MEDICAL ADVICE before any imaging performed. Apparently had outpatient CT scan of his abdomen and pelvis on 08/10/2020 and this was suspicious for endograft leak. Return to the emergency department on 08/12/[address] scan and CT angiogram of the abdomen and pelvis which showed endograft leak. Transferred to [facility]. [facility] portal records reviewed. Surgery on 08/14/[address] Ledbetter. Patient refused placement in a rehab facility and was discharged home.
[2020-09-20 16:27] LABS: Chloride 96 mmol/L (98-107); Sodium 139 mmol/L (136-145)
[2020-09-20 16:28] LABS: Basophils % 0.6 % (0.1-2.0); Eosinophils # 0.2 K/mm3 (0.0-0.4); Eosinophils % 2.8 % (0.1-12.0); Hemoglobin 12.2 g/dL (14.1-18.0); Lymphocytes # 1.7 K/mm3 (0.7-4.5); Lymphocytes % 26.2 % (10-50); Mean Corpuscular HGB Conc 33.8 g/dL (31.8-35.4); Mean Corpuscular Hemoglobin 28.6 pg (27.0-31.2); Mean Corpuscular Volume 84.7 fl (80-94); Mean Platelet Volume 7.2 fl (7.4-10.4); Monocytes # 0.5 K/mm3 (0.1-1.0); Monocytes % 7.6 % (1.7-9.3); Neutrophils % 62.9 % (37.0-80.0); Platelet Count 219 K/mm3 (142-424); Red Blood Count 4.25 M/mm3 (4.60-6.20); Red Cell Distribution Width 17.6 % (11.5-17.5); White Blood Count 6.4 K/mm3 (4.8-10.8)
[2020-09-20 16:30] LABS: Alanine Aminotransferase 23 U/L (12-78); Albumin Level 4.4 g/dl (3.5-5.0); Alkaline Phosphatase 104 U/L (38-126); Amylase 55 U/L (30-110); Anion Gap 13.5 mEq/L (5-15); Aspartate Amino Transferase 29 U/L (17-59); Bilirubin,Total 0.6 mg/dl (0.2-1.3); Blood Urea Nitrogen 8 mg/dl (9-20); Calcium 9.6 mg/dl (8.4-10.2); Carbon Dioxide 32 mmol/L (22.0-30.0); Creatinine Clearance Estimated 124 mL/min (50-200); Estimated Glomerular Filt Rate 87 ml/min (>60); GFR (African American) 105 ML/MIN (>60); Glucose 116 mg/dl (74-100); Lipase 106 U/L (23-300)
[2020-09-20 16:31] LABS: Albumin/Globulin Ratio 1.2 (1.1-1.8); Globulin 3.7 g/dL (1.3-3.2); Total Protein,Serum 8.1 g/dl (6.3-8.2)
[2020-09-20 16:39] LABS: Potassium 2.5 mmoL/L (3.5-5.1)
--- NOTE | 2020-09-20 16:39 | PC.NURSE ---
Received critical potassium from lab. made aware
--- NOTE | 2020-09-20 16:49 | CT_ITS ---
PROCEDURE INFORMATION: Exam: CT Abdomen And Pelvis Without And With Contrast Exam date and time: 09/20/2020 4:49 PM Age: 55 years old Clinical indication: Abdominal pain; Localized; Prior surgery; Surgery date: <1 month; Patient HX: Upper abd pain, recent aneurysm repair; Additional info: Abdominal pain, recent endograft leak/repair TECHNIQUE: Imaging protocol: Computed tomography of the abdomen and pelvis without and with contrast. 3D rendering (Not supervised by radiologist): MIP and/or 3D reconstructed images were created by the technologist. Total images: 1280 Radiation optimization: All CT scans at this facility use at least one of these dose optimization techniques: automated exposure control; mA and/or kV adjustment per patient size (includes targeted exams where dose is matched to clinical indication); or iterative reconstruction. COMPARISON: CT ABDOMEN PELVIS WO/W CON 08/12/2020 1:23 PM FINDINGS: Lungs: Visualized lung bases are clear. Granulomatous calcifications in the right perihilar region. Heart: Heart size normal. Prior median sternotomy. Pacemaker leads partially visualized without gross complication or change. Mediastinal space: The visualized distal esophagus is normal. Liver: Normal contour. No mass lesions. No intrahepatic biliary ductal dilatation. Granulomatous calcifications in the liver. Gallbladder and bile ducts: Evidence of prior cholecystectomy with no significant dilatation of the common bile duct. Pancreas: Mild pancreatic atrophy without acute abnormality. No pancreatic ductal dilatation. Spleen: Granulomatous calcifications in the spleen without acute splenic abnormality. Adrenal glands: Normal. No adrenal mass. Kidneys and ureters: No acute abnormalities. No hydronephrosis or hydroureter. No urinary tract stones are identified. There are bilateral renal cortical lesions demonstrating low density values and circumscribed margins favoring simple renal cysts. No further imaging evaluation is required. Multifocal chronic renal cortical scarring bilaterally. Stomach and bowel: The stomach is largely contracted without gross abnormality. The small bowel is nondilated with no gross abnormality. No acute colonic abnormalities. Appendix: The appendix is normal in caliber and demonstrates no evidence of appendicitis. Intraperitoneal space: No free fluid or air. Vasculature: Prior aortoiliac stent graft placement again noted. Fusiform aneurysmal dilatation of the mid and distal abdominal aortic segments again noted measuring up to 5.2 cm transverse by 5.3 cm AP by 10.5 cm in length, with slight decrease in size of the aneurysm sac since 08/12/2020, previously 5.2 cm transverse by 5.8 cm AP at the same level. Portal phase imaging demonstrates a small amount of contrast accumulation within the distal posterior aneurysm sac on axial series 7, images 56-62, consistent with a type 2 endoleak. The previously identified metallic structure along the right lateral margin of the aneurysm sac is unchanged, possibly embolization material. There are multiple new surgical clips along the posterior margin of the upper aneurysm sac and a new 2.1 x 0.4 cm hyperdense structure along the left lateral margin of the aorta in this region, likely hyperdense surgical material or embolization material. Lymph nodes: See Lungs finding. Urinary bladder: Unremarkable as visualized. Reproductive: Unremarkable as visualized. Bones/joints: No acute osseous abnormalities. Right hip arthroplasty unchanged. Soft tissues: Bandlike stranding in the left anterolateral abdominal wall, probably representing postoperative changes given the history
[2020-09-20 16:53] LABS: Magnesium 1.4 mg/dl (1.6-2.3)
--- NOTE | 2020-09-20 16:56 | ECG_ITS ---
APPROVED REPORT Exam: Resting ECG HR:71 bpm ECG Measurements Heart Rate 71 AXES NJ 108 P 81 QRSd 204 QRS 237 QT 560 T 64 QTc 608 Conclusion Electronic atrial pacemaker Electronically signed by : Mello Livingston, 09/22/2020 17:02:39
[2020-09-20 18:41] LABS: Microscopic, Urine URINE MICROSCOPIC (MICROSCOPIC)
--- NOTE | 2020-09-20 18:42 | PC.NURSE ---
CALLING [facility] THEY ARE SUPPOSE TO CALLBACK
--- NOTE | 2020-09-20 18:52 | PC.NURSE ---
Speaking with [facility]
[2020-09-20 18:54] LABS: Appearance,Urine CLEAR (Clear); Blood, Urine TRACE-I (Negative); Glucose,Urine (UA) Negative (Negative); Ketones,Urine Negative (Negative); Leukocyte Esterase,Urine Negative (Negative); Nitrate,Urine Negative (Negative); PH,Urine 7.5 (5.0-8.5); Protein,Urine TRACE (Negative); Specific Gravity, Urine 1.015 (1.005-1.030)
[2020-09-20 18:56] LABS: Bilirubin,Urine Negative (Negative); Color,Urine Dark Yellow (Yellow)
[2020-09-20 19:03] VITALS: BP 123/73; PULSE 80; RESP 18; O2SAT 96
[2020-09-20 19:09] LABS: Bacteria,Urine 1+ /lpf; Mucus,Urine 1+ /lpf
--- NOTE | 2020-09-20 19:13 | PC.NURSE ---
speaking with at [facility]
[2020-09-20 20:06] VITALS: BP 120/69; PULSE 81; RESP 18; TEMP 36.5; O2SAT 98
== END 2020-09-20 20:08 | disposition home or self-care (01) ==
PROVIDERS: Emergency Provider Emergency Medicine; PCP Nurse Practitioner Family
DX: T82.848A Pain due to vascular prosthetic devices, implants and grafts, initial encounter (principal); E87.6 Hypokalemia; I50.9 Heart failure, unspecified; K21.9 Gastro-esophageal reflux disease without esophagitis; I10 Essential (primary) hypertension; E78.5 Hyperlipidemia, unspecified; I25.10 Atherosclerotic heart disease of native coronary artery without angina pectoris; Z88.8 Allergy status to other drugs, medicaments and biological substances; Z79.899 Other long term (current) drug therapy
CPT/HCPCS: 74178; 80053; 81001; 82150; 83690; 83735; 85025; 93005; 96365; 96375; 96376; 99283; J2405; Q9967

== ENCOUNTER 2020-10-01 14:38 | Emergency (ER) | payer MEDICARE, MEDICAID, SELFPAY ==
[2020-10-01 14:41] VITALS: BP 159/87; PULSE 81; RESP 15; TEMP 36.9; O2SAT 99; BMI 28.2
[2020-10-01 15:19] VITALS: BP 136/84; PULSE 81; O2SAT 97
--- NOTE | 2020-10-01 15:26 | CT_ITS ---
PROCEDURE INFORMATION: Exam: CT Abdomen And Pelvis With Contrast Exam date and time: 10/01/2020 3:26 PM Age: 55 years old Clinical indication: Abdominal pain; Generalized; Prior surgery; Surgery date: <1 month; Surgery type: Aneurysm; Additional info: Generalized abdominal pain TECHNIQUE: Imaging protocol: Computed tomography of the abdomen and pelvis with contrast. Radiation optimization: All CT scans at this facility use at least one of these dose optimization techniques: automated exposure control; mA and/or kV adjustment per patient size (includes targeted exams where dose is matched to clinical indication); or iterative reconstruction. Contrast material: ISOVUE; Contrast volume: 125 ml; Contrast route: IV; COMPARISON: CT ABDOMEN PELVIS WO/W CON 09/20/2020 5:06 PM FINDINGS: Limitations: Images are degraded by streak artifact from embolization material along the right aspect of the abdominal aortic aneurysm sac. Tubes, catheters and devices: There are partially imaged cardiac leads. Lungs: Scattered linear opacities in the visualized lung bases likely represent subsegmental atelectasis and/or scarring. Liver: No evidence of focal liver lesion on this single phase exam. Gallbladder and bile ducts: There is no biliary ductal dilatation status post cholecystectomy. Pancreas: No evidence of focal lesion or ductal dilatation. Spleen: The spleen is mildly enlarged measuring 12.5 cm. Splenic densities likely represent calcified granulomas. Adrenal glands: No adrenal nodule. Kidneys and ureters: No renal calculi or hydronephrosis. There is a 2.4 x 3.7 cm cyst in the interpolar left kidney. Subcentimeter hypodense lesions in both kidneys are too small to accurately characterize. There is unchanged mild left perinephric stranding which may be postsurgical. Stomach and bowel: No distention or wall thickening. Appendix: The appendix is normal. Intraperitoneal space: No free air or fluid. No focal fluid collection. Vasculature: Note is again made of an abdominal aortic aneurysm status post aortobi-iliac stent graft repair. The aneurysm sac measures approximately 5.4 x 5.5 cm on today's exam, previously approximately 5.2 x 5.3 cm. There is hyperdense material within the distal aneurysm sac as on series 4, images 67-73, similar to the prior exam. Lymph nodes: No lymphadenopathy. There are unchanged prominent lymph nodes in the region of the gavin hepatis. Urinary bladder: Unremarkable as visualized. Reproductive: Unremarkable as visualized. Bones/joints: No acute fracture. There is a right hip replacement. There are mild degenerative changes of the spine. Soft tissues: There is unchanged stranding of the subcutaneous fat of the left lateral abdominal wall, likely postsurgical. There is unchanged nodularity of the subcutaneous fat of the lateral right pelvic wall which may represent the sequela of prior trauma. IMPRESSION: Minimal increase in the size of the abdominal aortic aneurysm sac now measuring 4.5 x 5.5 cm status stent graft repair with hyperdense material within the distal aneurysm sac similar to the prior exam which could be secondary to type 2 endoleak. COMMENTS: Consistent with the [employer]'s Incidental Findings Committee white paper (J Am Abigail Radiol 2018): Any incidental renal lesion less than 1 cm or classified as too small to characterize, or any incidental cystic renal lesion characterized as simple-appearing, is likely benign. No follow-up imaging is recommended for these lesions per consensus recommendations based on imaging criteria. 1
[2020-10-01 15:27] LABS: Basophils % 0.5 % (0.1-2.0); Eosinophils # 0.1 K/mm3 (0.0-0.4); Eosinophils % 0.8 % (0.1-12.0); Hematocrit 37.6 % (42.0-52.0); Hemoglobin 12.7 g/dL (14.1-18.0); Lymphocytes # 1.3 K/mm3 (0.7-4.5); Lymphocytes % 20.8 % (10-50); Mean Corpuscular HGB Conc 33.9 g/dL (31.8-35.4); Mean Corpuscular Hemoglobin 28.6 pg (27.0-31.2); Mean Corpuscular Volume 84.6 fl (80-94); Mean Platelet Volume 7.1 fl (7.4-10.4); Monocytes # 0.4 K/mm3 (0.1-1.0); Monocytes % 6.3 % (1.7-9.3); Neutrophils # 4.6 K/mm3 (1.8-7.8); Neutrophils % 71.6 % (37.0-80.0); Platelet Count 219 K/mm3 (142-424); Red Blood Count 4.44 M/mm3 (4.60-6.20); Red Cell Distribution Width 18.1 % (11.5-17.5); White Blood Count 6.5 K/mm3 (4.8-10.8)
[2020-10-01 15:30] VITALS: BP 147/79; PULSE 71; O2SAT 93
[2020-10-01 15:43] LABS: Chloride 97 mmol/L (98-107); Sodium 137 mmol/L (136-145)
[2020-10-01 15:45] LABS: Potassium 2.5 mmoL/L (3.5-5.1)
--- NOTE | 2020-10-01 15:45 | PC.NURSE ---
potassium of 2.5 critical notification, made aware
[2020-10-01 15:46] LABS: Alanine Aminotransferase 20 U/L (12-78); Albumin Level 4.4 g/dl (3.5-5.0); Albumin/Globulin Ratio 1.2 (1.1-1.8); Alkaline Phosphatase 114 U/L (38-126); Anion Gap 13.5 mEq/L (5-15); Aspartate Amino Transferase 33 U/L (17-59); Bilirubin,Total 0.9 mg/dl (0.2-1.3); Blood Urea Nitrogen 12 mg/dl (9-20); Calcium 9.7 mg/dl (8.4-10.2); Carbon Dioxide 29 mmol/L (22.0-30.0); Creatinine Clearance Estimated 144 mL/min (50-200); Estimated Glomerular Filt Rate 100 ml/min (>60); GFR (African American) 121 ML/MIN (>60); Globulin 3.7 g/dL (1.3-3.2); Glucose 105 mg/dl (74-100); Total Protein,Serum 8.1 g/dl (6.3-8.2)
--- NOTE | 2020-10-01 16:04 | HMH.EDGENADL ---
ED Disposition Clinical Impression: Nausea, Endoleak post endovascular aneurysm repair, Hypokalemia Abdominal pain Qualifiers: Abdominal location: lower abdomen, unspecified Qualified Code(s): R10.30 - Lower abdominal pain, unspecified Disposition: Home, Self-Care Condition on Discharge: Fair Instructions: DI for Diarrhea and Traveler's Diarrhea -- Adult, DI for Nausea -- Adult, DI for Abdominal Pain-Adult Additional Instructions: Potassium as prescribed. Phenergan for nausea. Follow-up with [facility] vascular surgery as previously arranged. Follow-up with your primary care provider for recheck on potassium within 1 week. Additional instructions for ABDOMINAL PAIN: See your physician as soon as possible for further evaluation. Return immediately if worsening abdominal pain, vomiting, shortness of breath, fever, vomiting of blood or abdominal distention. Prescriptions: Promethazine HCl [Phenergan 25mg tab] 25 mg PO Q6HP PRN #10 tab PRN Reason: Nausea And Vomiting Transmission Status: Pending to [facility] Potassium Chloride [K-Tab ER 20 mEq] 40 meq PO DAILY #14 tab Transmission Status: Pending to [facility] Referrals: Emmanuelle Scanlon [Primary Care Provider] - - Critical Care Critical Care Time: No Attestation: On 10/01/20, the high probability of a clinically significant, sudden or life threatening deterioration of the following system(s) required my full and direct attention, intervention and personal management. The time I documented below is in addition to time spent performing reported procedures but includes the following listed in this critical care notation. Medical Decision Making - Medical Records Medical records reviewed: Yes: I reviewed the patient's medical records. MR Comment: Reviewed most recent ED visit 09/20/2020. Patient was seen by me. Reviewed CT scan report. Patient was also hypokalemic at that time, 2.5. Prescribed potassium. Patient says that he took it all and is now out again. - Jonathan Inquiry Pt receiving controlled substance: Yes Jonathan was queried for this patient: Yes Risks and benefits of using a controlled substance: were not discussed with pt by me Comment: Patient is on Suboxone Vital Signs: 10/01/20 14:41 10/01/20 15:19 10/01/20 15:30 Temperature 98.4 F Temperature Source Oral Pulse Rate 81 71 Pulse Rate [Right] 81 Respiratory Rate 15 Blood Pressure 136/84 147/79 H Blood Pressure [Right Arm] 159/87 H Blood Pressure Mean [Right Arm] 111 02 Sat by Pulse Oximetry 99 97 93 L Oxygen Delivery Method Room Air - Lab Data Lab Results 10/01/20 15:20: WBC 6.5, RBC 4.44 L, Hgb 12.7 L, Hct 37.6 L, MCV 84.6, MCH 28.6, MCHC 33.9, RDW 18.1 H, Plt Count 219, MPV 7.1 L, Neut % (Auto) 71.6, Lymph % (Auto) 20.8, [place] % (Auto) 6.3, Eos % (Auto) 0.8, Baso % (Auto) 0.5, Neut # (Auto) 4.6, Lymph # (Auto) 1.3, [place] # (Auto) 0.4, Eos # (Auto) 0.1, Baso # (Auto) 0.0 10/01/20 15:20: Sodium 137, Potassium 2.5 L*, Chloride 97 L, Carbon Dioxide 29, Anion Gap 13.5, BUN 12, Creatinine 0.80, Estimated Creat Clear 144, Estimated GFR 100, Est GFR ( Amer) 121, Glucose 105 H, Calcium 9.7, Total Bilirubin 0.9, AST 33, ALT 20, Alkaline Phosphatase 114, Total Protein 8.1, Albumin 4.4, Globulin 3.7 H, Albumin/Globulin Ratio 1.2 Result diagrams: 10/01/20 15:20 10/01/20 15:20 Orders (Tests/Meds): ED MEDICATIONS Discontinued Medications Generic Name Dose Route Start Last Admin Trade Name Freq PRN Reason Stop Dose Admin Hydromorphone HCl 1 mg 10/01/20 15:56 10/01/20 16:04 Hydromorphone 2mg/Ml Syringe IV 10/01/20 15:57 1 mg ONCE ONE Administration Iopamidol 125 ml 10/01/20 16:48 10/01/20 16:50 Iopamidol-370 (76%);100ml Bottle IV 10/01/20 16:49 125 ml ONCE ONE Administration Ondansetron HCl 4 mg 10/01/20 15:23 10/01/20 15:27 Ondansetron 4mg/2ml Vial IV 10/01/20 15:24 4 mg ONCE ONE Administrati
[2020-10-01 18:00] VITALS: BP 154/81; PULSE 78; RESP 18; TEMP 36.9; O2SAT 97
== END 2020-10-01 18:52 | disposition home or self-care (01) ==
PROVIDERS: Emergency Provider Emergency Medicine; PCP Nurse Practitioner Family
DX: R10.30 Lower abdominal pain, unspecified (principal); Z98.890 Other specified postprocedural states; I71.4 Abdominal aortic aneurysm, without rupture; E87.6 Hypokalemia; I48.20 Chronic atrial fibrillation, unspecified; I50.9 Heart failure, unspecified; K21.9 Gastro-esophageal reflux disease without esophagitis; I10 Essential (primary) hypertension; E78.5 Hyperlipidemia, unspecified; F17.210 Nicotine dependence, cigarettes, uncomplicated; Z95.0 Presence of cardiac pacemaker; J44.9 Chronic obstructive pulmonary disease, unspecified
CPT/HCPCS: 74177; 80053; 85025; 96374; 99282; 99283; J2405; Q9967

== ENCOUNTER 2020-10-25 14:37 | Emergency (ER) | payer MEDICARE, MEDICAID, SELFPAY ==
[2020-10-25 14:38] VITALS: BP 103/62; PULSE 72; RESP 16; TEMP 36.5; O2SAT 99; BMI 24.1
--- NOTE | 2020-10-25 14:40 | HMH.EDGENADL ---
ED Disposition Clinical Impression: Nausea, Abdominal cramping Disposition: Home, Self-Care Condition on Discharge: Good Instructions: DI for Nausea -- Adult Referrals: Emmanuelle Scanlon [Primary Care Provider] - 3 days Time of Disposition: 16:56 - Critical Care Critical Care Time: No Attestation: On , the high probability of a clinically significant, sudden or life threatening deterioration of the following system(s) required my full and direct attention, intervention and personal management. The time I documented below is in addition to time spent performing reported procedures but includes the following listed in this critical care notation. Medical Decision Making - Medical Records Medical records reviewed: Yes: I reviewed the patient's medical records. - Jonathan Inquiry Pt receiving controlled substance: No Vital Signs: 10/25/20 14:38 10/25/20 15:30 Temperature 97.7 F Temperature Source Oral Pulse Rate 68 Pulse Rate [Left] 72 Respiratory Rate 16 Blood Pressure 174/101 H Blood Pressure [Right Arm] 103/62 L Blood Pressure Mean [Right Arm] 75 02 Sat by Pulse Oximetry 99 100 Oxygen Delivery Method Room Air - Lab Data Lab results reviewed: Yes: I reviewed the patient's lab results. Lab Results 10/25/20 14:55: WBC 6.2, RBC 4.80, Hgb 13.6 L, Hct 41.8 L, MCV 87.0, MCH 28.2, MCHC 32.5, RDW 17.5, Plt Count 216, MPV 6.8 L, Neut % (Auto) 61.3, Lymph % (Auto) 26.9, [place] % (Auto) 9.7 H, Eos % (Auto) 1.5, Baso % (Auto) 0.6, Neut # (Auto) 3.8, Lymph # (Auto) 1.7, [place] # (Auto) 0.6, Eos # (Auto) 0.1, Baso # (Auto) 0.0 10/25/20 14:55: Sodium 141, Potassium 2.7 L*, Chloride 103, Carbon Dioxide 25, Anion Gap 15.7 H, BUN 4 L, Creatinine 1.00, Estimated Creat Clear 98, Estimated GFR 77, Est GFR ( Amer) 93, Glucose 102 H, Calcium 10.3 H, Total Bilirubin 0.6, AST 40, ALT 35, Alkaline Phosphatase 130 H, Total Protein 8.5 H, Albumin 4.6, Globulin 3.9 H, Albumin/Globulin Ratio 1.2 10/25/20 14:55: Lactate 1.4 10/25/20 14:55: Amylase 53, Lipase 226 Result diagrams: 10/25/20 14:55 10/25/20 14:55 Orders (Tests/Meds): ED MEDICATIONS Generic Name Dose Route Start Last Admin Trade Name Freq PRN Reason Stop Dose Admin Potassium Chloride 40 meq 10/25/20 15:30 10/25/20 15:26 Potassium Chloride 20meq/15ml Udc PO 11/24/20 15:29 40 meq DAILY SWEETIE Administration Discontinued Medications Generic Name Dose Route Start Last Admin Trade Name Freq PRN Reason Stop Dose Admin Dicyclomine HCl 10 mg 10/25/20 16:07 10/25/20 16:12 Dicyclomine 10mg Capsule PO 10/25/20 16:08 10 mg ONCE ONE Administration Haloperidol Lactate 1 mg 10/25/20 16:17 10/25/20 16:29 Haloperidol Lactate 5 Mg/Ml Vial IV 10/25/20 16:18 1 mg ONCE ONE Administration Sodium Chloride 1,000 mls @ 999 mls/hr 10/25/20 15:15 10/25/20 15:11 Sod Chlor 0.9% 1000ml Bag IV 10/25/20 16:15 999 mls/hr .Q1H1M SWEETIE Administration Sodium Chloride 1,000 mls @ 999 mls/hr 10/25/20 15:15 10/25/20 15:18 Sod Chlor 0.9% 1000ml Bag IV 10/25/20 16:15 Not Given .Q1H1M SWEETIE Ketorolac Tromethamine 15 mg 10/25/20 16:07 10/25/20 16:11 Ketorolac 30mg/Ml Vial IV 10/25/20 16:08 15 mg ONCE ONE Administration Ondansetron HCl 4 mg 10/25/20 15:08 10/25/20 15:10 Ondansetron 4mg/2ml Vial IV 10/25/20 15:09 4 mg ONCE ONE Administration Ondansetron HCl 4 mg 10/25/20 15:09 10/25/20 15:18 Ondansetron 4mg/2ml Vial IV 10/25/20 15:10 Not Given ONCE ONE Ondansetron HCl 4 mg 10/25/20 16:05 10/25/20 16:11 Ondansetron 4mg/2ml Vial IV 10/25/20 16:06 4 mg ONCE ONE Administration Potassium Chloride 40 meq 10/25/20 16:54 Potassium Chloride 20meq Tab PO 10/25/20 16:55 ONCE ONE Medical Decision Narrative: Patient evaluated for abdominal pain with nausea and vomiting. Patient in no acute distress on initial evaluation. He has had no episodes of emesis since his arrival to the emergency d
[2020-10-25 15:07] VITALS: BMI 24.1
[2020-10-25 15:17] LABS: Chloride 103 mmol/L (98-107); Sodium 141 mmol/L (136-145)
[2020-10-25 15:19] LABS: Blood Urea Nitrogen 4 mg/dl (9-20); Creatinine Clearance Estimated 98 mL/min (50-200); Estimated Glomerular Filt Rate 77 ml/min (>60); GFR (African American) 93 ML/MIN (>60)
[2020-10-25 15:20] LABS: Alanine Aminotransferase 35 U/L (12-78); Albumin Level 4.6 g/dl (3.5-5.0); Albumin/Globulin Ratio 1.2 (1.1-1.8); Alkaline Phosphatase 130 U/L (38-126); Aspartate Amino Transferase 40 U/L (17-59); Bilirubin,Total 0.6 mg/dl (0.2-1.3); Carbon Dioxide 25 mmol/L (22.0-30.0); Globulin 3.9 g/dL (1.3-3.2); Total Protein,Serum 8.5 g/dl (6.3-8.2)
[2020-10-25 15:21] LABS: Calcium 10.3 mg/dl (8.4-10.2); Glucose 102 mg/dl (74-100); Potassium 2.7 mmoL/L (3.5-5.1)
--- NOTE | 2020-10-25 15:21 | PC.NURSE ---
notified ER of critical potassium result, pt name and verified with sherri in lab
[2020-10-25 15:23] LABS: Lactic Acid 1.4 mmol/L (0.7-2.1)
[2020-10-25 15:30] VITALS: BP 174/101; PULSE 68; O2SAT 100
[2020-10-25 15:34] LABS: Amylase 53 U/L (30-110); Lipase 226 U/L (23-300)
[2020-10-25 15:41] LABS: Basophils % 0.6 % (0.1-2.0); Eosinophils # 0.1 K/mm3 (0.0-0.4); Eosinophils % 1.5 % (0.1-12.0); Hematocrit 41.8 % (42.0-52.0); Hemoglobin 13.6 g/dL (14.1-18.0); Lymphocytes # 1.7 K/mm3 (0.7-4.5); Lymphocytes % 26.9 % (10-50); Mean Corpuscular HGB Conc 32.5 g/dL (31.8-35.4); Mean Corpuscular Hemoglobin 28.2 pg (27.0-31.2); Mean Platelet Volume 6.8 fl (7.4-10.4); Monocytes # 0.6 K/mm3 (0.1-1.0); Monocytes % 9.7 % (1.7-9.3); Neutrophils # 3.8 K/mm3 (1.8-7.8); Neutrophils % 61.3 % (37.0-80.0); Platelet Count 216 K/mm3 (142-424); Red Cell Distribution Width 17.5 % (11.5-17.5); White Blood Count 6.2 K/mm3 (4.8-10.8)
[2020-10-25 15:49] LABS: Anion Gap 15.7 mEq/L (5-15)
--- NOTE | 2020-10-25 16:53 | PC.NURSE ---
patient states that his son was recently in a car accident and is being transferred to . patient states that his grandson is on his way to drive him there and does not wish to stay.
--- NOTE | 2020-10-25 17:11 | PC.NURSE ---
patient was discharged to [facility] who drove patient home.
[2020-10-25 17:12] VITALS: BP 148/82; PULSE 100; RESP 18; TEMP 36.6; O2SAT 99
== END 2020-10-25 17:14 | disposition home or self-care (01) ==
PROVIDERS: Emergency Provider Family Medicine; PCP Nurse Practitioner Family
DX: R10.84 Generalized abdominal pain (principal); R11.2 Nausea with vomiting, unspecified; K21.9 Gastro-esophageal reflux disease without esophagitis; E78.5 Hyperlipidemia, unspecified; I10 Essential (primary) hypertension; I50.9 Heart failure, unspecified; I25.10 Atherosclerotic heart disease of native coronary artery without angina pectoris; J44.9 Chronic obstructive pulmonary disease, unspecified; Z95.0 Presence of cardiac pacemaker; Z96.641 Presence of right artificial hip joint; F17.210 Nicotine dependence, cigarettes, uncomplicated; I48.91 Unspecified atrial fibrillation; Z79.899 Other long term (current) drug therapy
CPT/HCPCS: 80053; 82150; 83605; 83690; 85025; 96365; 96375; 96376; 99283; J2405

== ENCOUNTER 2020-11-21 15:28 | Emergency (ER) | payer MEDICARE, MEDICAID, SELFPAY ==
[2020-11-21 15:29] VITALS: BP 127/74; PULSE 76; RESP 20; TEMP 36.6; O2SAT 98; BMI 24.1
[2020-11-21 15:39] VITALS: BMI 24.1
--- NOTE | 2020-11-21 16:17 | CT_ITS ---
PROCEDURE INFORMATION: Exam: CTA Abdomen and Pelvis With Contrast Exam date and time: 11/21/2020 4:17 PM Age: 55 years old Clinical indication: Abdominal pain; Localized; Left upper quadrant (luq); Additional info: Luq pain TECHNIQUE: Imaging protocol: Computed tomographic angiography of the abdomen and pelvis with contrast material. 3D rendering (Not supervised by radiologist): MIP and/or 3D reconstructed images were created by the technologist. Radiation optimization: All CT scans at this facility use at least one of these dose optimization techniques: automated exposure control; mA and/or kV adjustment per patient size (includes targeted exams where dose is matched to clinical indication); or iterative reconstruction. Contrast material: ISOVUE 370; Contrast volume: 100 ml; Contrast route: INTRAVENOUS (IV); COMPARISON: CT ANGIO ABDOMEN 08/11/2020 12:43 PM FINDINGS: Heart: Cardiomegaly. Aorta: Fusiform infrarenal abdominal aortic aneurysm containing aorta bi-iliac graft. There is no evidence for endoleak. No rupture. Celiac trunk and mesenteric arteries: No occlusion or significant stenosis. Renal arteries: No occlusion or significant stenosis. Right iliac arteries: No occlusion or significant stenosis. Left iliac arteries: No occlusion or significant stenosis. Other veins: There is filling defect within the right common iliac vein and external iliac vein which could reflect confluent DVT or may be due to contrast bolus timing. Liver: No mass. Gallbladder and bile ducts: Cholecystectomy. Pancreas: Unremarkable. No mass. No ductal dilation. Spleen: Unremarkable. No splenomegaly. Adrenal glands: Unremarkable. No mass. Kidneys and ureters: 3.9 cm simple cyst in the left kidney. No hydronephrosis. Stomach and bowel: Unremarkable. No obstruction. No mucosal thickening. Appendix: No evidence of appendicitis. Intraperitoneal space: Unremarkable. No free air. No significant fluid collection. Lymph nodes: Unremarkable. No enlarged lymph nodes. Urinary bladder: Unremarkable. No mass. Reproductive: Unremarkable as visualized. Bones/joints: Streak artifact from right hip arthroplasty limiting evaluation in the pelvis. Soft tissues: Unremarkable. IMPRESSION: 1. Aorta bi-iliac graft without evidence for endoleak. No rupture. 2. No colitis or small bowel obstruction. 3. Cholecystectomy. 4. No acute renal abnormality. 5. Confluent DVT versus contrast bolus timing in the right iliac vein.
[2020-11-21 16:36] LABS: Basophils % 0.4 % (0.1-2.0); Eosinophils # 0.1 K/mm3 (0.0-0.4); Eosinophils % 0.8 % (0.1-12.0); Hematocrit 41.2 % (42.0-52.0); Hemoglobin 13.6 g/dL (14.1-18.0); Lymphocytes # 1.7 K/mm3 (0.7-4.5); Lymphocytes % 21.8 % (10-50); Mean Corpuscular HGB Conc 33.1 g/dL (31.8-35.4); Mean Corpuscular Hemoglobin 30.4 pg (27.0-31.2); Mean Corpuscular Volume 91.8 fl (80-94); Mean Platelet Volume 7.5 fl (7.4-10.4); Monocytes # 0.5 K/mm3 (0.1-1.0); Monocytes % 6.4 % (1.7-9.3); Neutrophils # 5.4 K/mm3 (1.8-7.8); Neutrophils % 70.6 % (37.0-80.0); Platelet Count 374 K/mm3 (142-424); Red Blood Count 4.48 M/mm3 (4.60-6.20); Red Cell Distribution Width 18.5 % (11.5-17.5); White Blood Count 7.6 K/mm3 (4.8-10.8)
[2020-11-21 16:45] LABS: Chloride 100 mmol/L (98-107); Potassium 3.9 mmoL/L (3.5-5.1); Sodium 139 mmol/L (136-145)
[2020-11-21 16:48] LABS: Alanine Aminotransferase 36 U/L (12-78); Albumin Level 4.3 g/dl (3.5-5.0); Alkaline Phosphatase 102 U/L (38-126); Anion Gap 19.9 mEq/L (5-15); Aspartate Amino Transferase 40 U/L (17-59); Bilirubin,Total 0.7 mg/dl (0.2-1.3); Blood Urea Nitrogen 14 mg/dl (9-20); Calcium 10.1 mg/dl (8.4-10.2); Carbon Dioxide 23 mmol/L (22.0-30.0); Creatinine Clearance Estimated 98 mL/min (50-200); Estimated Glomerular Filt Rate 77 ml/min (>60); GFR (African American) 93 ML/MIN (>60); Globulin 4.2 g/dL (1.3-3.2); Glucose 108 mg/dl (74-100); Total Protein,Serum 8.5 g/dl (6.3-8.2)
[2020-11-21 16:51] LABS: Lactic Acid 3.6 mmol/L (0.7-2.1)
--- NOTE | 2020-11-21 17:09 | PC.NURSE ---
Patient returned from CT without CT being performed due to patient IV not tolerating CT. ER agreed to establish an ultrasound IV
--- NOTE | 2020-11-21 17:32 | HMH.EDGENADL ---
ED Disposition Clinical Impression: History of aortic aneurysm, History of aortic aneurysm repair Abdominal pain Qualifiers: Abdominal location: generalized Qualified Code(s): R10.84 - Generalized abdominal pain Disposition: Home, Self-Care Condition on Discharge: Fair Instructions: DI for Acute Abdominal Pain Referrals: Emmanuelle Scanlon [Primary Care Provider] - - Critical Care Critical Care Time: No Attestation: On 11/21/20, the high probability of a clinically significant, sudden or life threatening deterioration of the following system(s) required my full and direct attention, intervention and personal management. The time I documented below is in addition to time spent performing reported procedures but includes the following listed in this critical care notation. Medical Decision Making - Medical Records Medical records reviewed: Yes: I reviewed the patient's medical records. - Jonathan Inquiry Pt receiving controlled substance: Yes (Suboxone, oxycodone) Jonathan was queried for this patient: Yes Risks and benefits of using a controlled substance: were discussed with pt by me Vital Signs: 11/21/20 15:29 Temperature 97.8 F Temperature Source Oral Pulse Rate [Right] 76 Respiratory Rate 20 Blood Pressure [Right Arm] 127/74 Blood Pressure Mean [Right Arm] 91 02 Sat by Pulse Oximetry 98 Oxygen Delivery Method Room Air - Lab Data Lab Results 11/21/20 16:00: WBC 7.6, RBC 4.48 L, Hgb 13.6 L, Hct 41.2 L, MCV 91.8, MCH 30.4, MCHC 33.1, RDW 18.5 H, Plt Count 374, MPV 7.5, Neut % (Auto) 70.6, Lymph % (Auto) 21.8, [place] % (Auto) 6.4, Eos % (Auto) 0.8, Baso % (Auto) 0.4, Neut # (Auto) 5.4, Lymph # (Auto) 1.7, [place] # (Auto) 0.5, Eos # (Auto) 0.1, Baso # (Auto) 0.0 11/21/20 16:00: Sodium 139, Potassium 3.9, Chloride 100, Carbon Dioxide 23, Anion Gap 19.9 H, BUN 14, Creatinine 1.00, Estimated Creat Clear 98, Estimated GFR 77, Est GFR ( Amer) 93, Glucose 108 H, Calcium 10.1, Total Bilirubin 0.7, AST 40, ALT 36, Alkaline Phosphatase 102, Total Protein 8.5 H, Albumin 4.3, Globulin 4.2 H, Albumin/Globulin Ratio 1.0 L 11/21/20 16:00: Lactate 3.6 H 11/21/20 18:30: Lactate 3.0 H Result diagrams: 11/21/20 16:00 11/21/20 16:00 Orders (Tests/Meds): ED MEDICATIONS Discontinued Medications Generic Name Dose Route Start Last Admin Trade Name Woody PRN Reason Stop Dose Admin Iopamidol 100 ml 11/21/20 19:29 11/21/20 19:31 Iopamidol-370 (76%);100ml Bottle IV 11/21/20 19:30 100 ml ONCE ONE Administration Ketorolac Tromethamine 30 mg 11/21/20 17:42 11/21/20 17:44 Ketorolac 30mg/Ml Vial IV 11/21/20 17:43 30 mg ONCE ONE Administration Morphine Sulfate 4 mg 11/21/20 19:07 11/21/20 19:08 Morphine 4mg/Ml Syringe IV 11/21/20 19:08 4 mg ONCE ONE Administration Ondansetron HCl 4 mg 11/21/20 17:42 11/21/20 17:44 Ondansetron 4mg/2ml Vial IV 11/21/20 17:43 4 mg ONCE ONE Administration Sodium Chloride 50 ml 11/21/20 19:29 11/21/20 19:31 0.9 % Sodium Chloride 50 Ml Vial IV 11/21/20 19:30 50 ml ONCE ONE Administration Sodium Chloride 10 ml 11/21/20 19:29 11/21/20 19:31 Sodium Chloride 0.9% 10ml Syr (Rad Only) IV 11/21/20 19:30 10 ml ONCE ONE Administration Medical Decision Narrative: Patient is a 55-year-old male complex medical history present to the ED today with severe diffuse abdominal pain. Differential diagnosis includes aortic rupture, aortic leak, mesenteric ischemia, abdominal infection, jim perforation. As patient's list of diagnoses includes multiple severe differentials given his complicated surgical history and aortic disease, will order emergent CT scan with arterial phase of the abdomen and pelvis. The deemed to the scan emergent with radiology department, however when patient got up for his scan lost IV access, came back down, and I personally placed 20-gauge right brachial vein IV for scan. Patient's lactate is elevated at 3.6. Afte
--- NOTE | 2020-11-21 17:55 | PC.NURSE ---
CT unable to perform CT due to pain in the IV site in the IV that was established by ER .
--- NOTE | 2020-11-21 18:15 | PC.NURSE ---
Scott NORIEGA attempted to establish IV access per MD request. Unsuccessful, MD made aware. MD agreed to attempt another ultrasound IV
--- NOTE | 2020-11-21 18:17 | PC.NURSE ---
PATIENT REFUSING TO WEAR VITALS MONITORING DEVICES
--- NOTE | 2020-11-21 18:33 | PC.NURSE ---
Pt to rad for the third time.
--- NOTE | 2020-11-21 18:35 | PC.NURSE ---
Patient to CT after IV established by MAREK LOVING
--- NOTE | 2020-11-21 18:47 | PC.NURSE ---
Patient returned from CT without scan being performed due to IV not flushing
--- NOTE | 2020-11-21 18:56 | PC.NURSE ---
at beside establishing IV access
--- NOTE | 2020-11-21 19:07 | PC.NURSE ---
gave report to Sindy NORIEGA at this time
--- NOTE | 2020-11-21 19:25 | PC.NURSE ---
return from radiology.
[2020-11-21 20:02] VITALS: BP 131/70; PULSE 75; RESP 16; TEMP 36.7; O2SAT 98
[2020-11-21 20:32] LABS: Reflex Lactic Add Lactic Reflex
== END 2020-11-21 20:05 | disposition home or self-care (01) ==
PROVIDERS: Emergency Provider Student in an Organized Health Care Education/Training Program; PCP Nurse Practitioner Family
DX: R10.84 Generalized abdominal pain (principal); I71.4 Abdominal aortic aneurysm, without rupture; I48.0 Paroxysmal atrial fibrillation; I25.10 Atherosclerotic heart disease of native coronary artery without angina pectoris; J44.9 Chronic obstructive pulmonary disease, unspecified; I50.9 Heart failure, unspecified; K21.9 Gastro-esophageal reflux disease without esophagitis; I10 Essential (primary) hypertension; E78.5 Hyperlipidemia, unspecified; Z95.0 Presence of cardiac pacemaker; Z98.890 Other specified postprocedural states; Z79.899 Other long term (current) drug therapy
CPT/HCPCS: 74174; 80053; 83605; 85025; 96374; 96375; 99282; J2405; Q9967

== ENCOUNTER 2021-01-07 21:21 | Inpatient (IN) | payer MEDICARE, MEDICAID, SELFPAY ==
[2021-01-07 12:15] VITALS: BP 163/86; PULSE 68; RESP 16; O2SAT 96
--- NOTE | 2021-01-07 21:32 | PC.NURSE ---
patient up to floor via EMS @ 21:22
[2021-01-07 21:43] VITALS: BP 198/92; PULSE 75; RESP 17; TEMP 36.6; O2SAT 99; BMI 22.4
--- NOTE | 2021-01-07 21:44 | ECG_ITS ---
APPROVED REPORT Exam: Resting ECG HR:71 bpm ECG Measurements Heart Rate 71 AXES AR 140 P 109 QRSd 192 QRS 224 QT 558 T 61 QTc 606 Conclusion Suspect arm lead reversal, interpretation assumes no reversal Electronic atrial pacemaker Right bundle branch block Anterolateral infarct, age undetermined Abnormal ECG Electronically signed by : Mello Livingston MD 01/11/2021 17:30:54
[2021-01-07 21:46] VITALS: PULSE 80
--- NOTE | 2021-01-07 22:19 | PC.NURSE ---
pt doesn't know all home medications and/or doses, unable to provide medication rec at this time
--- NOTE | 2021-01-07 22:29 | HMH.HP ---
*Admission Date: 01/07/21 *Chief complaint: chest pain *History of present illness: this patient was transferred from [facility] with chest pain-pt has hx of cad and pacemaker and was felt to have unstable angina- record from [facility] was reviewed - pt reports compliance with meds -pt reports pain occurred at rest - and was helped with meds but still has chest pain- pt was admitted for eval and treatment and card eval [facility] History I have reviewed the patient's past medical history: Yes Medical History: Reports:: Aneurysm, Arrhythmia, Atherosclerotic Heart Disease, Atrial Fibrillation, Congestive Heart Failure, Chronic Obstructive Pulmonary Disease (COPD), Coronary Artery Disease, Cerebrovascular Accident, Gastroesophageal Reflux Disease(GERD), Hyperlipidemia, Hypertension, Internal Pacemaker, Myocardial Infarction Denies:: Cancer, Diabetes Mellitus Type 1, Diabetes Mellitus Type 2, MRSA, Seizures *Have you ever received a pneumonia vaccine?: Yes *Have you received a flu vaccine this season?: Yes Other Medical History: Denies: Blood Transfusion Reaction Laterality Cases: Left: Other, Right: Arthroscopy Hip, Total Hip Replacement Other Surgeries: Yes: CABG (x3), Cardiac Catheterization, Cardiac Surgery, Cholecystectomy, Colonoscopy, Coronary Stent, Open Heart Surgery, Pacemaker, Other Amputation: No Fractures: No - *Social History Smoking Status: Current every day smoker Tobacco Type: cigarettes # Packs/Day (cigarettes): 1 #Yrs smoked (if former smoker): 40 Alcohol Intake: former Alcohol Intake Frequency:: other Substance Use Type: marijuana *Occupational Status:: disabled Housing: apartment Household Members: significant other, none *Travel in the last 8 weeks: None Family Hx:: Asthma, Cancer, Coronary Artery Disease, Diabetes, Heart Attack, Hyperlipidemia, Hypertension Review of Systems - Review of Systems Review of systems:: pertinent systems reviewed and negative unless documented below - Constitutional Denies fever(s) - Eyes Denies change in vision - ENT Denies sore throat - *Cardiovascular Reports chest pain, Reports chest pain at rest - *Respiratory Denies cough - *Gastrointestinal Denies abdominal pain - *Genitourinary Denies blood in urine - *Musculoskeletal Denies joint pain - Integumentary/Breasts Denies rash - *Neurologic Denies seizure-like activity - Psychiatric Denies anxiety Meds Home Medications Medication Instructions Recorded Confirmed Type Aspirin [Aspir 81] 81 mg PO DAILY 05/26/17 10/05/18 History Atorvastatin Calcium [Lipitor 80mg 80 mg PO HS 05/26/17 10/05/18 History Tab] Pantoprazole Sodium [Protonix 40mg 40 mg PO DAILY 10/05/17 10/05/18 History tablet] Potassium Chloride [Klor-con 20 20 meq PO BID 11/14/17 10/05/18 History mEq tablet] Furosemide [Lasix 40mg tablet] 40 mg PO BID 03/26/18 10/05/18 History Sertraline HCl [Zoloft 100mg 100 mg PO BID 03/26/18 10/05/18 History tablet] Tiotropium Phelan [Spiriva 1 puff IH DAILY 03/26/18 10/05/18 History 18mcg/puff inhaler] Acetaminophen [Acetaminophen 325mg 650 mg PO Q4HP PRN tab 03/27/18 10/05/18 Rx tab] Clopidogrel Bisulfate [Plavix 75mg 75 mg PO DAILY 05/20/18 10/05/18 History Tab] Fluticasone Propionate [Flonase 1 spr NS DAILY 05/20/18 10/05/18 History 50mcg nasal spray 16gm] Nicotine [Nicoderm 21mg/24hr 21 mg TD DAILY 05/20/18 10/05/18 History patch] Amiodarone HCl 200 mg PO BID 05/21/18 10/05/18 History Apixaban [Eliquis] 5 mg PO BID 05/21/18 10/05/18 History Gabapentin [Gabapentin 400mg Cap] 800 mg PO TID 05/21/18 10/05/18 History Isosorbide Mononitrate [Imdur 30mg 30 mg PO DAILY 05/21/18 10/05/18 History ER tablet] Metoprolol Succinate 100 mg PO DAILY 05/21/18 10/05/18 History Tamsulosin HCl [Flomax 0.4mg 0.4 mg PO HS 05/21/18 10/05/18 History capsule] Valsartan [Valsartan 80mg 80 mg PO DAILY 05/21/18 10/05/18 History Tablets] Hydrocodo
--- NOTE | 2021-01-07 23:26 | PC.WOUNDNOTE ---
pressure injury on coccyx present on arrival, dressing applied
[2021-01-08] VITALS (19 sets, daily range): BP systolic 113–179; BP diastolic 54–97; PULSE 66–84; RESP 16–22; TEMP 36.6–37.1; O2SAT 92–97
--- NOTE | 2021-01-08 | IR_ITS ---
APPROVED REPORT Patient Location: Inpatient Flower Stripper: ANA Booker RT (R) PROCEDURES 1. Left heart catheterization 2. Selective coronary arteriography 3. Left ventriculography 4. Left internal mammary artery arteriography INDICATION 1. Unstable angina, 2. Coronary artery disease, 3. Coronary artery bypass grafting SCAI INDICATION Patient is a 55-year-old white male with known coronary artery disease status post bypass as well as multiple stents who presented to an outside hospital with complaints of progressive chest pain. Heavy and tight in nature and located in the sternal region. Unstable angina features. Secondary to this referred for left heart catheterization Informed consent was obtained prior to the procedure. COMPLICATIONS None Estimated Blood Loss: less than 10ml TECHNIQUE One percent lidocaine was used to anesthetize the right groin. The right femoral artery was accessed via the Seldinger technique. A 4-Nepali sheath was placed in the right femoral artery. The JL-4 and JR-4 catheter was also used to perform left heart catheterization left ventriculogram and selective coronary angiogram. At the end of the procedure the patient was transferred to the post-op holding area in stable condition for arterial sheath removal. ANGIOGRAPHIC RESULTS The left main artery Angiographically normal The left anterior descending artery Had stents noted in the proximal portion extending into the mid vessel. Smooth eccentric 20 to 30% in-stent thinning in the midportion of the stents. The stents were free of disease. Diffuse 20% stenosis throughout the mid and distal vessel. Mild calcification. Normal flow into the distal vessel. There was a high diagonal branch #1 versus ramus intermedius that also had stents in its ostial/proximal portion. The stents were also free of disease. That vessel was moderate to large in size The circumflex artery Has moderate coronary ectasia. This is mainly in the mid vessel. Moderate aneurysmal dilation at that area. There is a 30 to 40% napkin ring proximal stenosis. Stent in the mid left circumflex extending into a large obtuse marginal branch free of disease. The right coronary artery Was huge and dominant. There is moderate to severe aneurysmal dilatation of the proximal/mid vessel. Smooth 20% proximal stenosis and smooth 20 to 30% distal stenosis with normal flow into the large posterior descending artery and posterior lateral branch. The PLUMMER ventriculogram reveals Normal left ventricular systolic function with an ejection fraction of 55 to 60%. Mild apical wall hypokinesis The left ventricular end-diastolic pressure 8 I also injected the left internal mammary artery. This was not used for bypass and did not touchdown to the chest wall. There was no competitive flow noted in the [place] vessels IMPRESSION 1. Mild to moderate diffuse coronary artery disease 2. Mild diffuse coronary calcification 3. Moderate to severe coronary ectasia with moderate aneurysmal dilatation of the vessels mainly noted in the circumflex and large dominant right coronary artery 4. Patent stents in the proximal and mid left anterior descending with mild smooth in-stent thinning 5. Patent stent in the ostial/proximal first diagonal branch/ramus intermedius 6. Patent stent in the mid left circumflex extending into an obtuse marginal branch 7. Normal left ventricular systolic function 8. Normal left ventricular end-diastolic pressure 9. Left internal mammary artery not used for prior coronary artery bypass grafting. No competitive flow noted in the [place] vessels PLAN 1. Patient will continue with aggressive medical therapy. Patient has
--- NOTE | 2021-01-08 04:22 | PC.NURSE ---
pt admitted from OSH this shift, reported pain in chest and abdomen controlled with ordered medication, VSS, pt to have cath today, pt resting comfortably in bed, will continue to monitor
--- NOTE | 2021-01-08 08:00 | XR_ITS ---
PROCEDURE: XR CHEST PORTABLE CLINICAL HISTORY: sob COMPARISON: CR [id number] XR chest portable from 03/26/2018 CR XR CHEST 2V from 07/11/2019 CR XR CHEST 2V from 07/10/[address] ANGIO CHEST from 08/12/2020 FINDINGS: Prior CABG. Biventricular and right atrial pacemaker is present from left subclavian approach. Pulmonary vessels are slightly engorged. No interstitial edema apparent. The lungs are clear without infiltrates, suspicious nodules, or pleural effusions. There is a transverse right humeral neck fracture. IMPRESSION: Mild engorgement of the pulmonary vessels with normal heart size which could be related to plasma volume overload and also could be related to the AP portable technique. Right humeral neck fracture. Dictated by: Christian Lin MD 01/09/2021 11:18 Christian Lin MD in [place] 01/09/2021 11:18
[2021-01-08 08:19] LABS: Basophils % 0.4 % (0.1-2.0); Eosinophils # 0.1 K/mm3 (0.0-0.4); Hematocrit 33.7 % (42.0-52.0); Hemoglobin 11.5 g/dL (14.1-18.0); Lymphocytes # 1.3 K/mm3 (0.7-4.5); Lymphocytes % 23.5 % (10-50); Mean Corpuscular HGB Conc 34.1 g/dL (31.8-35.4); Mean Corpuscular Hemoglobin 32.1 pg (27.0-31.2); Mean Corpuscular Volume 94.3 fl (80-94); Mean Platelet Volume 7.8 fl (7.4-10.4); Monocytes # 0.4 K/mm3 (0.1-1.0); Monocytes % 6.2 % (1.7-9.3); Neutrophils # 3.9 K/mm3 (1.8-7.8); Neutrophils % 68.9 % (37.0-80.0); Platelet Count 240 K/mm3 (142-424); Red Blood Count 3.57 M/mm3 (4.60-6.20); Red Cell Distribution Width 17.6 % (11.5-17.5); White Blood Count 5.7 K/mm3 (4.8-10.8)
[2021-01-08 08:23] LABS: Chloride 100 mmol/L (98-107); Sodium 139 mmol/L (136-145)
[2021-01-08 08:26] LABS: Anion Gap 11.1 mEq/L (5-15); Blood Urea Nitrogen 8 mg/dl (9-20); Carbon Dioxide 30 mmol/L (22.0-30.0); Creatinine Clearance Estimated 153 mL/min (50-200); Estimated Glomerular Filt Rate 139 ml/min (>60); GFR (African American) 168 ML/MIN (>60)
[2021-01-08 08:27] LABS: Glucose 78 mg/dl (74-100); Magnesium 1.5 mg/dl (1.6-2.3)
[2021-01-08 08:28] LABS: Potassium 2.1 mmoL/L (3.5-5.1)
[2021-01-08 08:38] LABS: Troponin I 0.07 ng/ml (0.00-0.034)
--- NOTE | 2021-01-08 10:05 | HMH.ACPN2 ---
Internal Medicine - PN: Subj *Date: 01/09/21 *Time: 05:15 Interval history: still with chest pain and discussed with dr blum - will have heart cath - has low k and will start replacement Exam Vital signs and Labs for Last 24 Hours: Temp Pulse Resp BP Pulse Ox 98.0 F 70 22 165/70 H 93 L 01/08/21 08:00 01/08/21 08:00 01/08/21 08:00 01/08/21 08:00 01/08/21 08:00 Laboratory Results - last 24 hr 01/08/21 07:22: WBC 5.7, RBC 3.57 L, Hgb 11.5 L, Hct 33.7 L, MCV 94.3 H, MCH 32.1 H, MCHC 34.1, RDW 17.6 H, Plt Count 240, MPV 7.8, Neut % (Auto) 68.9, Lymph % (Auto) 23.5, Frio % (Auto) 6.2, Eos % (Auto) 1.0, Baso % (Auto) 0.4, Neut # (Auto) 3.9, Lymph # (Auto) 1.3, [place] # (Auto) 0.4, Eos # (Auto) 0.1, Baso # (Auto) 0.0 01/08/21 07:22: Sodium 139, Potassium 2.1 L*, Chloride 100, Carbon Dioxide 30, Anion Gap 11.1, BUN 8 L, Creatinine 0.60 L, Estimated Creat Clear 153, Estimated GFR 139, Est GFR ( Amer) 168, Glucose 78, Calcium 9.0, Magnesium 1.5 L, Troponin I 0.07 H I & O for Last 24 hours: Intake & Output 01/05/21 01/06/21 01/07/21 01/08/21 11:59 11:59 11:59 11:59 Output Total 100 / 100 Balance -100 / -100 Weight 175 lb - Constitutional no acute distress - *Routine HEENT Exam Head: Present: normocephalic Eye: Present: EOMI, PERRL ENT: Present: mucous membranes dry - *Routine Neck Exam Absent: JVD - *Routine Respiratory Exam Present: decreased breath sounds - *Routine Cardiovascular Exam Present: RRR, murmur - *Routine Abdominal Exam Present: soft - *Routine Extremities Exam Absent: edema - *Routine Skin Exam Present: intact - *Routine Neurological Exam Present: alert, CN II-XII intact - Routine Psychiatric Exam Present: cooperative Assessment and Plan (1) Unstable angina pectoris Status: Acute Category: Medical Code(s): I20.0 - Unstable angina (2) COPD (chronic obstructive pulmonary disease) Status: Acute Qualifiers: COPD type: unspecified COPD Qualified Code(s): J44.9 - Chronic obstructive pulmonary disease, unspecified Category: Medical Code(s): J44.9 - Chronic obstructive pulmonary disease, unspecified (3) History of coronary artery bypass graft Status: Acute Category: Surgical Code(s): Z95.1 - Presence of aortocoronary bypass graft (4) Elevated troponin I level Status: Acute Category: Medical Code(s): R74.8 - Abnormal levels of other serum enzymes (5) Coronary artery disease Status: Chronic Qualifiers: Coronary Disease-Associated Artery/Lesion type: bypass graft [place] vs. transplanted heart: [place] heart Associated angina: with other forms of angina Qualified Code(s): I25.708 - Atherosclerosis of coronary artery bypass graft(s), unspecified, with other forms of angina pectoris Category: Medical Code(s): I25.10 - Atherosclerotic heart disease of [place] coronary artery without angina pectoris (6) Tobacco use disorder Status: Chronic Category: Medical Code(s): F17.200 - Nicotine dependence, unspecified, uncomplicated (7) LBBB (left bundle branch block) Status: Chronic Category: Medical Code(s): I44.7 - Left bundle-branch block, unspecified (8) Hypokalemia Status: Acute Category: Medical Code(s): E87.6 - Hypokalemia
--- NOTE | 2021-01-08 15:45 | HMH.PHAVTE ---
[facility] Pharmacy VTE Monitoring - Patient Demographics Admission date: 01/08/21 Report Date: 01/08/21 Time: 15:46 Allergies/Adverse Reactions: Patient Allergies diphenhydramine [From BENADRYL ALLERGY] Allergy (Mild, Verified 02/07/18 14:33) NA-NAUSEA pseudoephedrine [From SUDAFED] Allergy (Mild, Verified 02/07/18 14:33) NA-NAUSEA nitroglycerin [From NITRO-BID] Allergy (Unknown, Verified 02/07/18 14:33) Height: 1.88 m Weight: 79.379 kg Patient Problems: Current Active Problems COPD (chronic obstructive pulmonary disease) (Acute) Unstable angina pectoris (Acute) History of coronary artery bypass graft (Acute) Elevated troponin I level (Acute) Coronary artery disease (Chronic) Tobacco use disorder (Chronic) LBBB (left bundle branch block) (Chronic) Hypokalemia (Acute) - VTE Risk Labs: VTE Related Lab Results Hgb 11.5 g/dL (14.1-18.0) L 01/08/21 07:22 Hct 33.7 % (42.0-52.0) L 01/08/21 07:22 Plt Count 240 K/mm3 (142-424) 01/08/21 07:22 BUN 8 mg/dl (9-20) L 01/08/21 07:22 Creatinine 0.60 mg/dl (0.66-1.25) L 01/08/21 07:22 Estimated Creat Clear 153 mL/min (50-200) 01/08/21 07:22 - Prophylaxis Types of VTE Prophylaxis: TEDS Knee High (HESHAM HOSE ORDERED) Location of Applied Device: Bilateral Lower Extremeties
[2021-01-08 21:42] LABS: Blood Urea Nitrogen 8 mg/dl (9-20); Calcium 8.7 mg/dl (8.4-10.2); Carbon Dioxide 28 mmol/L (22.0-30.0); Chloride 105 mmol/L (98-107); Creatinine Clearance Estimated 153 mL/min (50-200); Estimated Glomerular Filt Rate 139 ml/min (>60); GFR (African American) 168 ML/MIN (>60); Glucose 91 mg/dl (74-100); Sodium 138 mmol/L (136-145)
[2021-01-09] VITALS: BP 166/72; PULSE 65; PULSE 80; RESP 17; TEMP 36.8; O2SAT 95
--- NOTE | 2021-01-09 03:48 | PC.NURSE ---
pt A&O. c/o pain in right shoulder, morphine given per mar with desired results. Pt able to ambulate independently in room. r fem cath site drsg cdi, no drainage noted. PT resting comfortably in bed, VSS, call light in reach, no concerns at this time.
[2021-01-09 04:00] VITALS: BP 149/74; PULSE 70; PULSE 75; RESP 17; TEMP 36.6; O2SAT 100
[2021-01-09 05:38] VITALS: BMI 22.4
[2021-01-09 07:11] LABS: Basophils % 0.5 % (0.1-2.0); Eosinophils # 0.1 K/mm3 (0.0-0.4); Eosinophils % 1.7 % (0.1-12.0); Hematocrit 33.7 % (42.0-52.0); Lymphocytes % 17.8 % (10-50); Mean Corpuscular HGB Conc 32.6 g/dL (31.8-35.4); Mean Corpuscular Hemoglobin 31.6 pg (27.0-31.2); Mean Corpuscular Volume 97.1 fl (80-94); Monocytes # 0.5 K/mm3 (0.1-1.0); Monocytes % 7.8 % (1.7-9.3); Neutrophils # 4.2 K/mm3 (1.8-7.8); Neutrophils % 72.2 % (37.0-80.0); Platelet Count 213 K/mm3 (142-424); Red Blood Count 3.48 M/mm3 (4.60-6.20); Red Cell Distribution Width 16.9 % (11.5-17.5); White Blood Count 5.8 K/mm3 (4.8-10.8)
[2021-01-09 07:21] LABS: Chloride 102 mmol/L (98-107); Sodium 138 mmol/L (136-145)
[2021-01-09 07:24] LABS: Anion Gap 8.4 mEq/L (5-15); Blood Urea Nitrogen 6 mg/dl (9-20); Calcium 8.6 mg/dl (8.4-10.2); Carbon Dioxide 30 mmol/L (22.0-30.0); Creatinine Clearance Estimated 152 mL/min (50-200); Estimated Glomerular Filt Rate 139 ml/min (>60); GFR (African American) 168 ML/MIN (>60); Glucose 97 mg/dl (74-100)
[2021-01-09 07:29] LABS: Potassium 2.4 mmoL/L (3.5-5.1)
--- NOTE | 2021-01-09 07:44 | HMH.CNCARD ---
History of Present Illness Consult date: 01/09/21 Requesting physician: Jae Alonzo Consult reason: chest pain Chief complaint: Unstable Angina History of present illness: 55-year-old male admitted to [facility] with unstable angina on 01/07/21. Patient was noted to have non-STEMI due to elevated troponins. Patient was transported from [facility] to this facility to undergo left heart catheterization. Patient states prior to admission to [facility], patient had been experiencing midsternal chest pain nonradiating. Patient states this pain had lasted for a few days. Patient states he was becoming nauseated with no vomiting but denied shortness of breath. Patient did undergo a left heart catheterization on 01/08/[address] Telles. Left heart catheterization revealed moderate to severe coronary ectasia with moderate aneurysmal dilatation of the vessels mainly noted in the circumflex and large dominant right coronary artery This has been unchanged since last heart heart catheterization 2 years ago. Patient states he has been following up with generator mechanic at [facility]. Patient states he was just seen by generator mechanic at [facility] less than a year ago. Patient does have AICD in place since 2014. Patient states he was told it was for irregular heart rhythm. Patient does have history of atrial fibrillation. Patient is on amiodarone 200 mg daily. Patient had been on anticoagulation until 2019 in which, he states he started having GI issues. AICD was downloaded this a.m. Battery status 3.5 years, no ventricular high rate episodes and no sustained episodes noted. AP noted 28% and CLINICAL FIELD SPECIALIST 95%. Preliminary echocardiogram reveals EF 45 to 55% with mild AI, mild MR and mild TR noted. Awaiting official echocardiogram results. Patient denies chest pain, tightness or pressure. Patient does complain of nausea with no vomiting. Patient states he just does not feel like he should go home today. Patient denies shortness of breath. Patient noted with no swelling of the lower extremities. Right groin cath site dressing dry and intact with no drainage or swelling noted. Patient does have history of known coronary artery disease. Patient did undergo coronary artery bypass grafting in 2011 at [facility]. Patient also has had multiple stents prior to undergoing CABG. Patient has history of hypertension and hyperlipidemia. EKG revealed paced rhythm with a heart rate of 86 bpm. teletypesetter monitor reveals paced rhythm with right bundle branch block with a heart rate of 86 to 90 bpm. Blood pressure is stable. Patient does have history of COPD. Patient states he does smoke 1 pack of cigarettes per day. This is being managed by PCP. Patient states history of a stroke. Patient was unsure of year when he had a stroke. Upon reviewing a.m. labs, patient noted to have hypokalemia. This is being managed by PCP. Patient does have history of aneurysmal dilation of the vessels mainly noted in the circumflex and large dominant RCA. Patient is noncompliant with home medications. Discussed this with the patient the importance of taking medications due to his advancing coronary artery disease. Patient verbalized understanding. [facility]:ANGIOGRAPHIC RESULTS The left main artery Angiographically normal The left anterior descending artery Had stents noted in the proximal portion extending into the mid vessel. Smooth eccentric 20 to 30% in-stent thinning in the midportion of the stents. The stents were free of disease. Diffuse 20% stenosis throughout the mid and distal vessel. Mild calcification. Normal flow into the distal vessel. There was a high diagonal branch #1 versus ramus intermedius that also had stents in its ostial/proximal portion. The stents were also free of disease. That vessel was moderate to large in size The circumflex artery Has moderate coronary ectasia. This is mainly in the mid vessel. Moderat
[2021-01-09 08:00] VITALS: BP 156/84; PULSE 70; PULSE 94; RESP 18; TEMP 36.7; O2SAT 100
--- NOTE | 2021-01-09 08:00 | CA_ITS ---
APPROVED REPORT EXAM: Comprehensive 2D, Doppler, and color-flow Echocardiogram Air Plant Engineer: Margarita Mares CRT Ht: 6 ft 2 in Wt: 175lbs BSA: 2.05 BP: 192/90 mmHg Indications: COPD, CVA/TIA, Diabetes, CAD, vtach, old mi, cabg, stents 2D Dimensions LVOT 2.04 cm (M/F) 1.5-2.5 LA Volume 75.40 mL LA Volume Index 36.78 mL/m2 (M/F) 16-34 M-Mode Dimensions RVDd 2.25 cm (0.9-2.6) LA Diam 3.80 cm (1.9-4.0) LVDd 5.71 cm (3.5-5.7) Ao Diam 5.50 cm (2.0-3.7) LVDs 4.10 cm (3.5-5.7) IVSd 1.49 cm (0.6-1.1) PWd 0.96 cm (0.6-1.1) EF (Teich) 53.80% FS 28.20% EDV (Teich) 160.70 mL ESV (Teich) 74.20 mL LV Diastology E Decel Time 323.00 (160-240 msec) E/A Ratio 2.23 MED E' 3.60 (< 7 cm/sec) MED A' 3.80 cm/s E'/MED E' Ratio 22.94 (>14) LAT E' 5.00 (<10 cm/sec) LAT A' 4.70 cm/s E/LAT E' Ratio 16.52 (>14) Aortic Valve AI PHT 686.00 ms AO Peak GR. 8.60 mmHg Mitral Valve MV A Velocity 37.00 (40-130 cm/s) E/A Ratio 2.23 MV Decel. Time 323.00 (160-240 ms) Tricuspid Valve TR P. Velocity 138.00 cm/s RAP Estimate 10.00 mmHg RVSP 17.60 mmHg Left Ventricle Technically difficult study because of the patient factors and poor acoustic windows. Left atrium is mildly enlarged, left ventricle is normal size, mild concentric left ventricular hypertrophy, visually estimated ejection fraction 50%, there is abnormal septal motion, endocardial surfaces are poorly visualized, diastolic parameters are inconclusive. Right Ventricle Right atrium and right ventricle are normal size and contractility, there is pacemaker or any ICD lead seen in the right ventricle Aortic Valve Aortic valve is thickened and calcified without aortic stenosis, there is mild aortic insufficiency. Mitral Valve Mitral valve is grossly normal, there is mild mitral regurgitation. Tricuspid Valve Tricuspid valve grossly normal, there is mild tricuspid regurgitation, tricuspid regurgitation jet velocity is inadequate for calculation of the right ventricular systolic pressure. Pulmonic Valve Pulmonic valve is poorly visualized. Great Vessels Aortic root is normal size. Inferior vena cava is not well visualized. Pericardium No significant pericardial effusion noted. Conclusion 1. Technically difficult study because of the patient factors and poor acoustic windows. 2. Mildly enlarged left atrium, normal left ventricular size, mild concentric left ventricular hypertrophy, visually estimated ejection fraction 50%, there is abnormal septal motion. Diastolic parameters are inconclusive. 2. Mild aortic, mild mitral and tricuspid regurgitation. 3. No significant pericardial effusion noted. Electronically signed by : Irving Esparza MD 01/09/2021 21:42:21
--- NOTE | 2021-01-09 10:02 | CT_ITS ---
PROCEDURE: CT ABDOMEN PELVIS W CON CLINICAL INDICATION: abd pain, lower abdominal pain COMPARISON: CT CT ANGIO ABDOMEN PELVIS from 11/21/2020 TECHNIQUE: IV Contrast: 75ML Isovue 370 Oral Contrast None Axial images obtained with sagittal and coronal reformats. All CT scans at the facility use one or more dose reduction, viz: automated exposure control, ma/kV adjustment per patient size (including targeted exams where dose is matched to indication, i.e. head), or iterative reconstruction technique. FINDINGS: LOWER THORAX: There is a wedge-shaped of consolidation in the right lower lobe posterior medially. This could be related to an area of pneumonia or infarction. There is a small right pleural effusion. Faint area of infiltrate or atelectasis present just cephalad and lateral to this region. There has been a prior CABG. ABDOMEN & PELVIS: Prior cholecystectomy. The liver, spleen, adrenal glands, and pancreas have an unremarkable appearance. There is a 4 cm left renal cyst posteriorly. Small exophytic right renal cyst at 1 cm is noted. No intestinal obstruction or free air. No evidence of appendicitis. No evidence of diverticulitis. Fusiform dilatation of the infrarenal abdominal aorta once again noted containing aortoiliac stent graft not significantly changed. The [place] aorta measures 5.3 by 5.1 cm with moderate mural thrombus peripheral to the graft... Significant artifact is present metallic artifact is noted in the right lateral aspect of the abdominal aorta and may be due to endovascular placed coil. No evidence of stent graft leak. No acute retroperitoneal hemorrhage. Moderate wedge compression changes are present involving the superior endplate of L2 with loss of height centrally of approximately 40-50 percent. This has developed since the previous exam. There is minimal posterior retropulsion of the posterior superior endplate by 2 mm. Status post total right hip prosthesis placement. Two screws are present both extending into past the cortex of the ileum into the pelvis unchanged. IMPRESSION: 1. Status post aorto bi-iliac graft placement with no evidence of graft leak. 2. New wedge compression changes of L2 with only minimal retropulsion posteriorly by 2 mm. 3. Triangular-shaped opacification in the right lower lobe posterior medially which may be due to an area of pneumonia or pulmonary infarction. Dictated by: Christian Lin MD 01/09/2021 15:12 Christian Lin MD in [place] 01/09/2021 15:12
[2021-01-09 10:17] LABS: Lipase 84 U/L (23-300)
[2021-01-09 12:00] VITALS: PULSE 70
[2021-01-09 13:45] VITALS: BMI 22.3
[2021-01-09 15:03] VITALS: BP 151/77; PULSE 70; RESP 22; TEMP 36.7; O2SAT 99
--- NOTE | 2021-01-09 17:10 | PC.NURSE ---
Pt is alert and oriented x4. He remains on RA w/O2 sats measuring > 95%. He slept the majority of the shift except to ring out every 1-2hrs to request prn pain meds and phenergan for report of chest pain and nausea. When I would go in to check on pt he would be resting w/his eyes closed, occasionally snoring lightly. I explained to him multiple times that he could have his prn pain meds q4hrs and phenergan q6hrs prn. He was up to the chair this afternoon for a few hours and tolerated well. He is paced on telemetry. He has utilized a urinal at the bedside independently. Stage 2 to coccyx. No other complaints from pt at this time.
--- NOTE | 2021-01-09 19:10 | HMH.ACPN2 ---
Internal Medicine - PN: Subj *Date: 01/09/21 *Time: 08:28 Interval history: pt c/o abd pain and nausea Exam Vital signs and Labs for Last 24 Hours: Temp Pulse Resp BP Pulse Ox 98.0 F 70 22 151/77 H 99 01/09/21 15:03 01/09/21 15:03 01/09/21 15:03 01/09/21 15:03 01/09/21 15:03 Laboratory Results - last 24 hr 01/08/21 21:25: Sodium 138, Potassium 3.0 L D, Chloride 105, Carbon Dioxide 28, Anion Gap 8.0, BUN 8 L, Creatinine 0.60 L, Estimated Creat Clear 153, Estimated GFR 139, Est GFR ( Amer) 168, Glucose 91, Calcium 8.7 01/09/21 06:28: WBC 5.8, RBC 3.48 L, Hgb 11.0 L, Hct 33.7 L, MCV 97.1 H, MCH 31.6 H, MCHC 32.6, RDW 16.9, Plt Count 213, MPV 7.0 L, Neut % (Auto) 72.2, Lymph % (Auto) 17.8, [place] % (Auto) 7.8, Eos % (Auto) 1.7, Baso % (Auto) 0.5, Neut # (Auto) 4.2, Lymph # (Auto) 1.0, [place] # (Auto) 0.5, Eos # (Auto) 0.1, Baso # (Auto) 0.0 01/09/21 06:28: Sodium 138, Potassium 2.4 L*, Chloride 102, Carbon Dioxide 30, Anion Gap 8.4, BUN 6 L, Creatinine 0.60 L, Estimated Creat Clear 152, Estimated GFR 139, Est GFR ( Amer) 168, Glucose 97, Calcium 8.6 01/09/21 06:28: Lipase 84 I & O for Last 24 hours: Intake & Output 01/07/21 01/08/21 01/09/21 01/10/21 11:59 11:59 11:59 11:59 Intake Total 1283 / 1283 240 / 240 Output Total 100 / 100 750 / 750 Balance -100 / -100 533 / 533 240 / 240 Weight 175 lb 174 lb 5 oz 174 lb 2.643 oz - Constitutional no acute distress - *Routine HEENT Exam Head: Present: normocephalic Eye: Present: PERRL ENT: Present: mucous membranes moist - *Routine Neck Exam Present: supple. Absent: lymphadenopathy - *Routine Respiratory Exam Present: CTA bilaterally - *Routine Cardiovascular Exam Present: RRR - *Routine Abdominal Exam Present: soft, normoactive bowel sounds, tenderness - *Routine Extremities Exam Present: normal capillary refill. Absent: cyanosis, clubbing, edema - *Routine Skin Exam Present: warm. Absent: rash - *Routine Neurological Exam Present: alert, oriented X3 Assessment and Plan (1) Unstable angina pectoris Status: Acute Category: Medical Code(s): I20.0 - Unstable angina (2) COPD (chronic obstructive pulmonary disease) Status: Acute Qualifiers: COPD type: unspecified COPD Qualified Code(s): J44.9 - Chronic obstructive pulmonary disease, unspecified Category: Medical Code(s): J44.9 - Chronic obstructive pulmonary disease, unspecified (3) History of coronary artery bypass graft Status: Acute Category: Surgical Code(s): Z95.1 - Presence of aortocoronary bypass graft (4) Elevated troponin I level Status: Acute Category: Medical Code(s): R74.8 - Abnormal levels of other serum enzymes (5) Coronary artery disease Status: Chronic Qualifiers: Coronary Disease-Associated Artery/Lesion type: bypass graft [place] vs. transplanted heart: [place] heart Associated angina: with other forms of angina Qualified Code(s): I25.708 - Atherosclerosis of coronary artery bypass graft(s), unspecified, with other forms of angina pectoris Category: Medical Code(s): I25.10 - Atherosclerotic heart disease of [place] coronary artery without angina pectoris (6) Tobacco use disorder Status: Chronic Category: Medical Code(s): F17.200 - Nicotine dependence, unspecified, uncomplicated (7) LBBB (left bundle branch block) Status: Chronic Category: Medical Code(s): I44.7 - Left bundle-branch block, unspecified (8) Hypokalemia Status: Acute Category: Medical Code(s): E87.6 - Hypokalemia - Assessment and plan all Dx Assessment and Plan for all problems:: rounded with dr cannon all orders per dr cannon ct abd cardiology consult
[2021-01-09 20:00] VITALS: BP 146/76; PULSE 69; PULSE 70; RESP 17; TEMP 36.4; O2SAT 98
[2021-01-10] VITALS (7 sets, daily range): BP systolic 129–160; BP diastolic 69–76; PULSE 69–71; RESP 15–18; TEMP 36.6–37.1; O2SAT 96–99; BMI 22.0
--- NOTE | 2021-01-10 06:17 | PC.NURSE ---
Pt has c/o pain to chest x1 and abdomen x3 this shift. Also c/o nausea. No emesis noted. Medicated per mar. VSS. Pt has been up to chair x1 this shift. No other concerns. Will continue to monitor.
--- NOTE | 2021-01-10 07:52 | HMH.PNCARD ---
Subjective Date: 01/10/21 Time: 07:50 Principal diagnosis: Non-Stemi Interval history: 55-year-old male admitted to [facility] with unstable angina on 01/07/21. Patient was noted to have non-STEMI due to elevated troponins. Patient did undergo a left heart catheterization on 01/08/[address] Telles. Left heart catheterization revealed moderate to severe coronary ectasia with moderate aneurysmal dilatation of the vessels mainly noted in the circumflex and large dominant right coronary artery This has been unchanged since last heart heart catheterization 2 years ago. AICD placed in 2014 due to abnormal rhythm per pt. Patient is on amiodarone 200 mg daily. Patient had been on anticoagulation until 2019 in which, he states he started having GI issues. AICD was downloaded and noted with no ventricular high rate episodes and no sustained episodes. AP noted 28% and MANAGER HEAVY DUTY 95%. Echocardiogram was performed yesterday. Echocardiogram reveals EF ejection fraction 50%, there is abnormal septal motion. Mild aortic, mitral and tricuspid regurgitation. Patient denies chest pain, tightness or pressure. Patient does complain of nausea with no vomiting. Patient denies shortness of breath. Patient noted with no swelling of the lower extremities. Right groin cath site dressing dry and intact with no drainage or swelling noted. threat monitoring analyst reveals paced rhythm with right bundle branch block with a heart rate of 84 to 90 bpm. Blood pressure is stable. Patient does have history of COPD. Upon reviewing a.m. labs, patient noted to have hypokalemia. Patient was given potassium supplement yesterday by PCP. Lab results revealed potassium remains low. This is being managed by PCP. Patient does have history of aneurysmal dilation of the vessels mainly noted in the circumflex and large dominant RCA. Patient is noncompliant with home medications. Discussed this with the patient the importance of taking medications due to his advancing coronary artery disease. Patient verbalized understanding. Abdomen CT was performed yesterday which revealed the [place] aorta measures 5.3 x 5.1 cm with moderate mural thrombosis peripheral to the graft. No evidence of stent graft leak. Due to patient's history of atrial fibrillation and CVA, it would benefit for patient to be on anticoagulation. Discussed this with patient. Patient stated that he had GI issues with Eliquis and Xarelto in the past. Patient refuses to start any anticoagulants at this time. Discussed benefits with patient regarding taking anticoagulants due to the atrial fibrillation and increased risk for stroke. Patient verbalized understanding. Discussed plan of care with Dr. Telles. Orders and recommendations were received from Dr. Telles. Patient is on appropriate ischemic coronary artery disease medications. Patient is on Plavix and aspirin daily. Patient will need to follow-up with cardiology in 1 to 2 weeks following hospital discharge or sooner if signs and symptoms develop. Abd CT:FINDINGS: LOWER THORAX: There is a wedge-shaped of consolidation in the right lower lobe posterior medially. This could be related to an area of pneumonia or infarction. There is a small right pleural effusion. Faint area of infiltrate or atelectasis present just cephalad and lateral to this region. There has been a prior CABG. ABDOMEN & PELVIS: Prior cholecystectomy. The liver, spleen, adrenal glands, and pancreas have an unremarkable appearance. There is a 4 cm left renal cyst posteriorly. Small exophytic right renal cyst at 1 cm is noted. No intestinal obstruction or free air. No evidence of appendicitis. No evidence of diverticulitis. Fusiform dilatation of the infrarenal abdominal aorta once again noted containing aortoiliac stent graft not significantly changed. The [place] aorta measures 5.3 by 5.1 cm with moderate mural thrombus peripheral to the graft... Significant artif
--- NOTE | 2021-01-10 11:01 | CT_ITS ---
PROCEDURE INFORMATION: Exam: CTA Chest With Contrast Exam date and time: 01/10/2021 11:01 AM Age: 55 years old Clinical indication: Shortness of breath; Prior surgery; Surgery date: 6+ months; Patient HX: Pneumonia vs infarct; Additional info: Abnormal abd CT w/ pna vs infarct TECHNIQUE: Imaging protocol: Computed tomographic angiography of the chest with contrast. 3D rendering (Not supervised by radiologist): MIP and/or 3D reconstructed images were created by the technologist. Radiation optimization: All CT scans at this facility use at least one of these dose optimization techniques: automated exposure control; mA and/or kV adjustment per patient size (includes targeted exams where dose is matched to clinical indication); or iterative reconstruction. Contrast material: ISOVUE 370; Contrast volume: 70 ml; Contrast route: INTRAVENOUS (IV); COMPARISON: CT ANGIO CHEST 08/12/2020 2:25 PM FINDINGS: Pulmonary arteries: Normal. No pulmonary emboli. Aorta: Unremarkable. No aortic aneurysm. No aortic dissection. Lungs: Dense airspace consolidation in the right lower lobe. Lesser amount of consolidation in the left lower lobe. The remaining pulmonary parenchyma is clear. No other pulmonary infiltrate or consolidation. No pulmonary nodules or masses. Mild emphysematous changes are present. Pleural spaces: Small right pleural effusion. Heart: Unremarkable. No cardiomegaly. No pericardial effusion. Lymph nodes: Unremarkable. No enlarged lymph nodes. Bones/joints: A fracture of the proximal right humerus is not completely demonstrated. Old right rib fractures. Soft tissues: Unremarkable. IMPRESSION: 1. Airspace consolidation in both lower lobes may represent atelectasis or pneumonia. A small right pleural effusion is most likely a parapneumonic effusion. 2. Mild emphysema. 3. No pulmonary embolus.
--- NOTE | 2021-01-10 12:06 | HMH.PTEV ---
Physical Therapy Evaluation Rehab PT IP Evaluation Start: 01/10/21 09:07 Freq: .once Status: Active Protocol: Document 01/10/21 11:10 PHORTHEODORA (Rec: 01/10/21 12:06 PHORNE [id number]) Subjective/History History History 55 yowm adm to [facility] with STEMI. He reports he lives alone with 20 steps to enter his apt , uses a cane for ambulation at baseline. hx of CAD, CHF, COPD, CABG, pacemaker. Subjective Subjective Pt reports feeling a littel unsteady this am and has pain in his R UE. Rehab PT IP Eval Objective Appearance Patient Behavior Appropriate Patient Orientation Person,Place,Time Difficulty following instructions none Speech Pattern Clear Ambulation Patient Able to Ambulate Yes Ambulation Observation IP General Gait Pattern Observation Wide Based Gait Ambulation Distance (feet) 20 Ambulation Assistive Device Straight Cane Ambulation Ability Contact Guard/Hand Hold Balance Ability to Arise Able, uses arms to help Sitting Balance Steady, safe Standing Balance Steady, wide stance Dynamic Sitting Balance Ability Good Dynamic Standing Balance Ability Fair Transfers Bed Transfer Ability Contact Guard/Hand Hold Chair Transfer Ability Contact Guard/Hand Hold Sit to Stand Bed Transfer Ability Contact Guard/Hand Hold Sit to Stand Chair Transfer Ability Contact Guard/Hand Hold Rehab PT IP prob,goals,plan Problems Date of Evaluation: 01/10/21 PT IP Problems Bed Mobility,Transfers,Gait Rehab Potential Rehab Potential Good Plan PT Intervention Plan Bed Mobility,Transfers,Gait, Therapeutic Exercise PT Plan Frequency BID Duration LOS Discharge Goals Bed Transfer Ability Supervision/Stand by Sit to Stand Chair Transfer Ability Supervision/Stand by Ambulation Assistive Device Straight Cane Ambulation Distance (feet) 40 Discharge Plan PT Discharge Plan Pt is appropriate to return home once medically stable. G -code Required No Eval Complexity Eval Charge Codes 09475 - Moderate Complexity PHYSICIAN CERTIFICATION: I certify the specified therapy services for Isaak Good are required, authorized, and reviewed every 30 days.
--- NOTE | 2021-01-10 19:28 | HMH.ACPN2 ---
Internal Medicine - PN: Subj *Date: 01/10/21 *Time: 19:32 Interval history: 55-year-old male patient sitting up in bed resting quietly he denies any chest pain or shortness of breath during the night. Potassium this morning 2.4 and will be replenished. Abdomen and pelvic CT yesterday revealed right lower lobe pneumonia versus infarction we will get CTA today Exam Vital signs and Labs for Last 24 Hours: Temp Pulse Resp BP Pulse Ox 98.7 F 70 17 152/71 H 96 01/10/21 15:48 01/10/21 15:48 01/10/21 15:48 01/10/21 15:48 01/10/21 15:48 Laboratory Results - last 24 hr 01/10/21 10:43: TSH 1.40 I & O for Last 24 hours: Intake & Output 01/07/21 01/08/21 01/09/21 01/10/21 23:59 23:59 23:59 23:59 Intake Total 360 / 360 1163 / 1163 1440 / 1440 Output Total 550 / 700 500 / 750 525 / 525 Balance -190 / -340 663 / 413 915 / 915 Weight 175 lb 174 lb 2.643 oz 171 lb 15.369 oz - Constitutional no acute distress - *Routine HEENT Exam Head: Present: normocephalic Eye: Present: EOMI ENT: Present: mucous membranes moist - *Routine Neck Exam Present: trachea midline. Absent: tracheal deviation - *Routine Respiratory Exam Present: CTA bilaterally. Absent: accessory muscle use - *Routine Cardiovascular Exam Present: RRR - *Routine Abdominal Exam Present: soft, normoactive bowel sounds. Absent: tenderness, distended - *Routine Extremities Exam Present: full ROM, pulses intact. Absent: cyanosis, clubbing - *Routine Skin Exam Present: intact, dry, warm. Absent: cyanosis, erythema - *Routine Neurological Exam Present: alert, oriented X3. Absent: motor deficit, altered mental status - Routine Psychiatric Exam Present: normal affect, normal thought process. Absent: visual hallucinations Assessment and Plan (1) Unstable angina pectoris Status: Acute Category: Medical Code(s): I20.0 - Unstable angina (2) COPD (chronic obstructive pulmonary disease) Status: Acute Qualifiers: COPD type: unspecified COPD Qualified Code(s): J44.9 - Chronic obstructive pulmonary disease, unspecified Category: Medical Code(s): J44.9 - Chronic obstructive pulmonary disease, unspecified (3) History of coronary artery bypass graft Status: Acute Category: Surgical Code(s): Z95.1 - Presence of aortocoronary bypass graft (4) Elevated troponin I level Status: Acute Category: Medical Code(s): R74.8 - Abnormal levels of other serum enzymes (5) Coronary artery disease Status: Chronic Qualifiers: Coronary Disease-Associated Artery/Lesion type: bypass graft [place] vs. transplanted heart: [place] heart Associated angina: with other forms of angina Qualified Code(s): I25.708 - Atherosclerosis of coronary artery bypass graft(s), unspecified, with other forms of angina pectoris Category: Medical Code(s): I25.10 - Atherosclerotic heart disease of [place] coronary artery without angina pectoris (6) Tobacco use disorder Status: Chronic Category: Medical Code(s): F17.200 - Nicotine dependence, unspecified, uncomplicated (7) LBBB (left bundle branch block) Status: Chronic Category: Medical Code(s): I44.7 - Left bundle-branch block, unspecified (8) Hypokalemia Status: Acute Category: Medical Code(s): E87.6 - Hypokalemia - Assessment and plan all Dx Assessment and Plan for all problems:: Rounded with Dr. Alonzo, all orders for Dr. Alonzo: 1. Chest CTA today 2. Replenish potassium
[2021-01-10 21:06] LABS: Blood Urea Nitrogen 3 mg/dl (9-20); Calcium 8.4 mg/dl (8.4-10.2); Carbon Dioxide 28 mmol/L (22.0-30.0); Chloride 108 mmol/L (98-107); Creatinine Clearance Estimated 180 mL/min (50-200); Estimated Glomerular Filt Rate 171 ml/min (>60); GFR (African American) 207 ML/MIN (>60); Glucose 90 mg/dl (74-100); Sodium 137 mmol/L (136-145)
--- NOTE | 2021-01-10 21:11 | PC.NURSE ---
Critical potassium of 3.0 reported to at 21:09
[2021-01-11] VITALS (7 sets, daily range): BP systolic 141–175; BP diastolic 53–83; PULSE 67–80; RESP 16–18; TEMP 36.6–36.8; O2SAT 95–99; BMI 21.9
[2021-01-11 06:35] LABS: Basophils % 0.5 % (0.1-2.0); Eosinophils # 0.1 K/mm3 (0.0-0.4); Eosinophils % 1.9 % (0.1-12.0); Hematocrit 30.8 % (42.0-52.0); Hemoglobin 9.8 g/dL (14.1-18.0); Lymphocytes # 1.2 K/mm3 (0.7-4.5); Lymphocytes % 20.2 % (10-50); Mean Corpuscular HGB Conc 31.9 g/dL (31.8-35.4); Mean Corpuscular Hemoglobin 31.7 pg (27.0-31.2); Mean Corpuscular Volume 99.4 fl (80-94); Mean Platelet Volume 6.9 fl (7.4-10.4); Monocytes # 0.4 K/mm3 (0.1-1.0); Monocytes % 6.7 % (1.7-9.3); Neutrophils # 4.2 K/mm3 (1.8-7.8); Neutrophils % 70.7 % (37.0-80.0); Platelet Count 176 K/mm3 (142-424); Red Blood Count 3.09 M/mm3 (4.60-6.20); Red Cell Distribution Width 16.9 % (11.5-17.5); White Blood Count 5.9 K/mm3 (4.8-10.8)
[2021-01-11 06:38] LABS: Chloride 107 mmol/L (98-107); Sodium 139 mmol/L (136-145)
[2021-01-11 06:42] LABS: Anion Gap 8.7 mEq/L (5-15); Blood Urea Nitrogen 3 mg/dl (9-20); Calcium 8.3 mg/dl (8.4-10.2); Carbon Dioxide 26 mmol/L (22.0-30.0); Creatinine Clearance Estimated 179 mL/min (50-200); Estimated Glomerular Filt Rate 171 ml/min (>60); GFR (African American) 207 ML/MIN (>60); Glucose 103 mg/dl (74-100)
[2021-01-11 07:15] LABS: Potassium 2.7 mmoL/L (3.5-5.1)
--- NOTE | 2021-01-11 10:49 | HMH.PULMCON ---
*Admission Date: 01/08/21 *Reason for consult:: Pneumonia, loculated pleural effusion *History of present illness: Mr. Good is a 55-year-old with significant history of coronary artery disease, noncompliant with his medications as per chart review, was transferred to the [facility] from [place] emergency department for cardiac catheterization and during further work-up patient also found to have a right lower lobe pneumonia along with loculated effusion pulmonary was called for further management. [facility] History Medical History: Reports:: Aneurysm, Arrhythmia, Atherosclerotic Heart Disease, Atrial Fibrillation, Congestive Heart Failure, Chronic Obstructive Pulmonary Disease (COPD), Coronary Artery Disease, Cerebrovascular Accident, Gastroesophageal Reflux Disease(GERD), Hyperlipidemia, Hypertension, Internal Pacemaker, Myocardial Infarction Denies:: Cancer, Diabetes Mellitus Type 1, Diabetes Mellitus Type 2, MRSA, Seizures *Have you ever received a pneumonia vaccine?: Yes *Have you received a flu vaccine this season?: Yes Other Medical History: Denies: Blood Transfusion Reaction Laterality Cases: Left: Other, Right: Arthroscopy Hip, Total Hip Replacement Other Surgeries: Yes: CABG (x3), Cardiac Catheterization, Cardiac Surgery, Cholecystectomy, Colonoscopy, Coronary Stent, Open Heart Surgery, Pacemaker, Other Amputation: No Fractures: No - *Social History Smoking Status: Current every day smoker Tobacco Type: cigarettes # Packs/Day (cigarettes): 1 #Yrs smoked (if former smoker): 40 Alcohol Intake: former Alcohol Intake Frequency:: other Substance Use Type: marijuana *Occupational Status:: disabled Housing: apartment Household Members: significant other, none *Travel in the last 8 weeks: None Family Hx:: Asthma, Cancer, Coronary Artery Disease, Diabetes, Heart Attack, Hyperlipidemia, Hypertension ROS - Cons Reports anorexia, Reports chills - ENT Denies bleeding gums - Card Reports chest pain, Reports chest pain at rest, Reports shortness of breath, Reports shortness of breath with activity - Resp Respiratory: Reports shortness of breath, Reports chest congestion, Reports excessive phlegm production, Denies coughing up blood, Denies pain with cough, Reports cough with sputum production - GI Gastrointestingal: Denies: abdominal pain - [place] Musculoskeletal: Reports joint pain - Psych Reports abnormal sleep pattern Meds Home Medications Medication Instructions Recorded Confirmed Type Atorvastatin Calcium [Lipitor 80mg 80 mg PO HS 05/26/17 01/08/21 History Tab] Hydrocod/Acet 5/325 mg [Koppel 1 tab PO Q6HP PRN #10 tab 10/05/18 01/08/21 Rx 5/325mg tablet] Amiodarone HCl 200 mg PO DAILY 01/08/21 01/08/21 History Ranolazine [Ranexa 500mg ER tablet] 500 mg PO BID 01/08/21 01/08/21 History Allergies Allergy/AdvReac Type Severity Reaction Status Date / Time diphenhydramine Allergy Mild NA-NAUSEA Verified 02/07/18 14:33 [From BENADRYL ALLERGY] pseudoephedrine Allergy Mild NA-NAUSEA Verified 02/07/18 14:33 [From SUDAFED] nitroglycerin Allergy Unknown Verified 02/07/18 14:33 [From NITRO-BID] Exam - Constitutional Constitutional:: Present: no acute distress, comfortable - HENMT Exam HENMT: Present: normocephalic, atraumatic - Eye Exam Eyes:: Present: normal appearance both eyes and related structures - Neck Exam Neck:: Present: normal visual inspection - Respiratory Exam Respiratory:: Present: able to speak in complete sentences, crackles, rhonchi. Absent: rales - Cardiovascular Exam Cardiac:: Present: S1, S2 - GI Exam GI:: Present: soft - Skin Exam Skin: Present: warm, no rash - Neurological Exam Neurological: Present: alert, awake, normal cognition - Extremities Exam Extremities: Present: no cyanosis, no clubbing, no edema - Psychiatric Exam Psychiatric: Present: normal affect Internal Medicine - CN: Reslt - Labs CBC & Chem 7: 10
--- NOTE | 2021-01-11 14:09 | HMH.DCSUM ---
General - General Admission date:: 01/07/21 Discharge date: 01/11/21 HPI HPI: this patient was transferred from [place] ed with chest pain-pt has hx of cad and pacemaker and was felt to have unstable angina- record from [place] was reviewed - pt reports compliance with meds -pt reports pain occurred at rest - and was helped with meds but still has chest pain- pt was admitted for eval and treatment and card eval Hospital Course Hospital Course: Laboratory Tests 01/08/21 01/08/21 01/08/21 07:22 07:22 21:25 WBC 5.7 RBC 3.57 L Hgb 11.5 L Hct 33.7 L MCV 94.3 H MCH 32.1 H MCHC 34.1 RDW 17.6 H Plt Count 240 MPV 7.8 Neut % (Auto) 68.9 Lymph % (Auto) 23.5 [place] % (Auto) 6.2 Eos % (Auto) 1.0 Baso % (Auto) 0.4 Neut # (Auto) 3.9 Lymph # (Auto) 1.3 [place] # (Auto) 0.4 Eos # (Auto) 0.1 Baso # (Auto) 0.0 Sodium 139 138 Potassium 2.1 L* 3.0 L D Chloride 100 105 Carbon Dioxide 30 28 Anion Gap 11.1 8.0 BUN 8 L 8 L Creatinine 0.60 L 0.60 L Estimated Creat Clear 153 153 Estimated GFR 139 139 Est GFR ( Amer) 168 168 Glucose 78 91 Calcium 9.0 8.7 Magnesium 1.5 L Troponin I 0.07 H Lipase TSH 01/09/21 01/09/21 01/09/21 06:28 06:28 06:28 WBC 5.8 RBC 3.48 L Hgb 11.0 L Hct 33.7 L MCV 97.1 H MCH 31.6 H MCHC 32.6 RDW 16.9 Plt Count 213 MPV 7.0 L Neut % (Auto) 72.2 Lymph % (Auto) 17.8 [place] % (Auto) 7.8 Eos % (Auto) 1.7 Baso % (Auto) 0.5 Neut # (Auto) 4.2 Lymph # (Auto) 1.0 [place] # (Auto) 0.5 Eos # (Auto) 0.1 Baso # (Auto) 0.0 Sodium 138 Potassium 2.4 L* Chloride 102 Carbon Dioxide 30 Anion Gap 8.4 BUN 6 L Creatinine 0.60 L Estimated Creat Clear 152 Estimated GFR 139 Est GFR ( Amer) 168 Glucose 97 Calcium 8.6 Magnesium Troponin I Lipase 84 TSH 01/10/21 01/10/21 01/11/21 10:43 20:51 06:11 WBC 5.9 RBC 3.09 L Hgb 9.8 L Hct 30.8 L MCV 99.4 H MCH 31.7 H MCHC 31.9 RDW 16.9 Plt Count 176 MPV 6.9 L Neut % (Auto) 70.7 Lymph % (Auto) 20.2 [place] % (Auto) 6.7 Eos % (Auto) 1.9 Baso % (Auto) 0.5 Neut # (Auto) 4.2 Lymph # (Auto) 1.2 [place] # (Auto) 0.4 Eos # (Auto) 0.1 Baso # (Auto) 0.0 Sodium 137 Potassium 3.0 L D Chloride 108 H Carbon Dioxide 28 Anion Gap 4.0 L BUN 3 L D Creatinine 0.50 L Estimated Creat Clear 180 Estimated GFR 171 Est GFR ( Amer) 207 D Glucose 90 Calcium 8.4 Magnesium Troponin I Lipase TSH 1.40 01/11/21 06:11 WBC RBC Hgb Hct MCV MCH MCHC RDW Plt Count MPV Neut % (Auto) Lymph % (Auto) [place] % (Auto) Eos % (Auto) Baso % (Auto) Neut # (Auto) Lymph # (Auto) [place] # (Auto) Eos # (Auto) Baso # (Auto) Sodium 139 Potassium 2.7 L* Chloride 107 Carbon Dioxide 26 Anion Gap 8.7 BUN 3 L Creatinine 0.50 L Estimated Creat Clear 179 Estimated GFR 171 Est GFR ( Amer) 207 Glucose 103 H Calcium 8.3 L Magnesium Troponin I Lipase TSH Microbiology 01/11/21 12:50 Sputum - Expectorated Sputum Gram Stain - Final chest xray:FINDINGS: Prior CABG. Biventricular and right atrial pacemaker is present from left subclavian approach. Pulmonary vessels are slightly engorged. No interstitial edema apparent. The lungs are clear without infiltrates, suspicious nodules, or pleural effusions. There is a transverse right humeral neck fracture. echo:vIMPRESSION: Mild engorgement of the pulmonary vessels with normal heart size which could be related to plasma volume overload and also could be related to the AP portable technique. Conclusion 1. Technically difficult study because of the patient factors and poor acoustic windows. 2. Mildly enlarged left atrium, n
--- NOTE | 2021-01-11 14:30 | PC.NURSE ---
PT IS SITTING ON THE SOB. RECEIVING PAIN MEDICATION FOR DISCOMFORT. PT'S IV ACCESS TO THE RFA STARTING TO LEAK IN THE MIDDLE OF THE FIRST POTASSIUM INFUSION. PT STATED HE WAS TOLD DURING ROUNDS THIS MORNING THAT HE WILL BE DISCHARGING TODAY SO HE REALLY DID NOT WANT ANOTHER IV. NOTIFIED DIMAS ADAMES AND SHE SWITCHED HIS PAIN MEDICATION TO PO AND PT GOT ANOTHER PO DOSE OF POTASSIUM. IT WAS NOTED THAT PT HAS A FRACTURED HUMERUS SO HE WILL BE SENT HOME WITH A SLING AND WILL HAVE AN OUTPATIENT ORTHO APPOINTMENT.
--- NOTE | 2021-01-11 15:50 | HMH.PHAINT ---
MEDICATION DISCHARGE COUNSELING COMPLETE
== END 2021-01-11 17:44 | disposition home or self-care (01) | DRG 280 ==
PROVIDERS: Internal Medicine; Nurse Practitioner Family; Urology; Admitting Provider Emergency Medicine; PCP Nurse Practitioner Family; Visit Provider Emergency Medicine
DX: I21.4 Non-ST elevation (NSTEMI) myocardial infarction (principal); J18.9 Pneumonia, unspecified organism; S42.291A Other displaced fracture of upper end of right humerus, initial encounter for closed fracture; I25.110 Atherosclerotic heart disease of native coronary artery with unstable angina pectoris; I48.91 Unspecified atrial fibrillation; I11.0 Hypertensive heart disease with heart failure; I50.9 Heart failure, unspecified; Z20.822 Contact with and (suspected) exposure to COVID-19; Z95.0 Presence of cardiac pacemaker; Z95.5 Presence of coronary angioplasty implant and graft; Z96.641 Presence of right artificial hip joint; E87.6 Hypokalemia; I08.3 Combined rheumatic disorders of mitral, aortic and tricuspid valves; Z91.19 Patient's noncompliance with other medical treatment and regimen; X58.XXXA Exposure to other specified factors, initial encounter; Z95.1 Presence of aortocoronary bypass graft; F17.210 Nicotine dependence, cigarettes, uncomplicated; Z71.6 Tobacco abuse counseling; G47.30 Sleep apnea, unspecified; J43.9 Emphysema, unspecified
CPT/HCPCS: 36415; 71045; 71275; 74177; 80048; 83690; 83735; 84443; 84484; 85025; 87070; 87077; 87186; 87205; 93005; 93306; 93459; 94640; 97110; 97162; 97530; 99152; C1725; C1760; C1769; J1644; J2405; Q9967

== ENCOUNTER 2021-01-15 21:03 | Observation (INO) | payer MEDICARE, MEDICAID, SELFPAY ==
[2021-01-15 20:29] VITALS: BP 164/92; PULSE 80; RESP 18; TEMP 36.8; O2SAT 99; BMI 22.4
--- NOTE | 2021-01-15 20:40 | CT_ITS ---
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 3D rendering (Not supervised by radiologist): MIP and/or 3D reconstructed images were created by the technologist. Radiation optimization: All CT scans at this facility use at least one of these dose optimization techniques: automated exposure control; mA and/or kV adjustment per patient size (includes targeted exams where dose is matched to clinical indication); or iterative reconstruction. Contrast material: ISOVUE 370; Contrast volume: 100 ml; Contrast route: INTRAVENOUS (IV); COMPARISON: CT ANGIO ABDOMEN PELVIS 11/21/2020 7:14 PM FINDINGS: Lungs: There is bronchial wall thickening and mucous debris within the right lower lobe with a streaky infiltrates suggesting mild aspiration. Heart: The cardiac chambers are mildly enlarged and there is a cardiac pacemaker/AICD in position. Aorta: There is a fusiform 5.7 cm infrarenal aortic aneurysm which has been repaired with a bifurcating endograft. There is very subtle enhancement within the inferior aspect of the aneurysm sac near the lower edge of the endograft as seen on series 2, images 257-302. These areas of subtle enhancement are not clearly seen on the prior exam, although, again detail here is compromised by the severe streak artifact. Overall the appearance is suspicious for a type 1b endoleak. I do not see a periaortic hematoma or stranding. Celiac trunk and mesenteric arteries: No occlusion or significant stenosis. Renal arteries: No occlusion or significant stenosis. Right iliac arteries: No occlusion or significant stenosis. Left iliac arteries: No occlusion or significant stenosis. Liver: Mild hepatic steatosis. Gallbladder and bile ducts: Status post cholecystectomy. Pancreas: There are embolization coils within the aneurysm sac resulting in streak artifact and limiting detail. Spleen: Unremarkable. No splenomegaly. Adrenal glands: Normal. No mass. Kidneys and ureters: Exophytic 4.2 cm left renal cyst incidentally noted (Hounsfield units: 15.9). Stomach and bowel: There is no contrast extravasation within the small bowel or gas within the aneurysm sac to indicate an aortoenteric fistula. There is a tiny focus of increased density within the cecum (series 2, images 404-409) which could be a small focus of active bleeding. Unfortunately, I do not have precontrast images to assess for interval change. There is thickening of the colonic wall from the mid descending colon to the rectum raising the question of colitis. Appendix: No evidence of appendicitis. Intraperitoneal space: Unremarkable. No free air. No significant fluid collection. Lymph nodes: Unremarkable. No enlarged lymph nodes. Urinary bladder: Unremarkable. No mass. Reproductive: Unremarkable as visualized. Bones/joints: There is a unipolar left hip arthroplasty in position. There is a new subacute appearing moderate anterior burst compression fracture of L2 through the superior endplate with approximately 30% loss of the anterior and mid vertebral body height and 4 mm posterior retropulsion into the spinal canal. The pedicles appear intact and there is no malalignment. No additional fractures are seen. Osseous structures are demineralized. Soft tissues: Unremarkable.
--- NOTE | 2021-01-15 20:41 | ECG_ITS ---
APPROVED REPORT Exam: Resting ECG HR:75 bpm ECG Measurements Heart Rate 75 AXES QRSd 184 QRS 235 QT 548 T 62 QTc 611 Conclusion Electronic atrial pacemaker Abnormal ECG Electronically signed by : Mello Livingston MD 01/16/2021 21:17:09
--- NOTE | 2021-01-15 20:47 | HMH.EDGENADL ---
ED Disposition Clinical Impression: Gastroenteritis, Hypokalemia Nausea and vomiting Qualifiers: Vomiting type: unspecified Vomiting Intractability: intractable Qualified Code(s): R11.2 - Nausea with vomiting, unspecified Disposition: Admitted as Observation Condition on Discharge: Good Instructions: DI for Gastrointestinal Bleeding Referrals: Aryan Montana APRN [Primary Care Provider] - - Critical Care Critical Care Time: No Attestation: On , the high probability of a clinically significant, sudden or life threatening deterioration of the following system(s) required my full and direct attention, intervention and personal management. The time I documented below is in addition to time spent performing reported procedures but includes the following listed in this critical care notation. Medical Decision Making - Medical Records Medical records reviewed: Yes: I reviewed the patient's medical records. - Jonathan Inquiry Pt receiving controlled substance: No Vital Signs: 01/15/21 20:29 Temperature 98.2 F Temperature Source Oral Pulse Rate [Left Radial] 80 Respiratory Rate 18 Blood Pressure [Left Arm] 164/92 H Blood Pressure Mean [Left Arm] 116 Blood Pressure Source [Left Arm] Automatic Cuff Blood Pressure Position [Left Arm] Sitting 02 Sat by Pulse Oximetry 99 Oxygen Delivery Method Room Air - Lab Data Lab Results 01/15/21 20:45: WBC 7.3, RBC 3.90 L, Hgb 12.4 L, Hct 38.2 L, MCV 98.0 H, MCH 31.8 H, MCHC 32.4, RDW 16.8, Plt Count 244, MPV 9.2, Neut % (Auto) 74.8, Lymph % (Auto) 18.2, [place] % (Auto) 6.1, Eos % (Auto) 0.2, Baso % (Auto) 0.6, Neut # (Auto) 5.5, Lymph # (Auto) 1.3, [place] # (Auto) 0.5, Eos # (Auto) 0.0, Baso # (Auto) 0.0 01/15/21 20:45: Sodium 141, Potassium 2.8 L*, Chloride 111 H, Carbon Dioxide 20 L, Anion Gap 12.8, BUN 2 L, Creatinine 0.70, Estimated Creat Clear 131, Estimated GFR 116, Est GFR ( Amer) 141, Glucose 92, Calcium 9.6, Total Bilirubin 0.8, AST 21, ALT 16, Alkaline Phosphatase 137 H, Troponin I 0.03, Total Protein 7.3, Albumin 3.6, Globulin 3.7 H, Albumin/Globulin Ratio 1.0 L, Lipase 50 01/15/21 21:05: Urine Color Yellow, Urine Appearance Clear, Urine pH 6.0, Ur Specific [place] 1.025, Urine Protein 1+, Urine Glucose (UA) Negative, Urine Ketones Trace, Urine Blood Trace-i, Urine Nitrate Negative, Urine Bilirubin Negative, Urine Urobilinogen 0.2, Ur Leukocyte Esterase Negative, Urine RBC 3-5, Amorphous Sediment Trace, Urine Mucus 2+ 01/15/21 21:05: Stool Occult Blood Negative 01/15/21 23:19: Lactate 0.8 01/15/21 23:19: Troponin I 0.03 Result diagrams: 01/15/21 20:45 01/15/21 20:45 Orders (Tests/Meds): ED MEDICATIONS Generic Name Dose Route Start Last Admin Trade Name Freq PRN Reason Stop Dose Admin Potassium Chloride/Water 100 mls @ 100 mls/hr 01/15/21 21:57 01/15/21 22:03 Potassium Chloride 10meq/100ml Ivpb IV 01/15/21 23:56 100 mls/hr Q1H SWEETIE Administration Discontinued Medications Generic Name Dose Route Start Last Admin Trade Name Freq PRN Reason Stop Dose Admin Pantoprazole Sodium 80 mg/ 100 mls @ 100 mls/hr 01/15/21 20:45 01/15/21 21:01 Sodium Chloride IV 01/15/21 21:44 100 mls/hr ONCE ONE Administration Iopamidol 100 ml 01/15/21 21:37 01/15/21 21:38 Iopamidol-370 (76%);100ml Bottle IV 01/15/21 21:38 100 ml ONCE ONE Administration Morphine Sulfate 4 mg 01/15/21 20:59 01/15/21 21:01 Morphine 4mg/Ml Syringe IV 01/15/21 21:00 4 mg ONCE ONE Administration Morphine Sulfate 2 mg 01/15/21 21:57 01/15/21 22:03 Morphine 2mg/Ml Syringe IV 01/15/21 21:58 2 mg ONCE ONE Administration Ondansetron HCl 4 mg 01/15/21 20:59 01/15/21 21:01 Ondansetron 4mg/2ml Vial IV 01/15/21 21:00 4 mg ONCE ONE Administration Potassium Chloride 40 meq 01/15/21 21:34 01/15/21 22:20 Potassium Chloride 20meq Tab PO 01/15/21 21:35 Not Given ONCE ONE Prochlorperazine Edisylate 10 mg 01/15/21 22:54 01/15/21 22
[2021-01-15 20:54] LABS: Basophils % 0.6 % (0.1-2.0); Eosinophils % 0.2 % (0.1-12.0); Hematocrit 38.2 % (42.0-52.0); Hemoglobin 12.4 g/dL (14.1-18.0); Lymphocytes # 1.3 K/mm3 (0.7-4.5); Lymphocytes % 18.2 % (10-50); Mean Corpuscular HGB Conc 32.4 g/dL (31.8-35.4); Mean Corpuscular Hemoglobin 31.8 pg (27.0-31.2); Mean Platelet Volume 9.2 fl (7.4-10.4); Monocytes # 0.5 K/mm3 (0.1-1.0); Monocytes % 6.1 % (1.7-9.3); Neutrophils # 5.5 K/mm3 (1.8-7.8); Neutrophils % 74.8 % (37.0-80.0); Platelet Count 244 K/mm3 (142-424); Red Cell Distribution Width 16.8 % (11.5-17.5); White Blood Count 7.3 K/mm3 (4.8-10.8)
[2021-01-15 21:05] LABS: Alanine Aminotransferase 16 U/L (12-78); Albumin Level 3.6 g/dl (3.5-5.0); Alkaline Phosphatase 137 U/L (38-126); Anion Gap 12.8 mEq/L (5-15); Aspartate Amino Transferase 21 U/L (17-59); Bilirubin,Total 0.8 mg/dl (0.2-1.3); Blood Urea Nitrogen 2 mg/dl (9-20); Calcium 9.6 mg/dl (8.4-10.2); Carbon Dioxide 20 mmol/L (22.0-30.0); Chloride 111 mmol/L (98-107); Creatinine Clearance Estimated 131 mL/min (50-200); Estimated Glomerular Filt Rate 116 ml/min (>60); GFR (African American) 141 ML/MIN (>60); Globulin 3.7 g/dL (1.3-3.2); Glucose 92 mg/dl (74-100); Lipase 50 U/L (23-300); Sodium 141 mmol/L (136-145); Total Protein,Serum 7.3 g/dl (6.3-8.2)
[2021-01-15 21:10] LABS: Potassium 2.8 mmoL/L (3.5-5.1)
[2021-01-15 21:17] LABS: Troponin I 0.03 ng/ml (0.00-0.034)
[2021-01-15 21:30] VITALS: BP 125/80; PULSE 84; O2SAT 98
[2021-01-15 21:38] LABS: Adenovirus F 40/41, stool Not Detected (NotDetected); Astrovirus Not Detected (NotDetected); Campylobacter Not Detected (NotDetected); Clostridium Difficile A/B, PCR Not Detected (NotDetected); Cryptosporidium Not Detected (NotDetected); Cyclospora Cayetanesis Not Detected (NotDetected); Entamoeba histolytica Not Detected (NotDetected); Enteroaggregative E coli Not Detected (NotDetected); Enteropathogenic E coli Not Detected (NotDetected); Enterotoxigenic E coli Not Detected (NotDetected); Giardia lamblia Not Detected (NotDetected); Microscopic, Urine URINE MICROSCOPIC (MICROSCOPIC); Norovirus Not Detected (NotDetected); Plesimonas Shigalloides, PCR Not Detected (NotDetected); Rotavirus A Not Detected (NotDetected); Salmonella, PCR Not Detected (NotDetected); Sapovirus Not Detected (NotDetected); Shiga-like toxin E coli Not Detected (NotDetected); Shigella Enterovasive E coli Not Detected (NotDetected); Vibrio Cholerae Not Detected (NotDetected); Vibrio, PCR Not Detected (NotDetected); Yersinia Entercolitica, PCR Not Detected (NotDetected)
--- NOTE | 2021-01-15 21:46 | PC.NURSE ---
return from rad. no issues noted
[2021-01-15 21:53] LABS: Occult Blood,Stool Negative (Negative)
[2021-01-15 21:56] LABS: Appearance,Urine CLEAR (Clear); Blood, Urine TRACE-I (Negative); Color,Urine YELLOW (Yellow); Glucose,Urine (UA) Negative (Negative); Ketones,Urine TRACE (Negative); Leukocyte Esterase,Urine Negative (Negative); Nitrate,Urine Negative (Negative); Protein,Urine 1+ (Negative); Specific Gravity, Urine 1.025 (1.005-1.030); Urobilinogen,Urine 0.2 EU/dl (0.2)
[2021-01-15 21:58] LABS: Bilirubin,Urine Negative (Negative)
[2021-01-15 22:10] LABS: Amorphous Sediment,Urine Trace /lpf; Mucus,Urine 2+ /lpf
[2021-01-15 23:00] VITALS: BP 161/86; PULSE 74; RESP 14; TEMP 36.8; O2SAT 98
--- NOTE | 2021-01-15 23:28 | PC.NURSE ---
call placed to [facility]. spoke crystal
[2021-01-15 23:37] LABS: Lactic Acid 0.8 mmol/L (0.7-2.1)
--- NOTE | 2021-01-15 23:48 | PC.NURSE ---
speaking with MD Kin at this time. Kin accepts pt for admission. House notified for bed assignment
[2021-01-15 23:50] LABS: Troponin I 0.03 ng/ml (0.00-0.034)
[2021-01-15 23:58] VITALS: BMI 22.6
[2021-01-16] VITALS (12 sets, daily range): BP systolic 130–166; BP diastolic 63–84; PULSE 69–106; RESP 8–20; TEMP 36.6–37.6; O2SAT 92–99; BMI 22.6
[2021-01-16] LABS: Coronavirus 19, PCR Not Detected (NotDetected); Influenza A, PCR Not Detected (NotDetected); Influenza B, PCR Not Detected (NotDetected)
[2021-01-16 00:05] LABS: Magnesium 1.3 mg/dl (1.6-2.3)
--- NOTE | 2021-01-16 01:01 | PC.NURSE ---
PT ARRIVED TO FLOOR VIA W/C FROM ED W/STAFF AT 0052
[2021-01-16 03:18] LABS: Basophils % 0.6 % (0.1-2.0); Eosinophils # 0.1 K/mm3 (0.0-0.4); Eosinophils % 0.8 % (0.1-12.0); Hematocrit 34.4 % (42.0-52.0); Lymphocytes # 1.8 K/mm3 (0.7-4.5); Lymphocytes % 28.8 % (10-50); Mean Corpuscular HGB Conc 32.2 g/dL (31.8-35.4); Mean Corpuscular Volume 99.3 fl (80-94); Mean Platelet Volume 8.4 fl (7.4-10.4); Monocytes # 0.5 K/mm3 (0.1-1.0); Monocytes % 7.8 % (1.7-9.3); Neutrophils # 3.9 K/mm3 (1.8-7.8); Platelet Count 249 K/mm3 (142-424); Red Blood Count 3.46 M/mm3 (4.60-6.20); Red Cell Distribution Width 16.8 % (11.5-17.5); White Blood Count 6.3 K/mm3 (4.8-10.8)
[2021-01-16 03:22] LABS: Hemoglobin 11.1 g/dL (14.1-18.0)
[2021-01-16 03:32] LABS: Anion Gap 8.8 mEq/L (5-15); Blood Urea Nitrogen 2 mg/dl (9-20); Calcium 9.2 mg/dl (8.4-10.2); Carbon Dioxide 22 mmol/L (22.0-30.0); Chloride 111 mmol/L (98-107); Creatinine Clearance Estimated 132 mL/min (50-200); Estimated Glomerular Filt Rate 116 ml/min (>60); GFR (African American) 141 ML/MIN (>60); Glucose 80 mg/dl (74-100); Sodium 139 mmol/L (136-145)
[2021-01-16 03:39] LABS: Potassium 2.8 mmoL/L (3.5-5.1)
[2021-01-16 03:44] LABS: Troponin I 0.03 ng/ml (0.00-0.034)
--- NOTE | 2021-01-16 04:55 | PC.NURSE ---
Patient is A&Ox4. He is able to ambulate independently in the bed and in the room. Patient states I have a bed sore on my bottom . He did not want to undress at this time due to being tired. Patient requested to have some cream for it and barrier cream was given to the patient. Patient has had complaints of abdominal pain on and off throughout being on the floor. Patient has had no episodes of emesis at thus far in the shift. VSS, call light within reach, will continue to monitor.
--- NOTE | 2021-01-16 05:39 | PC.NURSE ---
0338 Pj from lab called with a critical potassium level of 2.8 Name and verified x2. engineer conductor notified.
--- NOTE | 2021-01-16 07:25 | P.CONPHA_ITS ---
[facility] Pharmacy VTE Monitoring - Patient Demographics Admission date: 01/15/21 Report Date: 01/16/21 Time: 07:25 Allergies/Adverse Reactions: Patient Allergies diphenhydramine [From BENADRYL ALLERGY] Allergy (Mild, Verified 02/07/18 14:33) NA-NAUSEA pseudoephedrine [From SUDAFED] Allergy (Mild, Verified 02/07/18 14:33) NA-NAUSEA nitroglycerin [From NITRO-BID] Allergy (Unknown, Verified 02/07/18 14:33) Height: 1.88 m Weight: 80.087 kg Patient Problems: Current Active Problems Nausea and vomiting (Chronic) Gastroenteritis (Acute) Hypokalemia (Acute) - VTE Risk Labs: VTE Related Lab Results Hgb 11.1 g/dL (14.1-18.0) L D 01/16/21 03:10 Hct 34.4 % (42.0-52.0) L 01/16/21 03:10 Plt Count 249 K/mm3 (142-424) 01/16/21 03:10 BUN 2 mg/dl (9-20) L 01/16/21 03:10 Creatinine 0.70 mg/dl (0.66-1.25) 01/16/21 03:10 Estimated Creat Clear 132 mL/min (50-200) 01/16/21 03:10 - Prophylaxis VTE Prophylaxis Ordered?: Yes Types of VTE Prophylaxis: TEDS Knee High Location of Applied Device: Bilateral Lower Extremeties
--- NOTE | 2021-01-16 08:08 | HMH.PHAINT ---
MEDICATION RECONCILIATION COMPLETE USING SURESCRIPTS AND PREVIOUS DISHCARGE PAPERWORK
[2021-01-16 09:42] LABS: Basophils % 0.5 % (0.1-2.0); Eosinophils # 0.1 K/mm3 (0.0-0.4); Eosinophils % 1.1 % (0.1-12.0); Hematocrit 31.7 % (42.0-52.0); Hemoglobin 10.4 g/dL (14.1-18.0); Lymphocytes # 1.4 K/mm3 (0.7-4.5); Lymphocytes % 23.9 % (10-50); Mean Corpuscular HGB Conc 32.7 g/dL (31.8-35.4); Mean Corpuscular Hemoglobin 32.1 pg (27.0-31.2); Mean Corpuscular Volume 98.3 fl (80-94); Mean Platelet Volume 9.2 fl (7.4-10.4); Monocytes # 0.4 K/mm3 (0.1-1.0); Monocytes % 7.3 % (1.7-9.3); Neutrophils # 3.9 K/mm3 (1.8-7.8); Neutrophils % 67.2 % (37.0-80.0); Platelet Count 205 K/mm3 (142-424); Red Blood Count 3.23 M/mm3 (4.60-6.20); Red Cell Distribution Width 16.7 % (11.5-17.5); White Blood Count 5.8 K/mm3 (4.8-10.8)
[2021-01-16 10:38] LABS: Chloride 112 mmol/L (98-107); Sodium 140 mmol/L (136-145)
[2021-01-16 10:41] LABS: Anion Gap 7.9 mEq/L (5-15); Blood Urea Nitrogen 2 mg/dl (9-20); Carbon Dioxide 23 mmol/L (22.0-30.0); Creatinine Clearance Estimated 154 mL/min (50-200); Estimated Glomerular Filt Rate 139 ml/min (>60); GFR (African American) 168 ML/MIN (>60)
[2021-01-16 10:42] LABS: Calcium 8.8 mg/dl (8.4-10.2); Glucose 81 mg/dl (74-100)
[2021-01-16 10:44] LABS: Potassium 2.9 mmoL/L (3.5-5.1)
--- NOTE | 2021-01-16 12:30 | HMH.CNCARD ---
History of Present Illness Consult date: 01/16/21 Requesting physician: Vargas Sanderson Consult reason: chest pain Chief complaint: N,V,diarrhea Additional Medical History:: 1. Coronary artery disease A. History of coronary bypass grafting ?3. SRINIVASAN not used. B. Cardiac catheterization 06/2015 adequate kiana coronary arteries with mild nonflow limiting disease. All SVG's are occluded ostially with no identifiable angiographic origin. Hyperdynamic EF at 70% with LVEDP 18 mmHg. C. Echocardiogram 08/01/2016 LA size 5.8 cm, mild LV dilatation with EF 40% with marked hypo-to akinesis involving the mid to distal septum, anteroapical, apex and inferior mann. RA/RV normal in size with normal contractility. Aortic valve is thickened and calcified but continued to display mobility. Mitral valve leaflets are minimally thickened with no MS. Mild MR and TR noted. D. History of persistent elevated troponin prompting [facility], 08/01/2016, diffuse, mild to moderate nonflow limiting CAD with all vein grafts occluded by previous angiography. LVEF 40% with LV dilatation noted. LVEDP is 15 mmHg. E. Ischemic Cardiomyopathy with LVEF of 30% with multiple segmental wall motion abnormalities by echo, 08/2017 F. BiV AICD implanted, 08/2017, [facility] [employer] for ischemic CM, QRS duration >120 ms with cardiac cachexia G. [facility], 03/2018, ANGIOGRAPHIC RESULTS: IMPRESSION: 1. Mild to moderate diffuse coronary artery disease 2. Moderate to severe coronary ectasia mainly noted in the right coronary artery 3. Patent stent in the proximal and mid/distal left anterior descending 4. Patent stent in the ostial/proximal first diagonal branch/ramus intermedius 5. Patent stent in the mid left circumflex 6. Borderline normal left ventricular systolic function 7. Normal left ventricular end-diastolic pressure PLAN: 1. Medical management 2. Dual antiplatelet therapy given coronary ectasia H. NSTEMI by troponins, 01/07/2021 with [facility], unchanged from 2019. Mild to moderate CAD. Coronary ectasia mainly of the circumflex and RCA noted with recommendation to continue medical therapy. PLUMMER ventriculogram EF estimated at 55%. LVEDP estimated 8 mmHg 2. H/o infrarenal AAA, s/p percutaneous endovascular repair using a Cook modular bifurcated prosthesis (main body of the graft 26 x 111, LEFT ipsilateral limb 20 x 90, RIGHT contralateral limb 16 x 90), Dr. Alexy Licea, [facility], [place], [place], 08/2014. A. CTA of abdomen, 01/15/2021, obtained due to N/V/D and abdominal pain IMPRESSION: 1. Fusiform 5.7 cm transverse infrarenal aortic aneurysm which has been repaired with a bifurcating endograft. There is subtle enhancement within the aneurysm sac near the inferior edge of the endograft raising suspicion for a mild type 1b endoleak. 2. Status post embolization within the aneurysm sac resulting in streak artifact and limiting detail. 3. No definite CT evidence of an aortoenteric fistula. 4. Tiny focus of enhancement within the cecum which potentially could represent a site of mild active bleeding. Unfortunately, I do not have precontrast images for comparison. 5. Subacute moderate anterior compression fracture of L1 with roughly 30% loss of the anterior and mid vertebral body height and 4 mm posterior retropulsion into the spinal canal. Although this appears subacute, it is new since the prior study from November 21, 2020. 6. Thickened colonic wall from the mid descending colon to the rectum raising the question of mild colitis. 7. Cardiomegaly status post pacemaker/AICD placement. 8. Hepatic steatosis. 9. Status post cholecystectomy. 10. Status post right hip arthroplasty. 11. Exophytic left renal cyst. 12. Mild bronchial wall thickening, mucous debris within the right lower lobe bronchus and a streaky infiltrate in the right lower lobe suggesting mild aspiration.
--- NOTE | 2021-01-16 12:49 | HMH.HP ---
*Admission Date: 01/15/21 *Chief complaint: nausea/vomiting/diarrhea *History of present illness: 55-year-old white male with complex history as noted above including percutaneous endovascular repair of infrarenal abdominal aortic aneurysm in 2014 presented to the emergency department for abdominal pain with nausea, vomiting and diarrhea of less than 24 hours duration. Diarrhea noted to be coffee-ground in color which prompted the evaluation. CTA of the abdomen and pelvis revealed evidence of prior endovascular repair with slight enlargement of the aneurysm at 5.7 cm with a hint of contrast noted but no contrast identified in the colon. Evidence of colitis was noted. This was discussed with vascular who felt that the patient was stable to wait for outpatient follow-up. Lab work revealed hypokalemia at 2.8 with normal troponins. Patient recently was hospitalized earlier this month for non-ST elevation [place] with subsequent cardiac cath showing stable coronary disease and recommendation for medical management. Patient does have an AICD in place with known history of atrial fibrillation for which he is on long-term Eliquis therapy and amiodarone. EKG demonstrates dual chamber pacing with capture.-per cardiology [facility] History I have reviewed the patient's past medical history: Yes Medical History: Reports:: Aneurysm, Arrhythmia, Atherosclerotic Heart Disease, Atrial Fibrillation, Congestive Heart Failure, Chronic Obstructive Pulmonary Disease (COPD), Coronary Artery Disease, Cerebrovascular Accident, Gastroesophageal Reflux Disease(GERD), Hyperlipidemia, Hypertension, Internal Pacemaker, Myocardial Infarction Denies:: Cancer, Diabetes Mellitus Type 1, Diabetes Mellitus Type 2, MRSA, Seizures *Have you ever received a pneumonia vaccine?: Yes *Have you received a flu vaccine this season?: Yes Other Medical History: Denies: Blood Transfusion Reaction Laterality Cases: Left: Other, Right: Arthroscopy Hip, Total Hip Replacement Other Surgeries: Yes: CABG (x3), Cardiac Catheterization, Cardiac Surgery, Cholecystectomy, Colonoscopy, Coronary Stent, Open Heart Surgery, Pacemaker, Other Amputation: No Fractures: No - *Social History Last grade of school completed: High school graduate Smoking Status: Current every day smoker Tobacco Type: cigarettes # Packs/Day (cigarettes): 2 #Yrs smoked (if former smoker): 40 Alcohol Intake: never Alcohol Intake Frequency:: other Substance Use Type: marijuana *Occupational Status:: disabled Housing: apartment Household Members: none *Travel in the last 8 weeks: None Family Hx:: Asthma, Cancer, Coronary Artery Disease, Diabetes, Heart Attack, Hyperlipidemia, Hypertension Review of Systems - Constitutional Reports body ache(s), Denies fatigue, Denies weakness - Eyes Denies blurry vision - ENT Denies abnormal hearing, Denies nasal obstruction - *Cardiovascular Denies chest pain, Denies shortness of breath with activity - *Respiratory Denies change in phlegm color - *Gastrointestinal Reports abdominal pain, Reports cramping, Reports loose stools, Reports nausea, Reports vomiting - *Genitourinary Denies difficulty urinating, Denies blood in urine - *Musculoskeletal Denies abnormal walking - Integumentary/Breasts Denies hair loss, Denies sores - *Neurologic Denies seizure-like activity - Psychiatric Denies depression - Endocrine Denies increased thirst - Hematologic/Lymphatic Denies easy bleeding - Allergic/Immunologic Denies GI upset with certain foods Meds Home Medications Medication Instructions Recorded Confirmed Type Atorvastatin Calcium [Lipitor 80mg 80 mg PO HS 05/26/17 01/16/21 History Tab] Amiodarone HCl 200 mg PO DAILY 01/08/21 01/16/21 History Ranolazine [Ranexa 500mg ER tablet] 500 mg PO BID 01/08/21 01/16/21 History Nicotine [Nicoderm 21mg/24hr 21 mg TD DAILYP PRN 30 Days #30 01/11/21 01/16/21 Rx patch] patch Amoxicillin/Potassium Clav 500 mg PO TID
--- NOTE | 2021-01-16 15:48 | PC.NURSE ---
Pt has been pleasant and cooperative this shift. A&O X4. Pt has has several complaints of pain today and has been medicated with Morphine per MAR Q2H. Pt reports nausea and has received Phenergan with favorable results. No vomiting. 1 episode of diarrhea. Pt is currently on room air with sats. >90%. Lungs CTA. No edema noted. Skin is C/D/I. Pt uses the urinal to void clear, dark-karolina urine without issue. Pt ambulates independently. Appetite is fair and pt eats about half of all meals. 20 G peripheral IV in place to the RT AC is patent and infusing NS @ 50 ML/HR. VSS. Call light within reach. Will continue to monitor.
[2021-01-17] VITALS (8 sets, daily range): BP systolic 138–165; BP diastolic 66–86; PULSE 70–90; RESP 17–20; TEMP 36.7–37.1; O2SAT 94–99; BMI 24.0
--- NOTE | 2021-01-17 05:00 | PC.NURSE ---
Patient is alert and oriented x4. He has several complaints of pain and nausea. He has been medicated with morphine for pain and phenergan for nausea per MAR. Patient has a 20g in his RAC with NS infusing at 100 ml/hr. Patient voids per urinal with clear, dark karolina urine noted. Lung sounds are clear bilaterally throughout, no edema noted. Skin is C/D/I. Patient has had no BM or emesis episodes noted. VSS, call light within reach, will continue to monitor.
[2021-01-17 06:38] LABS: Basophils % 0.6 % (0.1-2.0); Chloride 113 mmol/L (98-107); Eosinophils # 0.1 K/mm3 (0.0-0.4); Eosinophils % 0.8 % (0.1-12.0); Hematocrit 30.3 % (42.0-52.0); Hemoglobin 9.7 g/dL (14.1-18.0); Lymphocytes # 1.1 K/mm3 (0.7-4.5); Lymphocytes % 17.9 % (10-50); Mean Corpuscular HGB Conc 32.1 g/dL (31.8-35.4); Mean Corpuscular Hemoglobin 32.2 pg (27.0-31.2); Mean Corpuscular Volume 100.2 fl (80-94); Mean Platelet Volume 7.8 fl (7.4-10.4); Monocytes # 0.4 K/mm3 (0.1-1.0); Monocytes % 6.2 % (1.7-9.3); Neutrophils # 4.7 K/mm3 (1.8-7.8); Neutrophils % 74.5 % (37.0-80.0); Platelet Count 201 K/mm3 (142-424); Red Blood Count 3.03 M/mm3 (4.60-6.20); Red Cell Distribution Width 16.8 % (11.5-17.5); Sodium 139 mmol/L (136-145); White Blood Count 6.3 K/mm3 (4.8-10.8)
[2021-01-17 06:41] LABS: Anion Gap 6.8 mEq/L (5-15); Calcium 8.4 mg/dl (8.4-10.2); Carbon Dioxide 22 mmol/L (22.0-30.0); Creatinine Clearance Estimated 196 mL/min (50-200); Estimated Glomerular Filt Rate 171 ml/min (>60); GFR (African American) 207 ML/MIN (>60); Glucose 75 mg/dl (74-100)
[2021-01-17 06:47] LABS: Blood Urea Nitrogen < 2 mg/dl (9-20)
[2021-01-17 06:49] LABS: Potassium 2.8 mmoL/L (3.5-5.1)
--- NOTE | 2021-01-17 07:01 | PC.NURSE ---
Lori from lab called ([phone]) with a critical potassium of 2.8 Name, , and lab value verified x2. Dr. Alonzo notified at 0701
--- NOTE | 2021-01-17 09:50 | HMH.PNCARD ---
Subjective Date: 01/17/21 Time: 10:01 Principal diagnosis: N, V, Diarrhea, hypokalemia Interval history: 55-year-old white male in bed in no acute distress. He does relate recurrence of nausea, vomiting and diarrhea overnight. Emesis is a bile color in appearance per patient. He denies any evidence of bright red blood per rectum. He continues to receive supplemental potassium. Exam Vital signs and Labs for Last 24 Hours: Temp Pulse Resp BP Pulse Ox 98.4 F 90 18 147/66 H 96 01/17/21 04:00 01/17/21 08:00 01/17/21 04:00 01/17/21 04:00 01/17/21 04:00 Laboratory Results - last 24 hr 01/16/21 09:10: Sodium 140, Potassium 2.9 L*, Chloride 112 H, Carbon Dioxide 23, Anion Gap 7.9, BUN 2 L, Creatinine 0.60 L, Estimated Creat Clear 154, Estimated GFR 139, Est GFR ( Amer) 168, Glucose 81, Calcium 8.8 01/16/21 09:30: WBC 5.8, RBC 3.23 L, Hgb 10.4 L, Hct 31.7 L, MCV 98.3 H, MCH 32.1 H, MCHC 32.7, RDW 16.7, Plt Count 205, MPV 9.2, Neut % (Auto) 67.2, Lymph % (Auto) 23.9, [place] % (Auto) 7.3, Eos % (Auto) 1.1, Baso % (Auto) 0.5, Neut # (Auto) 3.9, Lymph # (Auto) 1.4, [place] # (Auto) 0.4, Eos # (Auto) 0.1, Baso # (Auto) 0.0 01/17/21 05:50: WBC 6.3, RBC 3.03 L, Hgb 9.7 L, Hct 30.3 L, MCV 100.2 H, MCH 32.2 H, MCHC 32.1, RDW 16.8, Plt Count 201, MPV 7.8, Neut % (Auto) 74.5, Lymph % (Auto) 17.9, [place] % (Auto) 6.2, Eos % (Auto) 0.8, Baso % (Auto) 0.6, Neut # (Auto) 4.7, Lymph # (Auto) 1.1, [place] # (Auto) 0.4, Eos # (Auto) 0.1, Baso # (Auto) 0.0 01/17/21 05:50: Sodium 139, Potassium 2.8 L*, Chloride 113 H, Carbon Dioxide 22, Anion Gap 6.8, BUN < 2 L, Creatinine 0.50 L, Estimated Creat Clear 196, Estimated GFR 171, Est GFR ( Amer) 207 D, Glucose 75, Calcium 8.4 I & O for Last 24 hours: Intake & Output 01/14/21 01/15/21 01/16/21 01/17/21 11:59 11:59 11:59 11:59 Intake Total 480 / 480 2523 / 2523 Output Total 1600 / 1600 Balance 480 / 480 923 / 923 Weight 176 lb 5.917 oz 187 lb 4.8 oz - Constitutional no acute distress - *Routine HEENT Exam Head: Present: normocephalic Eye: Present: EOMI, PERRL ENT: Present: mucous membranes moist - *Routine Neck Exam Present: supple. Absent: lymphadenopathy - *Routine Respiratory Exam Present: CTA bilaterally - *Routine Cardiovascular Exam Present: RRR - *Routine Abdominal Exam Present: soft, normoactive bowel sounds. Absent: tenderness - *Routine Extremities Exam Absent: cyanosis, clubbing, edema - *Routine Skin Exam Present: warm. Absent: rash - *Routine Neurological Exam Present: alert, oriented X3 Progress Note: A&P (1) Abdominal pain Status: Acute (2) Atrial fibrillation Status: Acute (3) Biventricular automatic implantable cardioverter defibrillator in situ Status: Acute (4) CAD (coronary artery disease) Status: Acute (5) COPD (chronic obstructive pulmonary disease) Status: Acute (6) Endoleak post endovascular aneurysm repair Status: Acute (7) Epigastric abdominal pain Status: Acute (8) Gastroenteritis Status: Acute (9) HLD (hyperlipidemia) Status: Acute (10) History of aortic aneurysm repair Status: Acute (11) Hypertension Status: Acute (12) Hypokalemia Status: Acute (13) Nausea and vomiting Status: Chronic (14) Abdominal cramping Status: Acute Assessment and Plan for All Diagnoses:: 1. Gastroenteritis with evidence of mild colitis on CT and coffee ground stool per patient, workup in progress. 2. Hypokalemia, supplementation in progress. K still 2.8 this AM. Mag still low so will reorder replacement. 3. History of infrarenal AAA percutaneous endovascular repair, 2014, with evidence of endovascular leak type Ib on CT angiogram this admission. This has been discussed with vascular surgery at and patient is felt to be stable enough for outpatient follow-up. 4. Coronary artery disease with prior bypass, clinically stable with recent left heart catheterization
[2021-01-17 10:12] LABS: Magnesium 1.5 mg/dl (1.6-2.3)
--- NOTE | 2021-01-17 12:46 | HMH.GSCON ---
*Admission Date: 01/15/21 *Reason for consult:: Abdominal Pain *History of present illness: Patient is a 55-year-old male from [place] with a history of coronary artery disease status post coronary artery bypass grafting in 2011 with numerous subsequent coronary stents placed, left bundle branch block, atrial fibrillation, congestive heart failure, COPD, previous myocardial infarction, pacemaker/AICD placement, prior cerebrovascular accident, hypertension, abdominal aortic aneurysm status post endograft repair several years ago with recent repeat surgery at [facility] through left lower quadrant abdominal incision. He is normally on aspirin, Plavix, and Eliquis. He was admitted several days ago after he presented to the emergency department with several days of nausea, vomiting, and diarrhea. Diarrhea became somewhat bloody with a bloody bowel movement and dark blood. He has had some lower abdominal pain. Work-up in the emergency department included CTA of the abdomen and pelvis which revealed findings of a fusiform 5.7 cm transverse infra renal aortic aneurysm with bifurcating endograft repair with some subtle enhancement within the aneurysmal sac which was raising suspicion for mild to type Ib endoleak. There was noted to be thickened colonic wall from the mid descending colon to the rectum consistent with possible mild colitis. There were multiple other findings noted on CT scan (please see report for complete details). Case was discussed with vascular surgery at [facility] and it was felt that findings regarding the aortic aneurysm could be managed as an outpatient. Patient was therefore admitted for inpatient medical management at this institution several days ago. Surgical consultation was ordered this afternoon. Patient had a recent hospitalization with chest pain. He has had numerous evaluations in the emergency department over the past several months with abdominal/gastrointestinal complaints. He describes his pain across the lower abdomen originating in the left lower quadrant with some radiation to the epigastrium. He characterizes the pain as knifelike. He states that he has had ongoing pain with nausea for several months with some weight loss. He has been on a cardiac diet. Review of Systems - Review of Systems Review of systems:: pertinent systems reviewed and negative unless documented below - *Neurologic Denies abnormal walking, Denies abnormal hearing, Denies seizure-like activity, Denies weakness [facility] History I have reviewed the patient's past medical history: Yes Medical History: Reports:: Aneurysm, Arrhythmia, Atherosclerotic Heart Disease, Atrial Fibrillation, Congestive Heart Failure, Chronic Obstructive Pulmonary Disease (COPD), Coronary Artery Disease, Cerebrovascular Accident, Gastroesophageal Reflux Disease(GERD), Hyperlipidemia, Hypertension, Internal Pacemaker, Myocardial Infarction Denies:: Cancer, Diabetes Mellitus Type 1, Diabetes Mellitus Type 2, MRSA, Seizures *Have you ever received a pneumonia vaccine?: Yes *Have you received a flu vaccine this season?: Yes Other Medical History: Denies: Blood Transfusion Reaction Laterality Cases: Left: Other, Right: Arthroscopy Hip, Total Hip Replacement Other Surgeries: Yes: CABG (x3), Cardiac Catheterization, Cardiac Surgery, Cholecystectomy, Colonoscopy, Coronary Stent, Open Heart Surgery, Pacemaker, Other Amputation: No Fractures: No - *Social History Last grade of school completed: High school graduate Smoking Status: Current every day smoker Tobacco Type: cigarettes # Packs/Day (cigarettes): 2 #Yrs smoked (if former smoker): 40 Alcohol Intake: never Alcohol Intake Frequency:: other Substance Use Type: marijuana *Occupational Status:: disabled Housing: apartment Household Members: none *Travel in the last 8 weeks: None Family Hx:: Asthma, Cancer, Coronary Artery Disease, Diabetes, Heart Attack, Hyperlipidemia, Hypertension Meds
--- NOTE | 2021-01-17 13:28 | HMH.ACPN2 ---
Internal Medicine - PN: Subj *Date: 01/18/21 *Time: 05:31 Interval history: pt seen and has ongoing nausea and upper abd pain - has low k Exam Vital signs and Labs for Last 24 Hours: Temp Pulse Resp BP Pulse Ox 98.2 F 70 17 157/78 H 97 01/17/21 12:00 01/17/21 12:00 01/17/21 12:00 01/17/21 12:00 01/17/21 12:00 Laboratory Results - last 24 hr 01/17/21 05:50: WBC 6.3, RBC 3.03 L, Hgb 9.7 L, Hct 30.3 L, MCV 100.2 H, MCH 32.2 H, MCHC 32.1, RDW 16.8, Plt Count 201, MPV 7.8, Neut % (Auto) 74.5, Lymph % (Auto) 17.9, [place] % (Auto) 6.2, Eos % (Auto) 0.8, Baso % (Auto) 0.6, Neut # (Auto) 4.7, Lymph # (Auto) 1.1, [place] # (Auto) 0.4, Eos # (Auto) 0.1, Baso # (Auto) 0.0 01/17/21 05:50: Sodium 139, Potassium 2.8 L*, Chloride 113 H, Carbon Dioxide 22, Anion Gap 6.8, BUN < 2 L, Creatinine 0.50 L, Estimated Creat Clear 196, Estimated GFR 171, Est GFR ( Amer) 207 D, Glucose 75, Calcium 8.4 01/17/21 05:50: Magnesium 1.5 L D I & O for Last 24 hours: Intake & Output 01/15/21 01/16/21 01/17/21 01/18/21 11:59 11:59 11:59 11:59 Intake Total 480 / 480 2763 / 2763 80 / 80 Output Total 1600 / 1600 Balance 480 / 480 1163 / 1163 80 / 80 Weight 176 lb 5.917 oz 187 lb 4.8 oz - Constitutional no acute distress - *Routine HEENT Exam Head: Present: normocephalic Eye: Present: EOMI, PERRL ENT: Present: mucous membranes dry - *Routine Neck Exam Absent: JVD - *Routine Respiratory Exam Present: CTA bilaterally - *Routine Cardiovascular Exam Present: RRR - *Routine Abdominal Exam Present: soft, tenderness - *Routine Extremities Exam Absent: calf tenderness - *Routine Skin Exam Present: intact - *Routine Neurological Exam Present: alert, CN II-XII intact - Routine Psychiatric Exam Present: normal affect Assessment and Plan (1) Abdominal pain Status: Acute Qualifiers: Abdominal location: generalized Qualified Code(s): R10.84 - Generalized abdominal pain Category: Medical Code(s): R10.9 - Unspecified abdominal pain (2) Atrial fibrillation Status: Acute Category: Medical Code(s): I48.91 - Unspecified atrial fibrillation (3) Biventricular automatic implantable cardioverter defibrillator in situ Status: Acute Category: Medical Code(s): Z95.810 - Presence of automatic (implantable) cardiac defibrillator (4) CAD (coronary artery disease) Status: Acute Category: Medical Code(s): I25.10 - Atherosclerotic heart disease of [place] coronary artery without angina pectoris (5) COPD (chronic obstructive pulmonary disease) Status: Acute Qualifiers: COPD type: unspecified COPD Qualified Code(s): J44.9 - Chronic obstructive pulmonary disease, unspecified Category: Medical Code(s): J44.9 - Chronic obstructive pulmonary disease, unspecified (6) Endoleak post endovascular aneurysm repair Status: Acute Category: Medical (7) Epigastric abdominal pain Status: Acute Category: Medical Code(s): R10.13 - Epigastric pain (8) Gastroenteritis Status: Acute Category: Medical Code(s): K52.9 - Noninfective gastroenteritis and colitis, unspecified (9) HLD (hyperlipidemia) Status: Acute Category: Medical Code(s): E78.5 - Hyperlipidemia, unspecified (10) History of aortic aneurysm repair Status: Acute Category: Surgical Code(s): Z98.890 - Other specified postprocedural states; Z86.79 - Personal history of other diseases of the circulatory system (11) Hypertension Status: Acute Category: Medical Code(s): I10 - Essential (primary) hypertension (12) Hypokalemia Status: Acute Category: Medical Code(s): E87.6 - Hypokalemia (13) Nausea and vomiting Status: Chronic Qualifiers: Vomiting type: unspecified Vomiting Intractability: intractable Qualified Code(s): R11.2 - Nausea with vomiting, unspecified Category: Medical Code(s): R11.2 - Nausea with vomiting, unspecified (14) Abdominal cramping Status: A
--- NOTE | 2021-01-17 17:20 | PC.NURSE ---
Pt has been pleasant and cooperative this shift. A&O X4. Pt has has several complaints of pain today and has been medicated with Morphine per MAR Q2H. Pt reports nausea and has received Phenergan with favorable results. No vomiting. No diarrhea. Pt is currently on room air with sats. >90%. Lungs CTA. No edema noted. Telemetry reveals a PACED rhythm. Skin is C/D/I. Pt uses the urinal to void clear, dark-karolina urine without issue. Pt ambulates independently. Appetite is fair and pt eats about half of all meals. 20 G peripheral IV in place to the LT forearm is patent and infusing NS @ 100 ML/HR. VSS. Call light within reach. Will continue to monitor.
[2021-01-18] VITALS (9 sets, daily range): BP systolic 143–163; BP diastolic 67–88; PULSE 70–90; RESP 16–20; TEMP 36.7–37; O2SAT 95–98; BMI 24.0
--- NOTE | 2021-01-18 04:09 | PC.NURSE ---
pt has rested intermittently t/o shift, has remained on room air with no complaints of SOA, has complained of nausea one time this shift and was treated per MAY, has complained of abdominal pain 2 times this shift and was treated per MAR
--- NOTE | 2021-01-18 06:38 | CT_ITS ---
PROCEDURE: CT ABDOMEN PELVIS W CON CLINICAL INDICATION: PERSISTENT ABDOMINAL PAIN, POSSIBLE COLITIS COMPARISON: CT CT ABDOMEN PELVIS WO/W CON from 08/12/[address] ANGIO ABDOMEN PELVIS from 01/15/2021 TECHNIQUE: IV Contrast: 75ML Isovue 370 was power injected, some of which extravasated into the arm. The intravenous bolus was missed on the images. Oral Contrast 10ml Gastroview Axial images obtained with sagittal and coronal reformats. All CT scans at the facility use one or more dose reduction, viz: automated exposure control, ma/kV adjustment per patient size (including targeted exams where dose is matched to indication, i.e. head), or iterative reconstruction technique. FINDINGS: LOWER THORAX: There is extensive calcific coronary atherosclerosis. Pacing line. There is trace bilateral pleural fluid, right greater than left. Sternotomy wires. There is consolidation in the right lower lobe suggesting aspiration or pneumonia. ABDOMEN & PELVIS: The study is limited due to the lack of intravenous contrast. No definite hepatic lesions identified. There are hepatic granulomas. Splenic granulomas. Spleen unremarkable. Cholecystectomy. Adrenal glands unremarkable. Pancreas unremarkable. Both kidneys are excreting contrast. Large left renal cyst. Both ureters unremarkable. Bladder unremarkable. Evaluation of the pelvis is limited by metal artifact from right hip replacement. He junction, stomach, small bowel, and colon unremarkable. No lymphadenopathy. Diffuse muscular atrophy. L2 compression fracture, unchanged from prior study. Again identified is coil mass from prior endoleak embolization. IMPRESSION: 1. No evidence of colitis. 2. Right lower lobe consolidation suggesting aspiration or pneumonia. 3. Trace bilateral pleural effusions. 4. L2 compression fracture, unchanged from prior study. Dictated by: Regina Beard MD 01/18/2021 12:11 Regina Beard MD in [place] 01/18/2021 12:11
--- NOTE | 2021-01-18 07:03 | HMH.GSPN ---
Progress Note: A&P (1) Abdominal pain Status: Acute (2) Atrial fibrillation Status: Acute (3) Biventricular automatic implantable cardioverter defibrillator in situ Status: Acute (4) CAD (coronary artery disease) Status: Acute (5) COPD (chronic obstructive pulmonary disease) Status: Acute (6) Endoleak post endovascular aneurysm repair Status: Acute (7) Epigastric abdominal pain Status: Acute (8) Gastroenteritis Status: Acute (9) HLD (hyperlipidemia) Status: Acute (10) History of aortic aneurysm repair Status: Acute (11) Hypertension Status: Acute (12) Hypokalemia Status: Acute (13) Nausea and vomiting Status: Chronic (14) Abdominal cramping Status: Acute Assessment and Plan for All Diagnoses:: Plan for follow-up CT scan of the abdomen pelvis with IV and oral contrast due to persistent subjective tenderness. Exam Vital signs and Labs for Last 24 Hours: Temp Pulse Resp BP Pulse Ox 98.3 F 71 20 143/72 H 97 01/18/21 04:00 01/18/21 04:00 01/18/21 04:00 01/18/21 04:00 01/18/21 04:00 Laboratory Results - last 24 hr 01/17/21 05:50: WBC 6.3, RBC 3.03 L, Hgb 9.7 L, Hct 30.3 L, MCV 100.2 H, MCH 32.2 H, MCHC 32.1, RDW 16.8, Plt Count 201, MPV 7.8, Neut % (Auto) 74.5, Lymph % (Auto) 17.9, [place] % (Auto) 6.2, Eos % (Auto) 0.8, Baso % (Auto) 0.6, Neut # (Auto) 4.7, Lymph # (Auto) 1.1, [place] # (Auto) 0.4, Eos # (Auto) 0.1, Baso # (Auto) 0.0 01/17/21 05:50: Magnesium 1.5 L D I & O for Last 24 hours: Intake & Output 01/15/21 01/16/21 01/17/21 01/18/21 11:59 11:59 11:59 11:59 Intake Total 480 / 480 2763 / 2763 4250 / 4250 Output Total 1600 / 1600 3175 / 3175 Balance 480 / 480 1163 / 1163 1075 / 1075 Weight 176 lb 5.917 oz 187 lb 4.8 oz 187 lb 6 oz
--- NOTE | 2021-01-18 07:48 | PC.NURSE ---
PO contrast finished @ 0745, Rad made aware. Having difficulty obtaining access in AC or higher for IV contrast, they are aware of this as well.
[2021-01-18 08:24] LABS: Basophils % 0.4 % (0.1-2.0); Eosinophils # 0.1 K/mm3 (0.0-0.4); Eosinophils % 1.4 % (0.1-12.0); Hematocrit 32.9 % (42.0-52.0); Hemoglobin 10.6 g/dL (14.1-18.0); Lymphocytes # 1.5 K/mm3 (0.7-4.5); Lymphocytes % 20.5 % (10-50); Mean Corpuscular HGB Conc 32.3 g/dL (31.8-35.4); Mean Corpuscular Hemoglobin 32.2 pg (27.0-31.2); Mean Corpuscular Volume 99.6 fl (80-94); Mean Platelet Volume 8.3 fl (7.4-10.4); Monocytes # 0.5 K/mm3 (0.1-1.0); Monocytes % 6.6 % (1.7-9.3); Neutrophils # 5.2 K/mm3 (1.8-7.8); Neutrophils % 71.1 % (37.0-80.0); Platelet Count 247 K/mm3 (142-424); Red Blood Count 3.31 M/mm3 (4.60-6.20); Red Cell Distribution Width 16.6 % (11.5-17.5); White Blood Count 7.2 K/mm3 (4.8-10.8)
[2021-01-18 08:34] LABS: Chloride 113 mmol/L (98-107)
[2021-01-18 08:35] LABS: Potassium 3.6 mmoL/L (3.5-5.1); Sodium 141 mmol/L (136-145)
[2021-01-18 08:37] LABS: Alanine Aminotransferase 9 U/L (12-78); Aspartate Amino Transferase 18 U/L (17-59); Blood Urea Nitrogen 2 mg/dl (9-20); Creatinine Clearance Estimated 196 mL/min (50-200); Estimated Glomerular Filt Rate 171 ml/min (>60); GFR (African American) 207 ML/MIN (>60)
[2021-01-18 08:38] LABS: Albumin Level 2.9 g/dl (3.5-5.0); Albumin/Globulin Ratio 0.9 (1.1-1.8); Alkaline Phosphatase 141 U/L (38-126); Anion Gap 10.6 mEq/L (5-15); Bilirubin,Total 0.5 mg/dl (0.2-1.3); Calcium 8.8 mg/dl (8.4-10.2); Carbon Dioxide 21 mmol/L (22.0-30.0); Globulin 3.3 g/dL (1.3-3.2); Glucose 85 mg/dl (74-100); Total Protein,Serum 6.2 g/dl (6.3-8.2)
--- NOTE | 2021-01-18 10:33 | HMH.PNCARD ---
Subjective Date: 01/18/21 Time: 10:33 Principal diagnosis: N, V, Diarrhea, hypokalemia Interval history: 55-year-old white male just returned from [place]. Patient states the IV infiltrated so he is unsure of what kind of images they obtained. Left forearm does have a area of swelling proximally near the bend of his elbow. There is no erythema and no significant tenderness with palpation. He relates rough night with recurrence of nausea vomiting and diarrhea. Exam Vital signs and Labs for Last 24 Hours: Temp Pulse Resp BP Pulse Ox 98.3 F 70 18 163/88 H 97 01/18/21 08:00 01/18/21 08:00 01/18/21 08:00 01/18/21 08:00 01/18/21 08:00 Laboratory Results - last 24 hr 01/18/21 07:40: WBC 7.2, RBC 3.31 L, Hgb 10.6 L, Hct 32.9 L, MCV 99.6 H, MCH 32.2 H, MCHC 32.3, RDW 16.6, Plt Count 247, MPV 8.3, Neut % (Auto) 71.1, Lymph % (Auto) 20.5, [place] % (Auto) 6.6, Eos % (Auto) 1.4, Baso % (Auto) 0.4, Neut # (Auto) 5.2, Lymph # (Auto) 1.5, [place] # (Auto) 0.5, Eos # (Auto) 0.1, Baso # (Auto) 0.0 01/18/21 07:40: Sodium 141, Potassium 3.6 D, Chloride 113 H, Carbon Dioxide 21 L, Anion Gap 10.6, BUN 2 L, Creatinine 0.50 L, Estimated Creat Clear 196, Estimated GFR 171, Est GFR ( Amer) 207, Glucose 85, Calcium 8.8, Total Bilirubin 0.5, AST 18, ALT 9 L D, Alkaline Phosphatase 141 H, Total Protein 6.2 L, Albumin 2.9 L, Globulin 3.3 H, Albumin/Globulin Ratio 0.9 L I & O for Last 24 hours: Intake & Output 01/15/21 01/16/21 01/17/21 01/18/21 11:59 11:59 11:59 11:59 Intake Total 480 / 480 2763 / 2763 4250 / 4250 Output Total 1600 / 1600 3175 / 3175 Balance 480 / 480 1163 / 1163 1075 / 1075 Weight 176 lb 5.917 oz 187 lb 4.8 oz 187 lb 6 oz - Constitutional no acute distress - *Routine HEENT Exam Head: Present: normocephalic Eye: Present: EOMI, PERRL ENT: Present: mucous membranes moist - *Routine Neck Exam Present: supple. Absent: lymphadenopathy - *Routine Respiratory Exam Present: CTA bilaterally - *Routine Cardiovascular Exam Present: RRR - *Routine Abdominal Exam Present: soft, normoactive bowel sounds, tenderness - *Routine Extremities Exam Absent: cyanosis, clubbing, edema - *Routine Skin Exam Present: warm. Absent: rash - *Routine Neurological Exam Present: alert, oriented X3 Progress Note: A&P (1) Abdominal pain Status: Acute (2) Atrial fibrillation Status: Acute (3) Biventricular automatic implantable cardioverter defibrillator in situ Status: Acute (4) CAD (coronary artery disease) Status: Acute (5) COPD (chronic obstructive pulmonary disease) Status: Acute (6) Endoleak post endovascular aneurysm repair Status: Acute (7) Epigastric abdominal pain Status: Acute (8) Gastroenteritis Status: Acute (9) HLD (hyperlipidemia) Status: Acute (10) History of aortic aneurysm repair Status: Acute (11) Hypertension Status: Acute (12) Hypokalemia Status: Acute (13) Nausea and vomiting Status: Chronic (14) Abdominal cramping Status: Acute Assessment and Plan for All Diagnoses:: 1. Gastroenteritis with evidence of mild colitis on CT and coffee ground stool per patient, workup in progress. Surgery repeating CT of abdomen today. 2. Hypokalemia, resolved 3. History of infrarenal AAA percutaneous endovascular repair, 2014, with evidence of endovascular leak type Ib on CT angiogram this admission. This has been discussed with vascular surgery at and patient is felt to be stable enough for outpatient follow-up. 4. Coronary artery disease with prior bypass, clinically stable with recent left heart catheterization earlier this month showing no acute changes compared to 2019 study. No ASA due to possible GI blood loss. Continue plavix due to CAD, AAA repair and remote CVA. 5. History of atrial fibrillation, on Eliquis therapy. Amiodarone stopped this admission due to possible etiology of recurrent Nausea and vomiting. Continue meto
[2021-01-18 10:53] LABS: Magnesium 1.5 mg/dl (1.6-2.3)
--- NOTE | 2021-01-18 13:03 | HMH.ACPN2 ---
Internal Medicine - PN: Subj *Date: 01/18/21 *Time: 08:35 Interval history: pt states he is feeling well still having abd pain Exam Vital signs and Labs for Last 24 Hours: Temp Pulse Resp BP Pulse Ox 98.3 F 70 18 163/88 H 97 01/18/21 08:00 01/18/21 08:00 01/18/21 08:00 01/18/21 08:00 01/18/21 08:00 Laboratory Results - last 24 hr 01/18/21 07:40: WBC 7.2, RBC 3.31 L, Hgb 10.6 L, Hct 32.9 L, MCV 99.6 H, MCH 32.2 H, MCHC 32.3, RDW 16.6, Plt Count 247, MPV 8.3, Neut % (Auto) 71.1, Lymph % (Auto) 20.5, [place] % (Auto) 6.6, Eos % (Auto) 1.4, Baso % (Auto) 0.4, Neut # (Auto) 5.2, Lymph # (Auto) 1.5, [place] # (Auto) 0.5, Eos # (Auto) 0.1, Baso # (Auto) 0.0 01/18/21 07:40: Sodium 141, Potassium 3.6 D, Chloride 113 H, Carbon Dioxide 21 L, Anion Gap 10.6, BUN 2 L, Creatinine 0.50 L, Estimated Creat Clear 196, Estimated GFR 171, Est GFR ( Amer) 207, Glucose 85, Calcium 8.8, Total Bilirubin 0.5, AST 18, ALT 9 L D, Alkaline Phosphatase 141 H, Total Protein 6.2 L, Albumin 2.9 L, Globulin 3.3 H, Albumin/Globulin Ratio 0.9 L 01/18/21 07:40: Magnesium 1.5 L I & O for Last 24 hours: Intake & Output 01/16/21 01/17/21 01/18/21 01/19/21 11:59 11:59 11:59 11:59 Intake Total 480 / 480 2763 / 2763 4250 / 4250 Output Total 1600 / 1600 3175 / 3175 Balance 480 / 480 1163 / 1163 1075 / 1075 Weight 176 lb 5.917 oz 187 lb 4.8 oz 187 lb 6 oz - Constitutional no acute distress - *Routine HEENT Exam Head: Present: normocephalic Eye: Present: PERRL ENT: Present: mucous membranes moist - *Routine Neck Exam Present: supple. Absent: lymphadenopathy - *Routine Respiratory Exam Present: CTA bilaterally - *Routine Cardiovascular Exam Present: RRR - *Routine Abdominal Exam Present: soft, normoactive bowel sounds, tenderness - *Routine Extremities Exam Present: normal capillary refill. Absent: cyanosis, clubbing, edema - *Routine Skin Exam Present: warm. Absent: rash - *Routine Neurological Exam Present: alert, oriented X3 Assessment and Plan (1) Abdominal pain Status: Acute Qualifiers: Abdominal location: generalized Qualified Code(s): R10.84 - Generalized abdominal pain Category: Medical Code(s): R10.9 - Unspecified abdominal pain (2) Atrial fibrillation Status: Acute Category: Medical Code(s): I48.91 - Unspecified atrial fibrillation (3) Biventricular automatic implantable cardioverter defibrillator in situ Status: Acute Category: Medical Code(s): Z95.810 - Presence of automatic (implantable) cardiac defibrillator (4) CAD (coronary artery disease) Status: Acute Category: Medical Code(s): I25.10 - Atherosclerotic heart disease of [place] coronary artery without angina pectoris (5) COPD (chronic obstructive pulmonary disease) Status: Acute Qualifiers: COPD type: unspecified COPD Qualified Code(s): J44.9 - Chronic obstructive pulmonary disease, unspecified Category: Medical Code(s): J44.9 - Chronic obstructive pulmonary disease, unspecified (6) Endoleak post endovascular aneurysm repair Status: Acute Category: Medical (7) Epigastric abdominal pain Status: Acute Category: Medical Code(s): R10.13 - Epigastric pain (8) Gastroenteritis Status: Acute Category: Medical Code(s): K52.9 - Noninfective gastroenteritis and colitis, unspecified (9) HLD (hyperlipidemia) Status: Acute Category: Medical Code(s): E78.5 - Hyperlipidemia, unspecified (10) History of aortic aneurysm repair Status: Acute Category: Surgical Code(s): Z98.890 - Other specified postprocedural states; Z86.79 - Personal history of other diseases of the circulatory system (11) Hypertension Status: Acute Category: Medical Code(s): I10 - Essential (primary) hypertension (12) Hypokalemia Status: Acute Category: Medical Code(s): E87.6 - Hypokalemia (13) Nausea and vomiting Status: Chronic Qualifiers: Vomiting type: unspecified
--- NOTE | 2021-01-18 14:23 | DIET.NUTRFU ---
PO intakes 50%. Pt states his stomach continues to hurt, he is eating though not as much as normally. He does not know if his pain increases with PO intake, states it is constant. K normalized, Mag remains low at 1.5.
--- NOTE | 2021-01-18 15:09 | HMH.GSPN ---
Subjective Narrative: Patient continues to complain of subjective abdominal pain and nausea requesting narcotics and antiemetics frequently. He does state that he has had some diarrhea. CT scan of the abdomen and pelvis with IV and oral contrast earlier today is unremarkable with no evidence of colitis. Progress Note: A&P (1) Abdominal pain Status: Acute (2) Atrial fibrillation Status: Acute (3) Biventricular automatic implantable cardioverter defibrillator in situ Status: Acute (4) CAD (coronary artery disease) Status: Acute (5) COPD (chronic obstructive pulmonary disease) Status: Acute (6) Endoleak post endovascular aneurysm repair Status: Acute (7) Epigastric abdominal pain Status: Acute (8) Gastroenteritis Status: Acute (9) HLD (hyperlipidemia) Status: Acute (10) History of aortic aneurysm repair Status: Acute (11) Hypertension Status: Acute (12) Hypokalemia Status: Acute (13) Nausea and vomiting Status: Chronic (14) Abdominal cramping Status: Acute Assessment and Plan for All Diagnoses:: Resume diet. No plans for immediate surgical procedures Exam Vital signs and Labs for Last 24 Hours: Temp Pulse Resp BP Pulse Ox 98.1 F 72 16 156/80 H 98 01/18/21 12:00 01/18/21 14:10 01/18/21 13:03 01/18/21 12:00 01/18/21 12:00 Laboratory Results - last 24 hr 01/18/21 07:40: WBC 7.2, RBC 3.31 L, Hgb 10.6 L, Hct 32.9 L, MCV 99.6 H, MCH 32.2 H, MCHC 32.3, RDW 16.6, Plt Count 247, MPV 8.3, Neut % (Auto) 71.1, Lymph % (Auto) 20.5, [place] % (Auto) 6.6, Eos % (Auto) 1.4, Baso % (Auto) 0.4, Neut # (Auto) 5.2, Lymph # (Auto) 1.5, [place] # (Auto) 0.5, Eos # (Auto) 0.1, Baso # (Auto) 0.0 01/18/21 07:40: Sodium 141, Potassium 3.6 D, Chloride 113 H, Carbon Dioxide 21 L, Anion Gap 10.6, BUN 2 L, Creatinine 0.50 L, Estimated Creat Clear 196, Estimated GFR 171, Est GFR ( Amer) 207, Glucose 85, Calcium 8.8, Total Bilirubin 0.5, AST 18, ALT 9 L D, Alkaline Phosphatase 141 H, Total Protein 6.2 L, Albumin 2.9 L, Globulin 3.3 H, Albumin/Globulin Ratio 0.9 L 01/18/21 07:40: Magnesium 1.5 L I & O for Last 24 hours: Intake & Output 01/16/21 01/17/21 01/18/21 01/19/21 11:59 11:59 11:59 11:59 Intake Total 480 / 480 2763 / 2763 4250 / 4250 120 / 120 Output Total 1600 / 1600 3175 / 3175 550 / 550 Balance 480 / 480 1163 / 1163 1075 / 1075 -430 / -430 Weight 176 lb 5.917 oz 187 lb 4.8 oz 187 lb 6 oz - *Routine Abdominal Exam Present: soft, tenderness Comments: Diffuse subjective tenderness
--- NOTE | 2021-01-18 18:50 | PC.NURSE ---
No acute changes. Underwent CT of abdomen this AM. Continues to complain of lower abdominal pain, medicated per MAY. PRN phenergan given for c/o nausea. Poor appetite noted, has requested mountain dew throughout shift. Pt reports diarrhea. Voiding per urinal w/o difficulty. Currently lying in bed. No needs @ this time.
[2021-01-19] VITALS: BP 148/70; PULSE 70; PULSE 77; RESP 20; TEMP 36.6; O2SAT 95
--- NOTE | 2021-01-19 03:04 | PC.NURSE ---
A&OX4. TOLERATING RA WELL. PT HAS CONTINUED TO C/O INTERMITTENT ABD PAIN AND NAUSEA. TX PER MAY. MEDICATIONS ARE EFFECTIVE. PT HAS EATEN A SNACK TONIGHT AND REQUESTS M[place]W THROUGHOUT NIGHT. NO OTHER C/O THUS FAR. INDEPENDENT IN ROOM. VSS WILL CONTINUE TO MONITOR.
[2021-01-19 04:00] VITALS: BP 147/79; PULSE 70; PULSE 71; RESP 20; TEMP 36.6; O2SAT 97
[2021-01-19 04:36] VITALS: BMI 25.1
[2021-01-19 06:35] LABS: Chloride 112 mmol/L (98-107); Potassium 3.6 mmoL/L (3.5-5.1); Sodium 140 mmol/L (136-145)
--- NOTE | 2021-01-19 06:35 | P.PN_ITS ---
Subjective Patient reports: no new complaints, feels better, still having pain, pain is less Progress Note: A&P (1) Abdominal pain Status: Acute Assessment and plan: No obvious sign of colitis or other acute abnormality noted on yesterday's CT scan. The patient has improved somewhat over the last 24 hours. Continue medical management No need for acute surgical intervention Will follow up with Dr. Sen as an outpatient May require gastroenterology consultation (2) Atrial fibrillation Status: Acute (3) Biventricular automatic implantable cardioverter defibrillator in situ Status: Acute (4) CAD (coronary artery disease) Status: Acute (5) COPD (chronic obstructive pulmonary disease) Status: Acute (6) Endoleak post endovascular aneurysm repair Status: Acute (7) Epigastric abdominal pain Status: Acute (8) Gastroenteritis Status: Acute (9) HLD (hyperlipidemia) Status: Acute (10) History of aortic aneurysm repair Status: Acute (11) Hypertension Status: Acute (12) Hypokalemia Status: Acute (13) Nausea and vomiting Status: Chronic (14) Abdominal cramping Status: Acute Exam Vital signs and Labs for Last 24 Hours: Temp Pulse Resp BP Pulse Ox 98 F 71 20 147/79 H 97 01/19/21 04:00 01/19/21 04:00 01/19/21 04:00 01/19/21 04:00 01/19/21 04:00 Laboratory Results - last 24 hr 01/18/21 07:40: WBC 7.2, RBC 3.31 L, Hgb 10.6 L, Hct 32.9 L, MCV 99.6 H, MCH 32.2 H, MCHC 32.3, RDW 16.6, Plt Count 247, MPV 8.3, Neut % (Auto) 71.1, Lymph % (Auto) 20.5, [place] % (Auto) 6.6, Eos % (Auto) 1.4, Baso % (Auto) 0.4, Neut # (Auto) 5.2, Lymph # (Auto) 1.5, [place] # (Auto) 0.5, Eos # (Auto) 0.1, Baso # (Auto) 0.0 01/18/21 07:40: Sodium 141, Potassium 3.6 D, Chloride 113 H, Carbon Dioxide 21 L, Anion Gap 10.6, BUN 2 L, Creatinine 0.50 L, Estimated Creat Clear 196, Estimated GFR 171, Est GFR ( Amer) 207, Glucose 85, Calcium 8.8, Total Bilirubin 0.5, AST 18, ALT 9 L D, Alkaline Phosphatase 141 H, Total Protein 6.2 L, Albumin 2.9 L, Globulin 3.3 H, Albumin/Globulin Ratio 0.9 L 01/18/21 07:40: Magnesium 1.5 L I & O for Last 24 hours: Intake & Output 01/16/21 01/17/21 01/18/21 01/19/21 11:59 11:59 11:59 11:59 Intake Total 480 / 480 2763 / 2763 4250 / 4250 720 / 720 Output Total 1600 / 1600 3175 / 3175 1650 / 1650 Balance 480 / 480 1163 / 1163 1075 / 1075 -930 / -930 Weight 176 lb 5.917 oz 187 lb 4.8 oz 187 lb 6 oz 196 lb 2 oz - Constitutional no acute distress - *Routine Respiratory Exam Absent: respiratory distress - *Routine Cardiovascular Exam Present: RRR - *Routine Abdominal Exam Present: soft Comments: Less tender
[2021-01-19 06:37] LABS: Alanine Aminotransferase 7 U/L (12-78); Aspartate Amino Transferase 23 U/L (17-59); Blood Urea Nitrogen 2 mg/dl (9-20); Creatinine Clearance Estimated 205 mL/min (50-200); Estimated Glomerular Filt Rate 171 ml/min (>60); GFR (African American) 207 ML/MIN (>60)
[2021-01-19 06:38] LABS: Albumin Level 2.6 g/dl (3.5-5.0); Albumin/Globulin Ratio 0.8 (1.1-1.8); Alkaline Phosphatase 121 U/L (38-126); Anion Gap 8.6 mEq/L (5-15); Bilirubin,Total 0.6 mg/dl (0.2-1.3); Calcium 8.4 mg/dl (8.4-10.2); Carbon Dioxide 23 mmol/L (22.0-30.0); Globulin 3.1 g/dL (1.3-3.2); Glucose 76 mg/dl (74-100); Total Protein,Serum 5.7 g/dl (6.3-8.2)
[2021-01-19 07:03] LABS: Basophils % 0.4 % (0.1-2.0); Eosinophils # 0.1 K/mm3 (0.0-0.4); Eosinophils % 1.8 % (0.1-12.0); Hematocrit 31.5 % (42.0-52.0); Hemoglobin 10.5 g/dL (14.1-18.0); Lymphocytes # 1.2 K/mm3 (0.7-4.5); Lymphocytes % 18.8 % (10-50); Mean Corpuscular HGB Conc 33.4 g/dL (31.8-35.4); Mean Corpuscular Volume 98.9 fl (80-94); Monocytes # 0.5 K/mm3 (0.1-1.0); Monocytes % 8.5 % (1.7-9.3); Neutrophils # 4.4 K/mm3 (1.8-7.8); Neutrophils % 70.5 % (37.0-80.0); Platelet Count 166 K/mm3 (142-424); Red Blood Count 3.18 M/mm3 (4.60-6.20); Red Cell Distribution Width 16.3 % (11.5-17.5); White Blood Count 6.2 K/mm3 (4.8-10.8)
[2021-01-19 08:00] VITALS: BP 158/79; PULSE 70; PULSE 71; RESP 14; TEMP 36.9; O2SAT 98
[2021-01-19 08:11] VITALS: RESP 14
[2021-01-19 10:00] VITALS: RESP 16
[2021-01-19 12:00] VITALS: PULSE 70
--- NOTE | 2021-01-19 12:38 | HMH.DCSUM ---
General - General Admission date:: 01/16/21 Discharge date: 01/19/21 HPI HPI: 55-year-old white male with complex history as noted above including percutaneous endovascular repair of infrarenal abdominal aortic aneurysm in 2014 presented to the emergency department for abdominal pain with nausea, vomiting and diarrhea of less than 24 hours duration. Diarrhea noted to be coffee-ground in color which prompted the evaluation. CTA of the abdomen and pelvis revealed evidence of prior endovascular repair with slight enlargement of the aneurysm at 5.7 cm with a hint of contrast noted but no contrast identified in the colon. Evidence of colitis was noted. This was discussed with [facility] who felt that the patient was stable to wait for outpatient follow-up. Lab work revealed hypokalemia at 2.8 with normal troponins. Patient recently was hospitalized earlier this month for non-ST elevation [place] with subsequent cardiac cath showing stable coronary disease and recommendation for medical management. Patient does have an AICD in place with known history of atrial fibrillation for which he is on long-term Eliquis therapy and amiodarone. EKG demonstrates dual chamber pacing with capture.-per cardiology Hospital Course Hospital Course: Laboratory Tests 01/15/21 01/15/21 01/15/21 20:45 20:45 21:05 WBC 7.3 RBC 3.90 L Hgb 12.4 L Hct 38.2 L MCV 98.0 H MCH 31.8 H MCHC 32.4 RDW 16.8 Plt Count 244 MPV 9.2 Neut % (Auto) 74.8 Lymph % (Auto) 18.2 [place] % (Auto) 6.1 Eos % (Auto) 0.2 Baso % (Auto) 0.6 Neut # (Auto) 5.5 Lymph # (Auto) 1.3 [place] # (Auto) 0.5 Eos # (Auto) 0.0 Baso # (Auto) 0.0 Sodium 141 Potassium 2.8 L* Chloride 111 H Carbon Dioxide 20 L Anion Gap 12.8 BUN 2 L Creatinine 0.70 Estimated Creat Clear 131 Estimated GFR 116 Est GFR ( Amer) 141 Glucose 92 Lactate Calcium 9.6 Magnesium Total Bilirubin 0.8 AST 21 ALT 16 Alkaline Phosphatase 137 H Troponin I 0.03 Total Protein 7.3 Albumin 3.6 Globulin 3.7 H Albumin/Globulin Ratio 1.0 L Lipase 50 Urine Color Yellow Urine Appearance Clear Urine pH 6.0 Ur Specific [place] 1.025 Urine Protein 1+ Urine Glucose (UA) Negative Urine Ketones Trace Urine Blood Trace-i Urine Nitrate Negative Urine Bilirubin Negative Urine Urobilinogen 0.2 Ur Leukocyte Esterase Negative Urine RBC 3-5 Amorphous Sediment Trace Urine Mucus 2+ Stool Occult Blood Stl Aeromonas (PCR) Stl C. cayet[place]ensis PCR Stool Rotavirus (PCR) Stl Adenov F 40/ PCR Stool Astrovirus (PCR) Stool Campylobacter PCR Stl C.difficile Tox PCR Stool Cryptosporidium PCR Stl E.coli Shiga Tox PCR Stool E coli O157 PCR Stl Enterotoxigenic E PCR Stool EPEC (PCR) Stool EAEC (PCR) Stl E. histolytica PCR Stool Giardia Lamblia PCR Stool Salmonella PCR Stool Sapovirus (PCR) Stl P. shigelloides PCR Stl Shigella/EIEC PCR St Y.enterocolitica PCR Stool Vibrio (PCR) Stl Vibrio cholerae PCR Stl Norovirus GI/GII PCR SARS-CoV-2 (PCR) Influenza A Untype (PCR) Influenza Type B (PCR) 01/15/21 01/15/21 01/15/21 21:05 21:05 23:19 WBC RBC Hgb Hct MCV MCH MCHC RDW Plt Count MPV Neut % (Auto) Lymph % (Auto) [place] % (Auto) Eos % (Auto) Baso % (Auto) Neut # (Auto) Lymph # (Auto) [place] # (Auto) Eos # (Auto) Baso # (Auto) Sodium Potassium Chloride Carbon Dioxide Anion Gap BUN Creatinine Estimated Creat Clear Estimated GFR Est GFR ( Amer) Glucose Lactate 0.8 Calcium Magnesium Total Bilirubin AST ALT Alkaline Phosphatase Troponin I Total Protein Albumin Globulin Albumin/Globulin Ratio Lipase Urine Co
--- NOTE | 2021-01-19 13:57 | HMH.PHAINT ---
DISCHARGE MEDICATION EDUCATION COMPLETE. PATIENT HAD NO QUESTIONS ABOUT THE MEDICATIONS
--- NOTE | 2021-01-19 14:51 | PC.NURSE ---
Pt has been attempting to get ride since 1344. He states that his ex- gets off work @ 1600 and should be able to come and get him.
== END 2021-01-19 16:50 | disposition home or self-care (01) ==
LOC: ER 23:53 → 2ND 23:57
PROVIDERS: Physician Assistant; Admitting Provider Family Medicine; Emergency Provider Student in an Organized Health Care Education/Training Program; PCP Nurse Practitioner Family; Visit Provider Family Medicine
DX: R10.84 Generalized abdominal pain (principal); K52.9 Noninfective gastroenteritis and colitis, unspecified; I48.91 Unspecified atrial fibrillation; Z79.01 Long term (current) use of anticoagulants; Z95.810 Presence of automatic (implantable) cardiac defibrillator; Z98.890 Other specified postprocedural states; I25.10 Atherosclerotic heart disease of native coronary artery without angina pectoris; E87.6 Hypokalemia; Z79.899 Other long term (current) drug therapy; J44.9 Chronic obstructive pulmonary disease, unspecified; Z20.822 Contact with and (suspected) exposure to COVID-19
CPT/HCPCS: G0378; 36415; 74174; 74177; 80048; 80053; 81001; 82272; 83605; 83690; 83735; 84484; 85025; 87506; 93005; 94640; 96365; 96375; 96376; 99284; C9803; G0328; J2405; Q9967; U0003; U0005

== ENCOUNTER 2021-01-21 00:23 | Emergency (ER) | payer MEDICARE, MEDICAID, SELFPAY ==
[2021-01-21 00:20] VITALS: BP 166/80; PULSE 81; RESP 16; TEMP 36.7; O2SAT 99; BMI 20.9
[2021-01-21 00:59] LABS: Basophils % 0.6 % (0.1-2.0); Eosinophils # 0.1 K/mm3 (0.0-0.4); Eosinophils % 1.2 % (0.1-12.0); Hematocrit 38.5 % (42.0-52.0); Hemoglobin 12.5 g/dL (14.1-18.0); Lymphocytes # 1.8 K/mm3 (0.7-4.5); Lymphocytes % 29.6 % (10-50); Mean Corpuscular HGB Conc 32.5 g/dL (31.8-35.4); Mean Corpuscular Hemoglobin 32.5 pg (27.0-31.2); Mean Platelet Volume 8.4 fl (7.4-10.4); Monocytes # 0.3 K/mm3 (0.1-1.0); Monocytes % 5.5 % (1.7-9.3); Neutrophils # 3.8 K/mm3 (1.8-7.8); Neutrophils % 63.1 % (37.0-80.0); Platelet Count 266 K/mm3 (142-424); Red Blood Count 3.85 M/mm3 (4.60-6.20); Red Cell Distribution Width 16.6 % (11.5-17.5); White Blood Count 6.1 K/mm3 (4.8-10.8)
[2021-01-21 01:11] LABS: Alanine Aminotransferase 16 U/L (12-78); Albumin Level 3.8 g/dl (3.5-5.0); Alkaline Phosphatase 176 U/L (38-126); Amylase 71 U/L (30-110); Anion Gap 13.3 mEq/L (5-15); Aspartate Amino Transferase 28 U/L (17-59); Bilirubin,Total 0.7 mg/dl (0.2-1.3); Blood Urea Nitrogen 5 mg/dl (9-20); Calcium 9.5 mg/dl (8.4-10.2); Carbon Dioxide 23 mmol/L (22.0-30.0); Chloride 108 mmol/L (98-107); Creatinine Clearance Estimated 135 mL/min (50-200); Estimated Glomerular Filt Rate 139 ml/min (>60); GFR (African American) 168 ML/MIN (>60); Glucose 76 mg/dl (74-100); Lipase 216 U/L (23-300); Potassium 3.3 mmoL/L (3.5-5.1); Sodium 141 mmol/L (136-145); Total Protein,Serum 7.8 g/dl (6.3-8.2)
[2021-01-21 01:17] LABS: C-Reactive Protein 9.7 mg/L (0-4)
[2021-01-21 01:19] VITALS: BP 164/78; PULSE 80; RESP 16; TEMP 36.7; O2SAT 99
[2021-01-21 01:30] LABS: Procalcitonin 0.068 ng/mL (0.0-2.0)
[2021-01-21 01:37] LABS: Erythrocyte Sedimentation Rate 92 mm/hr (0-20)
--- NOTE | 2021-01-21 06:12 | HMH.EDNVD ---
ED Disposition Clinical Impression: Left against medical advice, Abdominal pain of unknown cause Disposition: Left Against Medical Advice Condition on Discharge: Good Instructions: DI for Acute Abdominal Pain Additional Instructions: see as outpatient Referrals: Jae Alonzo MD [Primary Care Provider] - - Critical Care Critical Care Time: No Attestation: On 01/21/21, the high probability of a clinically significant, sudden or life threatening deterioration of the following system(s) required my full and direct attention, intervention and personal management. The time I documented below is in addition to time spent performing reported procedures but includes the following listed in this critical care notation. Medical Decision Making - Medical Records Medical records reviewed: Yes: I reviewed the patient's medical records. - Jonathan Inquiry Pt receiving controlled substance: No Vital Signs: 01/21/21 00:20 01/21/21 01:19 Temperature 98.0 F 98.0 F Temperature Source Oral Oral Pulse Rate 80 Pulse Rate [Right] 81 Respiratory Rate 16 16 Blood Pressure 164/78 H Blood Pressure [Right Arm] 166/80 H Blood Pressure Mean [Right Arm] 108 02 Sat by Pulse Oximetry 99 - Lab Data Lab results reviewed: Yes: I reviewed the patient's lab results. Lab Results 01/21/21 00:50: WBC 6.1, RBC 3.85 L, Hgb 12.5 L, Hct 38.5 L, MCV 100.0 H, MCH 32.5 H, MCHC 32.5, RDW 16.6, Plt Count 266 D, MPV 8.4, Neut % (Auto) 63.1, Lymph % (Auto) 29.6, [place] % (Auto) 5.5, Eos % (Auto) 1.2, Baso % (Auto) 0.6, Neut # (Auto) 3.8, Lymph # (Auto) 1.8, [place] # (Auto) 0.3, Eos # (Auto) 0.1, Baso # (Auto) 0.0, ESR 92 H 01/21/21 00:50: Sodium 141, Potassium 3.3 L, Chloride 108 H, Carbon Dioxide 23, Anion Gap 13.3, BUN 5 L D, Creatinine 0.60 L, Estimated Creat Clear 135, Estimated GFR 139, Est GFR ( Amer) 168, Glucose 76, Calcium 9.5, Total Bilirubin 0.7, AST 28, ALT 16 D, Alkaline Phosphatase 176 H, C-Reactive Protein 9.7 H, Total Protein 7.8 D, Albumin 3.8, Globulin 4.0 H, Albumin/Globulin Ratio 1.0 L, Amylase 71, Lipase 216, Procalcitonin 0.068 Result diagrams: 01/21/21 00:50 01/21/21 00:50 Orders (Tests/Meds): ED MEDICATIONS Generic Name Dose Route Start Last Admin Trade Name Freq PRN Reason Stop Dose Admin Sodium Chloride 1,000 mls @ 999 mls/hr 01/21/21 00:45 01/21/21 01:04 Sod Chlor 0.9% 1000ml Bag IV 01/21/21 01:45 999 mls/hr .Q1H1M SWEETIE Administration Sodium Chloride 8 ml 01/21/21 00:42 Sodium Chloride 0.9% 10ml Vial IV 02/20/21 00:41 NEEDED PRN dilute pepcid Discontinued Medications Generic Name Dose Route Start Last Admin Trade Name Freq PRN Reason Stop Dose Admin Famotidine 20 mg 01/21/21 00:42 01/21/21 00:58 Famotidine 20mg/2ml Vial IV 01/21/21 00:43 20 mg ONCE ONE Administration Ketorolac Tromethamine 30 mg 01/21/21 00:42 01/21/21 00:59 Ketorolac 30mg/Ml Vial IV 01/21/21 00:43 30 mg ONCE ONE Administration Metoclopramide HCl 10 mg 01/21/21 00:42 01/21/21 00:59 Metoclopramide Hcl 10mg/2ml Vial IVP 01/21/21 00:43 10 mg ONCE ONE Administration Ondansetron HCl 4 mg 01/21/21 00:42 01/21/21 01:00 Ondansetron 4mg/2ml Vial IV 01/21/21 00:43 4 mg ONCE ONE Administration Medical Decision Narrative: stable exam and labs and will need to follow up as op Nausea/Vomiting/Diarrhea HPI - General Chief complaint: Abdominal Pain Stated complaint: ABD pain, weakness Time Seen by Provider: 01/21/21 00:30 Mode of Arrival: EMS Source of Information: Patient, EMS, Medical Record Limitations: No Limitations Description of Symptoms (Recalled from ER Triage Doc. by RN): pt c/o abd pain with n/v that has been on going. pt was d/c 01/19 for same problem - History of Present Illness HPI Narrative: pt with ongoing epigastric pain with vomiting - pt with recent admit - no fever or new sx reported MD complaint: nausea, vomiting, abdom
== END 2021-01-21 01:19 | disposition left against medical advice (07) ==
PROVIDERS: Emergency Provider Emergency Medicine; PCP Emergency Medicine
DX: R10.13 Epigastric pain (principal); R53.1 Weakness; J44.9 Chronic obstructive pulmonary disease, unspecified; I25.10 Atherosclerotic heart disease of native coronary artery without angina pectoris; K21.9 Gastro-esophageal reflux disease without esophagitis; E78.5 Hyperlipidemia, unspecified; I10 Essential (primary) hypertension; I48.91 Unspecified atrial fibrillation; F17.210 Nicotine dependence, cigarettes, uncomplicated; I25.2 Old myocardial infarction; Z79.899 Other long term (current) drug therapy
CPT/HCPCS: 80053; 82150; 83690; 84145; 85025; 85651; 86140; 96365; 96375; 99282; J2405

== ENCOUNTER 2021-02-03 17:11 | Emergency (ER) | payer MEDICARE, MEDICAID, SELFPAY ==
[2021-02-03 17:12] VITALS: BP 158/91; PULSE 80; RESP 18; TEMP 36.8; O2SAT 99; BMI 23.1
[2021-02-03 17:17] VITALS: BMI 23.1
[2021-02-03 17:20] LABS: Coronavirus 19, PCR Not Detected (NotDetected); Influenza A, PCR Not Detected (NotDetected); Influenza B, PCR Not Detected (NotDetected)
[2021-02-03 17:30] VITALS: BP 147/87; PULSE 80; RESP 14; O2SAT 100
[2021-02-03 18:00] VITALS: BP 171/92; PULSE 76; RESP 13; O2SAT 100
[2021-02-03 18:56] LABS: Basophils % 0.4 % (0.1-2.0); Eosinophils # 0.1 K/mm3 (0.0-0.4); Hematocrit 40.4 % (42.0-52.0); Hemoglobin 13.2 g/dL (14.1-18.0); Lymphocytes # 1.1 K/mm3 (0.7-4.5); Lymphocytes % 18.7 % (10-50); Mean Corpuscular HGB Conc 32.7 g/dL (31.8-35.4); Mean Corpuscular Hemoglobin 31.9 pg (27.0-31.2); Mean Corpuscular Volume 97.6 fl (80-94); Mean Platelet Volume 8.3 fl (7.4-10.4); Monocytes # 0.3 K/mm3 (0.1-1.0); Monocytes % 5.2 % (1.7-9.3); Neutrophils # 4.6 K/mm3 (1.8-7.8); Neutrophils % 74.8 % (37.0-80.0); Platelet Count 199 K/mm3 (142-424); Red Blood Count 4.14 M/mm3 (4.60-6.20); Red Cell Distribution Width 16.7 % (11.5-17.5); White Blood Count 6.1 K/mm3 (4.8-10.8)
--- NOTE | 2021-02-03 19:07 | HMH.EDGENADL ---
ED Disposition Clinical Impression: Gastritis Qualifiers: Gastritis type: unspecified gastritis Chronicity: chronic Gastritis bleeding: without bleeding Qualified Code(s): K29.50 - Unspecified chronic gastritis without bleeding Disposition: Home, Self-Care Condition on Discharge: Good Instructions: DI for Gastritis Prescriptions: Ondansetron [Zofran 4mg ODT] 4 mg PO BIDP PRN #10 tab PRN Reason: Nausea Transmission Status: Pending to [facility] Referrals: Emmanuelle Scanlon [Primary Care Provider] - - Critical Care Critical Care Time: No Attestation: On 02/03/21, the high probability of a clinically significant, sudden or life threatening deterioration of the following system(s) required my full and direct attention, intervention and personal management. The time I documented below is in addition to time spent performing reported procedures but includes the following listed in this critical care notation. Medical Decision Making - Medical Records Medical records reviewed: Yes: I reviewed the patient's medical records. - Jonathan Inquiry Pt receiving controlled substance: No Vital Signs: 02/03/21 17:12 02/03/21 17:30 02/03/21 18:00 Temperature 98.3 F Temperature Source Oral Pulse Rate 80 76 Pulse Rate [Right Radial] 80 Respiratory Rate 18 14 13 Blood Pressure 147/87 H 171/92 H Blood Pressure [Right Arm] 158/91 H Blood Pressure Mean 103 118 Blood Pressure Mean [Right Arm] 113 Blood Pressure Source [Right Arm] Automatic Cuff Blood Pressure Position [Right Arm] Sitting 02 Sat by Pulse Oximetry 99 100 100 Oxygen Delivery Method Room Air - Lab Data Lab Results 02/03/21 17:16: SARS-CoV-2 (PCR) Not detected, Influenza A Untype (PCR) Not detected, Influenza Type B (PCR) Not detected 02/03/21 18:48: WBC 6.1, RBC 4.14 L, Hgb 13.2 L, Hct 40.4 L, MCV 97.6 H, MCH 31.9 H, MCHC 32.7, RDW 16.7, Plt Count 199, MPV 8.3, Neut % (Auto) 74.8, Lymph % (Auto) 18.7, [place] % (Auto) 5.2, Eos % (Auto) 1.0, Baso % (Auto) 0.4, Neut # (Auto) 4.6, Lymph # (Auto) 1.1, [place] # (Auto) 0.3, Eos # (Auto) 0.1, Baso # (Auto) 0.0 02/03/21 18:48: Sodium 138, Potassium 3.4 L, Chloride 104, Carbon Dioxide 25, Anion Gap 12.4, BUN 6 L, Creatinine 0.50 L, Estimated Creat Clear 188, Estimated GFR 171, Est GFR ( Amer) 207, Glucose 81, Calcium 9.7, Total Bilirubin 0.6, AST 31, ALT 13, Alkaline Phosphatase 121, Total Protein 6.8, Albumin 3.6, Globulin 3.2, Albumin/Globulin Ratio 1.1, Lipase 71 Result diagrams: 02/03/21 18:48 02/03/21 18:48 Orders (Tests/Meds): ED MEDICATIONS Discontinued Medications Generic Name Dose Route Start Last Admin Trade Name Freq PRN Reason Stop Dose Admin Ketorolac Tromethamine 30 mg 02/03/21 17:21 02/03/21 17:54 Ketorolac 30mg/Ml Vial IV 02/03/21 17:22 30 mg ONCE ONE Administration Ondansetron HCl 4 mg 02/03/21 19:16 Ondansetron 4mg/2ml Vial IV 02/03/21 19:17 ONCE ONE Promethazine HCl 25 mg 02/03/21 17:21 02/03/21 17:54 Promethazine Hcl 25mg/Ml 1ml Vial IV 02/03/21 17:22 25 mg ONCE ONE Administration Sodium Chloride 25 ml 02/03/21 17:21 02/03/21 17:54 Sodium Chloride 0.9% 25ml Bag IV 02/03/21 17:22 25 ml ONCE ONE Administration - Reevaluation(s) Time: 19:40 Reevaluation #1: On reevaluation, the patient is feeling much better. Tolerating oral intake. Repeat abdominal examination is benign. No evidence of acute abdomen. Patient symptoms consistent with gastritis. Needs follow-up with PCP. Given strict return precautions. Verbalized understanding. Medical Decision Narrative: 55-year-old male presented to the emergency department with some nausea and vomiting. Patient has benign abdominal examination. No evidence of acute abdomen. Patient provided antiemetics. Work-up initiated. General Adult HPI - General Chief complaint: Nausea/Vomiting/Diarrhea Stated complaint: nausea Time Seen by Provider: 02/03/21 17:20
[2021-02-03 19:31] LABS: Alanine Aminotransferase 13 U/L (12-78); Albumin Level 3.6 g/dl (3.5-5.0); Albumin/Globulin Ratio 1.1 (1.1-1.8); Alkaline Phosphatase 121 U/L (38-126); Anion Gap 12.4 mEq/L (5-15); Aspartate Amino Transferase 31 U/L (17-59); Bilirubin,Total 0.6 mg/dl (0.2-1.3); Blood Urea Nitrogen 6 mg/dl (9-20); Calcium 9.7 mg/dl (8.4-10.2); Carbon Dioxide 25 mmol/L (22.0-30.0); Chloride 104 mmol/L (98-107); Creatinine Clearance Estimated 188 mL/min (50-200); Estimated Glomerular Filt Rate 171 ml/min (>60); GFR (African American) 207 ML/MIN (>60); Globulin 3.2 g/dL (1.3-3.2); Glucose 81 mg/dl (74-100); Lipase 71 U/L (23-300); Potassium 3.4 mmoL/L (3.5-5.1); Sodium 138 mmol/L (136-145); Total Protein,Serum 6.8 g/dl (6.3-8.2)
[2021-02-03 20:11] VITALS: BP 150/75; PULSE 81; RESP 16; TEMP 36.8; O2SAT 100
== END 2021-02-03 20:15 | disposition home or self-care (01) ==
PROVIDERS: Emergency Provider Emergency Medicine; PCP Nurse Practitioner Family
DX: K29.50 Unspecified chronic gastritis without bleeding (principal); I48.0 Paroxysmal atrial fibrillation; J44.9 Chronic obstructive pulmonary disease, unspecified; I25.10 Atherosclerotic heart disease of native coronary artery without angina pectoris; F17.210 Nicotine dependence, cigarettes, uncomplicated; Z79.899 Other long term (current) drug therapy; Z20.822 Contact with and (suspected) exposure to COVID-19
CPT/HCPCS: 80053; 83690; 85025; 96374; 96375; 99282; C9803; J2405; U0003; U0005

== ENCOUNTER 2021-02-20 00:34 | Emergency (ER) | payer MEDICARE, MEDICAID, SELFPAY ==
[2021-02-20 00:14] VITALS: BP 139/100; PULSE 79; RESP 18; TEMP 36.7; O2SAT 99
[2021-02-20 01:28] LABS: Basophils % 0.4 % (0.1-2.0); Eosinophils # 0.2 K/mm3 (0.0-0.4); Eosinophils % 2.5 % (0.1-12.0); Hematocrit 36.4 % (42.0-52.0); Hemoglobin 12.5 g/dL (14.1-18.0); Lymphocytes # 1.1 K/mm3 (0.7-4.5); Lymphocytes % 16.5 % (10-50); Mean Corpuscular HGB Conc 34.4 g/dL (31.8-35.4); Mean Corpuscular Hemoglobin 31.7 pg (27.0-31.2); Mean Corpuscular Volume 92.3 fl (80-94); Mean Platelet Volume 8.1 fl (7.4-10.4); Monocytes # 0.4 K/mm3 (0.1-1.0); Monocytes % 5.7 % (1.7-9.3); Neutrophils # 4.8 K/mm3 (1.8-7.8); Platelet Count 189 K/mm3 (142-424); Red Blood Count 3.95 M/mm3 (4.60-6.20); Red Cell Distribution Width 16.6 % (11.5-17.5); White Blood Count 6.4 K/mm3 (4.8-10.8)
[2021-02-20 01:34] LABS: Chloride 99 mmol/L (98-107); Sodium 132 mmol/L (136-145)
[2021-02-20 01:37] LABS: Alanine Aminotransferase 8 U/L (12-78); Albumin Level 3.6 g/dl (3.5-5.0); Albumin/Globulin Ratio 1.1 (1.1-1.8); Alkaline Phosphatase 113 U/L (38-126); Amylase 50 U/L (30-110); Anion Gap 11.6 mEq/L (5-15); Aspartate Amino Transferase 23 U/L (17-59); Bilirubin,Total 0.5 mg/dl (0.2-1.3); Blood Urea Nitrogen 7 mg/dl (9-20); Calcium 9.6 mg/dl (8.4-10.2); Carbon Dioxide 24 mmol/L (22.0-30.0); Creatinine Clearance Estimated 139 mL/min (50-200); Estimated Glomerular Filt Rate 139 ml/min (>60); GFR (African American) 168 ML/MIN (>60); Globulin 3.3 g/dL (1.3-3.2); Glucose 81 mg/dl (74-100); Lipase 115 U/L (23-300); Total Protein,Serum 6.9 g/dl (6.3-8.2)
[2021-02-20 01:38] LABS: Lactic Acid 0.9 mmol/L (0.7-2.1)
[2021-02-20 01:39] LABS: Potassium 2.6 mmoL/L (3.5-5.1)
[2021-02-20 01:43] LABS: C-Reactive Protein 12.4 mg/L (0-4)
[2021-02-20 01:52] LABS: Erythrocyte Sedimentation Rate 106 mm/hr (0-20); Troponin I 0.02 ng/ml (0.00-0.034)
[2021-02-20 01:54] LABS: Procalcitonin 0.099 ng/mL (0.0-2.0)
--- NOTE | 2021-02-20 02:17 | HMH.EDNVD ---
ED Disposition Clinical Impression: Hypokalemia Disposition: Home, Self-Care Condition on Discharge: Good Instructions: DI for Acute Abdominal Pain, DI for Hypokalemia Additional Instructions: see pcp for follow up Referrals: Jae Alonzo MD [Emergency Provider] - - Critical Care Critical Care Time: No Attestation: On 02/20/21, the high probability of a clinically significant, sudden or life threatening deterioration of the following system(s) required my full and direct attention, intervention and personal management. The time I documented below is in addition to time spent performing reported procedures but includes the following listed in this critical care notation. Medical Decision Making - Medical Records Medical records reviewed: Yes: I reviewed the patient's medical records. - Jonathan Inquiry Pt receiving controlled substance: No Vital Signs: 02/20/21 00:14 Temperature 98.1 F Temperature Source Oral Pulse Rate [Right] 79 Respiratory Rate 18 Blood Pressure [Right Arm] 139/100 H Blood Pressure Mean [Right Arm] 113 02 Sat by Pulse Oximetry 99 - Lab Data Lab results reviewed: Yes: I reviewed the patient's lab results. Lab Results 02/20/21 01:16: WBC 6.4, RBC 3.95 L, Hgb 12.5 L, Hct 36.4 L, MCV 92.3, MCH 31.7 H, MCHC 34.4, RDW 16.6, Plt Count 189, MPV 8.1, Neut % (Auto) 75.0, Lymph % (Auto) 16.5, [place] % (Auto) 5.7, Eos % (Auto) 2.5, Baso % (Auto) 0.4, Neut # (Auto) 4.8, Lymph # (Auto) 1.1, [place] # (Auto) 0.4, Eos # (Auto) 0.2, Baso # (Auto) 0.0 02/20/21 01:16: Sodium 132 L, Potassium 2.6 L*, Chloride 99, Carbon Dioxide 24, Anion Gap 11.6, BUN 7 L, Creatinine 0.60 L, Estimated Creat Clear 139, Estimated GFR 139, Est GFR ( Amer) 168, Glucose 81, Calcium 9.6, Total Bilirubin 0.5, AST 23, ALT 8 L, Alkaline Phosphatase 113, Troponin I 0.02, C-Reactive Protein 12.4 H, Total Protein 6.9, Albumin 3.6, Globulin 3.3 H, Albumin/Globulin Ratio 1.1, Amylase 50, Lipase 115 02/20/21 01:16: Lactate 0.9 02/20/21 01:16: ESR 106 H 02/20/21 01:16: Procalcitonin 0.099 Result diagrams: 02/20/21 01:16 02/20/21 01:16 Orders (Tests/Meds): ED MEDICATIONS Generic Name Dose Route Start Last Admin Trade Name Freq PRN Reason Stop Dose Admin Sodium Chloride 1,000 mls @ 999 mls/hr 02/20/21 01:30 02/20/21 01:30 Sod Chlor 0.9% 1000ml Bag IV 02/20/21 02:30 999 mls/hr .Q1H1M SWEETIE Administration Lactated Ringer's 1,000 mls @ 999 mls/hr 02/20/21 01:45 02/20/21 01:45 Lactated Ringer's 1000 Ml Bag IV 02/20/21 02:45 999 mls/hr .Q1H1M SWEETIE Administration Potassium Chloride 40 meq 02/20/21 02:55 Potassium Chloride 20meq Tab PO 02/20/21 02:56 ONCE ONE Discontinued Medications Generic Name Dose Route Start Last Admin Trade Name Freq PRN Reason Stop Dose Admin Ketorolac Tromethamine 30 mg 02/20/21 02:26 02/20/21 02:27 Ketorolac 30mg/Ml Vial IV 02/20/21 02:27 30 mg ONCE ONE Administration Ondansetron HCl 4 mg 02/20/21 01:25 02/20/21 02:27 Ondansetron 4mg/2ml Vial IV 02/20/21 01:26 4 mg ONCE ONE Administration ORDERS Category Date Time Status Troponin I Q3H Lab 02/20/21 04:30 Ordered Troponin I Q3H Lab 02/20/21 07:30 Ordered Medical Decision Narrative: needs to be compliant with meds and follow up at this time Nausea/Vomiting/Diarrhea HPI - General Chief complaint: Abdominal Pain Stated complaint: abd pain Time Seen by Provider: 02/20/21 02:17 Mode of Arrival: EMS Source of Information: Patient, EMS, Medical Record Limitations: No Limitations Description of Symptoms (Recalled from ER Triage Doc. by RN): pt c/o llq abd pain with n/v since - History of Present Illness HPI Narrative: pt with ongoing abd pain with vomiting and has been noncompliant with meds - MD complaint: nausea, vomiting Onset (ago): day(s) Associated Abdominal Pain: Yes Severity: moderate Associated symptoms: denies other symptoms - Related Data Ho
[2021-02-20 02:54] VITALS: BP 123/85; PULSE 82; RESP 20; TEMP 36.6; O2SAT 98
== END 2021-02-20 03:00 | disposition home or self-care (01) ==
PROVIDERS: Emergency Provider Emergency Medicine; PCP Nurse Practitioner Family
DX: E87.6 Hypokalemia (principal); R10.32 Left lower quadrant pain; J44.9 Chronic obstructive pulmonary disease, unspecified; I25.10 Atherosclerotic heart disease of native coronary artery without angina pectoris; K21.9 Gastro-esophageal reflux disease without esophagitis; E78.5 Hyperlipidemia, unspecified; I10 Essential (primary) hypertension; I25.2 Old myocardial infarction; F17.210 Nicotine dependence, cigarettes, uncomplicated
CPT/HCPCS: 80053; 82150; 83605; 83690; 84145; 84484; 85025; 85651; 86140; 96365; 96366; 96372; 99282; J2405

== ENCOUNTER 2021-03-09 18:06 | Inpatient (IN) | payer MEDICARE, MEDICAID, SELFPAY ==
[2021-03-09] VITALS (7 sets, daily range): BP systolic 114–142; BP diastolic 61–89; PULSE 71–74; RESP 14–18; TEMP 36.5; O2SAT 98–99; BMI 20.5
--- NOTE | 2021-03-09 18:14 | XR_ITS ---
PROCEDURE INFORMATION: Exam: XR Chest Exam date and time: 03/09/2021 6:14 PM Age: 55 years old Clinical indication: Other: Altered mental status per er staff. ; Patient HX: AMS TECHNIQUE: Imaging protocol: XR of the chest. Views: 1 view. COMPARISON: CR XR CHEST PORTABLE 01/08/2021 8:17 AM FINDINGS: Lungs: Unremarkable. No consolidation. Pleural spaces: Unremarkable. No pleural effusion. No pneumothorax. Heart/Mediastinum: Unchanged heart mediastinum Bones/joints: Unchanged IMPRESSION: No acute findings.
--- NOTE | 2021-03-09 18:32 | ECG_ITS ---
APPROVED REPORT Exam: Resting ECG HR:75 bpm ECG Measurements Heart Rate 75 AXES [place] 160 P 82 QRSd 190 QRS 240 QT 560 T 70 QTc 625 Conclusion Sinus rhythm with premature supraventricular complexes Right bundle branch block Anterolateral infarct, age undetermined Abnormal ECG Electronically signed by : Mello Livingston MD 03/11/2021 06:19:55
[2021-03-09 18:37] LABS: Coronavirus 19, PCR Not Detected (NotDetected); Influenza A, PCR Not Detected (NotDetected); Influenza B, PCR Not Detected (NotDetected)
--- NOTE | 2021-03-09 19:27 | CT_ITS ---
PROCEDURE INFORMATION: Exam: CT Head Without Contrast Exam date and time: 03/09/2021 7:27 PM Age: 55 years old Clinical indication: Screening exam; Patient HX: Best images possible; Additional info: AMS TECHNIQUE: Imaging protocol: Computed tomography of the head without contrast. Radiation optimization: All CT scans at this facility use at least one of these dose optimization techniques: automated exposure control; mA and/or kV adjustment per patient size (includes targeted exams where dose is matched to clinical indication); or iterative reconstruction. COMPARISON: HEADWO CT head/brain wo con 10/05/2017 6:50 PM FINDINGS: Brain: Old right temporal infarct. Motion limits exam. No evidence of intracranial hemorrhage. Evidence of chronic small vessel ischemia noted. Cerebral ventricles: No ventriculomegaly. Paranasal sinuses: Visualized sinuses are unremarkable. No fluid levels. Mastoid air cells: Visualized mastoid air cells are well aerated. Bones/joints: Unremarkable. No acute fracture. Soft tissues: Unremarkable. IMPRESSION: No evidence of acute intracranial pathology
--- NOTE | 2021-03-09 19:28 | HMH.EDGENADL ---
ED Disposition Condition on Discharge: Fair - Critical Care Critical Care Time: No <DakotaDarek martinez - Last Filed: 03/09/21 20:45> <Jae Alonzo - Last Filed: 03/10/21 01:07> Clinical Impression: Generalized weakness, Cachexia, Delirium due to general medical condition, S/P AAA repair, Biventricular automatic implantable cardioverter defibrillator in situ, Tobacco use disorder Abdominal pain Qualifiers: Abdominal location: unspecified location Qualified Code(s): R10.9 - Unspecified abdominal pain Aspiration pneumonia Qualifiers: Aspiration pneumonia type: unspecified Laterality: right Lung location: lower lobe of lung Qualified Code(s): J69.0 - Pneumonitis due to inhalation of food and vomit Disposition: Admitted as Observation Attestation: On 03/09/21, the high probability of a clinically significant, sudden or life threatening deterioration of the following system(s) required my full and direct attention, intervention and personal management. The time I documented below is in addition to time spent performing reported procedures but includes the following listed in this critical care notation. Medical Decision Making - Jonathan Inquiry Pt receiving controlled substance: No - Lab Data Result diagrams: 03/09/21 19:53 03/09/21 19:53 - Radiology Data #1 Image(s): Chest Image Reviewed: Yes I have reviewed radiologist's interpretation <Darek George - Last Filed: 03/09/21 20:45> - Lab Data Lab results reviewed: Yes: I reviewed the patient's lab results. Result diagrams: 03/09/21 19:53 03/09/21 19:53 - CT Data CT Scan: Head, Abdomen, Pelvis, Chest Time Received: 00:[address] Reviewed: Yes: I have viewed the radiologist's interpretation Preliminary Findings: Abnormal (see reports ) - Physician Consults Physician Consulted: lui Reason -: Admission <Jae Alonzo - Last Filed: 03/10/21 01:07> Vital Signs: 03/09/21 18:07 03/09/21 18:30 03/09/21 20:34 Temperature 97.7 F Temperature Source Oral Pulse Rate 73 Pulse Rate [Radial] 73 Respiratory Rate 16 16 18 Blood Pressure 114/61 136/72 Blood Pressure [Right Arm] 131/70 Blood Pressure Mean 86 92 Blood Pressure Mean [Right Arm] 90 Blood Pressure Position [Right Arm] Sitting 02 Sat by Pulse Oximetry 98 98 98 Oxygen Delivery Method Room Air 03/09/21 20:47 03/09/21 21:00 03/09/21 22:31 Temperature Temperature Source Pulse Rate 74 71 Pulse Rate [Radial] Respiratory Rate 14 18 Blood Pressure 142/89 H 141/72 H 139/72 Blood Pressure [Right Arm] Blood Pressure Mean 106 95 94 Blood Pressure Mean [Right Arm] Blood Pressure Position [Right Arm] 02 Sat by Pulse Oximetry 98 Oxygen Delivery Method 03/09/21 23:01 03/10/21 00:00 03/10/21 00:30 Temperature Temperature Source Pulse Rate Pulse Rate [Radial] Respiratory Rate 18 16 14 Blood Pressure 131/76 147/77 H 132/70 Blood Pressure [Right Arm] Blood Pressure Mean 101 106 96 Blood Pressure Mean [Right Arm] Blood Pressure Position [Right Arm] 02 Sat by Pulse Oximetry 99 96 Oxygen Delivery Method - Lab Data Lab Results 03/09/21 18:35: SARS-CoV-2 (PCR) Not detected, Influenza A Untype (PCR) Not detected, Influenza Type B (PCR) Not detected 03/09/21 19:53: WBC 7.3, RBC 3.52 L, Hgb 11.0 L, Hct 31.8 L, MCV 90.4, MCH 31.3 H, MCHC 34.7, RDW 16.6, Plt Count 131 L, MPV 8.6, Neut % (Auto) 81.9 H, Lymph % (Auto) 12.8, [place] % (Auto) 4.7, Eos % (Auto) 0.4, Baso % (Auto) 0.2, Neut # (Auto) 6.0, Lymph # (Auto) 0.9, [place] # (Auto) 0.3, Eos # (Auto) 0.0, Baso # (Auto) 0.0 03/09/21 19:53: Sodium 137, Potassium 3.2 L, Chloride 98, Carbon Dioxide 29, Anion Gap 13.2, BUN 21 H, Creatinine 0.60 L, Estimated Creat Clear 139, Estimated GFR 139, Est GFR ( Amer) 168, Glucose 95, Calcium 9.7, Total Bilirubin 1.3, AST 33, ALT 24, Alkaline Phosphatase 81, Total Creatine Kinase 41 L, Total Protein 6.7, Albumin 3.6, Globulin 3.1, Album
--- NOTE | 2021-03-09 19:33 | PC.NURSE ---
pt difficulty to obtain iv access
--- NOTE | 2021-03-09 19:54 | CT_ITS ---
PROCEDURE INFORMATION: Exam: CT Abdomen And Pelvis With Contrast Exam date and time: 03/09/2021 7:54 PM Age: 55 years old Clinical indication: Abdominal pain TECHNIQUE: Imaging protocol: Computed tomography of the abdomen and pelvis with contrast. Radiation optimization: All CT scans at this facility use at least one of these dose optimization techniques: automated exposure control; mA and/or kV adjustment per patient size (includes targeted exams where dose is matched to clinical indication); or iterative reconstruction. Contrast material: ISOVUE; Contrast volume: 75 ml; Contrast route: IV; COMPARISON: CT ABDOMEN PELVIS W CON 01/18/2021 10:18 AM FINDINGS: Tubes, catheters and devices: Cardiac leads are noted. Infrarenal abdominal aortic aneurysm status post endograft repair with bilateral iliac sleeves. The graft are patent. Unchanged 4.8 cm diameter of the aneurysm sac. Relatively large amount of thrombus in the aneurysm sac, but this is similar to prior studies. Urinary bladder is catheterized. Lungs: Secretions in the right lower lobe airways likely representing aspiration. Bibasilar atelectasis. Heart: Cardiomegaly. Coronary artery disease. Liver: Normal. No mass. Gallbladder and bile ducts: Gallbladder is absent. Pancreas: Normal. No ductal dilation. Spleen: Normal. No splenomegaly. Adrenal glands: Normal. No mass. Kidneys and ureters: Low attenuation renal lesions measuring up to 3.8 cm in diameter are incompletely characterized, but are likely cysts. No followup imaging is warranted. Mild right renal scarring. Stomach and bowel: Moderate amount of gas in the colon. Appendix: No evidence of appendicitis. Intraperitoneal space: Unremarkable. No free air. No significant fluid collection. Retroperitoneal space: Surgical clips in the retroperitoneum. Vasculature: Unremarkable. No abdominal aortic aneurysm. Lymph nodes: Unremarkable. No enlarged lymph nodes. Urinary bladder: Unremarkable as visualized. Reproductive: Unremarkable as visualized. Bones/joints: The lumbar spine demonstrates mild degenerative changes at multiple levels. Status post total right hip arthroplasty. Hardware appears intact. Soft tissues: Unremarkable. Other findings: Stigmata of old granulomatous disease. IMPRESSION: 1. Secretions in the right lower lobe airways likely representing aspiration. 2. Moderate amount of gas in the colon. Otherwise, no acute findings. COMMENTS: Consistent with the [employer]'s Incidental Findings Committee white paper (J Am Abigail Radiol 2018): Any incidental renal lesion less than 1 cm or classified as too small to characterize, or any incidental cystic renal lesion characterized as simple-appearing, is likely benign. No follow-up imaging is recommended for these lesions per consensus recommendations based on imaging criteria.
[2021-03-09 20:05] LABS: Basophils % 0.2 % (0.1-2.0); Eosinophils % 0.4 % (0.1-12.0); Hematocrit 31.8 % (42.0-52.0); Lymphocytes # 0.9 K/mm3 (0.7-4.5); Lymphocytes % 12.8 % (10-50); Mean Corpuscular HGB Conc 34.7 g/dL (31.8-35.4); Mean Corpuscular Hemoglobin 31.3 pg (27.0-31.2); Mean Corpuscular Volume 90.4 fl (80-94); Mean Platelet Volume 8.6 fl (7.4-10.4); Monocytes # 0.3 K/mm3 (0.1-1.0); Monocytes % 4.7 % (1.7-9.3); Neutrophils % 81.9 % (37.0-80.0); Platelet Count 131 K/mm3 (142-424); Red Blood Count 3.52 M/mm3 (4.60-6.20); Red Cell Distribution Width 16.6 % (11.5-17.5); White Blood Count 7.3 K/mm3 (4.8-10.8)
[2021-03-09 20:09] LABS: Chloride 98 mmol/L (98-107); Potassium 3.2 mmoL/L (3.5-5.1); Sodium 137 mmol/L (136-145)
[2021-03-09 20:12] LABS: Alanine Aminotransferase 24 U/L (12-78); Albumin Level 3.6 g/dl (3.5-5.0); Albumin/Globulin Ratio 1.2 (1.1-1.8); Alkaline Phosphatase 81 U/L (38-126); Anion Gap 13.2 mEq/L (5-15); Aspartate Amino Transferase 33 U/L (17-59); Bilirubin,Total 1.3 mg/dl (0.2-1.3); Blood Urea Nitrogen 21 mg/dl (9-20); Calcium 9.7 mg/dl (8.4-10.2); Carbon Dioxide 29 mmol/L (22.0-30.0); Creatine Kinase 41 U/L (55-170); Creatinine Clearance Estimated 139 mL/min (50-200); Estimated Glomerular Filt Rate 139 ml/min (>60); GFR (African American) 168 ML/MIN (>60); Globulin 3.1 g/dL (1.3-3.2); Glucose 95 mg/dl (74-100); Lactic Acid 1.5 mmol/L (0.7-2.1); Total Protein,Serum 6.7 g/dl (6.3-8.2)
--- NOTE | 2021-03-09 20:19 | PC.NURSE ---
called for records from [facility].
[2021-03-09 20:33] LABS: Magnesium 1.6 mg/dl (1.6-2.3)
[2021-03-09 20:56] LABS: Ethyl Alcohol < 10 mg/dl (0-10)
[2021-03-09 21:04] LABS: Ammonia < 9 umol/L (9-30)
--- NOTE | 2021-03-09 21:17 | PC.NURSE ---
NOT ENOUGH URINE OUTPUT FOR COLLECTION.
[2021-03-09 21:21] LABS: Amylase 76 U/L (30-110); Lipase 243 U/L (23-300)
[2021-03-09 21:23] LABS: Erythrocyte Sedimentation Rate 106 mm/hr (0-20)
[2021-03-09 21:26] LABS: C-Reactive Protein 16.2 mg/L (0-4)
[2021-03-09 22:10] LABS: Microscopic, Urine URINE MICROSCOPIC (MICROSCOPIC)
[2021-03-09 22:14] LABS: Appearance,Urine CLOUDY (Clear); Blood, Urine 3+ (Negative); Color,Urine BROWN (Yellow); Glucose,Urine (UA) TRACE (Negative); Ketones,Urine TRACE (Negative); Leukocyte Esterase,Urine Negative (Negative); Nitrate,Urine POSITIVE (Negative); PH,Urine 6.5 (5.0-8.5); Protein,Urine 1+ (Negative); Specific Gravity, Urine 1.025 (1.005-1.030)
[2021-03-09 22:23] LABS: Acetaminophen < 10 ug/ml (10-30); Salicylate < 1.0 mg/dL (2.0-20.0)
[2021-03-09 22:24] LABS: Bilirubin,Urine 2+ (Negative)
[2021-03-09 22:25] LABS: Amphetamine/Metha Screen,Urine Negative ng/ml (<1000); Barbiturates Screen,Urine Negative ng/ml (<200)
[2021-03-09 22:26] LABS: Benzodiazepines Screen,Urine Positive ng/ml (<200)
[2021-03-09 22:27] LABS: Cannabinoid Screen,Urine Negative ng/ml (<50); Cocaine Screen,Urine Negative ng/ml (<300)
[2021-03-09 22:28] LABS: Methadone Screen,Urine Negative ng/ml (<300)
[2021-03-09 22:29] LABS: Bacteria,Urine Trace /lpf; Opiate Screen,Urine Negative ng/ml (<300); Phencyclidine Screen,Urine Negative ng/ml (<25); WBC,Urine Occasional #/hpf (0-3)
[2021-03-09 22:37] LABS: Troponin I 0.02 ng/ml (0.00-0.034)
--- NOTE | 2021-03-09 23:19 | CT_ITS ---
PROCEDURE INFORMATION: Exam: CT Chest Without Contrast; Diagnostic Exam date and time: 03/09/2021 11:19 PM Age: 55 years old Clinical indication: Other: Aspiration pneumonia; Prior surgery TECHNIQUE: Imaging protocol: Diagnostic computed tomography of the chest without contrast. Radiation optimization: All CT scans at this facility use at least one of these dose optimization techniques: automated exposure control; mA and/or kV adjustment per patient size (includes targeted exams where dose is matched to clinical indication); or iterative reconstruction. COMPARISON: CT ANGIO CHEST PE PROTOCOL 01/10/2021 4:40 PM FINDINGS: Tubes, catheters and devices: Cardiac leads are noted. Thyroid: Thyroid nodules measure up to 17 mm. Lungs: Mild centrilobular and paraseptal emphysema. Secretions in the right lower lobe airways. Right lower lobe groundglass opacities. Pleural spaces: Unremarkable. No pneumothorax. No pleural effusion. Heart: Coronary artery disease. Cardiomegaly. Pulmonary arteries: Enlarged pulmonary arteries likely represent chronic pulmonary arterial hypertension. Aorta: [id number] atherosclerotic changes of the aorta. Unruptured 4 cm ascending aortic aneurysm. Lymph nodes: Unremarkable. No enlarged lymph nodes. Bones/joints: Old right rib fractures. Partially imaged chronic right humeral fracture. Status post median sternotomy and coronary artery bypass. Soft tissues: Unremarkable. Other findings: Stigmata of old granulomatous disease. Please see separate report for abdomen/pelvis. IMPRESSION: 1. Secretions in the right lower lobe airways. Right lower lobe groundglass opacities. Aspiration pneumonitis versus atypical infection would be most likely. 2. Thyroid nodules measure up to 17 mm. If not previously performed, follow-up ultrasound is recommended. COMMENTS: Consistent with the [employer]'s Incidental Findings Committee white paper (J Am Abigail Radiol 2015): In patients aged 35 years and older with an incidental thyroid nodule equal to or greater than 1.[address], MRI or extrathyroidal US, further evaluation with dedicated thyroid US is recommended for patients with normal life expectancy and without comorbidities. For smaller nodules without suspicious features, no further evaluation or follow up is recommended.
--- NOTE | 2021-03-09 23:35 | PC.NURSE ---
remains out of room in radiology at this time.
[2021-03-10] VITALS (13 sets, daily range): BP systolic 97–159; BP diastolic 57–88; PULSE 67–100; RESP 14–18; TEMP 36.3–37.2; O2SAT 96–100; BMI 19.1
--- NOTE | 2021-03-10 00:01 | PC.NURSE ---
back from rad
--- NOTE | 2021-03-10 00:27 | PC.NURSE ---
diagnosis aspiration pneumonia per ct vs viral syndrome. covid performed.
[2021-03-10 00:45] LABS: ABG Base Excess 0.8 mmol/L (-2.4-2.3); ABG HCO3 24.1 mmhg (22.0-26.0); ABG Oxygen Saturation 94 % (90-100); ABG PCO2 32.1 mmhg (35.0-45.0); ABG PH 7.49 mmol/L (7.35-7.45); ABG TCO2 25.1 mmhg (23-27)
[2021-03-10 00:46] LABS: Allen's Test Acceptable; Oxygen 21 %; Source Left Radial
--- NOTE | 2021-03-10 00:49 | PC.NURSE ---
paged dr lui little aware of blood gas and serology results
--- NOTE | 2021-03-10 01:20 | PC.NURSE ---
report called to Leslie
--- NOTE | 2021-03-10 01:35 | PC.NURSE ---
patient up to floor via stretcher.
[2021-03-10 01:40] LABS: D-Dimer 1.75 ug/mL (0.0-0.5)
[2021-03-10 01:46] LABS: NT Pro Brain Natriuretic Pep. 1610 pg/mL (0-125)
[2021-03-10 07:33] LABS: Chloride 102 mmol/L (98-107)
[2021-03-10 07:34] LABS: Potassium 3.1 mmoL/L (3.5-5.1); Sodium 135 mmol/L (136-145)
[2021-03-10 07:36] LABS: Blood Urea Nitrogen 19 mg/dl (9-20); Creatinine Clearance Estimated 155 mL/min (50-200); Estimated Glomerular Filt Rate 171 ml/min (>60); GFR (African American) 207 ML/MIN (>60)
[2021-03-10 07:37] LABS: Anion Gap 11.1 mEq/L (5-15); Calcium 8.7 mg/dl (8.4-10.2); Carbon Dioxide 25 mmol/L (22.0-30.0); Glucose 73 mg/dl (74-100); Magnesium 1.4 mg/dl (1.6-2.3)
--- NOTE | 2021-03-10 08:00 | CA_ITS ---
APPROVED REPORT EXAM: Comprehensive 2D, Doppler, and color-flow Echocardiogram Shafting Cleaner: Margarita Mares CRT Ht: 6 ft 2 in Wt: 160lbs BSA: 1.98 BP: 132/70 mmHg Indications: Congestive Heart Failure, CVA/TIA, Atrial Fibrillation, CAD, stents, CABG, GERD, pacer, AAA repair, murmur, smoker 2D Dimensions IVSd 1.14 cm LVEF (Visual) 48.30 % PWd 0.65 cm LA Volume 70.20 mL LVDd 2.88 cm LA Volume Index 35.50 mL/m2 (M/F) 16-34 LVDs 2.21 cm M-Mode Dimensions LA Diam 3.50 cm (1.9-4.0) Ao Diam 6.59 cm (2.0-3.7) LV Diastology E Decel Time 203.00 (160-240 msec) E/A Ratio 1.85 MED E' 4.10 (< 7 cm/sec) MED A' 4.30 cm/s E'/MED E' Ratio 15.39 (>14) LAT E' 7.00 (<10 cm/sec) LAT A' 4.80 cm/s E/LAT E' Ratio 9.01 (>14) Aortic Valve AI PHT 560.00 ms AO Peak GR. 8.40 mmHg Mitral Valve MV E Max Mayito. 63.00 (40-130 cm/s) MV A Velocity 34.00 (40-130 cm/s) E/A Ratio 1.85 MV Decel. Time 203.00 (160-240 ms) MV PHT 60.00 ms Pulmonary Valve PV Peak Velocity 85.00 (50-150 cm/s) Tricuspid Valve TR P. Velocity 125.00 cm/s RAP Estimate 10.00 mmHg RVSP 16.20 mmHg Left Ventricle Left atrium is mildly enlarged, left ventricle is normal size, mild concentric left ventricular hypertrophy, visually estimated ejection fraction 50% with no obvious regional wall motion abnormality. Diastolic parameters are inconclusive. Right Ventricle Right atrium and right ventricle are normal size and contractility, there is pacemaker lead seen in right ventricle. Aortic Valve Aortic valve is thickened and calcified without aortic stenosis, there is mild aortic insufficiency. Mitral Valve Mitral valve is grossly normal, there is mild mitral regurgitation. Tricuspid Valve Tricuspid valve grossly normal, there is mild tricuspid regurgitation, tricuspid regurgitation jet velocity is inadequate for calculation of the right ventricular systolic pressure. Pulmonic Valve Pulmonic valve is poorly visualized Great Vessels Aortic root is normal size. Inferior vena cava is poorly visualized. Pericardium No significant pericardial effusion noted. Conclusion 1. Mildly enlarged left atrium, normal left ventricular size, mild concentric left ventricular hypertrophy, visually estimated ejection fraction 50% with no regional wall motion abnormality, diastolic parameters are inconclusive. 2. Mild aortic, mild mitral and tricuspid regurgitation. 3. No significant pericardial effusion noted. 4. Inferior vena cava is poorly visualized. Electronically signed by : Irving Esparza MD 03/10/2021 10:37:15
[2021-03-10 08:12] LABS: Basophils % 0.2 % (0.1-2.0); Eosinophils % 0.4 % (0.1-12.0); Hemoglobin 10.6 g/dL (14.1-18.0); Lymphocytes % 18.3 % (10-50); Mean Corpuscular HGB Conc 35.2 g/dL (31.8-35.4); Mean Corpuscular Hemoglobin 31.5 pg (27.0-31.2); Mean Corpuscular Volume 89.6 fl (80-94); Mean Platelet Volume 9.2 fl (7.4-10.4); Monocytes # 0.4 K/mm3 (0.1-1.0); Monocytes % 7.6 % (1.7-9.3); Neutrophils # 4.1 K/mm3 (1.8-7.8); Neutrophils % 73.6 % (37.0-80.0); Platelet Count 96 K/mm3 (142-424); Red Blood Count 3.35 M/mm3 (4.60-6.20); Red Cell Distribution Width 16.7 % (11.5-17.5); White Blood Count 5.6 K/mm3 (4.8-10.8)
--- NOTE | 2021-03-10 08:51 | HMH.HP ---
*Admission Date: 03/09/21 *Chief complaint: Altered mental status *History of present illness: Mr. Good is a 55-year-old male with significant past medical history. Brought to the ER via ambulance due to concern for progressive weakness, fatigue, drowsiness and confusion. He is a poor historian and keeps saying he does not know where he is. Questions answered by EMS and family. Reportedly has been getting more confused over the past few days to weeks. States he is only been smoking cigarettes and drinking Mountain Dew for the past week or so. Afebrile, no shortness of breath. Does complain of some mild abdominal pain. Unable to give further review of systems. Work-up in the ER initiated with a scanning of head for confusion, chest for pneumonia/intrathoracic process, and abdomen. Concern for right lower lobe pneumonia/aspiration pneumonia. Patient unable to ambulate or stay alert for an extended period of time. Admitted to medicine for management of altered mental status/encephalopathy, and aspiration pneumonia. On assessment this morning, patient is somnolent but arouses to verbal stimuli. Complains of some mild abdominal discomfort. Denies nausea or chest pain. Frail and older than stated age in appearance. Still does not know where he is and cannot tell me his date of or give specific answers to questions. Only abnormal drug screen finding on admission was for benzodiazepines, he has not prescribed these. [facility] History I have reviewed the patient's past medical history: Yes (Patient poor historian) Medical History: Reports:: Aneurysm, Arrhythmia, Atherosclerotic Heart Disease, Atrial Fibrillation, Congestive Heart Failure, Chronic Obstructive Pulmonary Disease (COPD), Coronary Artery Disease, Cerebrovascular Accident, Gastroesophageal Reflux Disease(GERD), Hyperlipidemia, Hypertension, Internal Pacemaker, Myocardial Infarction Denies:: Cancer, Diabetes Mellitus Type 1, Diabetes Mellitus Type 2, MRSA, Seizures *Have you ever received a pneumonia vaccine?: No *Have you received a flu vaccine this season?: No Other Medical History: Denies: Blood Transfusion Reaction Laterality Cases: Left: Other, Right: Arthroscopy Hip, Total Hip Replacement Other Surgeries: Yes: CABG (x3), Cardiac Catheterization, Cardiac Surgery, Cholecystectomy, Colonoscopy, Coronary Stent, Open Heart Surgery, Pacemaker, Other Amputation: No Fractures: No - *Social History Smoking Status: Current every day smoker Tobacco Type: cigarettes # Packs/Day (cigarettes): 1 #Yrs smoked (if former smoker): 40 Alcohol Intake: never Alcohol Intake Frequency:: other Substance Use Type: marijuana *Occupational Status:: disabled Housing: apartment Household Members: none *Travel in the last 8 weeks: None Family Hx:: Asthma, Cancer, Coronary Artery Disease, Diabetes, Heart Attack, Hyperlipidemia, Hypertension Review of Systems - Review of Systems Review of systems:: pertinent systems reviewed and negative unless documented below (14 point review of systems performed, pertinent positives and negatives as per HPI) Meds Home Medications Medication Instructions Recorded Confirmed Type Atorvastatin Calcium [Lipitor 80mg 80 mg PO HS 05/26/17 03/09/21 History Tab] Ranolazine [Ranexa 500mg ER tablet] 500 mg PO BID 01/08/21 03/09/21 History Nicotine [Nicoderm 21mg/24hr 21 mg TD DAILYP PRN 30 Days #30 01/11/21 03/09/21 Rx patch] patch Aspirin [Aspirin 81mg EC Tab] 81 mg PO DAILY 01/16/21 03/09/21 History Clopidogrel Bisulfate [Plavix 75mg 75 mg PO DAILY 01/16/21 03/09/21 History Tab] Famotidine [Pepcid 20mg Tablet] 20 mg PO DAILY 01/16/21 03/09/21 History Apixaban [Eliquis] 5 mg PO BID 03/09/21 03/09/21 History Metoprolol Succinate [Metoprolol 50 mg PO BID 03/09/21 03/09/21 History Succinate 50mg Tablet*] Potassium Chloride [Klor-con 20 20 meq PO DAILY 03/09/21 03/09/21 History mEq tablet] lisinopriL [Zestril 10mg Tab] 10
--- NOTE | 2021-03-10 10:18 | P.CONPHA_ITS ---
[facility] Pharmacy VTE Monitoring - Patient Demographics Admission date: 03/10/21 Report Date: 03/10/21 Time: 10:18 Allergies/Adverse Reactions: Patient Allergies diphenhydramine [From BENADRYL ALLERGY] Allergy (Mild, Verified 02/07/18 14:33) NA-NAUSEA pseudoephedrine [From SUDAFED] Allergy (Mild, Verified 02/07/18 14:33) NA-NAUSEA nitroglycerin [From NITRO-BID] Allergy (Unknown, Verified 02/07/18 14:33) Height: 1.88 m Weight: 67.404 kg Patient Problems: Current Active Problems S/P AAA repair (Acute) Abdominal pain (Acute) Biventricular automatic implantable cardioverter defibrillator in situ (Acute) Generalized weakness (Acute) Cachexia (Acute) Aspiration pneumonia (Acute) Delirium due to general medical condition (Acute) Tobacco use disorder (Chronic) - VTE Risk Labs: VTE Related Lab Results Hgb 10.6 g/dL (14.1-18.0) L 03/10/21 06:28 Hct 30.0 % (42.0-52.0) L 03/10/21 06:28 Plt Count 96 K/mm3 (142-424) L D 03/10/21 06:28 BUN 19 mg/dl (9-20) 03/10/21 06:28 Creatinine 0.50 mg/dl (0.66-1.25) L 03/10/21 06:28 Estimated Creat Clear 155 mL/min (50-200) 03/10/21 06:28 Clinical Trial Participant: No - Prophylaxis VTE Prophylaxis Ordered?: Yes Types of VTE Prophylaxis: TEDS Knee High
--- NOTE | 2021-03-10 19:36 | PC.NURSE ---
pt has become more alert but is still confused. tolerating ra well. diet advanced per md today tolerated well.
[2021-03-11] VITALS (9 sets, daily range): BP systolic 108–162; BP diastolic 60–86; PULSE 71–106; RESP 12–20; TEMP 36.4–36.9; O2SAT 92–100; BMI 18.9
[2021-03-11 07:14] LABS: Basophils % 0.1 % (0.1-2.0); Eosinophils % 0.3 % (0.1-12.0); Hematocrit 26.9 % (42.0-52.0); Hemoglobin 9.8 g/dL (14.1-18.0); Lymphocytes # 0.9 K/mm3 (0.7-4.5); Mean Corpuscular HGB Conc 36.4 g/dL (31.8-35.4); Mean Corpuscular Hemoglobin 32.1 pg (27.0-31.2); Mean Corpuscular Volume 88.2 fl (80-94); Mean Platelet Volume 7.8 fl (7.4-10.4); Monocytes # 0.3 K/mm3 (0.1-1.0); Neutrophils # 4.2 K/mm3 (1.8-7.8); Neutrophils % 76.6 % (37.0-80.0); Platelet Count 98 K/mm3 (142-424); Red Blood Count 3.05 M/mm3 (4.60-6.20); Red Cell Distribution Width 16.7 % (11.5-17.5); White Blood Count 5.5 K/mm3 (4.8-10.8)
[2021-03-11 08:06] LABS: Chloride 102 mmol/L (98-107); Potassium 3.3 mmoL/L (3.5-5.1); Sodium 136 mmol/L (136-145)
[2021-03-11 08:08] LABS: Alanine Aminotransferase 21 U/L (12-78); Albumin Level 3.3 g/dl (3.5-5.0); Albumin/Globulin Ratio 1.1 (1.1-1.8); Alkaline Phosphatase 70 U/L (38-126); Anion Gap 16.3 mEq/L (5-15); Aspartate Amino Transferase 42 U/L (17-59); Bilirubin,Total 0.8 mg/dl (0.2-1.3); Blood Urea Nitrogen 14 mg/dl (9-20); Carbon Dioxide 21 mmol/L (22.0-30.0); Creatinine Clearance Estimated 129 mL/min (50-200); Estimated Glomerular Filt Rate 139 ml/min (>60); GFR (African American) 168 ML/MIN (>60); Globulin 3.1 g/dL (1.3-3.2); Total Protein,Serum 6.4 g/dl (6.3-8.2)
[2021-03-11 08:09] LABS: Calcium 8.3 mg/dl (8.4-10.2); Glucose 65 mg/dl (74-100); Magnesium 1.4 mg/dl (1.6-2.3); Phosphorous 3.4 mg/dl (2.5-4.5)
--- NOTE | 2021-03-11 08:43 | HMH.ACPN2 ---
Internal Medicine - PN: Subj *Date: 03/11/21 *Time: 08:43 Interval history: Nurses report patient slept comfortably overnight. This morning he is arousable with verbal stimuli, however he is somewhat disoriented to place and time. Is able to talk but does not really seem to comprehend full sentences. Exam Vital signs and Labs for Last 24 Hours: Temp Pulse Resp BP Pulse Ox 98.3 F 73 20 162/86 H 92 L 03/11/21 07:41 03/11/21 08:00 03/11/21 07:41 03/11/21 07:41 03/11/21 07:41 Laboratory Results - last 24 hr 03/11/21 06:36: WBC 5.5, RBC 3.05 L, Hgb 9.8 L, Hct 26.9 L, MCV 88.2, MCH 32.1 H, MCHC 36.4 H, RDW 16.7, Plt Count 98 L, MPV 7.8, Neut % (Auto) 76.6, Lymph % (Auto) 17.0, [place] % (Auto) 6.0, Eos % (Auto) 0.3, Baso % (Auto) 0.1, Neut # (Auto) 4.2, Lymph # (Auto) 0.9, [place] # (Auto) 0.3, Eos # (Auto) 0.0, Baso # (Auto) 0.0 03/11/21 06:36: Sodium 136, Potassium 3.3 L, Chloride 102, Carbon Dioxide 21 L, Anion Gap 16.3 H, BUN 14 D, Creatinine 0.60 L, Estimated Creat Clear 129, Estimated GFR 139, Est GFR ( Amer) 168, Glucose 65 L, Calcium 8.3 L, Phosphorus 3.4, Magnesium 1.4 L, Total Bilirubin 0.8, AST 42 D, ALT 21, Alkaline Phosphatase 70, Total Protein 6.4, Albumin 3.3 L, Globulin 3.1, Albumin/Globulin Ratio 1.1 I & O for Last 24 hours: Intake & Output 03/08/21 03/09/21 03/10/21 03/11/21 11:59 11:59 11:59 11:59 Intake Total 120 / 120 Output Total 800 / 800 1450 / 1450 Balance -800 / -800 -1330 / -1330 Weight 148 lb 9.6 oz 147 lb 12.8 oz Microbiology Reports for the Last 24 Hours: Microbiology 03/09/21 22:20 Urine,Catheterized Urine Culture - Preliminary NO GROWTH AFTER 24 HOURS Narrative: Rhonchorous lung sounds noted consistent with heavy tobacco use and surgical scar on anterior chest from his bypass. Expanding his chest fairly well. Heart rate regular with murmur. Abdomen scaphoid but soft. Extremities are covered with scabs and evidence of multiple bruises of a variety of stages of resolution. Some scratches on his arms. Oropharynx is dry but fairly clear. He does have dry and cracked and bleeding lips. His sclera clear. Neurologic exam nonfocal except for global weakness, significant confusion as noted above. Assessment and Plan (1) Aspiration pneumonia Status: Acute Qualifiers: Aspiration pneumonia type: unspecified Laterality: right Lung location: lower lobe of lung Qualified Code(s): J69.0 - Pneumonitis due to inhalation of food and vomit Category: Medical Code(s): J69.0 - Pneumonitis due to inhalation of food and vomit (2) Encephalopathy Status: Acute Category: Medical Code(s): G93.40 - Encephalopathy, unspecified (3) HFrEF (heart failure with reduced ejection fraction) Status: Chronic Category: Medical Code(s): I50.20 - Unspecified systolic (congestive) heart failure (4) Biventricular automatic implantable cardioverter defibrillator in situ Status: Chronic Category: Medical Code(s): Z95.810 - Presence of automatic (implantable) cardiac defibrillator (5) Tobacco use disorder Status: Chronic Category: Medical Code(s): F17.200 - Nicotine dependence, unspecified, uncomplicated (6) Atrial fibrillation Status: Chronic Qualifiers: Atrial fibrillation type: longstanding persistent Qualified Code(s): I48.11 - Longstanding persistent atrial fibrillation Category: Medical Code(s): I48.91 - Unspecified atrial fibrillation (7) COPD (chronic obstructive pulmonary disease) Status: Chronic Qualifiers: COPD type: unspecified COPD Qualified Code(s): J44.9 - Chronic obstructive pulmonary disease, unspecified Category: Medical Code(s): J44.9 - Chronic obstructive pulmonary disease, unspecified (8) Dehydration Status: Acute Category: Medical Code(s): E86.0 - Dehydration (9) History of aortic aneurysm repair Status: Chronic Category: Surgical Code
--- NOTE | 2021-03-11 11:39 | HMH.PTEV ---
Physical Therapy Evaluation Rehab PT IP Evaluation Start: 03/11/21 08:42 Freq: ONCE Status: Active Protocol: Document 03/11/21 11:34 ALVERTO (Rec: 03/11/21 11:39 ALVERTO [id number]) Subjective/History History History Pt brought to ED by EMS due to AMS, acute delirium and weakness. Subjective Subjective Pt alert to name and birthday but confused to place, time and year. Pt has difficulty staying awake, alert, and following instructions. Rehab PT IP Eval Objective Appearance Patient Behavior Sedated,Asleep,Wandering, Confused Patient Orientation Name,Birthday Difficulty following instructions severe Speech Pattern Delayed,Soft-Spoken,Mumbled Ambulation Patient Able to Ambulate No Balance Ability to Arise Unable Sitting Balance Leans or slides in chair Dynamic Sitting Balance Ability Poor Transfers Bed Transfer Ability Maximum x 1 (75% assist) Rehab PT IP prob,goals,plan Problems Date of Evaluation: 03/11/21 PT IP Problems Bed Mobility,Transfers,Gait, Balance,Self care,Safety Rehab Potential Rehab Potential Poor Plan PT Intervention Plan Bed Mobility,Transfers PT Plan Frequency BID Duration LOS Discharge Goals Bed Transfer Ability Maximum x 1 (75% assist) Discharge Plan PT Discharge Plan At this time, pt's current situation and physical status will require SNF or LTC for rehab to allow return home w/ some level of independence. Pt may be safe to return home w/ supervision if mental status shows significant improvement over the LOS, if not, pt will be unsafe to return home due to inability to care for self. G -code Required No Eval Complexity Eval Charge Codes 87327 - High Complexity PHYSICIAN CERTIFICATION: I certify the specified therapy services for Isaak Good are required, authorized, and reviewed every 30 days.
--- NOTE | 2021-03-11 11:52 | PC.NURSE ---
pt is alert but completely disoriented. unable to follow commands without repeated prompts. I attempted to give him pudding and he was unable to tolerate it. spit meds out this morning.
[2021-03-12] VITALS (9 sets, daily range): BP systolic 126–163; BP diastolic 68–89; PULSE 70–104; RESP 12–18; TEMP 36.6–37.1; O2SAT 96–100
[2021-03-12 06:47] LABS: Basophils % 0.2 % (0.1-2.0); Eosinophils % 0.3 % (0.1-12.0); Hematocrit 28.1 % (42.0-52.0); Hemoglobin 9.6 g/dL (14.1-18.0); Lymphocytes # 0.8 K/mm3 (0.7-4.5); Lymphocytes % 13.6 % (10-50); Mean Corpuscular HGB Conc 34.3 g/dL (31.8-35.4); Mean Corpuscular Hemoglobin 31.5 pg (27.0-31.2); Mean Corpuscular Volume 91.9 fl (80-94); Mean Platelet Volume 8.7 fl (7.4-10.4); Monocytes # 0.3 K/mm3 (0.1-1.0); Monocytes % 5.4 % (1.7-9.3); Neutrophils # 4.6 K/mm3 (1.8-7.8); Neutrophils % 80.4 % (37.0-80.0); Platelet Count 106 K/mm3 (142-424); Red Blood Count 3.05 M/mm3 (4.60-6.20); Red Cell Distribution Width 16.6 % (11.5-17.5); White Blood Count 5.7 K/mm3 (4.8-10.8)
[2021-03-12 07:05] LABS: Chloride 101 mmol/L (98-107)
[2021-03-12 07:06] LABS: Potassium 3.2 mmoL/L (3.5-5.1); Sodium 134 mmol/L (136-145)
[2021-03-12 07:08] LABS: Blood Urea Nitrogen 11 mg/dl (9-20); Creatinine Clearance Estimated 129 mL/min (50-200); Estimated Glomerular Filt Rate 139 ml/min (>60); GFR (African American) 168 ML/MIN (>60)
[2021-03-12 07:09] LABS: Anion Gap 12.2 mEq/L (5-15); Carbon Dioxide 24 mmol/L (22.0-30.0); Glucose 76 mg/dl (74-100)
--- NOTE | 2021-03-12 09:14 | HMH.ACPN2 ---
Internal Medicine - PN: Subj *Date: 03/12/21 *Time: 09:14 Interval history: Overall patient has done fairly well overnight, is much more alert today, and is able to wake up, open his eyes fully and speak in complete sentences. Nursing has been somewhat concerned about symptoms of aspiration and cough when he eats soft foods. Exam Vital signs and Labs for Last 24 Hours: Temp Pulse Resp BP Pulse Ox 98.8 F 89 14 160/68 H 98 03/12/21 04:00 03/12/21 08:42 03/12/21 04:00 03/12/21 04:00 03/12/21 08:42 Laboratory Results - last 24 hr 03/12/21 06:36: WBC 5.7, RBC 3.05 L, Hgb 9.6 L, Hct 28.1 L, MCV 91.9, MCH 31.5 H, MCHC 34.3, RDW 16.6, Plt Count 106 L, MPV 8.7, Neut % (Auto) 80.4 H, Lymph % (Auto) 13.6, [place] % (Auto) 5.4, Eos % (Auto) 0.3, Baso % (Auto) 0.2, Neut # (Auto) 4.6, Lymph # (Auto) 0.8, [place] # (Auto) 0.3, Eos # (Auto) 0.0, Baso # (Auto) 0.0 03/12/21 06:36: Sodium 134 L, Potassium 3.2 L, Chloride 101, Carbon Dioxide 24, Anion Gap 12.2, BUN 11, Creatinine 0.60 L, Estimated Creat Clear 129, Estimated GFR 139, Est GFR ( Amer) 168, Glucose 76, Calcium 8.0 L I & O for Last 24 hours: Intake & Output 03/09/21 03/10/21 03/11/21 03/12/21 11:59 11:59 11:59 11:59 Intake Total 120 / 120 145 / 145 Output Total 800 / 800 1450 / 1450 900 / 900 Balance -800 / -800 -1330 / -1330 -755 / -755 Weight 148 lb 9.6 oz 147 lb 12.802 oz Microbiology Reports for the Last 24 Hours: Microbiology 03/09/21 22:20 Urine,Catheterized Urine Culture - Final NO GROWTH AFTER 48 HOURS 03/09/21 19:53 Blood Blood Culture - Preliminary NO GROWTH AFTER 48 HOURS 03/09/21 19:53 Blood Blood Culture - Preliminary NO GROWTH AFTER 48 HOURS Narrative: Much more alert, continues to have scratches and scrapes on his arms and legs that bleed occasionally. He has some bleeding from his mouth, both from his cracked lips and also from a couple of sores in the back of the mouth but no continuous bleeding. Lungs have rhonchorous sounds but good air movement, heart rate regular. Abdomen is scaphoid and soft. No masses. Able to move arms and legs well. He is much more alert, oriented x2, continues to need to be informed about the date. He also is very unsure about his reasons for being in the hospital. Is unable to provide a recent narrative of his condition. Assessment and Plan (1) Aspiration pneumonia Status: Acute Qualifiers: Aspiration pneumonia type: unspecified Laterality: right Lung location: lower lobe of lung Qualified Code(s): J69.0 - Pneumonitis due to inhalation of food and vomit Category: Medical Code(s): J69.0 - Pneumonitis due to inhalation of food and vomit (2) Encephalopathy Status: Acute Category: Medical Code(s): G93.40 - Encephalopathy, unspecified (3) HFrEF (heart failure with reduced ejection fraction) Status: Chronic Category: Medical Code(s): I50.20 - Unspecified systolic (congestive) heart failure (4) Biventricular automatic implantable cardioverter defibrillator in situ Status: Chronic Category: Medical Code(s): Z95.810 - Presence of automatic (implantable) cardiac defibrillator (5) Tobacco use disorder Status: Chronic Category: Medical Code(s): F17.200 - Nicotine dependence, unspecified, uncomplicated (6) Atrial fibrillation Status: Chronic Qualifiers: Atrial fibrillation type: longstanding persistent Qualified Code(s): I48.11 - Longstanding persistent atrial fibrillation Category: Medical Code(s): I48.91 - Unspecified atrial fibrillation (7) COPD (chronic obstructive pulmonary disease) Status: Chronic Qualifiers: COPD type: unspecified COPD Qualified Code(s): J44.9 - Chronic obstructive pulmonary disease, unspecified Category: Medical Code(s): J44.9 - Chronic obstructive pulmonary disease, unspecified (8) Dehydration Stat
[2021-03-13] VITALS (9 sets, daily range): BP systolic 127–165; BP diastolic 70–90; PULSE 60–111; RESP 14–17; TEMP 36.5–37.1; O2SAT 92–96; BMI 18.9
--- NOTE | 2021-03-13 05:15 | PC.NURSE ---
pt slept well through the night, VSS, pt denies any pain. pt axo, KETCHIKAN, lungs clear with some fine crackles heard at bases, no other issues or concerns noted at this time.
--- NOTE | 2021-03-13 05:19 | PC.NURSE ---
pt has been restless most of the night, pt is alert and oriented to name and birthday only, pt is confused to place and time, pt has been picking at skin and mittens placed to prevent patient from picking and pulling, pt noted with bruising to mid back and redness to coccyx area, and pt will not stay on one side or the other and roles self to back, pt pulled iv out to left upper arm, pt has been unable to coherently swallow any liquids or medications. pt is due for swallow evaluation today. VSS, pt in paced rythm on telemetry, f/c to bsd
--- NOTE | 2021-03-13 06:49 | HMH.ACPN2 ---
Internal Medicine - PN: Subj *Date: 03/13/21 *Time: 09:00 Interval history: Patient has shown some mild improvement in his mentation. Answers questions in complete sentences however they are tangential and not appropriate answers for questions asked. No acute distress this morning. Satting high 90s to 100% on room air. Hemodynamically stable. Confusion overnight necessitating soft restraints (mitts) to be placed as he was picking at himself. Patient cooperative. Concern for coughing with eating over the weekend, n.p.o. pending speech eval. Afebrile. Complains of some mild nausea. Denies chest pain, shortness of breath Exam Vital signs and Labs for Last 24 Hours: Temp Pulse Resp BP Pulse Ox 98.4 F 78 14 136/75 96 03/13/21 04:00 03/13/21 05:14 03/13/21 04:00 03/13/21 04:00 03/13/21 04:00 Laboratory Results - last 24 hr 03/12/21 06:36: WBC 5.7, RBC 3.05 L, Hgb 9.6 L, Hct 28.1 L, MCV 91.9, MCH 31.5 H, MCHC 34.3, RDW 16.6, Plt Count 106 L, MPV 8.7, Neut % (Auto) 80.4 H, Lymph % (Auto) 13.6, [place] % (Auto) 5.4, Eos % (Auto) 0.3, Baso % (Auto) 0.2, Neut # (Auto) 4.6, Lymph # (Auto) 0.8, [place] # (Auto) 0.3, Eos # (Auto) 0.0, Baso # (Auto) 0.0 03/12/21 06:36: Sodium 134 L, Potassium 3.2 L, Chloride 101, Carbon Dioxide 24, Anion Gap 12.2, BUN 11, Creatinine 0.60 L, Estimated Creat Clear 129, Estimated GFR 139, Est GFR ( Amer) 168, Glucose 76, Calcium 8.0 L I & O for Last 24 hours: Intake & Output 03/10/21 03/11/21 03/12/21 03/13/21 23:59 23:59 23:59 23:59 Intake Total 120 / 120 145 / 145 240 / 240 Output Total 1050 / 2250 1200 / 2100 3100 / 3700 600 / 600 Balance -930 / -2130 -1055 / -1955 -2860 / -3460 -600 / -600 Weight 67.404 kg 67.041 kg 67.043 kg Narrative: - Constitutional no acute distress, cachectic, chronically ill appearing - *Routine HEENT Exam Head: Present: normocephalic Eye: Present: EOMI, PERRL ENT: Present: mucous membranes moist, edentulous - *Routine Neck Exam Present: supple. Absent: lymphadenopathy - Routine Chest/Breast/Axilla Exam Well-healed midline scar, prominent ribs, ICD/pacemaker in the left chest - *Routine Respiratory Exam Present: prolonged expiratory phase, crackles, diminished air movement. Absent: rhonchi, wheezes - *Routine Cardiovascular Exam Present: RRR - *Routine Abdominal Exam Present: soft, normoactive bowel sounds, tenderness (non focal). - *Routine Extremities Exam No cyanosis, clubbing, edema; moderate sarcopenia - Routine Back/Spine/Pelvis Exam Bruise mid lower thoracic spine - *Routine Skin Exam Present: warm. Absent: rash - *Routine Neurological Exam Present: alert Assessment and Plan (1) Aspiration pneumonia Status: Acute Qualifiers: Aspiration pneumonia type: unspecified Laterality: right Lung location: lower lobe of lung Qualified Code(s): J69.0 - Pneumonitis due to inhalation of food and vomit Category: Medical Code(s): J69.0 - Pneumonitis due to inhalation of food and vomit (2) Encephalopathy Status: Acute Category: Medical Code(s): G93.40 - Encephalopathy, unspecified (3) HFrEF (heart failure with reduced ejection fraction) Status: Chronic Category: Medical Code(s): I50.20 - Unspecified systolic (congestive) heart failure (4) Biventricular automatic implantable cardioverter defibrillator in situ Status: Chronic Category: Medical Code(s): Z95.810 - Presence of automatic (implantable) cardiac defibrillator (5) Tobacco use disorder Status: Chronic Category: Medical Code(s): F17.200 - Nicotine dependence, unspecified, uncomplicated (6) Atrial fibrillation Status: Chronic Qualifiers: Atrial fibrillation type: longstanding persistent Qualified Code(s): I48.11 - Longstanding persistent atrial fibrillation Category: Medical Code(s): I48.91 - Unspecified atrial fibrillation (7) COPD (chronic obstructive pulmonary disease) Status: Chronic Qualif
[2021-03-13 07:19] LABS: Basophils % 0.1 % (0.1-2.0); Eosinophils # 0.1 K/mm3 (0.0-0.4); Eosinophils % 0.8 % (0.1-12.0); Hematocrit 27.5 % (42.0-52.0); Hemoglobin 9.6 g/dL (14.1-18.0); Lymphocytes # 0.8 K/mm3 (0.7-4.5); Lymphocytes % 14.5 % (10-50); Mean Corpuscular HGB Conc 34.9 g/dL (31.8-35.4); Mean Corpuscular Hemoglobin 31.3 pg (27.0-31.2); Mean Corpuscular Volume 89.6 fl (80-94); Mean Platelet Volume 8.3 fl (7.4-10.4); Monocytes # 0.2 K/mm3 (0.1-1.0); Monocytes % 4.2 % (1.7-9.3); Neutrophils # 4.5 K/mm3 (1.8-7.8); Neutrophils % 80.4 % (37.0-80.0); Platelet Count 91 K/mm3 (142-424); Red Blood Count 3.07 M/mm3 (4.60-6.20); Red Cell Distribution Width 16.7 % (11.5-17.5); White Blood Count 5.7 K/mm3 (4.8-10.8)
[2021-03-13 07:33] LABS: Chloride 103 mmol/L (98-107)
[2021-03-13 07:34] LABS: Potassium 3.4 mmoL/L (3.5-5.1); Sodium 134 mmol/L (136-145)
[2021-03-13 07:36] LABS: Alanine Aminotransferase 25 U/L (12-78); Aspartate Amino Transferase 42 U/L (17-59); Blood Urea Nitrogen 11 mg/dl (9-20); Creatinine Clearance Estimated 155 mL/min (50-200); Estimated Glomerular Filt Rate 171 ml/min (>60); GFR (African American) 207 ML/MIN (>60)
[2021-03-13 07:37] LABS: Albumin Level 3.2 g/dl (3.5-5.0); Albumin/Globulin Ratio 1.1 (1.1-1.8); Alkaline Phosphatase 61 U/L (38-126); Anion Gap 12.4 mEq/L (5-15); Calcium 7.9 mg/dl (8.4-10.2); Carbon Dioxide 22 mmol/L (22.0-30.0); Globulin 2.9 g/dL (1.3-3.2); Glucose 86 mg/dl (74-100); Magnesium 1.1 mg/dl (1.6-2.3); Total Protein,Serum 6.1 g/dl (6.3-8.2)
--- NOTE | 2021-03-13 07:54 | FL_ITS ---
PROCEDURE: FL GUIDED LUMBAR PUNCTURE LP CLINICAL INDICATION: encephalopathy COMPARISON: CT CT ABDOMEN PELVIS W CON from 03/09/[address] HEAD/BRAIN WO CON from 03/09/2021 TECHNIQUE: Informed consent was obtained prior to procedure. Under local anesthesia with 1% lidocaine and under fluoroscopic guidance a 20-gauge spinal needle was inserted into the L3-L4 interspace. Opening pressure was attempted however, the measured opening pressure was less than 3 cm water. Approximately 9 cc of clear CSF was obtained and sent to laboratory for analysis. The patient tolerated the procedure well without evidence of immediate complication IMPRESSION: Successful fluoroscopy guided lumbar puncture without complications. Dictated by: Christian Lin MD 03/13/2021 15:27 Christian Lin MD in [place] 03/13/2021 15:27
--- NOTE | 2021-03-13 10:02 | HMH.OTEV ---
OT Inpatient Evaluation Rehab OT IP Evaluation Start: 03/12/21 09:16 Freq: ONCE Status: Complete Protocol: Document 03/13/21 09:51 DYLON (Rec: 03/13/21 10:02 DYLON [id number]) Rehab OT IP Assessment Subjective History Mr. Good is a 55-year-old male with significant past medical history. Brought to the ER via ambulance due to concern for progressive weakness, fatigue, drowsiness and confusion. He is a poor historian and keeps saying he does not know where he is. Questions answered by EMS and family. Reportedly has been getting more confused over the past few days to weeks. States he is only been smoking cigarettes and drinking Mountain Dew for the past week or so. Afebrile, no shortness of breath. Does complain of some mild abdominal pain. Unable to give further review of systems . Work-up in the ER initiated with a scanning of head for confusion, chest for pneumonia /intrathoracic process, and abdomen. Concern for right lower lobe pneumonia/ aspiration pneumonia. Patient unable to ambulate or stay alert for an extended period of time. Admitted to medicine for management of altered mental status/encephalopathy, and aspiration pneumonia. On assessment this morning, patient is somnolent but arouses to verbal stimuli. Complains of some mild abdominal discomfort. Denies nausea or chest pain. Frail and older than stated age in appearance. Still does not know where he is and cannot tell me his date of or give specific answers to
--- NOTE | 2021-03-13 10:36 | HMH.PTEV ---
Physical Therapy Evaluation Rehab PT IP Evaluation Start: 03/11/21 08:42 Freq: ONCE Status: Active Protocol: Document 03/11/21 11:34 PWILLIAMS (Rec: 03/11/21 11:39 [email or web address] [id number]) Subjective/History History History Pt brought to ED by EMS due to AMS, acute delirium and weakness. Subjective Subjective Pt alert to name and birthday but confused to place, time and year. Pt has difficulty staying awake, alert, and following instructions. Rehab PT IP Eval Objective Appearance Patient Behavior Sedated,Asleep,Wandering, Confused Patient Orientation Name,Birthday Difficulty following instructions severe Speech Pattern Delayed,Soft-Spoken,Mumbled Ambulation Patient Able to Ambulate No Balance Ability to Arise Unable Sitting Balance Leans or slides in chair Dynamic Sitting Balance Ability Poor Transfers Bed Transfer Ability Maximum x 1 (75% assist) Rehab PT IP prob,goals,plan Problems Date of Evaluation: 03/11/21 PT IP Problems Bed Mobility,Transfers,Gait, Balance,Self care,Safety Rehab Potential Rehab Potential Poor Plan PT Intervention Plan Bed Mobility,Transfers PT Plan Frequency BID Duration LOS Discharge Goals Bed Transfer Ability Maximum x 1 (75% assist) Discharge Plan PT Discharge Plan At this time, pt's current situation and physical status will require SNF or LTC for rehab to allow return home w/ some level of independence. Pt may be safe to return home w/ supervision if mental status shows significant improvement over the LOS, if not, pt will be unsafe to return home due to inability to care for self. G -code Required No Eval Complexity Eval Charge Codes 24857 - High Complexity Rehab PT IP Evaluation Start: 03/12/21 09:16 Freq: ONCE Status: Active Protocol: Document 03/13/21 10:33 PWILLIAMS (Rec: 03/13/21 10:36 [email or web address] [id number]) Subjective/History History History see previously done eval from 03/11 Subject
--- NOTE | 2021-03-13 13:28 | DIET.NUTRFU ---
Pt has been made NPO. Pt has been having some coughing with eating and plan is for MANAGER DISCOVERY to see pt per MD progress notes. Will monitor for MANAGER DISCOVERY recommendations and provide supplements that match recommendations. Recorded PO intake poor at meals with 25% at most recorded meals. Will continue to monitor.
[2021-03-13 13:35] LABS: Glucose,CSF 55 mg/dl (40-70)
--- NOTE | 2021-03-13 14:31 | HMH.ACPN ---
Internal Medicine - PN: Subj *Date: 03/13/21 *Time: 14:31 Exam Vital signs and Labs for Last 24 Hours: Temp Pulse Resp BP Pulse Ox 97.7 F 80 15 127/74 92 L 03/13/21 08:00 03/13/21 13:34 03/13/21 08:00 03/13/21 08:00 03/13/21 08:00 Laboratory Results - last 24 hr 03/13/21 07:10: Sodium 134 L, Potassium 3.4 L, Chloride 103, Carbon Dioxide 22, Anion Gap 12.4, BUN 11, Creatinine 0.50 L, Estimated Creat Clear 155, Estimated GFR 171, Est GFR ( Amer) 207 D, Glucose 86, Calcium 7.9 L, Magnesium 1.1 L D, Total Bilirubin 1.0, AST 42, ALT 25, Alkaline Phosphatase 61, Total Protein 6.1 L, Albumin 3.2 L, Globulin 2.9, Albumin/Globulin Ratio 1.1 03/13/21 07:10: WBC 5.7, RBC 3.07 L, Hgb 9.6 L, Hct 27.5 L, MCV 89.6, MCH 31.3 H, MCHC 34.9, RDW 16.7, Plt Count 91 L, MPV 8.3, Neut % (Auto) 80.4 H, Lymph % (Auto) 14.5, [place] % (Auto) 4.2, Eos % (Auto) 0.8, Baso % (Auto) 0.1, Neut # (Auto) 4.5, Lymph # (Auto) 0.8, [place] # (Auto) 0.2, Eos # (Auto) 0.1, Baso # (Auto) 0.0 03/13/21 08:00: CSF Glucose 55, CSF Total Protein 101.0 H* I & O for Last 24 hours: Intake & Output 03/10/21 03/11/21 03/12/21 03/13/21 23:59 23:59 23:59 23:59 Intake Total 120 / 120 145 / 145 240 / 240 Output Total 1050 / 2250 1200 / 2100 3100 / 3700 1100 / 1100 Balance -930 / -2130 -1055 / -1955 -2860 / -3460 -1100 / -1100 Weight 67.404 kg 67.041 kg 67.043 kg Assessment and Plan (1) Aspiration pneumonia Status: Acute Qualifiers: Aspiration pneumonia type: unspecified Laterality: right Lung location: lower lobe of lung Qualified Code(s): J69.0 - Pneumonitis due to inhalation of food and vomit Category: Medical Code(s): J69.0 - Pneumonitis due to inhalation of food and vomit (2) Encephalopathy Status: Acute Category: Medical Code(s): G93.40 - Encephalopathy, unspecified (3) HFrEF (heart failure with reduced ejection fraction) Status: Chronic Category: Medical Code(s): I50.20 - Unspecified systolic (congestive) heart failure (4) Biventricular automatic implantable cardioverter defibrillator in situ Status: Chronic Category: Medical Code(s): Z95.810 - Presence of automatic (implantable) cardiac defibrillator (5) Tobacco use disorder Status: Chronic Category: Medical Code(s): F17.200 - Nicotine dependence, unspecified, uncomplicated (6) Atrial fibrillation Status: Chronic Qualifiers: Atrial fibrillation type: longstanding persistent Qualified Code(s): I48.11 - Longstanding persistent atrial fibrillation Category: Medical Code(s): I48.91 - Unspecified atrial fibrillation (7) COPD (chronic obstructive pulmonary disease) Status: Chronic Qualifiers: COPD type: unspecified COPD Qualified Code(s): J44.9 - Chronic obstructive pulmonary disease, unspecified Category: Medical Code(s): J44.9 - Chronic obstructive pulmonary disease, unspecified (8) Dehydration Status: Acute Category: Medical Code(s): E86.0 - Dehydration (9) History of aortic aneurysm repair Status: Chronic Category: Surgical Code(s): Z98.890 - Other specified postprocedural states; Z86.79 - Personal history of other diseases of the circulatory system (10) Hypertension Status: Chronic Qualifiers: Hypertension type: primary hypertension Qualified Code(s): I10 - Essential (primary) hypertension Category: Medical Code(s): I10 - Essential (primary) hypertension (11) Hypokalemia Status: Acute Category: Medical Code(s): E87.6 - Hypokalemia (12) Noncompliance with medication regimen Status: Chronic Category: Medical Code(s): Z91.14 - Patient's other noncompliance with medication regimen (13) Atrial fibrillation Status: Chronic Qualifiers: Atrial fibrillation type: chronic Category: Medical Code(s): I48.91 - Unspecified atrial fibrillation The patient's infection will respond to the chosen ABx?: Yes Is the patient receiving the right drug, dose, and route
[2021-03-13 14:57] LABS: Appearance,CSF Clear (Clear); Volume,CSF 9 mL
[2021-03-13 15:01] LABS: Red Blood Cell,CSF 53 cells/uL (0); White Blood Cell,CSF 2 cells/uL (0-5)
[2021-03-13 15:08] LABS: Mononuclear WBCs,CSF 100 %; Polynuclear WBCs,CSF 0 %
--- NOTE | 2021-03-13 21:33 | PC.NURSE ---
Helped back into bed. No other care needed.
[2021-03-14] VITALS (8 sets, daily range): BP systolic 130–136; BP diastolic 67–74; PULSE 71–83; RESP 16–18; TEMP 36.4–36.7; O2SAT 91–99; BMI 19.6
--- NOTE | 2021-03-14 05:08 | PC.NURSE ---
Gave bed bath. Emptied aguilera. Emptied trash and linens.
--- NOTE | 2021-03-14 07:14 | HMH.ACPN2 ---
Internal Medicine - PN: Subj *Date: 03/14/21 *Time: 08:51 Interval history: Patient much more oriented this morning. Knows his name, where he is, birthdate. Answering questions appropriately today. Less tangential and confused. N.p.o. pending speech consult. LP performed yesterday with elevated protein and elevated red cell count. Not markedly elevated however initiated on acyclovir overnight empirically pending HSV PCR on CSF. Patient remains afebrile, hemodynamically stable. Complaining of leg pain this morning. Exam Vital signs and Labs for Last 24 Hours: Temp Pulse Resp BP Pulse Ox 98.1 F 80 17 136/67 98 03/14/21 04:00 03/14/21 05:40 03/14/21 04:00 03/14/21 04:00 03/14/21 05:40 Laboratory Results - last 24 hr 03/13/21 07:10: Sodium 134 L, Potassium 3.4 L, Chloride 103, Carbon Dioxide 22, Anion Gap 12.4, BUN 11, Creatinine 0.50 L, Estimated Creat Clear 155, Estimated GFR 171, Est GFR ( Amer) 207 D, Glucose 86, Calcium 7.9 L, Magnesium 1.1 L D, Total Bilirubin 1.0, AST 42, ALT 25, Alkaline Phosphatase 61, Total Protein 6.1 L, Albumin 3.2 L, Globulin 2.9, Albumin/Globulin Ratio 1.1 03/13/21 07:10: WBC 5.7, RBC 3.07 L, Hgb 9.6 L, Hct 27.5 L, MCV 89.6, MCH 31.3 H, MCHC 34.9, RDW 16.7, Plt Count 91 L, MPV 8.3, Neut % (Auto) 80.4 H, Lymph % (Auto) 14.5, [place] % (Auto) 4.2, Eos % (Auto) 0.8, Baso % (Auto) 0.1, Neut # (Auto) 4.5, Lymph # (Auto) 0.8, [place] # (Auto) 0.2, Eos # (Auto) 0.1, Baso # (Auto) 0.0 03/13/21 08:00: CSF Volume 9, CSF Appearance Clear, CSF WBC 2, CSF RBC 53, CSF Mononuclear WBCs % 100, CSF Polynuclear WBCs % 0 03/13/21 08:00: CSF Glucose 55, CSF Total Protein 101.0 H* I & O for Last 24 hours: Intake & Output 03/11/21 03/12/21 03/13/21 03/14/21 23:59 23:59 23:59 23:59 Intake Total 145 / 145 240 / 240 Output Total 1200 / 2100 3100 / 3700 1200 / 2200 1000 / 1000 Balance -1055 / -1955 -2860 / -3460 -1200 / -2200 -1000 / -1000 Weight 67.041 kg 67.043 kg 69.49 kg Microbiology Reports for the Last 24 Hours: Microbiology 03/13/21 08:00 Cerebral Spinal Fluid Gram Stain - Final Narrative: - Constitutional no acute distress, cachectic, chronically ill appearing - *Routine HEENT Exam Head: Present: normocephalic Eye: Present: EOMI, PERRL ENT: Present: mucous membranes moist, edentulous - *Routine Neck Exam Present: supple. Absent: lymphadenopathy - Routine Chest/Breast/Axilla Exam Well-healed midline scar, prominent ribs, ICD/pacemaker in the left chest - *Routine Respiratory Exam Present: prolonged expiratory phase, crackles, diminished air movement. Absent: rhonchi, wheezes - *Routine Cardiovascular Exam Present: RRR - *Routine Abdominal Exam Present: soft, normoactive bowel sounds, tenderness (non focal). - *Routine Extremities Exam No cyanosis, clubbing, edema; moderate sarcopenia - Routine Back/Spine/Pelvis Exam Bruise mid lower thoracic spine - *Routine Skin Exam Present: warm, no rash, numerous ecchymoses and tattoos on extremities - *Routine Neurological Exam Present: alert Assessment and Plan (1) Aspiration pneumonia Status: Acute Qualifiers: Aspiration pneumonia type: unspecified Laterality: right Lung location: lower lobe of lung Qualified Code(s): J69.0 - Pneumonitis due to inhalation of food and vomit Category: Medical Code(s): J69.0 - Pneumonitis due to inhalation of food and vomit (2) Encephalopathy Status: Acute Category: Medical Code(s): G93.40 - Encephalopathy, unspecified (3) HFrEF (heart failure with reduced ejection fraction) Status: Chronic Category: Medical Code(s): I50.20 - Unspecified systolic (congestive) heart failure (4) Biventricular automatic implantable cardioverter defibrillator in situ Status: Chronic Category: Medical Code(s): Z95.810 - Presence of automatic (implantable) cardiac defibrillator (5) Tobacco use disorder Status: Chronic Category: Medical Code(s)
[2021-03-14 07:17] LABS: Basophils % 0.1 % (0.1-2.0); Eosinophils # 0.1 K/mm3 (0.0-0.4); Eosinophils % 1.6 % (0.1-12.0); Hematocrit 31.8 % (42.0-52.0); Lymphocytes # 0.7 K/mm3 (0.7-4.5); Lymphocytes % 12.2 % (10-50); Mean Corpuscular HGB Conc 34.3 g/dL (31.8-35.4); Mean Corpuscular Hemoglobin 31.6 pg (27.0-31.2); Mean Corpuscular Volume 92.3 fl (80-94); Mean Platelet Volume 7.7 fl (7.4-10.4); Monocytes # 0.3 K/mm3 (0.1-1.0); Monocytes % 4.6 % (1.7-9.3); Neutrophils # 4.9 K/mm3 (1.8-7.8); Neutrophils % 81.4 % (37.0-80.0); Platelet Count 86 K/mm3 (142-424); Red Blood Count 3.45 M/mm3 (4.60-6.20); Red Cell Distribution Width 16.4 % (11.5-17.5)
[2021-03-14 07:23] LABS: Chloride 100 mmol/L (98-107); Potassium 3.1 mmoL/L (3.5-5.1); Sodium 137 mmol/L (136-145)
[2021-03-14 07:26] LABS: Alanine Aminotransferase 29 U/L (12-78); Albumin Level 3.7 g/dl (3.5-5.0); Albumin/Globulin Ratio 1.2 (1.1-1.8); Alkaline Phosphatase 62 U/L (38-126); Anion Gap 13.1 mEq/L (5-15); Aspartate Amino Transferase 52 U/L (17-59); Bilirubin,Total 1.3 mg/dl (0.2-1.3); Blood Urea Nitrogen 7 mg/dl (9-20); Calcium 8.6 mg/dl (8.4-10.2); Carbon Dioxide 27 mmol/L (22.0-30.0); Creatinine Clearance Estimated 160 mL/min (50-200); Estimated Glomerular Filt Rate 171 ml/min (>60); GFR (African American) 207 ML/MIN (>60); Globulin 3.2 g/dL (1.3-3.2); Glucose 59 mg/dl (74-100); Magnesium 1.7 mg/dl (1.6-2.3); Total Protein,Serum 6.9 g/dl (6.3-8.2)
--- NOTE | 2021-03-14 07:35 | PC.NURSE ---
Patient rested fair through night. Patient is alert and Oriented to self and intermittently to place. VSS on RA. Patient able to take medications at HS without complications. IVF infusing. Garzon cath discontinued. C/o leg pain treated with PRN apap.
[2021-03-14 07:46] LABS: Hemoglobin 10.9 g/dL (14.1-18.0)
--- NOTE | 2021-03-14 11:26 | HMH.SLDYSPHA ---
Speech & Language Evaluation Speech/Language Dysphagia Evaluation Start: 03/14/21 11:15 Freq: ONCE Status: Active Protocol: Document 03/14/21 11:15 LUIZ (Rec: 03/14/21 11:26 LUIZ [id number]) Dysphagia Assess/Goals/Plan Assessment Date of Evaluation: 03/14/21 Evaluation Type Initial Certification Assessment/Problems Dysphagia Does Patient Qualify for Service No Qualify/Failure Comment Patient was placed on the least restrictive diet and does not warrant therapy. Recommendations PHYSICIAN CERTIFICATION: The specified therapy services are required, authorized, and reviewed every 30 days. Diet Recommendations Mechanical Soft Liquid Type Recommendations Normal/Thin SL Swallow Guidelines Standard Aspiration Prec. Dysphagia Swallow Precautions/Strategies Sitting Upright (90 deg),Small Bites and Sips,Alternate Liquids/Solids Plan Pt/Guardian verbally ack understanding Yes of dx/prognosis/goals G -code Required No Speech & Language HPI Language Primary Language Djib[place]ian General Information General Current Food Consistancy NPO Dentition Edentulous Oxygen Status Room Air Facial Symmetry Symmetrical Patient Orientation Person,Place Ability to Follow Directions Good Communication Ability Mild Impairment Dysphagia:Food Presentation Evaluation Food Type Pureed,Mechanical Soft,Liquid, Pudding Dysphagia Evaluation Summary Mr. Good was given the following consistencies: thins via straw and open cup, pudding, pureed, and mechanical soft. No signs of dysphagia were noted with trials. Regular was not attempted due to the lack of dentition. It is recommended that Mr. Good be placed on mechanical soft with thin liquids. Therapy is not recommended at this time. Stroke Dysphagia Assessment PHYSICIAN CERTIFICATION: I certify the specified therapy services for Isaak Good are required, authorized, and reviewed every 30 days.
--- NOTE | 2021-03-14 22:47 | PC.NURSE ---
Pt is refusing all PO meds at this time despite encouragement and educating from staff.
[2021-03-15] VITALS (10 sets, daily range): BP systolic 112–174; BP diastolic 40–77; PULSE 71–87; RESP 18–21; TEMP 36.3–36.8; O2SAT 88–100; BMI 18.0
--- NOTE | 2021-03-15 05:08 | PC.NURSE ---
Pt has been alert and oriented only to person t/o shift. Pt will answer questions but talks to self when not addressed. Pt has been picking at skin on his arms causing bleeding. Arms have been dressed with kerlex multiple times by staff t/o shift. Full bed bath/linen change provided this shift. Pt has refused medications thus far despite encouragement. No complaints have been voiced to staff. Bed alarm on for safety.
--- NOTE | 2021-03-15 07:32 | SW/DCPLANNER ---
Addendum entered by Rosa Maria Bryant 03/16/21 14:50: 2:45 PM I HAVE ATTEMPTED TO CALL DAUGHTER AGAIN, AT THIS TIME SHE HAS PUT HER PHONE WHERE SHE CAN NOT RECEIVE ANY MESSAGES.. I DID CALL THE SIGNIFICANT OTHER AND SHE WILL NOT ANSWER EITHER.. WILL CALL AGAIN ON SATURDAY AND IF SHE WILL NOT RETURN MY CALL OR ANSWER I WILL MAKE A REPORT TO [facility] FOR INVESTIGATION.. Addendum entered by Rosa Maria Bryant 03/16/21 14:43: [facility] DECLINED THE REFERRAL ON THIS PATIENT STATING THEY DO NOT ACCEPT [facility] AND WOULD HAVE TO DISCUSS MEDICAID WITH DAUGHTER AND ASSETS BEFORE THEY WOULD CONSIDER TAKING HIM.. [employer] ADMSSION SCREENER STATED THEY WOULD SEND IT TO [facility] SINCE SHE THOUGHT THEY HAD BEDS AVAILABLE.. DAUGHTER HAS NOT RETURNED MY CALL X2 VOICE MESSAGES TO SEE WHAT SHE WANTS US TO DO WITH HIM... I DID REACH OUT TO [facility] BUT NOT SURE THEY HAVE A CONTRACT WITH HIS INSURANCE EITHER.. DAUGHTER IS NOT WANTING HIM TO HAVE TO USE HIS CHECK LIABILITY... Addendum entered by Rosa Maria Bryant 03/15/21 11:47: MADE CONTACT THIS AM WITH DAUGHTERCHRISTOPH TO SEE IF PATIENT WAS GOING TO BE ABLE TO ADMIT TO [facility].. SHE STATED THEY ARE NOT IN NETWORK WITH PATIENTS AN[facility]M/MCR AND HE WILL NEED TO HAVE HIS INSURANCE CHANGED.. HE DOES HAVE MEDICAID AND I ASKED IF HE COULD COME THERE MEDICAID PENDING.. WAITING TO HEAR BACK. MR LEAL WAS MORE CONFUSED THIS MORNING AND DR WHYTE STATED DURING ROUNDS HE IS NOT MEDICALLY STABLE TODAY TO MAKE A MOVE.. Original Note: SENT REFERRAL TO [facility] PER DAUGHTERS REQUEST.. DAUGHTER STATED SHE WORKS THERE AND WOULD LIKE TO HAVE HIM CLOSE TO HER SO SHE CAN ENCOURAGE HIM TO IMPROVE.. I DID SEND IT [facility] AND WAITING TO HEAR IF HE HAS BEEN ACCEPTED.. HE HAS AN [facility] AND THE DAUGHTER STATED SHE IS GOING TO TRY AND GET IT SWITCHED SINCE A LOT OF LOCAL FACILITIES DON'T HAVE A CONTRACT WITH [facility].. IF ACCEPTED HE MAY DISCHARGE THERE TODAY.. PATIENT DOES HAVE MEDICAID AND DAUGHTER STATED SHE FEELS IT IS ACTIVE, HOWEVER HE WILL NEED TO GO MEDICAID PENDING IF HIS AN[facility] DOESN'T ALLOW HIM TO GO...
[2021-03-15 07:52] LABS: Basophils % 0.1 % (0.1-2.0); Eosinophils # 0.1 K/mm3 (0.0-0.4); Eosinophils % 1.5 % (0.1-12.0); Hematocrit 23.4 % (42.0-52.0); Hemoglobin 8.3 g/dL (14.1-18.0); Lymphocytes # 0.8 K/mm3 (0.7-4.5); Lymphocytes % 10.8 % (10-50); Mean Corpuscular HGB Conc 35.5 g/dL (31.8-35.4); Mean Corpuscular Volume 90.1 fl (80-94); Mean Platelet Volume 7.7 fl (7.4-10.4); Monocytes # 0.4 K/mm3 (0.1-1.0); Monocytes % 5.1 % (1.7-9.3); Neutrophils # 6.1 K/mm3 (1.8-7.8); Neutrophils % 82.5 % (37.0-80.0); Platelet Count 95 K/mm3 (142-424); Red Cell Distribution Width 16.7 % (11.5-17.5); White Blood Count 7.4 K/mm3 (4.8-10.8)
[2021-03-15 08:08] LABS: Chloride 104 mmol/L (98-107); Sodium 137 mmol/L (136-145)
[2021-03-15 08:11] LABS: Blood Urea Nitrogen 7 mg/dl (9-20); Calcium 8.5 mg/dl (8.4-10.2); Carbon Dioxide 21 mmol/L (22.0-30.0); Creatinine Clearance Estimated 147 mL/min (50-200); Estimated Glomerular Filt Rate 171 ml/min (>60); GFR (African American) 207 ML/MIN (>60); Glucose 68 mg/dl (74-100); Magnesium 1.6 mg/dl (1.6-2.3)
--- NOTE | 2021-03-15 08:56 | HMH.ACPN2 ---
Internal Medicine - PN: Subj *Date: 03/15/21 *Time: 08:56 Interval history: Patient was alert and talkative yesterday. Overnight has somewhat declined and has been nonsensical with lots of tangential thinking and garbled speech. He continues to eat fairly well with a soft/pur?ed diet and takes p.o. medications. Exam Vital signs and Labs for Last 24 Hours: Temp Pulse Resp BP Pulse Ox 98.3 F 80 19 163/77 H 99 03/15/21 07:56 03/15/21 07:56 03/15/21 07:56 03/15/21 07:56 03/15/21 07:56 Laboratory Results - last 24 hr 03/13/21 10:40: Lead <1 03/15/21 07:20: WBC 7.4, RBC 2.60 L, Hgb 8.3 L, Hct 23.4 L, MCV 90.1, MCH 32.0 H, MCHC 35.5 H, RDW 16.7, Plt Count 95 L, MPV 7.7, Neut % (Auto) 82.5 H, Lymph % (Auto) 10.8, [place] % (Auto) 5.1, Eos % (Auto) 1.5, Baso % (Auto) 0.1, Neut # (Auto) 6.1, Lymph # (Auto) 0.8, [place] # (Auto) 0.4, Eos # (Auto) 0.1, Baso # (Auto) 0.0 03/15/21 07:20: Sodium 137, Potassium 3.0 L, Chloride 104, Carbon Dioxide 21 L, Anion Gap 15.0, BUN 7 L, Creatinine 0.50 L, Estimated Creat Clear 147, Estimated GFR 171, Est GFR ( Amer) 207, Glucose 68 L, Calcium 8.5, Magnesium 1.6 I & O for Last 24 hours: Intake & Output 03/12/21 03/13/21 03/14/21 03/15/21 11:59 11:59 11:59 11:59 Intake Total 145 / 145 240 / 240 624 / 624 Output Total 2099 / 2099 2099 / 2099 1400 / 1400 Balance -1955 / -1954 -1860 / -1860 -776 / -776 Weight 147 lb 12.872 oz 153 lb 3.2 oz 140 lb 6.246 oz Microbiology Reports for the Last 24 Hours: Microbiology 03/13/21 08:00 Cerebral Spinal Fluid Gram Stain - Final 03/13/21 08:00 Cerebral Spinal Fluid CSF Culture - Preliminary 03/09/21 19:53 Blood Blood Culture - Final NO GROWTH AFTER 5 DAYS 03/09/21 19:53 Blood Blood Culture - Final NO GROWTH AFTER 5 DAYS Narrative: Patient continues to have superficial wounds that he picks at with lots of superficial bleeding on his significant aged skin with lots of damage from nicotine, sun exposure, etc. Anterior lung stevens are clear, pacemaker site looks good. Abdomen soft and soft scaphoid. Heart rate regular. Neurologically he is confused, garbled speech, certainly not as clear as yesterday. Oriented perhaps to person but is difficult to tell because of his speech garbling. Assessment and Plan (1) Aspiration pneumonia Status: Acute Qualifiers: Aspiration pneumonia type: unspecified Laterality: right Lung location: lower lobe of lung Qualified Code(s): J69.0 - Pneumonitis due to inhalation of food and vomit Category: Medical Code(s): J69.0 - Pneumonitis due to inhalation of food and vomit (2) Encephalopathy Status: Acute Category: Medical Code(s): G93.40 - Encephalopathy, unspecified (3) HFrEF (heart failure with reduced ejection fraction) Status: Chronic Category: Medical Code(s): I50.20 - Unspecified systolic (congestive) heart failure (4) Biventricular automatic implantable cardioverter defibrillator in situ Status: Chronic Category: Medical Code(s): Z95.810 - Presence of automatic (implantable) cardiac defibrillator (5) Tobacco use disorder Status: Chronic Category: Medical Code(s): F17.200 - Nicotine dependence, unspecified, uncomplicated (6) Atrial fibrillation Status: Chronic Qualifiers: Atrial fibrillation type: longstanding persistent Qualified Code(s): I48.11 - Longstanding persistent atrial fibrillation Category: Medical Code(s): I48.91 - Unspecified atrial fibrillation (7) COPD (chronic obstructive pulmonary disease) Status: Chronic Qualifiers: COPD type: unspecified COPD Qualified Code(s): J44.9 - Chronic obstructive pulmonary disease, unspecified Category: Medical Code(s): J44.9 - Chronic obstructive pulmonary disease, unspecified (8) Dehydration Status: Acute Category: Medical Code(s): E86.0 - Dehydration (9) History of aortic aneurysm re
--- NOTE | 2021-03-15 13:19 | HMH.ACPN2 ---
Internal Medicine - PN: Subj *Date: 03/15/21 *Time: 13:19 Exam Vital signs and Labs for Last 24 Hours: Temp Pulse Resp BP Pulse Ox 98.0 F 81 21 174/70 H 100 03/15/21 11:45 03/15/21 11:45 03/15/21 11:45 03/15/21 11:45 03/15/21 11:45 Laboratory Results - last 24 hr 03/15/21 07:20: WBC 7.4, RBC 2.60 L, Hgb 8.3 L, Hct 23.4 L, MCV 90.1, MCH 32.0 H, MCHC 35.5 H, RDW 16.7, Plt Count 95 L, MPV 7.7, Neut % (Auto) 82.5 H, Lymph % (Auto) 10.8, [place] % (Auto) 5.1, Eos % (Auto) 1.5, Baso % (Auto) 0.1, Neut # (Auto) 6.1, Lymph # (Auto) 0.8, [place] # (Auto) 0.4, Eos # (Auto) 0.1, Baso # (Auto) 0.0 03/15/21 07:20: Sodium 137, Potassium 3.0 L, Chloride 104, Carbon Dioxide 21 L, Anion Gap 15.0, BUN 7 L, Creatinine 0.50 L, Estimated Creat Clear 147, Estimated GFR 171, Est GFR ( Amer) 207, Glucose 68 L, Calcium 8.5, Magnesium 1.6 I & O for Last 24 hours: Intake & Output 03/12/21 03/13/21 03/14/21 03/15/21 23:59 23:59 23:59 23:59 Intake Total 240 / 240 624 / 624 Output Total 3100 / 3700 1200 / 2200 1300 / 1300 Balance -2860 / -3460 -1200 / -2200 -676 / -676 Weight 67.043 kg 69.49 kg 63.68 kg Microbiology Reports for the Last 24 Hours: Microbiology 03/13/21 08:00 Cerebral Spinal Fluid Gram Stain - Final 03/13/21 08:00 Cerebral Spinal Fluid CSF Culture - Preliminary 03/09/21 19:53 Blood Blood Culture - Final NO GROWTH AFTER 5 DAYS 03/09/21 19:53 Blood Blood Culture - Final NO GROWTH AFTER 5 DAYS Assessment and Plan (1) Aspiration pneumonia Status: Acute Qualifiers: Aspiration pneumonia type: unspecified Laterality: right Lung location: lower lobe of lung Qualified Code(s): J69.0 - Pneumonitis due to inhalation of food and vomit Category: Medical Code(s): J69.0 - Pneumonitis due to inhalation of food and vomit (2) Encephalopathy Status: Acute Category: Medical Code(s): G93.40 - Encephalopathy, unspecified (3) HFrEF (heart failure with reduced ejection fraction) Status: Chronic Category: Medical Code(s): I50.20 - Unspecified systolic (congestive) heart failure (4) Biventricular automatic implantable cardioverter defibrillator in situ Status: Chronic Category: Medical Code(s): Z95.810 - Presence of automatic (implantable) cardiac defibrillator (5) Tobacco use disorder Status: Chronic Category: Medical Code(s): F17.200 - Nicotine dependence, unspecified, uncomplicated (6) Atrial fibrillation Status: Chronic Qualifiers: Atrial fibrillation type: longstanding persistent Qualified Code(s): I48.11 - Longstanding persistent atrial fibrillation Category: Medical Code(s): I48.91 - Unspecified atrial fibrillation (7) COPD (chronic obstructive pulmonary disease) Status: Chronic Qualifiers: COPD type: unspecified COPD Qualified Code(s): J44.9 - Chronic obstructive pulmonary disease, unspecified Category: Medical Code(s): J44.9 - Chronic obstructive pulmonary disease, unspecified (8) Dehydration Status: Acute Category: Medical Code(s): E86.0 - Dehydration (9) History of aortic aneurysm repair Status: Chronic Category: Surgical Code(s): Z98.890 - Other specified postprocedural states; Z86.79 - Personal history of other diseases of the circulatory system (10) Hypertension Status: Chronic Qualifiers: Hypertension type: primary hypertension Qualified Code(s): I10 - Essential (primary) hypertension Category: Medical Code(s): I10 - Essential (primary) hypertension (11) Hypokalemia Status: Acute Category: Medical Code(s): E87.6 - Hypokalemia (12) Noncompliance with medication regimen Status: Chronic Category: Medical Code(s): Z91.14 - Patient's other noncompliance with medication regimen (13) Atrial fibrillation Status: Chronic Qualifiers: Atrial fibrillation type: chronic Category: Medical Code(s): I48.91
[2021-03-16] VITALS (8 sets, daily range): BP systolic 133–153; BP diastolic 67–95; PULSE 80–99; RESP 16–24; TEMP 36.4–37.3; O2SAT 90–99; BMI 19.0
[2021-03-16 01:08] LABS: Mercury, Blood <1.0 ug/L (0.0-14.9)
--- NOTE | 2021-03-16 05:47 | PC.NURSE ---
Pt has rested well thus far in shift. Pt remains confused and speech has been garbled t/o shift. Took HS meds with no problem crushed with applesauce. Full bed bath and linen change provided this shift, and patient tolerated well. Dressings on arms have been reapplied using telfa, kerlex, and todd wrap to both arms. Bed alarm on for safety.
[2021-03-16 08:16] LABS: Basophils % 0.3 % (0.1-2.0); Eosinophils # 0.1 K/mm3 (0.0-0.4); Eosinophils % 1.5 % (0.1-12.0); Hematocrit 29.1 % (42.0-52.0); Hemoglobin 9.7 g/dL (14.1-18.0); Lymphocytes % 13.1 % (10-50); Mean Corpuscular HGB Conc 33.2 g/dL (31.8-35.4); Mean Corpuscular Hemoglobin 31.4 pg (27.0-31.2); Mean Corpuscular Volume 94.4 fl (80-94); Mean Platelet Volume 8.9 fl (7.4-10.4); Monocytes # 0.4 K/mm3 (0.1-1.0); Monocytes % 5.4 % (1.7-9.3); Neutrophils # 6.2 K/mm3 (1.8-7.8); Neutrophils % 79.7 % (37.0-80.0); Platelet Count 104 K/mm3 (142-424); Red Blood Count 3.08 M/mm3 (4.60-6.20); Red Cell Distribution Width 17.5 % (11.5-17.5); White Blood Count 7.7 K/mm3 (4.8-10.8)
[2021-03-16 08:17] LABS: Chloride 104 mmol/L (98-107); Potassium 3.1 mmoL/L (3.5-5.1); Sodium 140 mmol/L (136-145)
[2021-03-16 08:20] LABS: Blood Urea Nitrogen 6 mg/dl (9-20); Creatinine Clearance Estimated 155 mL/min (50-200); Estimated Glomerular Filt Rate 171 ml/min (>60); GFR (African American) 207 ML/MIN (>60)
[2021-03-16 08:21] LABS: Anion Gap 10.1 mEq/L (5-15); Carbon Dioxide 29 mmol/L (22.0-30.0); Glucose 92 mg/dl (74-100)
--- NOTE | 2021-03-16 08:57 | HMH.ACPN2 ---
Internal Medicine - PN: Subj *Date: 03/16/21 *Time: 08:57 Interval history: Patient is more alert, able to sit up on the side of the bed with fairly significant assistance from physical therapy. He seems to be making some progress. Has been able to take p.o. medications and some fluids and soft foods. Exam Vital signs and Labs for Last 24 Hours: Temp Pulse Resp BP Pulse Ox 98.0 F 80 18 138/67 98 03/16/21 04:00 03/16/21 06:24 03/16/21 04:00 03/16/21 04:00 03/16/21 06:24 Laboratory Results - last 24 hr 03/13/21 10:40: WB Mercury ug/L <1.0 03/16/21 08:00: WBC 7.7, RBC 3.08 L, Hgb 9.7 L, Hct 29.1 L, MCV 94.4 H, MCH 31.4 H, MCHC 33.2, RDW 17.5, Plt Count 104 L, MPV 8.9, Neut % (Auto) 79.7, Lymph % (Auto) 13.1, [place] % (Auto) 5.4, Eos % (Auto) 1.5, Baso % (Auto) 0.3, Neut # (Auto) 6.2, Lymph # (Auto) 1.0, [place] # (Auto) 0.4, Eos # (Auto) 0.1, Baso # (Auto) 0.0 03/16/21 08:00: Sodium 140, Potassium 3.1 L, Chloride 104, Carbon Dioxide 29, Anion Gap 10.1, BUN 6 L, Creatinine 0.50 L, Estimated Creat Clear 155, Estimated GFR 171, Est GFR ( Amer) 207, Glucose 92, Calcium 9.0 I & O for Last 24 hours: Intake & Output 03/13/21 03/14/21 03/15/21 03/16/21 11:59 11:59 11:59 11:59 Intake Total 240 / 240 624 / 624 600 / 600 Output Total 2100 / 2100 1400 / 1400 Balance -1860 / -1860 -776 / -776 600 / 600 Weight 147 lb 12.872 oz 153 lb 3.2 oz 140 lb 6.246 oz 148 lb 6.4 oz Microbiology Reports for the Last 24 Hours: Microbiology 03/13/21 08:00 Cerebral Spinal Fluid Gram Stain - Final 03/13/21 08:00 Cerebral Spinal Fluid CSF Culture - Preliminary Narrative: Breathing easily. On no oxygen. Heart rate regular. Pacemaker implantation site looks good, rhonchi in chest. Lumbar puncture site has significant ecchymosis consistent with his Eliquis administration. Distal extremities are able to be moved. Significant skin trauma and dryness and abrasions as previously noted. Neurologically he is talkative, continues to be disoriented to purpose for being in the hospital, his medical history and time. Assessment and Plan (1) Aspiration pneumonia Status: Acute Qualifiers: Aspiration pneumonia type: unspecified Laterality: right Lung location: lower lobe of lung Qualified Code(s): J69.0 - Pneumonitis due to inhalation of food and vomit Category: Medical Code(s): J69.0 - Pneumonitis due to inhalation of food and vomit (2) Encephalopathy Status: Acute Category: Medical Code(s): G93.40 - Encephalopathy, unspecified (3) HFrEF (heart failure with reduced ejection fraction) Status: Chronic Category: Medical Code(s): I50.20 - Unspecified systolic (congestive) heart failure (4) Biventricular automatic implantable cardioverter defibrillator in situ Status: Chronic Category: Medical Code(s): Z95.810 - Presence of automatic (implantable) cardiac defibrillator (5) Tobacco use disorder Status: Chronic Category: Medical Code(s): F17.200 - Nicotine dependence, unspecified, uncomplicated (6) Atrial fibrillation Status: Chronic Qualifiers: Atrial fibrillation type: longstanding persistent Qualified Code(s): I48.11 - Longstanding persistent atrial fibrillation Category: Medical Code(s): I48.91 - Unspecified atrial fibrillation (7) COPD (chronic obstructive pulmonary disease) Status: Chronic Qualifiers: COPD type: unspecified COPD Qualified Code(s): J44.9 - Chronic obstructive pulmonary disease, unspecified Category: Medical Code(s): J44.9 - Chronic obstructive pulmonary disease, unspecified (8) Dehydration Status: Acute Category: Medical Code(s): E86.0 - Dehydration (9) History of aortic aneurysm repair Status: Chronic Category: Surgical Code(s): Z98.890 - Other specified postprocedural states; Z86.79 - Personal history of other diseases of the circulatory system (10) Hypertension Status: Chronic Qualifiers:
--- NOTE | 2021-03-16 14:59 | PC.WOUNDNOTE ---
Bruising from Lumbar Puncture per Dr. Livingston
[2021-03-16 15:38] LABS: CAP Mandated Reflex to Culture Not Indicated (.); Cryptococcus Antigen, CSF Negative (Negative)
[2021-03-17] VITALS (10 sets, daily range): BP systolic 135–160; BP diastolic 74–96; PULSE 80–103; RESP 14–20; TEMP 36.4–37.6; O2SAT 93–100; BMI 18.9
--- NOTE | 2021-03-17 01:17 | PC.NURSE ---
Patient lost IV access around 2335. Several attempts where made to regain access with no success. U/S IV was attempted x3, with no success. aware at 0115.
--- NOTE | 2021-03-17 08:52 | P.PN_ITS ---
Internal Medicine - PN: Subj *Date: 03/17/21 *Time: 08:52 Exam Vital signs and Labs for Last 24 Hours: Temp Pulse Resp BP Pulse Ox 98.2 F 88 20 135/94 H 97 03/17/21 08:00 03/17/21 08:00 03/17/21 08:00 03/17/21 08:00 03/17/21 08:00 Laboratory Results - last 24 hr 03/13/21 : CSF Cryptococcus Ag Negative, CSF Cryptoco Ag Clt Rfx Not indicated 03/13/21 : Miscellaneous Test Comment I & O for Last 24 hours: Intake & Output 03/14/21 03/15/21 03/16/21 03/17/21 23:59 23:59 23:59 23:59 Intake Total 624 / 624 600 / 600 480 / 480 Output Total 1300 / 1300 Balance -676 / -676 600 / 600 480 / 480 Weight 69.49 kg 63.68 kg 67.313 kg 66.905 kg Assessment and Plan (1) Aspiration pneumonia Status: Acute Qualifiers: Aspiration pneumonia type: unspecified Laterality: right Lung location: lower lobe of lung Qualified Code(s): J69.0 - Pneumonitis due to inhalation of food and vomit Category: Medical Code(s): J69.0 - Pneumonitis due to inhalation of food and vomit (2) Encephalopathy Status: Acute Category: Medical Code(s): G93.40 - Encephalopathy, unspecified (3) HFrEF (heart failure with reduced ejection fraction) Status: Chronic Category: Medical Code(s): I50.20 - Unspecified systolic (congestive) heart failure (4) Biventricular automatic implantable cardioverter defibrillator in situ Status: Chronic Category: Medical Code(s): Z95.810 - Presence of automatic (implantable) cardiac defibrillator (5) Tobacco use disorder Status: Chronic Category: Medical Code(s): F17.200 - Nicotine dependence, unspecified, uncomplicated (6) Atrial fibrillation Status: Chronic Qualifiers: Atrial fibrillation type: longstanding persistent Qualified Code(s): I48.11 - Longstanding persistent atrial fibrillation Category: Medical Code(s): I48.91 - Unspecified atrial fibrillation (7) COPD (chronic obstructive pulmonary disease) Status: Chronic Qualifiers: COPD type: unspecified COPD Qualified Code(s): J44.9 - Chronic obstructive pulmonary disease, unspecified Category: Medical Code(s): J44.9 - Chronic obstructive pulmonary disease, unspecified (8) Dehydration Status: Acute Category: Medical Code(s): E86.0 - Dehydration (9) History of aortic aneurysm repair Status: Chronic Category: Surgical Code(s): Z98.890 - Other specified p ostprocedural states; Z86.79 - Personal history of other diseases of the circulatory system (10) Hypertension Status: Chronic Qualifiers: Hypertension type: primary hypertension Qualified Code(s): I10 - Essential (primary) hypertension Category: Medical Code(s): I10 - Essential (primary) hypertension (11) Hypokalemia Status: Acute Category: Medical Code(s): E87.6 - Hypokalemia (12) Noncompliance with medication regimen Status: Chronic Category: Medical Code(s): Z91.14 - Patient's other noncompliance with medication regimen (13) Atrial fibrillation Status: Chronic Qualifiers: Atrial fibrillation type: chronic Category: Medical Code(s): I48.91 - Unspecified atrial fibrillation The patient's infection will respond to the chosen ABx?: Yes Is the patient receiving the right drug, dose, and route?: Yes Could a more targeted ABx be ordered?: No 7
--- NOTE | 2021-03-17 09:12 | HMH.ACPN2 ---
Internal Medicine - PN: Subj *Date: 03/17/21 *Time: 09:12 Interval history: Patient has been a little more obtunded per nursing staff but when I walked in the room he was verbally responsive and seems to be really about his new baseline. He actually is able to follow commands but falls asleep fairly quickly. Exam Vital signs and Labs for Last 24 Hours: Temp Pulse Resp BP Pulse Ox 98.2 F 88 20 135/94 H 97 03/17/21 08:00 03/17/21 08:00 03/17/21 08:00 03/17/21 08:00 03/17/21 08:00 Laboratory Results - last 24 hr 03/13/21 : CSF Cryptococcus Ag Negative, CSF Cryptoco Ag Clt Rfx Not indicated 03/13/21 : Miscellaneous Test Comment I & O for Last 24 hours: Intake & Output 03/14/21 03/15/21 03/16/21 03/17/21 11:59 11:59 11:59 11:59 Intake Total 624 / 624 600 / 600 480 / 480 Output Total 1400 / 1400 Balance -776 / -776 600 / 600 480 / 480 Weight 153 lb 3.2 oz 140 lb 6.246 oz 148 lb 6.4 oz 147 lb 8 oz Narrative: Patient is sleepy, awakens with tactile stimuli and loud verbal stimuli. Anterior lung stevens are rhonchorous but otherwise clear. Heart rate regular. Abdomen is scaphoid and soft. His skin exam and neurologic exam is really unchanged over his baseline. Assessment and Plan (1) Aspiration pneumonia Status: Acute Qualifiers: Aspiration pneumonia type: unspecified Laterality: right Lung location: lower lobe of lung Qualified Code(s): J69.0 - Pneumonitis due to inhalation of food and vomit Category: Medical Code(s): J69.0 - Pneumonitis due to inhalation of food and vomit (2) Encephalopathy Status: Acute Category: Medical Code(s): G93.40 - Encephalopathy, unspecified (3) HFrEF (heart failure with reduced ejection fraction) Status: Chronic Category: Medical Code(s): I50.20 - Unspecified systolic (congestive) heart failure (4) Biventricular automatic implantable cardioverter defibrillator in situ Status: Chronic Category: Medical Code(s): Z95.810 - Presence of automatic (implantable) cardiac defibrillator (5) Tobacco use disorder Status: Chronic Category: Medical Code(s): F17.200 - Nicotine dependence, unspecified, uncomplicated (6) Atrial fibrillation Status: Chronic Qualifiers: Atrial fibrillation type: longstanding persistent Qualified Code(s): I48.11 - Longstanding persistent atrial fibrillation Category: Medical Code(s): I48.91 - Unspecified atrial fibrillation (7) COPD (chronic obstructive pulmonary disease) Status: Chronic Qualifiers: COPD type: unspecified COPD Qualified Code(s): J44.9 - Chronic obstructive pulmonary disease, unspecified Category: Medical Code(s): J44.9 - Chronic obstructive pulmonary disease, unspecified (8) Dehydration Status: Acute Category: Medical Code(s): E86.0 - Dehydration (9) History of aortic aneurysm repair Status: Chronic Category: Surgical Code(s): Z98.890 - Other specified postprocedural states; Z86.79 - Personal history of other diseases of the circulatory system (10) Hypertension Status: Chronic Qualifiers: Hypertension type: primary hypertension Qualified Code(s): I10 - Essential (primary) hypertension Category: Medical Code(s): I10 - Essential (primary) hypertension (11) Hypokalemia Status: Acute Category: Medical Code(s): E87.6 - Hypokalemia (12) Noncompliance with medication regimen Status: Chronic Category: Medical Code(s): Z91.14 - Patient's other noncompliance with medication regimen (13) Atrial fibrillation Status: Chronic Qualifiers: Atrial fibrillation type: chronic Category: Medical Code(s): I48.91 - Unspecified atrial fibrillation - Assessment and plan all Dx Assessment and Plan for all problems:: No major changes in plan. Cut clonazepam down to twice daily as needed. 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
--- NOTE | 2021-03-17 09:26 | SW/DCPLANNER ---
Patient information has been faxed to [facility] and updated documentation has been faxed this morning.
--- NOTE | 2021-03-17 10:47 | DIET.NUTRFU ---
Patient continues on mechanical soft diet needing assistance with meals. His intake varies from 25-50% at best. He is also receiving ensure TID with meal trays, normally consuming 50-100%. Discharge plan, currently looking for placement where meals and feeding assistance will be provided. CBW is 66kg, no significant wt changes since admit. Labs on 03/16 indicate good hydration. Will continue current POC
[2021-03-18] VITALS (9 sets, daily range): BP systolic 110–163; BP diastolic 60–90; PULSE 61–92; RESP 16–20; TEMP 36.3–36.7; O2SAT 90–99; BMI 18.6
[2021-03-18 07:18] LABS: CMV PCR Negative (Negative); Enterovirus,CSF PCR Negative (Negative)
--- NOTE | 2021-03-18 08:33 | HMH.ACPN2 ---
Internal Medicine - PN: Subj *Date: 03/18/21 *Time: 08:33 Interval history: Patient is awake. Is alert. Responds to commands. Is nonverbal but seems to be just unwilling to talk today. Exam Vital signs and Labs for Last 24 Hours: Temp Pulse Resp BP Pulse Ox 98.1 F 88 16 163/90 H 99 03/18/21 07:46 03/18/21 07:46 03/18/21 07:46 03/18/21 07:46 03/18/21 07:46 Laboratory Results - last 24 hr 03/13/21 : CSF Enterovirus (PCR) Negative, CMV DNA Qual PCR Negative I & O for Last 24 hours: Intake & Output 03/15/21 03/16/21 03/17/21 03/18/21 11:59 11:59 11:59 11:59 Intake Total 600 / 600 480 / 480 0 / 0 Output Total 0 / 0 Balance 600 / 600 480 / 480 0 / 0 Weight 140 lb 6.246 oz 148 lb 6.4 oz 147 lb 8 oz 145 lb 9.6 oz Microbiology Reports for the Last 24 Hours: Microbiology 03/13/21 08:00 Cerebral Spinal Fluid Gram Stain - Final 03/13/21 08:00 Cerebral Spinal Fluid CSF Culture - Final No growth. Narrative: Anterior lung stevens clear, heart rate regular. Abdomen soft. Skin changes as before. Neurologic exam nonfocal. Continues to exhibit odd psychological behavior as previously noted. Assessment and Plan (1) Aspiration pneumonia Status: Acute Qualifiers: Aspiration pneumonia type: unspecified Laterality: right Lung location: lower lobe of lung Qualified Code(s): J69.0 - Pneumonitis due to inhalation of food and vomit Category: Medical Code(s): J69.0 - Pneumonitis due to inhalation of food and vomit (2) Encephalopathy Status: Acute Category: Medical Code(s): G93.40 - Encephalopathy, unspecified (3) HFrEF (heart failure with reduced ejection fraction) Status: Chronic Category: Medical Code(s): I50.20 - Unspecified systolic (congestive) heart failure (4) Biventricular automatic implantable cardioverter defibrillator in situ Status: Chronic Category: Medical Code(s): Z95.810 - Presence of automatic (implantable) cardiac defibrillator (5) Tobacco use disorder Status: Chronic Category: Medical Code(s): F17.200 - Nicotine dependence, unspecified, uncomplicated (6) Atrial fibrillation Status: Chronic Qualifiers: Atrial fibrillation type: longstanding persistent Qualified Code(s): I48.11 - Longstanding persistent atrial fibrillation Category: Medical Code(s): I48.91 - Unspecified atrial fibrillation (7) COPD (chronic obstructive pulmonary disease) Status: Chronic Qualifiers: COPD type: unspecified COPD Qualified Code(s): J44.9 - Chronic obstructive pulmonary disease, unspecified Category: Medical Code(s): J44.9 - Chronic obstructive pulmonary disease, unspecified (8) Dehydration Status: Acute Category: Medical Code(s): E86.0 - Dehydration (9) History of aortic aneurysm repair Status: Chronic Category: Surgical Code(s): Z98.890 - Other specified postprocedural states; Z86.79 - Personal history of other diseases of the circulatory system (10) Hypertension Status: Chronic Qualifiers: Hypertension type: primary hypertension Qualified Code(s): I10 - Essential (primary) hypertension Category: Medical Code(s): I10 - Essential (primary) hypertension (11) Hypokalemia Status: Acute Category: Medical Code(s): E87.6 - Hypokalemia (12) Noncompliance with medication regimen Status: Chronic Category: Medical Code(s): Z91.14 - Patient's other noncompliance with medication regimen (13) Atrial fibrillation Status: Chronic Qualifiers: Atrial fibrillation type: chronic Category: Medical Code(s): I48.91 - Unspecified atrial fibrillation - Assessment and plan all Dx Assessment and Plan for all problems:: Overall patient has physiologically improved. His blood pressure little high today, I will adjust up his lisinopril. Varicella-zoster testing from spinal fluid negative, will stop acyclovir. Continue clindamycin for p
--- NOTE | 2021-03-18 17:11 | PC.NURSE ---
Pt has slept majority of this shift. Pt has been agitated for periods of time this shift and gets aggressive w/ staff while trying to help pt w/ ADL's. PRN clonazepam given x1 w/ favorable results. Speech has been garbled and does not make sense. Pt has been incontinent of bowel and bladder multiple times this shift. No other acute changes or complaints.
--- NOTE | 2021-03-18 21:45 | PC.NURSE ---
Changed brief and linens
[2021-03-19] VITALS (9 sets, daily range): BP systolic 141–170; BP diastolic 73–92; PULSE 69–86; RESP 14–19; TEMP 36.4–36.9; O2SAT 91–98; BMI 18.3
--- NOTE | 2021-03-19 05:41 | PC.NURSE ---
Pt cooperative with medication administration this shift. Speech is garbled and incoherent. Pt is incontinent, and has been changed multiple times this shift. Pt has been resistive to oral care and repositioning. After repositioning, pt moves back on his own. Call light in reach, bed alarm on. No acute changes thus far.
--- NOTE | 2021-03-19 07:18 | HMH.ACPN2 ---
Internal Medicine - PN: Subj *Date: 03/19/21 *Time: 07:18 Interval history: Patient continues to wax and wane in regards to mental/psychological condition. This morning he is awake, states that he is fine as frog care when asked about his condition. States that he is slightly hungry. He then falls back asleep. Continues to have somewhat slurred speech consistent with his ongoing mental status changes Exam Vital signs and Labs for Last 24 Hours: Temp Pulse Resp BP Pulse Ox 98.4 F 84 14 141/92 H 98 03/19/21 04:00 03/19/21 06:25 03/19/21 04:00 03/19/21 04:00 03/19/21 06:25 Laboratory Results - last 24 hr 03/13/21 : CSF Enterovirus (PCR) Negative, CMV DNA Qual PCR Negative I & O for Last 24 hours: Intake & Output 03/16/21 03/17/21 03/18/21 03/19/21 11:59 11:59 11:59 11:59 Intake Total 600 / 600 480 / 480 0 / 0 90 / 90 Output Total 0 / 0 Balance 600 / 600 480 / 480 0 / 0 90 / 90 Weight 148 lb 6.4 oz 147 lb 8 oz 145 lb 9.6 oz 142 lb 14.4 oz Narrative: Edentulous, oral tissue clear and moist. Lungs have good air movement, scattered smoker's rhonchi, heart rate regular. Abdomen soft and scaphoid. Extremities without edema or clubbing, the nurses in a very nice job of cleaning them up and has had no further abrasions or bleeding sites. Neurologic exam other than his mental status confusion and dementia/chronic delirium issues are nonfocal. Assessment and Plan (1) Aspiration pneumonia Status: Acute Qualifiers: Aspiration pneumonia type: unspecified Laterality: right Lung location: lower lobe of lung Qualified Code(s): J69.0 - Pneumonitis due to inhalation of food and vomit Category: Medical Code(s): J69.0 - Pneumonitis due to inhalation of food and vomit (2) Encephalopathy Status: Acute Category: Medical Code(s): G93.40 - Encephalopathy, unspecified (3) HFrEF (heart failure with reduced ejection fraction) Status: Chronic Category: Medical Code(s): I50.20 - Unspecified systolic (congestive) heart failure (4) Biventricular automatic implantable cardioverter defibrillator in situ Status: Chronic Category: Medical Code(s): Z95.810 - Presence of automatic (implantable) cardiac defibrillator (5) Tobacco use disorder Status: Chronic Category: Medical Code(s): F17.200 - Nicotine dependence, unspecified, uncomplicated (6) Atrial fibrillation Status: Chronic Qualifiers: Atrial fibrillation type: longstanding persistent Qualified Code(s): I48.11 - Longstanding persistent atrial fibrillation Category: Medical Code(s): I48.91 - Unspecified atrial fibrillation (7) COPD (chronic obstructive pulmonary disease) Status: Chronic Qualifiers: COPD type: unspecified COPD Qualified Code(s): J44.9 - Chronic obstructive pulmonary disease, unspecified Category: Medical Code(s): J44.9 - Chronic obstructive pulmonary disease, unspecified (8) Dehydration Status: Acute Category: Medical Code(s): E86.0 - Dehydration (9) History of aortic aneurysm repair Status: Chronic Category: Surgical Code(s): Z98.890 - Other specified postprocedural states; Z86.79 - Personal history of other diseases of the circulatory system (10) Hypertension Status: Chronic Qualifiers: Hypertension type: primary hypertension Qualified Code(s): I10 - Essential (primary) hypertension Category: Medical Code(s): I10 - Essential (primary) hypertension (11) Hypokalemia Status: Acute Category: Medical Code(s): E87.6 - Hypokalemia (12) Noncompliance with medication regimen Status: Chronic Category: Medical Code(s): Z91.14 - Patient's other noncompliance with medication regimen (13) Atrial fibrillation Status: Chronic Qualifiers: Atrial fibrillation type: chronic Category: Medical Code(s): I48.91 - Unspecified atrial fibrillation - Assessment and plan all Dx Assessment and Plan for all problems:: Ov
--- NOTE | 2021-03-19 18:26 | PC.WOUNDNOTE ---
Stage 2 ulceration noted to coccyx
--- NOTE | 2021-03-19 18:29 | PC.NURSE ---
Pt has been pleasant and cooperative this shift. Alert to self. Speech is slurred and pt has slept for the majority of the day. No complaints of pain or SOA. Pt is on room air with sats. >90%. Lung sounds reveal expiratory rhonchi. No edema noted. Stage 2 ulceration noted to coccyx and covered with pressure-relief dressing. Pt is incontinent and urine is clear and yellow. No BM this shift. Pt has been turned/repositioned Q2H. Appetite is poor and pt only eats about 5-10% of every meal. PO medications have been given crushed and given with applesauce. Pt currently does not have any IV access. VSS. Call light within reach. Bed safety alarm is set. Will continue to monitor.
[2021-03-20] VITALS (9 sets, daily range): BP systolic 107–163; BP diastolic 70–92; PULSE 72–114; RESP 16–19; TEMP 36.3–36.9; O2SAT 94–100; BMI 17.4
--- NOTE | 2021-03-20 04:23 | PC.NURSE ---
Pt has remained confused t/o shift, speech has been slurred. Pt took PO meds crushed with applesauce with no difficulty. Condom cath in place draining clear, yellow urine. Pt has became restless at times t/o shift. Bed alarm on for safety.
[2021-03-20 07:13] LABS: Basophils # 0.2 K/mm3 (0-0.2); Basophils % 1.8 % (0.1-2.0); Eosinophils # 0.2 K/mm3 (0.0-0.4); Eosinophils % 2.3 % (0.1-12.0); Hematocrit 30.6 % (42.0-52.0); Lymphocytes # 1.6 K/mm3 (0.7-4.5); Lymphocytes % 20.2 % (10-50); Mean Corpuscular HGB Conc 32.6 g/dL (31.8-35.4); Mean Corpuscular Hemoglobin 31.4 pg (27.0-31.2); Mean Corpuscular Volume 96.5 fl (80-94); Mean Platelet Volume 9.4 fl (7.4-10.4); Monocytes # 0.6 K/mm3 (0.1-1.0); Monocytes % 8.1 % (1.7-9.3); Neutrophils # 5.5 K/mm3 (1.8-7.8); Neutrophils % 69.4 % (37.0-80.0); Platelet Count 271 K/mm3 (142-424); Red Blood Count 3.17 M/mm3 (4.60-6.20); Red Cell Distribution Width 19.3 % (11.5-17.5); White Blood Count 7.9 K/mm3 (4.8-10.8)
[2021-03-20 07:32] LABS: Chloride 111 mmol/L (98-107); Sodium 140 mmol/L (136-145)
[2021-03-20 07:34] LABS: Potassium 4.2 mmoL/L (3.5-5.1)
[2021-03-20 07:35] LABS: Anion Gap 12.2 mEq/L (5-15); Blood Urea Nitrogen 9 mg/dl (9-20); Carbon Dioxide 21 mmol/L (22.0-30.0); Creatinine Clearance Estimated 87 mL/min (50-200); Estimated Glomerular Filt Rate 99 ml/min (>60); GFR (African American) 120 ML/MIN (>60)
[2021-03-20 07:36] LABS: Calcium 9.7 mg/dl (8.4-10.2); Glucose 89 mg/dl (74-100)
--- NOTE | 2021-03-20 08:10 | HMH.DCSUM ---
General - General Admission date:: 03/11/21 Discharge date: 03/20/21 HPI HPI: Mr. Good is a 55-year-old male with significant past medical history. Brought to the ER via ambulance due to concern for progressive weakness, fatigue, drowsiness and confusion. He is a poor historian and keeps saying he does not know where he is. Questions answered by EMS and family. Reportedly has been getting more confused over the past few days to weeks. States he is only been smoking cigarettes and drinking Mountain Dew for the past week or so. Afebrile, no shortness of breath. Does complain of some mild abdominal pain. Unable to give further review of systems. Work-up in the ER initiated with a scanning of head for confusion, chest for pneumonia/intrathoracic process, and abdomen. Concern for right lower lobe pneumonia/aspiration pneumonia. Patient unable to ambulate or stay alert for an extended period of time. Admitted to medicine for management of altered mental status/encephalopathy, and aspiration pneumonia. On assessment this morning, patient is somnolent but arouses to verbal stimuli. Complains of some mild abdominal discomfort. Denies nausea or chest pain. Frail and older than stated age in appearance. Still does not know where he is and cannot tell me his date of or give specific answers to questions. Only abnormal drug screen finding on admission was for benzodiazepines, he has not prescribed these. Hospital Course Hospital Course: Patient was admitted. Extensive work-up was done including CT of head, multiple lab studies and lumbar puncture, because of his mental status changes and significant risk for immunosuppressive type infection such as varicella. Was found to have infiltrate on chest consistent with aspiration pneumonia that has undergone appropriate antibiotic treatment. CSF studies for culture, varicella antigen, etc. were negative, and acyclovir was stopped. Patient improved with IV fluids and the starting of low-dose clonazepam for probable benzodiazepine withdrawal, but did not get to the place where he can take care of himself and continue to exhibit symptoms of chronic dementia that had superimposed delirium noted on admission. This slowly improved and patient became much more cooperative and was able to cooperate with eating and bathing. However, he is not at a level where he can take care of himself. 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 Had a long discussion with his family today. He lives with a longtime girlfriend from whom the family is estranged based on lifestyle choices, and his 3 children are in agreement that he needs to be transferred to long-term care for his personal needs. Our discharge planning folks have done a good job looking for places and today he will be sent to long-term care for ongoing basic medical care. He will need a PT/OT evaluation, nutrition evaluation and ongoing medications as noted on the reconciliation form. Overall prognosis is poor. His children are indicating that he has made a DNR decision before, and they are looking for the paperwork. Objective Vital signs: Temp Pulse Resp BP Pulse Ox 98.5 F 114 H 18 155/91 H 94 L 03/20/21 07:59 03/20/21 07:59 03/20/21 07:59 03/20/21 07:59 03/20/21 03:25 no acute distress, thin, cachectic, chronically ill appearing Comments: Multiple scattered abrasions and contusions on arms and legs, in various stages of healing. Appears much older than his stated age with muscle cachexia, edentulous status. - *Routine HEENT Exam Head: Present: normocephalic Eye: Present: EOMI, PERRL ENT: Present: mucous membranes moist - *Routine Neck Exam Present: supple - Routine Chest/Breast/Axilla Exam Chest wall: Present: pacemaker - *Routine Respiratory Exam Present: rhonchi - *Routine Cardiovascula
--- NOTE | 2021-03-20 13:47 | SW/DCPLANNER ---
Addendum entered by Rosa Maria Bryant 03/22/21 14:46: HOSPICE CAME AND EVALUATED PATIENT AND HE IS MOST APPROPRIATE FOR HOSPICE AND THEY WILL FOLLOW HIM AT [facility] IF ACCEPTED.. I HAVE ASKED THE DAUGHTER TO GATHER BANK STATEMENTS AND OTHER FINANCIAL INFORMATION TO HELP THEM DETERMINE IF HE QUALIFIES FOR MEDICAID AT THE JAIL WITH HOSPICE SERVICES.. Addendum entered by Rosa Maria Bryant 03/22/21 10:07: SENT REFERRAL TO HOSPICE THIS MORNING AND CONTACTED DAUGHTER TO BE HERE TO SPEAK WITH THE NURSE..IF HE IS ACCEPTED WITH HOSPICE I WILL REACH OUT TO [facility] TO SEE IF THEY WILL ACCEPT HIM WITH HOSPICE TO FOLLOW... Addendum entered by Rosa Maria Bryant 03/22/21 07:48: SENT REFERRAL TO [facility] TO SEE IF THEY CAN ACCEPT PATIENT, PATIENT DID HAVE AN EPISODE LAST EVENING THAT REQUIRED HIM TO GO TO SURGERY FOR A RIGHT DISLOCATED HIP..PATIENT HAS ALSO HAD SOME HIGH BLOOD PRESSURE ISSUES ALSO... FAMILY THIS MORNING IS AT BEDSIDE AND STILL DO NOT HAVE A CONFIRMED BED FOR HIM... WILL DO FOLLOW UPS THIS AM.. Addendum entered by Rosa Maria Bryant 03/21/21 11:52: PATIENT REMAINS IN THE ACUTE HOSPITAL WAITING ON BED AVAILABILITY.. FAMILY AT BEDSIDE AND WAS WANTING UPDATES AND I EXPLAINED WE ARE WAITING ON THE INSURANCE COMPANY TO GIVE AN AUTHORIZATION TO GO TO [facility]... Original Note: [facility] DECLINED THIS PATIENT: I HAVE SENT INFORMATION TO [facility] IN [place] PER DAUGHTERS REQUEST AND WAITING TO HEAR BACK TO WHETHER THEY ARE GOING TO ACCEPT HIM OR NOT... I HAVE SPOKEN WITH DAUGHTER WHOM IS SUPPOSE TO BE GATHERING BANK STATEMENTS AND OTHER ASSETS UP TO GIVE TO THE FACILITY. HOPEFUL THEY CAN ACCEPT HIM.. [facility] HAVE A CONTRACT WITH [facility]....
--- NOTE | 2021-03-20 18:13 | PC.NURSE ---
DNR paperwork signed by daughter and witnessed by this RN. Code status changed in the cpu at this time.
--- NOTE | 2021-03-20 19:21 | PC.NURSE ---
Pt remains confused and hard to understand. Pt has been incontinent of urine. No BM noted this shift. No other acute changes or complaints.
[2021-03-21] VITALS (10 sets, daily range): BP systolic 97–141; BP diastolic 53–82; PULSE 61–103; RESP 16–20; TEMP 36.4–36.8; O2SAT 95–98; BMI 17.2
--- NOTE | 2021-03-21 07:44 | PC.NURSE ---
no issues noted, pt restless through the night, alert and oriented to name and bday only, confused other times
--- NOTE | 2021-03-21 08:11 | HMH.ACPN2 ---
Internal Medicine - PN: Subj *Date: 03/21/21 *Time: 08:11 Interval history: Plan [facility] transfer did not materialize yesterday because of issues at the [facility] and with financial documentation from family. Patient's condition is unchanged. Exam Vital signs and Labs for Last 24 Hours: Temp Pulse Resp BP Pulse Ox 97.8 F 74 18 122/82 95 03/21/21 03:45 03/21/21 06:00 03/21/21 03:45 03/21/21 03:45 03/21/21 03:45 I & O for Last 24 hours: Intake & Output 03/18/21 03/19/21 03/20/21 03/21/21 11:59 11:59 11:59 11:59 Intake Total 0 / 0 210 / 210 330 / 330 130 / 130 Output Total 0 / 0 250 / 250 250 / 250 Balance 0 / 0 -40 / -40 80 / 80 130 / 130 Weight 145 lb 9.6 oz 142 lb 14.4 oz 135 lb 8 oz 134 lb 5 oz Narrative: Patient has eaten most of his breakfast. Is pleasant. Is difficult to engage in conversation because of his chronic dementia and tangential thinking. Cardiopulmonary exam unchanged. Neurologic exam nonfocal except for his memory loss and conversational issues. Assessment and Plan (1) Aspiration pneumonia Status: Acute Qualifiers: Aspiration pneumonia type: unspecified Laterality: right Lung location: lower lobe of lung Qualified Code(s): J69.0 - Pneumonitis due to inhalation of food and vomit Category: Medical Code(s): J69.0 - Pneumonitis due to inhalation of food and vomit (2) Encephalopathy Status: Acute Category: Medical Code(s): G93.40 - Encephalopathy, unspecified (3) HFrEF (heart failure with reduced ejection fraction) Status: Chronic Category: Medical Code(s): I50.20 - Unspecified systolic (congestive) heart failure (4) Biventricular automatic implantable cardioverter defibrillator in situ Status: Chronic Category: Medical Code(s): Z95.810 - Presence of automatic (implantable) cardiac defibrillator (5) Tobacco use disorder Status: Chronic Category: Medical Code(s): F17.200 - Nicotine dependence, unspecified, uncomplicated (6) Atrial fibrillation Status: Chronic Qualifiers: Atrial fibrillation type: longstanding persistent Qualified Code(s): I48.11 - Longstanding persistent atrial fibrillation Category: Medical Code(s): I48.91 - Unspecified atrial fibrillation (7) COPD (chronic obstructive pulmonary disease) Status: Chronic Qualifiers: COPD type: unspecified COPD Qualified Code(s): J44.9 - Chronic obstructive pulmonary disease, unspecified Category: Medical Code(s): J44.9 - Chronic obstructive pulmonary disease, unspecified (8) Dehydration Status: Acute Category: Medical Code(s): E86.0 - Dehydration (9) History of aortic aneurysm repair Status: Chronic Category: Surgical Code(s): Z98.890 - Other specified postprocedural states; Z86.79 - Personal history of other diseases of the circulatory system (10) Hypertension Status: Chronic Qualifiers: Hypertension type: primary hypertension Qualified Code(s): I10 - Essential (primary) hypertension Category: Medical Code(s): I10 - Essential (primary) hypertension (11) Hypokalemia Status: Acute Category: Medical Code(s): E87.6 - Hypokalemia (12) Noncompliance with medication regimen Status: Chronic Category: Medical Code(s): Z91.14 - Patient's other noncompliance with medication regimen (13) Atrial fibrillation Status: Chronic Qualifiers: Atrial fibrillation type: chronic Category: Medical Code(s): I48.91 - Unspecified atrial fibrillation - Assessment and plan all Dx Assessment and Plan for all problems:: No changes in plan from yesterday's discharge summary. 7
--- NOTE | 2021-03-21 13:50 | DIET.NUTRFU ---
Addendum entered by Teri Mooney RD, LD 03/22/21 12:04: during rounds today family indicated they are wanting hospice consult, no aggressive measures. Original Note: Patient continues to wait on placement for discharge. He continues on MSOFT diet with poor po intake. He is dependent on staff for meals. Nursing reports he spits out his food when he is done which is normally after only a couple bites. He is also ordered ensure with meals but does not drink it all the time. Nursing feels he may enjoy milkshakes better. Will continue ensure with breakfast tray and homemade protein shakes with lunch and dinner. If consumed this will provide 994kcal and 51gm protein. Weight review CBW is 60.9kg, admit wt was 66.9kg, down 6# in 5 days. Nutritional needs to maintain wt are 1200-1500kcal and 60gm protein. Labs indicate good hydration with electrolytes WNL. Hopefully his meal intake will improve at new setting once placed. Otherwise family may need to review TF wishes.
--- NOTE | 2021-03-21 17:10 | PC.NURSE ---
patient has had an okay day. refused morning meds and swatted hands away when attemtping to give him applesauce or water. when family arrived in room patient did eat shaina ice cream and mountain dew. sat up on side of bed with pt. incontinent. vitals have been stable. has rested. less anxious and no picking noted
--- NOTE | 2021-03-21 20:43 | XR_ITS ---
PROCEDURE INFORMATION: Exam: XR Right Hip Exam date and time: 03/21/2021 8:43 PM Age: 56 years old Clinical indication: Hip pain; Right hip; Prior surgery; Surgery type: Total hip; Additional info: Right hip pain TECHNIQUE: Imaging protocol: XR Right hip. Views: 2 or 3 views hip with pelvis when performed. COMPARISON: CT ABDOMEN PELVIS W CON 03/09/2021 9:46 PM FINDINGS: Bones/joints: Total right hip arthroplasty with dislocation of femoral component from acetabular cup. Hardware remains intact with no evidence of perihardware fracture or lucency to suggest loosening. Pubic symphysis and bilateral sacroiliac joints are congruent Femoral component is displaced posterolaterally. . Acetabular screws are in unchanged position with protrusion of the acetabular fixation screw tips through the inner iliac cortex with inferior screw tip shown to be within 1.0 cm of the right internal iliac artery on prior CT abdomen/pelvis and superior screw tip located within the right iliopsoas muscle. Soft tissues: Unremarkable. IMPRESSION: 1. Total right hip arthroplasty with dislocation of femoral component from acetabular cup. Hardware remains intact with no evidence of perihardware fracture or lucency to suggest loosening. 2. Acetabular screws are in unchanged position with protrusion of the acetabular fixation screw tips through the inner iliac cortex with inferior screw tip shown to be within 1.0 cm of the right internal iliac artery on prior CT abdomen/pelvis and superior screw tip located within the right iliopsoas muscle.
--- NOTE | 2021-03-21 23:45 | PC.NURSE ---
PT OFF THE FLOOR VIA BED W/OR STAFF @ [id number]
--- NOTE | 2021-03-21 23:51 | HMH.ORTHOCON ---
*Admission Date: 03/10/21 *Reason for consult:: Right prosthetic hip dislocation *History of present illness: 56-year-old male admitted with mental status changes, aspiration pneumonia, had attempted to get up to chair with PT today and had difficulty as well as was getting up to the side of the bed. He complained of right hip pain this evening and radiographs and CT scan demonstrated right prosthetic hip dislocation with concern for screw displacement. I was consulted regarding his dislocated hip. [facility] History Medical History: Reports:: Aneurysm, Arrhythmia, Atherosclerotic Heart Disease, Atrial Fibrillation, Congestive Heart Failure, Chronic Obstructive Pulmonary Disease (COPD), Coronary Artery Disease, Cerebrovascular Accident, Gastroesophageal Reflux Disease(GERD), Hyperlipidemia, Hypertension, Internal Pacemaker, Myocardial Infarction Denies:: Cancer, Diabetes Mellitus Type 1, Diabetes Mellitus Type 2, MRSA, Seizures *Have you ever received a pneumonia vaccine?: No *Have you received a flu vaccine this season?: No Other Medical History: Denies: Blood Transfusion Reaction Laterality Cases: Left: Other, Right: Arthroscopy Hip, Total Hip Replacement Other Surgeries: Yes: CABG (x3), Cardiac Catheterization, Cardiac Surgery, Cholecystectomy, Colonoscopy, Coronary Stent, Open Heart Surgery, Pacemaker, Other Amputation: No Fractures: No - *Social History Smoking Status: Current every day smoker Tobacco Type: cigarettes # Packs/Day (cigarettes): 1 #Yrs smoked (if former smoker): 40 Alcohol Intake: never Alcohol Intake Frequency:: other Substance Use Type: marijuana *Occupational Status:: disabled Housing: apartment Household Members: none *Travel in the last 8 weeks: None Family Hx:: Asthma, Cancer, Coronary Artery Disease, Diabetes, Heart Attack, Hyperlipidemia, Hypertension Meds Home Medications Medication Instructions Recorded Confirmed Type Atorvastatin Calcium [Lipitor 80mg 80 mg PO HS 05/26/17 03/09/21 History Tab] Ranolazine [Ranexa 500mg ER tablet] 500 mg PO BID 01/08/21 03/09/21 History Nicotine [Nicoderm 21mg/24hr 21 mg TD DAILYP PRN 30 Days #30 01/11/21 03/09/21 Rx patch] patch Aspirin [Aspirin 81mg EC Tab] 81 mg PO DAILY 01/16/21 03/09/21 History Clopidogrel Bisulfate [Plavix 75mg 75 mg PO DAILY 01/16/21 03/09/21 History Tab] Famotidine [Pepcid 20mg Tablet] 20 mg PO DAILY 01/16/21 03/09/21 History Apixaban [Eliquis] 5 mg PO BID 03/09/21 03/09/21 History Metoprolol Succinate [Metoprolol 50 mg PO BID 03/09/21 03/09/21 History Succinate 50mg Tablet*] Potassium Chloride [Klor-con 20 20 meq PO DAILY 03/09/21 03/09/21 History mEq tablet] lisinopriL [Zestril 10mg Tab] 10 mg PO BID 03/09/21 03/09/21 History clonazePAM [Klonopin 0.5mg tablet] 0.25 mg PO BIDP PRN #60 tab 03/20/21 Rx levoFLOXacin [Levaquin 500mg 500 mg PO 2100 #5 tab 03/20/21 Rx tab] Allergies Allergy/AdvReac Type Severity Reaction Status Date / Time diphenhydramine Allergy Mild NA-NAUSEA Verified 02/07/18 14:33 [From BENADRYL ALLERGY] pseudoephedrine Allergy Mild NA-NAUSEA Verified 02/07/18 14:33 [From SUDAFED] nitroglycerin Allergy Unknown Verified 02/07/18 14:33 [From NITRO-BID] Exam Vital signs and Labs for Last 24 Hours: Temp Pulse Resp BP Pulse Ox 97.7 F 85 18 97/62 L 96 03/21/21 19:58 03/21/21 19:58 03/21/21 19:58 03/21/21 19:58 03/21/21 19:58 I & O for Last 24 hours: Intake & Output 03/18/21 03/19/21 03/20/21 03/21/21 23:59 23:59 23:59 23:59 Intake Total 90 / 90 420 / 420 160 / 160 720 / 720 Output Total 0 / 0 500 / 500 0 / 0 Balance 90 / 90 -80 / -80 160 / 160 720 / 720 Weight 145 lb 9.6 oz 142 lb 14.4 oz 135 lb 8 oz 134 lb 5 oz - Constitutional no acute distress, moderate distress - *Routine HEENT Exam Head: Present: normocephalic Eye: Present: EOMI, PERRL ENT: Present: mucous membranes moist - *Routine Neck Exam Present: supple.
[2021-03-22] VITALS (35 sets, daily range): BP systolic 70–156; BP diastolic 33–122; PULSE 64–100; RESP 12–30; TEMP 35.8–37.1; O2SAT 90–99; BMI 18.2
--- NOTE | 2021-03-22 00:13 | XR_ITS ---
PROCEDURE: XR HIP RT 2-3V W/PELVIS CLINICAL INDICATION: POST REDUCTION COMPARISON: CR XR HIP RT 2-3V W/PELVIS from 03/21/2021 FINDINGS: There are 3 images submitted. On the 1st AP image there is superior dislocation of the femoral component of the total hip prosthesis. Second and 3rd images show the prosthesis to be in location. IMPRESSION: Interval reduction of right femoral component of the total hip prosthesis. Dictated by: Christian Lin MD 03/24/2021 13:08 Christian Lin MD in OV 03/24/2021 13:08
--- NOTE | 2021-03-22 00:16 | HMH.OPNOTE ---
Date of procedure: 03/22/21 Pre-op Diagnosis:: Right prosthetic hip dislocation Post-op Diagnosis:: Same Procedure performed:: 18710 Closed reduction right prosthetic hip dislocation [id number] after hour services Surgeon:: Todd Pro JR, MD HOSPITAL MORTICIAN:: Beltran Camarena Anesthesia: MAC Estimated blood loss (mL): 0 Operative findings:: Orthogonal x-ray views demonstrated appropriate reduction of his right hip dislocation Operative note:: 56-year-old male with mental status changes with right prosthetic hip dislocation. I had a discussion with him and his family regarding further management, recommended closed versus open reduction of his right prosthetic hip dislocation. They were amenable with the plan. We discussed the risk and benefits of surgery. Risks included but were not limited to pain, bleeding, infection, damage to adjacent structures, need for further surgery, wound healing complications, loss of limb, . Patient expressed verbal consent and written consent was obtained for the above procedure. Patient was identified in preoperative holding. Operative site was marked in indelible ink. History, physical, consent were reviewed and updated. Patient was surrendered to the anesthesia team, taken to the operative suite, placed supine on a well-padded operative table. Anesthesia was induced. A timeout was called. All in attendance agreed regarding the patient's identity, procedure, operative site. Once the patient was appropriately relaxed, I performed a closed manipulative reduction maneuver with an assistant real estate manager applying counterpressure to the ASIS. Whereas the leg was shortened prior to the reduction maneuver, after failing a palpable clunk, the leg lengths were symmetric. Orthogonal flatplate radiographs obtained in the OR demonstrated reduction of the femoral prosthesis into the acetabular cup. A knee immobilizer and hip abduction pillow was applied. There were no apparent complications. I was present for the entire procedure. Postoperative plan: Okay for weightbearing as tolerated, posterior hip precautions. No hip flexion past 90, no internal rotation. Knee immobilizer and hip abduction pillow while in bed. For definitive management, if he and his family so wishes, I think elective acetabular component revision may be appropriate, most likely by a recon specialist at a tertiary referral center given his complicated surgical and medical issues. Condition: stable Disposition: floor Complications:: None apparent
--- NOTE | 2021-03-22 00:16 | HMH.ANESCL ---
[facility] Anesthesia Checklist - Structural Data Admitted From: Inpatient Planned Operative Procedure/s: closed red r hip Consent for Planned Operative Procedure(s) Verified: Yes - Additional verifications Anesthesia Reactions: No Hx Blood Transfusions: No Blood Transfusion Reaction: No - Airway Assessment C-Spine Mobility Assessed: Yes TMJ Mobility Assessed: Yes Dentition: Edentulous - Neurological Assessment Level of Consciousness: Awake, Alert, Disoriented, Restless - Anesthesia Plan Anesthesia Risk discussed: Yes Anesthesia Plan: Not verified due to Patient Condition ASA Class: IV Anesthesia Type: MAC [facility] History I have reviewed the patient's past medical history: Yes Medical History: Reports:: Aneurysm, Arrhythmia, Atherosclerotic Heart Disease, Atrial Fibrillation, Congestive Heart Failure, Chronic Obstructive Pulmonary Disease (COPD), Coronary Artery Disease, Cerebrovascular Accident, Gastroesophageal Reflux Disease(GERD), Hyperlipidemia, Hypertension, Internal Pacemaker, Myocardial Infarction Denies:: Cancer, Diabetes Mellitus Type 1, Diabetes Mellitus Type 2, MRSA, Seizures *Have you ever received a pneumonia vaccine?: No *Have you received a flu vaccine this season?: No Other Medical History: Denies: Blood Transfusion Reaction Anesthesia experience/problems:: none Laterality Cases: Left: Other, Right: Arthroscopy Hip, Total Hip Replacement Other Surgeries: Yes: CABG (x3), Cardiac Catheterization, Cardiac Surgery, Cholecystectomy, Colonoscopy, Coronary Stent, Open Heart Surgery, Pacemaker, Other Amputation: No Fractures: No - *Social History Smoking Status: Current every day smoker Tobacco Type: cigarettes # Packs/Day (cigarettes): 1 #Yrs smoked (if former smoker): 40 Alcohol Intake: never Alcohol Intake Frequency:: other Substance Use Type: marijuana *Occupational Status:: disabled Housing: apartment Household Members: none *Travel in the last 8 weeks: None Family Hx:: Asthma, Cancer, Coronary Artery Disease, Diabetes, Heart Attack, Hyperlipidemia, Hypertension
--- NOTE | 2021-03-22 00:18 | P.PN_ITS ---
[facility] Anesthesia Record Part I Intake, IV Amount: 200 Estimated blood loss (mL): 0 Urine output (mL): 0 Blood Pressure: 80/50 SaO2: 96 Pulse Rate: 78 Respiratory Rate: 12 Temperature: 97.9 F Patient is:: Awake, Stable Stable to PACU at:: 00:10
--- NOTE | 2021-03-22 00:37 | PC.NURSE ---
PT BACK TO FLOOR VIA BED W/OR STAFF @0834
--- NOTE | 2021-03-22 00:58 | SUR.PHASEI ---
03/22/21 ALEX Jones aware of pt's blood pressure in PACU. No new orders given at this time.
--- NOTE | 2021-03-22 02:20 | PC.NURSE ---
MD Kin torrez notified of pt's hypotension, instructed eveline Ag to start levophed drip and titrate for sbp greater than 100mmHg, moving pt to 216 for step down, EVELINE Zaidi taking report and starting drip
--- NOTE | 2021-03-22 02:40 | ECG_ITS ---
APPROVED REPORT Exam: Resting ECG HR:83 bpm ECG Measurements Heart Rate 83 AXES [place] 166 P 90 QRSd 172 QRS 237 QT 484 T 72 QTc 568 Conclusion Electronic ventricular pacemaker Electronically signed by : Mello Livingston MD 03/22/2021 13:22:23
--- NOTE | 2021-03-22 02:44 | PC.NURSE ---
started levophed drip at 8mcg/min at 0220 pt's sbp 70 with map in 40's; at 0224 bp 121/50 (73) turned drip to 4mcg/min, next bp at 0234 88/61 (70) increased drip to 6mcg/min; at 0240 bp 111/46 (67) turned drip down to 5mcg/min; at 0245 bp 106/50 (68) kept drip at 5mcg/min
--- NOTE | 2021-03-22 02:50 | PC.NURSE ---
bp 128/55 (79), decreased levo drip to 4mcg/min
--- NOTE | 2021-03-22 02:55 | PC.NURSE ---
pt's bp 126/51 (76), decreased drip to 3mcg/min
--- NOTE | 2021-03-22 03:05 | PC.NURSE ---
pt's bp 119/51, decreased drip to 2mcg/min
--- NOTE | 2021-03-22 03:40 | PC.NURSE ---
pt's bp 136/64, decreased drip to 1mcg/min
--- NOTE | 2021-03-22 03:55 | PC.NURSE ---
pt's bp 89/33, increased levophed drip to 2mcg/min
--- NOTE | 2021-03-22 04:02 | PC.NURSE ---
pt's bp 97/54, increased levophed drip to 3mcg/min
--- NOTE | 2021-03-22 05:00 | PC.NURSE ---
pt's bp 156/84, but have had pt on side/cleaning pt up; pt going to ct scan, will recheck another bp when returns
--- NOTE | 2021-03-22 05:26 | PC.NURSE ---
pt back from ct, pt's bp 154/69, will let pt settle back down from traveling and recheck another bp
--- NOTE | 2021-03-22 05:31 | PC.NURSE ---
199903/21/21 pt was noted upon start of shift lying in bed sideways, bed alarm on and functioning, pt was pulled up in bed and noted to be complaining of severe hip pain to right hip and grabbing it, noted shortening of left leg versus right and obvious hip bone shortening, Dr. Roberts was called and notified of pt complaints, radiology order received for portable hip and pelvis film, and percocet 10mg po x1. 2106 xray obtained, results were called to dr. orberts per radiology physician with results, dr cannon called and stated to have dr rutehrford come in and see patient tonight to reduce hip displacement, morphine order for 2mg iv q4 hours recieved, repeated and verified all orders recieved. Iv's were started x2. f/c inserted per orders. 2345 pt taken to OR via operating room staff. 0037 pt back from OR via hospital bed, hip abductor pillow intact with knee immobilizer intact, pedal pulses noted to bilateral extremities, pt arrousable to name, v/s noted with b/p's trending down, dr. roberts was notified 0124 b/p 70/35, 69/35, order recieved to give patient iv bolus of LR 500cc now, bolus was given and noted b/p still running low 70/30's [address] dr roberts was called regarding hypotension remaining after iv bolus, orders recieved to move to step down, and start levophed drip and titrate to keep sbp 100, repeated and verified. pt was moved to 216 and report was given to HARI Zaidi at 0220am
--- NOTE | 2021-03-22 06:00 | CT_ITS ---
PROCEDURE INFORMATION: Exam: CT Right Lower Extremity Without Contrast, Hip Exam date and time: 03/22/2021 6:00 AM Age: 56 years old Clinical indication: Injury or trauma; Other: Unknown; Hip; Right; Injury details: Post closed reduction of dislocation, concern for possible fracture; Additional info: Post-reduction of right hip TECHNIQUE: Imaging protocol: CT of the Right lower extremity without contrast was performed. Exam focused on the hip. Radiation optimization: All CT scans at this facility use at least one of these dose optimization techniques: automated exposure control; mA and/or kV adjustment per patient size (includes targeted exams where dose is matched to clinical indication); or iterative reconstruction. COMPARISON: CR XR HIP RT 2-3V W/PELVIS 03/22/2021 12:03 AM FINDINGS: Bones/joints: Interval reduction of the previously dislocated right total hip arthroplasty. Alignment is now anatomic. No periprosthetic fracture or osteolysis. No acute fracture is visualized. Soft tissues: Normal. Vasculature: Partially imaged stent within the right common iliac artery. IMPRESSION: Interval reduction of the right total hip arthroplasty. Alignment is now anatomic. No acute fracture is visualized.
--- NOTE | 2021-03-22 07:29 | PC.NURSE ---
BP 173/71. Levo gtt currently @ 1mcg/min. Levo gtt turned OFF at this time.
--- NOTE | 2021-03-22 08:57 | HMH.ACPN2 ---
Internal Medicine - PN: Subj *Date: 03/22/21 *Time: 08:57 Interval history: Patient had an extremely eventful 24 hours. Late yesterday evening was found to be akimbo in the bed with significant deformity of his hip and leg. Found to have dislocation on x-ray, orthopedics took him to the OR and after discussion about appropriate management given his history of hip fracture and ORIF in the remote past performed a closed reduction of the dislocation with fairly good results. Unfortunately the anesthesia that was required for the event did cause quite a bit of metabolic and hemodynamic derangement and patient was on a Levophed drip through most of the evening. Nursing has been able to wean it off about an hour ago and his pressure is in the 100 range systolically. His brother and are at bedside, they note that he is dramatically worse today in regards to mental status. Exam Vital signs and Labs for Last 24 Hours: Temp Pulse Resp BP Pulse Ox 97.6 F 99 H 30 H 135/108 H 95 03/22/21 08:00 03/22/21 08:00 03/22/21 08:00 03/22/21 08:00 03/22/21 08:00 I & O for Last 24 hours: Intake & Output 03/19/21 03/20/21 03/21/21 03/22/21 11:59 11:59 11:59 11:59 Intake Total 210 / 210 330 / 330 130 / 130 920 / 920 Output Total 250 / 250 250 / 250 0 / 0 Balance -40 / -40 80 / 80 130 / 130 920 / 920 Weight 142 lb 14.4 oz 135 lb 8 oz 134 lb 5 oz 142 lb Narrative: Patient is obtunded, minimally responsive to vigorous tactile stimuli. Breathing on his own without oxygen. Heart rate in the 90s with a paced rhythm on non destructive testing technician. Abdomen is scaphoid, extremities are warm, poor distal pulses at baseline. Assessment and Plan (1) Aspiration pneumonia Status: Acute Qualifiers: Aspiration pneumonia type: unspecified Laterality: right Lung location: lower lobe of lung Qualified Code(s): J69.0 - Pneumonitis due to inhalation of food and vomit Category: Medical Code(s): J69.0 - Pneumonitis due to inhalation of food and vomit (2) Encephalopathy Status: Acute Category: Medical Code(s): G93.40 - Encephalopathy, unspecified (3) HFrEF (heart failure with reduced ejection fraction) Status: Chronic Category: Medical Code(s): I50.20 - Unspecified systolic (congestive) heart failure (4) Biventricular automatic implantable cardioverter defibrillator in situ Status: Chronic Category: Medical Code(s): Z95.810 - Presence of automatic (implantable) cardiac defibrillator (5) Tobacco use disorder Status: Chronic Category: Medical Code(s): F17.200 - Nicotine dependence, unspecified, uncomplicated (6) Atrial fibrillation Status: Chronic Qualifiers: Atrial fibrillation type: longstanding persistent Qualified Code(s): I48.11 - Longstanding persistent atrial fibrillation Category: Medical Code(s): I48.91 - Unspecified atrial fibrillation (7) COPD (chronic obstructive pulmonary disease) Status: Chronic Qualifiers: COPD type: unspecified COPD Qualified Code(s): J44.9 - Chronic obstructive pulmonary disease, unspecified Category: Medical Code(s): J44.9 - Chronic obstructive pulmonary disease, unspecified (8) Dehydration Status: Acute Category: Medical Code(s): E86.0 - Dehydration (9) History of aortic aneurysm repair Status: Chronic Category: Surgical Code(s): Z98.890 - Other specified postprocedural states; Z86.79 - Personal history of other diseases of the circulatory system (10) Hypertension Status: Chronic Qualifiers: Hypertension type: primary hypertension Qualified Code(s): I10 - Essential (primary) hypertension Category: Medical Code(s): I10 - Essential (primary) hypertension (11) Hypokalemia Status: Acute Category: Medical Code(s): E87.6 - Hypokalemia (12) Noncompliance with medication regimen Status: Chronic Category: Medical Code(s): Z91.14 - Patient's other noncompliance with medication regimen (1
[2021-03-22 11:17] LABS: Basophils # 0.1 K/mm3 (0-0.2); Basophils % 0.4 % (0.1-2.0); Eosinophils # 0.1 K/mm3 (0.0-0.4); Eosinophils % 0.7 % (0.1-12.0); Hemoglobin 11.1 g/dL (14.1-18.0); Lymphocytes % 5.8 % (10-50); Mean Corpuscular HGB Conc 31.7 g/dL (31.8-35.4); Mean Corpuscular Hemoglobin 31.7 pg (27.0-31.2); Mean Platelet Volume 9.4 fl (7.4-10.4); Monocytes # 0.8 K/mm3 (0.1-1.0); Monocytes % 4.6 % (1.7-9.3); Neutrophils # 15.2 K/mm3 (1.8-7.8); Neutrophils % 88.5 % (37.0-80.0); Platelet Count 256 K/mm3 (142-424); White Blood Count 17.2 K/mm3 (4.8-10.8)
[2021-03-22 11:25] LABS: MANUAL DIFFERENTIAL MANUAL DIFFERENTIAL (MANUAL DIFF)
[2021-03-22 11:42] LABS: Anion Gap 17.2 mEq/L (5-15); Blood Urea Nitrogen 19 mg/dl (9-20); Calcium 10.8 mg/dl (8.4-10.2); Carbon Dioxide 25 mmol/L (22.0-30.0); Chloride 104 mmol/L (98-107); Creatinine Clearance Estimated 37 mL/min (50-200); Estimated Glomerular Filt Rate 34 ml/min (>60); GFR (African American) 42 ML/MIN (>60); Glucose 130 mg/dl (74-100); Potassium 5.2 mmoL/L (3.5-5.1); Sodium 141 mmol/L (136-145)
[2021-03-22 13:06] LABS: Lymphocytes % 12 % (10-50); Monocytes % 2 % (2-9); Neutrophils % 84 % (42-76); Total Cells Counted 100
[2021-03-22 13:07] LABS: Anisocytosis 1+; Macrocytosis 1+; Platelet Estimate Normal
--- NOTE | 2021-03-22 19:46 | PC.NURSE ---
Pain med given per may. Bed alarm in place. Pt resting at this time.
--- NOTE | 2021-03-22 21:35 | PC.NURSE ---
Made Dr. Livingston aware that pt has no u/o noted this shift since this RN took over cre for pt. Pt is also eating and drinking poorly. Indwelling cath remains in place. Dr. Livingston ordered a bmp for am.
[2021-03-23 00:45] VITALS: BP 64/34; PULSE 54; RESP 14; TEMP 37.5; O2SAT 97
--- NOTE | 2021-03-23 03:57 | PC.WOUNDNOTE ---
stage 2 noted on coccyx
--- NOTE | 2021-03-23 04:05 | PC.NURSE ---
LATE ENTRY: At 0045 patient's condition had declined. The tech came and got this RN regarding patient's condition. See patient vital signs and patient bio. At 0109 patient's family was notified of patient's change in condition. Crystal Good the patient's daughter was notified. At 0111 MD expedition supervisor was paged to notify of patient's decline in condition. At 0126 MD expedition supervisor paged again. At 0128 this RN spoke with MD expedition supervisor, MD gave no new orders and okay for ER MD to pronounce time of on the patient. Time of on the patient was 0154 on 03/23/21 FERNANDO was notified at 0216, FERNANDO to call back regarding patient qualifications. At 0252 this RN spoke with Ameena Baptiste who deferred the patient to be released to the home. Post-mortem care was provided by the [facility]
--- NOTE | 2021-03-23 18:07 | HMH.DEADDC ---
Discharge Sum: Prov - Provider Primary care physician: Suzan Fan MD Visit Care Team Role Provider Type Referral ProviderMD Primary Care Provider Referring Darek George MD Emergency Provider ER Physician Wilton Noova MD Admit Provider Staff Physician Attending Provider Admitting clinician: Mello Livingston Attending physician on admission: Mello Livingston Consults: 03/11/21 08:46 Nutrition Consult [CONS] Routine Comment: Reason for Nutrition Consult: Other Diet Instruction Type/Other: malnutrition 03/22/21 09:01 Consult to Hospice [CONS] Routine Comment: Hospice consult Consulting Provider: Discharge Sum: Diag - PCOD Cause of : Acute systolic congestive heart failure Discharge Sum: Summary - Date and Time Date of admission: 03/11/21 07:00 Date of : 03/23/21 Time of : 01:54 - Hospital Course prior to Hospital Course Information: Patient was admitted to hospital with significant lethargy, mental status change and acute on chronic delirium. Found to have aspiration pneumonia. Treated aggressively with IV fluids, IV antibiotics and supportive care, multiple lab studies were done to try to find the cause of his mental status change and these were unrevealing. 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 Given his significant acute on chronic systolic failure that initially was well compensated the patient was evaluated for long-term care placement with hospice consultation. This was in the works but unfortunately patient reinjured a pre-existing repaired hip by twisting awkwardly in his bed and had significant foreshortening and deformity of the the hip and leg. Was taken to the OR and under general anesthesia underwent a closed reduction. Patient tolerated the procedure well but his heart failure was exacerbated and he did not recover well from the surgical procedure. He became hypotensive, bradycardic. Family was aware of the situation and wished to continue supportive/palliative care and did not wish aggressive resuscitative measures. Patient continued to worsen and at the date and time indicated from his acute on chronic systolic heart failure with other medical comorbidities as noted below. - Additional Data Attending physician: Wilton Novoa MD
== END 2021-03-23 03:54 | disposition expired | DRG 177 ==
LOC: ER 20:46 → 2ND 03-10 00:46
PROVIDERS: Emergency Medicine; Internal Medicine Adolescent Medicine; Orthopaedic Surgery; Admitting Provider Internal Medicine Adolescent Medicine; Emergency Provider Emergency Medicine; Visit Provider Internal Medicine Adolescent Medicine
DX: J69.0 Pneumonitis due to inhalation of food and vomit (principal); I50.43 Acute on chronic combined systolic (congestive) and diastolic (congestive) heart failure; G93.40 Encephalopathy, unspecified; T84.020A Dislocation of internal right hip prosthesis, initial encounter; J44.0 Chronic obstructive pulmonary disease with (acute) lower respiratory infection; E51.2 Wernicke's encephalopathy; I48.11 Longstanding persistent atrial fibrillation; I11.0 Hypertensive heart disease with heart failure; Z20.822 Contact with and (suspected) exposure to COVID-19; Z91.14 Patient's other noncompliance with medication regimen; F17.210 Nicotine dependence, cigarettes, uncomplicated; I25.2 Old myocardial infarction; I25.10 Atherosclerotic heart disease of native coronary artery without angina pectoris; Z86.73 Personal history of transient ischemic attack (TIA), and cerebral infarction without residual deficits; E78.5 Hyperlipidemia, unspecified; Z95.1 Presence of aortocoronary bypass graft; Z95.810 Presence of automatic (implantable) cardiac defibrillator; E86.0 Dehydration; E87.6 Hypokalemia; Z91.19 Patient's noncompliance with other medical treatment and regimen; E83.51 Hypocalcemia; D69.6 Thrombocytopenia, unspecified; D64.9 Anemia, unspecified; R53.81 Other malaise; F13.10 Sedative, hypnotic or anxiolytic abuse, uncomplicated; X58.XXXA Exposure to other specified factors, initial encounter
CPT/HCPCS: 27266; 62272; 36415; 62270; 70450; 71045; 71250; 73502; 73700; 74177; 80048; 80053; 80305; 80329; 81001; 82140; 82150; 82550; 82803; 82945; 83605; 83655; 83690; 83735; 83825; 83880; 84100; 84155; 84484; 85007; 85025; 85378; 85651; 86140; 87040; 87070; 87086; 87205; 87496; 87498; 87899; 89051; 92610; 93005; 93306; 94640; 94761; 97110; 97161; 97163; 97165; 97530; 97535; 99284; C9803; G0378; J1956; Q9967; U0003; U0005